=== PATIENT | female | born 1955 | race Caucasian/White ===

== ENCOUNTER → 2016-08-08 | Outpatient (REF) | payer OTHER ==
[~2016-08-08] MED LIST: /CARB4TA OR; /CARBXR20T OR; /ESOM40CA OR; /OMEP10CA OR; /QUET25TA OR; ACET500C PO; ACET65TA OR; BACL10TA2 OR; BISA10SU PO; BUSP7.5T3 PO; COLA100C2 OR; COMBIN INH; COPAXIN; COPAXIN SC; DOCU10ELUD PO; EFFE37.527 OR; FEVE325S RE; FLEEENE4 PR; FLON0.05; FLUTISP; HYDR25TA6 OR; LACT10SO8 PO; LASI20TA OR; LASIX PO; LYRI75CA PO; METAPOW PO; MOM30SS PO; MULTIVIT OR; NAPR375T OR; NAPR375T PO; OXYB5TAB5 OR; POLYBTL PO; PROZ20CA OR; PROZ20CA PO; RANI150C OR; SENN8.6T14 OR; SERO200T OR; TEGR200T PO; TIZA4TAB OR; VICO5TAB OR; ZEST20TA4 OR
[2016-08-08 10:08] LABS: BASO % 0.5 % (0.0-1.0); EOS # 0.3 K/mm3 (0.0-0.50); EOS % 4.8 % (0.0-3.0); LARGE UNSTAINED CELL # 0.1 K/mm3 (0.0-0.4); LYMPH # 1.4 K/mm3 (1.5-4.5); MEAN CORPUSCULAR HGB CONC 32.6 g/dl (32.0-36.5); MEAN CORPUSCULAR VOLUME 91.9 fl (80.0-96.0); MONO # 0.4 K/mm3 (0.0-0.8); NEUTROPHILS # 4.7 K/mm3 (1.8-7.7); NEUTROPHILS % 66.8 % (36.0-66.0); PLATELET COUNT, AUTOMATED 288 k/mm3 (150-450); RED CELL DISTRIBUTION WIDTH 13.4 % (11.5-14.5)
[2016-08-08 10:39] LABS: ALBUMIN 3.5 GM/DL (3.2-5.2); ALKALINE PHOSPHATASE 135 U/L (45-117); ALT/SGPT 18 U/L (12-78); ANION GAP 6 MEQ/L (8-16); AST/SGOT 14 U/L (15-37); BILIRUBIN,TOTAL 0.4 MG/DL (0.2-1.0); BLOOD UREA NITROGEN 10 MG/DL (7-18); CALCIUM LEVEL 8.4 MG/DL (8.8-10.2); CARBON DIOXIDE LEVEL 31 MEQ/L (21-32); CHLORIDE LEVEL 91 MEQ/L (98-107); CHOLESTEROL LEVEL 204 MG/DL (<200); CREATININE FOR GFR 0.56 MG/DL (0.55-1.02); GLOMERULAR FILTRATION RATE > 60.0 (>45); GLUCOSE, FASTING 83 MG/DL (80-110); POTASSIUM SERUM 4.8 MEQ/L (3.5-5.1); SODIUM LEVEL 128 MEQ/L (136-145); TOTAL PROTEIN 7.9 GM/DL (6.4-8.2); TRIGLYCERIDES LEVEL 142 MG/DL (<150)
== END ==
LOC: SKLABADC 08:49
PROVIDERS: ATTEND Family Medicine
DX: Z00.00 Encounter for general adult medical examination without abnormal findings (principal); E78.5 Hyperlipidemia, unspecified

== ENCOUNTER → 2016-12-17 | Outpatient (REF) | payer MEDICAID, OTHER ==
[2016-12-17 12:59] LABS: MEAN CORPUSCULAR HEMOGLOBIN 29.6 pg (27.0-33.0); MEAN CORPUSCULAR HGB CONC 32.9 g/dl (32.0-36.5); MEAN CORPUSCULAR VOLUME 90.1 fl (80.0-96.0); RED CELL DISTRIBUTION WIDTH 13.6 % (11.5-14.5); WHITE BLOOD COUNT 6.4 K/mm3 (4.0-10.0)
[2016-12-17 13:38] LABS: ALBUMIN 3.5 GM/DL (3.2-5.2); ALKALINE PHOSPHATASE 117 U/L (45-117); ALT/SGPT 22 U/L (12-78); ANION GAP 7 MEQ/L (8-16); AST/SGOT 16 U/L (15-37); BILIRUBIN,TOTAL 0.3 MG/DL (0.2-1.0); BLOOD UREA NITROGEN 13 MG/DL (7-18); CARBON DIOXIDE LEVEL 28 MEQ/L (21-32); CHLORIDE LEVEL 96 MEQ/L (98-107); CHOLESTEROL LEVEL 185 MG/DL (<200); CREATININE FOR GFR 0.63 MG/DL (0.55-1.02); GLOMERULAR FILTRATION RATE > 60.0 (>45); GLUCOSE, FASTING 130 MG/DL (80-110); POTASSIUM SERUM 4.4 MEQ/L (3.5-5.1); SODIUM LEVEL 131 MEQ/L (136-145); TOTAL PROTEIN 7.9 GM/DL (6.4-8.2); TRIGLYCERIDES LEVEL 271 MG/DL (<150)
== END ==
LOC: SKLABADC 11:43
PROVIDERS: ATTEND Nurse Practitioner Psychiatric/Mental Health
DX: Z79.899 Other long term (current) drug therapy (principal)

== ENCOUNTER → 2017-01-23 | Outpatient (CLI) | payer OTHER, MEDICAID ==
--- NOTE | 2017-01-24 02:14 | REP ---
Clinical: Left hip pain. Technique: Frontal view of the pelvis with neutral and frog lateral views of the right and left hip. Findings: Age-related osteopenia and moderate bilateral degenerative changes include joint space narrowing with subtle increase sclerosis and spurring along the acetabular roof. No acute fracture dislocation. No obvious periarticular calcifications. Surrounding soft tissues are unremarkable. Impression: Age-related osteopenia and mild/moderate bilateral degenerative changes. Signed by Nathan Montana MD 01/24/2017 02:05 A
== END ==
LOC: M RAD 09:53
PROVIDERS: ATTEND Family Medicine
DX: M25.552 Pain in left hip (principal)

== ENCOUNTER → 2017-03-24 | Outpatient (CLI) | payer MEDICAID ==
--- NOTE | 2017-03-24 12:05 | REPMRS ---
Patient History The patient states she has not had a clinical breast exam in over a year. Patient is postmenopausal. Family history of breast cancer in paternal grandmother. Digital Woman Screen Mammo: March 24, 2017 - Exam #: [id number] Bilateral CC and MLO view(s) were taken. Technologist: Mily Rivera, Technologist Prior study comparison: March 24, 2015, digital woman screen mammo performed at [facility]. June 21, 2013, bilateral digital mammo screening bilat, performed at [facility]. FINDINGS: There are scattered fibroglandular densities. There has been no change in the appearance of the mammogram from the prior studies. There is a mild amount of residual fibroglandular tissue which is fairly symmetric. There is no interval development of dominant mass, architectural distortion, or clustered microcalcification suggestive of malignancy. ASSESSMENT: BI-RADS/ACR category 1 mammogram. Negative. Recommendation Routine screening mammogram in 1 year (for women over age 40). This mammogram was interpreted with the aid of an FDA-approved computer-aided dectection system. Electronically Signed By: Diallo Paula MD 03/24/17 [id number]
--- NOTE | 2017-03-26 09:39 | DEXA ---
AP SPINE L1 - L4 1.151 -0.4 1.0 LT FEMUR TOTAL 0.716 -2.3 -1.3 RT FEMUR TOTAL 0.738 -2.1 -1.1 TOTAL BODY TOTAL OTHER COMMENTS: Normal bone densitometry of the spine. There is low bone density of the hips. The decreased density of the spine does not represent a significant change. The decreased density of the left hip does represent a significant change. The increased density of the right hip does represent a significant change. The density of the spine has increased 14.2% since the initial exam on 2009. The spine density has decreased 1.3% since the most recent exam on 03/24/2015. The density of the left hip has decreased 6.0% since the initial exam on 2009. The density of the left hip has decreased 6.3% since the most recent exam on . The density of the right hip has decreased 0.8% since the most recent exam on . The density of the right hip has increased 6.5% since the most recent exam on . FOLLOW-UP: Recommendation for the next bone density exam: 2 years. GERALD
== END ==
LOC: M WHC 10:39
PROVIDERS: ATTEND Family Medicine
DX: M85.80 Other specified disorders of bone density and structure, unspecified site (principal); Z13.820 Encounter for screening for osteoporosis; Z78.0 Asymptomatic menopausal state
CPT/HCPCS: 77080; G0202

== ENCOUNTER → 2017-04-10 | Outpatient (CLI) | payer MEDICAID | LOC: M RAD 12:10 | DX: J44.9 Chronic obstructive pulmonary disease, unspecified (principal) | CPT/HCPCS: 71046 ==

== ENCOUNTER → 2017-08-19 | Outpatient (CLI) | payer MEDICAID | LOC: M RAD 12:42 | DX: M47.9 Spondylosis, unspecified (principal); R09.89 Other specified symptoms and signs involving the circulatory and respiratory systems ==

== ENCOUNTER → 2017-08-19 | Outpatient (REF) | payer MEDICAID ==
[2017-08-19 14:13] LABS: ANION GAP 7 MEQ/L (8-16); BLOOD UREA NITROGEN 11 MG/DL (7-18); CALCIUM LEVEL 8.7 MG/DL (8.8-10.2); CARBON DIOXIDE LEVEL 29 MEQ/L (21-32); CHLORIDE LEVEL 96 MEQ/L (98-107); CREATININE FOR GFR 0.65 MG/DL (0.55-1.30); GLOMERULAR FILTRATION RATE > 60.0 (>45); GLUCOSE, FASTING 76 MG/DL (70-100); NT-PRO BNP 180 PG/ML (<125); POTASSIUM SERUM 4.7 MEQ/L (3.5-5.1); SODIUM LEVEL 132 MEQ/L (136-145)
== END ==
LOC: M SFHCPLAZ 11:02
DX: R60.0 Localized edema (principal)

== ENCOUNTER → 2018-03-26 | Outpatient (REF) | payer MEDICAID ==
[2018-03-27 12:00] LABS: AMORPHOUS SEDIMENT MODERATE (NEGATIVE); APPEARANCE, URINE TURBID (CLEAR); BACTERIA, URINE AUTO NEGATIVE (NEGATIVE); BILIRUBIN, URINE AUTO NEGATIVE (NEGATIVE); BLOOD, URINE BLOOD NEGATIVE (NEGATIVE); GLUCOSE, URINE (UA) AUTO NEGATIVE (NEGATIVE); KETONE, URINE AUTO TRACE mg/dL (NEGATIVE); LEUKOCYTE ESTERASE, URINE AUTO TRACE (NEGATIVE); NITRITE, URINE AUTO NEGATIVE (NEGATIVE); PROTEIN, URINE AUTO 2+ mg/dL (NEGATIVE); RBC, URINE AUTO 0 /HPF (0-3); SPECIFIC GRAVITY URINE AUTO 1.019 (1.002-1.035); SQUAMOUS EPITHELIAL CELL UR AU 0 /HPF (0-6); UROBILINOGEN, URINE AUTO 0.2 mg/dL (0.0-2.0); WBC, URINE AUTO 18 /HPF (0-3)
[2018-03-27 12:01] LABS: COLOR, URINE YELLOW (YELLOW)
== END ==
LOC: M SFHCPLAZ 11:36
PROVIDERS: ATTEND Family Medicine
DX: N39.0 Urinary tract infection, site not specified (principal)

== ENCOUNTER → 2018-03-26 | Outpatient (REF) | payer MEDICAID ==
[2018-03-26 17:24] LABS: BASO % 0.5 % (0.0-1.0); EOS # 0.4 10^3/uL (0.0-0.50); EOS % 5.2 % (0.0-3.0); HEMATOCRIT 36.2 % (36.0-47.0); HEMOGLOBIN 11.4 g/dl (12.0-15.5); LYMPH # 2.9 10^3/uL (1.5-4.5); LYMPH % 39.7 % (24.0-44.0); MEAN CORPUSCULAR HEMOGLOBIN 28.4 pg (27.0-33.0); MEAN CORPUSCULAR HGB CONC 31.5 g/dl (32.0-36.5); MEAN CORPUSCULAR VOLUME 90.3 fl (80.0-96.0); MONO # 0.6 10^3/uL (0.0-0.8); MONO % 8.2 % (0.0-5.0); NEUTROPHILS # 3.4 10^3/uL (1.8-7.7); NEUTROPHILS % 46.1 % (36.0-66.0); PLATELET COUNT, AUTOMATED 299 10^3/uL (150-450); RED BLOOD COUNT 4.01 10^6/uL (4.00-5.40); WHITE BLOOD COUNT 7.3 10^3/uL (4.0-10.0)
[2018-03-26 17:41] LABS: HEMOGLOBIN A1c 6.1 %
[2018-03-26 17:53] LABS: ALBUMIN 3.2 GM/DL (3.2-5.2); ALT/SGPT 19 U/L (12-78); BILIRUBIN,TOTAL 0.2 MG/DL (0.2-1.0); BLOOD UREA NITROGEN 12 MG/DL (7-18); CARBAMAZEPINE (TEGRETOL) LEVEL 16.3 UG/ML (4.0-10.0); CARBON DIOXIDE LEVEL 31 MEQ/L (21-32); CHLORIDE LEVEL 97 MEQ/L (98-107); CHOLESTEROL LEVEL 228 MG/DL (<200); CHOLESTEROL RISK RATIO 4.301 (<5); CREATININE FOR GFR 0.85 MG/DL (0.55-1.30); FREE T4 0.67 NG/DL (0.76-1.46); GLOMERULAR FILTRATION RATE > 60.0 (>45); GLUCOSE, FASTING 82 MG/DL (70-100); HDL CHOLESTEROL 53 MG/DL (>40); LDL CHOLESTEROL 142 MG/DL (<100); NON-HDL-C 175 MG/DL; POTASSIUM SERUM 4.4 MEQ/L (3.5-5.1); SODIUM LEVEL 134 MEQ/L (136-145); TOTAL PROTEIN 7.9 GM/DL (6.4-8.2); TRIGLYCERIDES LEVEL 166 MG/DL (<150)
== END ==
LOC: M SFHCPLAZ 16:00
PROVIDERS: ATTEND Family Medicine
DX: G40.909 Epilepsy, unspecified, not intractable, without status epilepticus (principal); E78.5 Hyperlipidemia, unspecified; S82.891D Other fracture of right lower leg, subsequent encounter for closed fracture with routine healing; W18.30XD Fall on same level, unspecified, subsequent encounter; Y92.009 Unspecified place in unspecified non-institutional (private) residence as the place of occurrence of the external cause

== ENCOUNTER 2018-04-29 11:04 | Inpatient (IN) | payer MEDICAID, OTHER ==
[~2018-04-29] VITALS: Ht 172.7 cm; Wt 84.6 kg
[2018-04-29] MEDS ORDERED: MODA100T13 PO (12:04)
[2018-04-29] MEDS ORDERED: FLUO20CA19 PO (12:04)
[2018-04-29] MEDS ORDERED: GABA-843 PO (12:04)
[2018-04-29] MEDS ORDERED: OXYB5TAB10 PO (12:04)
[2018-04-29] MEDS ORDERED: FURO20TA2 PO (12:04)
[2018-04-29] MEDS ORDERED: DIAZ5TAB PO (12:04)
[2018-04-29] MEDS ORDERED: TIZA4CAP PO (12:04)
[2018-04-29] MEDS ORDERED: CARB1TAB20 PO ×2 (12:04→16:07)
[2018-04-29] MEDS ORDERED: PANT40TA3 PO (12:04)
[2018-04-29] MEDS ORDERED: CARB10TACH PO (12:04)
[2018-04-29] MEDS ORDERED: POTA10808 PO (12:04)
[2018-04-29] MEDS ORDERED: QUET5TAB PO (12:04)
[2018-04-29] MEDS ORDERED: METH75TA PO (12:04)
[2018-04-29] MEDS ORDERED: NS 1,000 ML IV ONE (13:00)
[2018-04-29 13:08] LABS: BASO % 0.2 % (0.0-1.0); EOS % 0.3 % (0.0-3.0); HEMATOCRIT 41.9 % (36.0-47.0); HEMOGLOBIN 13.8 g/dl (12.0-15.5); LYMPH % 17.8 % (24.0-44.0); MEAN CORPUSCULAR HEMOGLOBIN 28.7 pg (27.0-33.0); MEAN CORPUSCULAR HGB CONC 32.9 g/dl (32.0-36.5); MEAN CORPUSCULAR VOLUME 87.1 fl (80.0-96.0); MONO % 9.4 % (0.0-5.0); NEUTROPHILS # 7.9 10^3/uL (1.8-7.7); PLATELET COUNT, AUTOMATED 326 10^3/uL (150-450); RED BLOOD COUNT 4.81 10^6/uL (4.00-5.40)
[2018-04-29 13:14] LABS: ALBUMIN 3.4 GM/DL (3.2-5.2); ALT/SGPT 50 U/L (12-78); BILIRUBIN,DIRECT 0.2 MG/DL (0.0-0.2); BILIRUBIN,TOTAL 0.6 MG/DL (0.2-1.0); BLOOD UREA NITROGEN 26 MG/DL (7-18); CALCIUM LEVEL 8.7 MG/DL (8.8-10.2); CARBON DIOXIDE LEVEL 28 MEQ/L (21-32); CHLORIDE LEVEL 96 MEQ/L (98-107); CPK CREATINE PHOSPHOKINASE 401 U/L (26-192); CREATININE FOR GFR 0.87 MG/DL (0.55-1.30); GLOMERULAR FILTRATION RATE > 60.0 (>45); GLUCOSE, FASTING 126 MG/DL (70-100); LIPASE 61 U/L (73-393); MB/CK RELATIVE INDEX 1.42 (< OR =4); POTASSIUM SERUM 3.8 MEQ/L (3.5-5.1); SODIUM LEVEL 133 MEQ/L (136-145); TOTAL PROTEIN 8.5 GM/DL (6.4-8.2); TROPONIN I < 0.02 NG/ML (< 0.10)
[2018-04-29] MEDS ORDERED: ISOVUE-370 76% 100ML VIAL (Q9967) As Ordered ONE (13:30)
--- NOTE | 2018-04-29 13:42 | REP ---
Chest one-view HISTORY: Hypoxia Comparison: 08/19/2017 There is poor inspiratory effort. A diffuse increase in interstitial markings is present in the lungs consistent with chronic interstitial fibrosis. The heart is normal in size. The pulmonary vasculature is normal in appearance. Impression: Chronic interstitial fibrosis. Electronically Signed by Bhanu Oliver MD 04/29/2018 01:33 P
--- NOTE | 2018-04-29 14:37 | REP ---
CT abdomen and pelvis with IV contrast: History: Distended abdomen. Comparison CT study January 27, 2012. CT contrast dose: 100 mL of intravenous Isovue 370. Findings: Preliminary digital door opener radiograph shows marked gaseous distension of the colon consistent with a left colonic obstruction. Colonic distension is on the order of 10 cm in transverse dimension. CT images demonstrate evidence of COPD in the lung bases with some honeycombing and fibrosis. There is an air-fluid level in the otherwise fluid-filled and dilated distal esophagus consistent with reflux. The stomach is not dilated. The liver and spleen are normal in size and homogeneous in texture. No abnormality noted in the gallbladder. Pancreas is unremarkable. No adrenal lesion is seen. There is some renal cortical parenchymal scarring in the upper pole on the left. No intrarenal mass is seen. No hydronephrosis is seen. There is evidence of left colonic obstruction. There is a mesenteric whirl sign in the right lower abdomen demonstrating a volvulus involving the sigmoid colon. Distal to the whirl sign the rectum and rectosigmoid are empty. Proximal to this the colon is markedly dilated. There is a beak like appearance at the level of the obstruction. No colonic mass lesion is seen. There is no evidence of free intraperitoneal air. There are three opacities adjacent to one another in the lumen of the cecum consistent with undigested tablets. There is mild ascitic fluid visible in the left pericolic gutter and in the subhepatic space and pericolic region on the right. No uterine or urinary bladder abnormality. Impression: Acute severe distal left colon obstruction in the form of sigmoid volvulus with marked dilation of the proximal large bowel. No free air. There is mild ascites visible in the left pericolic gutter and in the right flank and subhepatic space. Electronically Signed by Chava Estes MD 04/29/2018 05:17 P
[2018-04-29] MEDS ORDERED: LIQUID POLIBAR PLUS 105% w/v 1900ML BTL As Ordered ONE (15:05)
[2018-04-29] MEDS ORDERED: fentaNYL 100 MCG/2 ML INJECTION (J3010) As Ordered ONE ×2 (15:56→18:13)
[2018-04-29] MEDS ORDERED: dexameTHASONE 4 MG/ML 1ML VIAL (J1100) As Ordered ONE (15:56)
[2018-04-29] MEDS ORDERED: MIDAZOLAM INJ 2 MG/2 ML VIAL (J2250) As Ordered ONE (15:56)
[2018-04-29] MEDS ORDERED: LIDOCAINE 2% INJ 100 MG/5 ML SDV (FOR ANES.) As Ordered ONE (15:56)
[2018-04-29] MEDS ORDERED: ROCURONIUM BROMIDE 50 MG/5 ML VIAL As Ordered ONE ×2 (15:56→18:58)
[2018-04-29] MEDS ORDERED: PROPOFOL 200 MG/20 ML VIAL As Ordered ONE (15:56)
[2018-04-29] MEDS ORDERED: ACET1TAB55 PO (16:07)
[2018-04-29] MEDS ORDERED: DOCU100C16 PO (16:07)
[2018-04-29] MEDS ORDERED: FLUO20TA28 PO (16:07)
[2018-04-29] MEDS ORDERED: TIZA6CAP6 PO (16:09)
[2018-04-29] MEDS ORDERED: VITMTA PO (16:12)
[2018-04-29] MEDS ORDERED: cefoTEtan INJ 2GM VIAL (S0074 PER 500MG) As Ordered ONE ×2 (16:27→16:46)
--- NOTE | 2018-04-29 17:22 | REP ---
SINGLE CONTRAST BARIUM ENEMA The procedure was performed under the personal supervision of Dr. Estes. Liquid barium was instilled into the colon and retrograde flow. There is filling of the rectum to the level of the superior sacrum. There is a beaking sign with dilated bowel proximally which is consistent with a volvulus. Impression: There is filling of the rectum to the level of the superior sacrum. There is a beaking sign with dilated bowel proximally which is consistent with a volvulus. 0.4 minutes of fluoroscopy time was utilized for this procedure. Reviewed by ADONAY Dumont 04/29/2018 03:43 P Electronically Signed by Chava Estes MD 04/29/2018 05:13 P
--- NOTE | 2018-04-29 17:54 | ECGEPIP ---
Stationary ECG Study [facility] - ED Test Date: 2018-04-29 Pat Name: CHARITY ALLEN Department: Room: - Gender: F [employer]working [employer] [facility] 1955 Requested By: [place] Order Number: [id number] Reading MD: Elo [place] Measurements Intervals [place] Rate: 105 P: 28 AL: 168 QRS: 14 QRSD: 92 T: 22 QT: 333 QTc: 442 Interpretive Statements SINUS TACHYCARDIA PRWP MINIMAL ST DEPRESSION ABNORMAL RHYTHM ECG Electronically Signed On 04-29-2018 17:54:03 EST by Elo Park
[2018-04-29] MEDS ORDERED: SUCCINYLCHOLINE 100 MG/5 ML SYRINGE (J0330) As Ordered ONE (18:03)
[2018-04-29] MEDS ORDERED: HYDROmorphone HCL 2 MG/ML 1ML VIAL (J1170) As Ordered ONE (19:17)
[2018-04-29 20:50] VITALS: BP 176/83
[2018-04-29] MEDS ORDERED: LABETALOL HCL 100 MG/20 ML VIAL As Ordered ONE (20:53)
[2018-04-29] MEDS: LABETALOL HCL 100 MG/20 ML VIAL IV SCH ×4 (20:55→21:17)
[2018-04-29] MEDS: GABAPENTIN 300 MG CAP PO SCH (21:00)
[2018-04-29] MEDS ORDERED: carBAMazepine 200 MG TAB PO SCH (21:00)
[2018-04-29] MEDS ORDERED: PERCOCET 5MG/325MG TAB PO PRN (21:15)
[2018-04-29] MEDS ORDERED: HYDROMORPHONE HCL 0.5 MG/ 0.5 ML SYRINGE (J1170 PER 1) IV PRN (21:15)
[2018-04-29] MEDS ORDERED: fentaNYL 100 MCG/2 ML INJECTION (J3010) IV PRN (21:15)
[2018-04-29] MEDS ORDERED: METOPROLOL 5 MG/5 ML VIAL IV SCH (21:15)
[2018-04-29] MEDS ORDERED: ONDANSETRON 4MG/2ML VIAL (J2405) IV PRN (21:15)
[2018-04-29] MEDS ORDERED: LR 1,000 ML IV SCH (21:15)
[2018-04-29] MEDS ORDERED: hydrALAZINE INJ 20 MG/ML VIAL IV SCH (21:15)
[2018-04-29 21:17] VITALS: BP 164/79
[2018-04-29] MEDS: NS 1,000 ML IV SCH (21:42)
[2018-04-29 22:30] VITALS: BP 143/79
[2018-04-29] MEDS: metroNIDAZOLE 500 MG in APPROPRIATE DILUENT 1 EA IV SCH (22:54)
[2018-04-29 23:00] VITALS: BP 153/84
[2018-04-30] VITALS (8 sets, daily range): BP systolic 104–184; BP diastolic 46–93
[2018-04-30] MEDS: CIPROFLOXACIN 400 MG in APPROPRIATE DILUENT 1 EA IV SCH ×2 (00:41→12:20)
[2018-04-30] MEDS: KETOROLAC 30 MG/ML VIAL (J1885) IV PRN ×2 (02:13→10:18)
[2018-04-30] MEDS: MORPHINE 4 MG/ML 1ML VIAL/SYRINGE (J2270) IV PRN ×2 (03:54→06:34)
[2018-04-30] MEDS: metroNIDAZOLE 500 MG in APPROPRIATE DILUENT 1 EA IV SCH ×3 (06:34→22:24)
[2018-04-30 06:41] LABS: HEMATOCRIT 43.2 % (36.0-47.0); HEMOGLOBIN 13.8 g/dl (12.0-15.5); MEAN CORPUSCULAR HEMOGLOBIN 28.4 pg (27.0-33.0); MEAN CORPUSCULAR HGB CONC 31.9 g/dl (32.0-36.5); MEAN CORPUSCULAR VOLUME 88.9 fl (80.0-96.0); PLATELET COUNT, AUTOMATED 334 10^3/uL (150-450); RED BLOOD COUNT 4.86 10^6/uL (4.00-5.40)
[2018-04-30] MEDS: METHOCARBAMOL 750 MG TAB PO SCH ×4 (06:56→16:08)
[2018-04-30] MEDS: NS 1,000 ML IV SCH ×3 (06:57→20:27)
--- NOTE | 2018-04-30 07:03 | RO ---
DATE OF PROCEDURE: 04/29/2018 PREOPERATIVE DIAGNOSIS: Sigmoid volvulus. Is to remove this. POSTOPERATIVE DIAGNOSIS: Sigmoid volvulus. PROCEDURE: Colonoscopy followed by exploratory laparotomy with sigmoid resection and diverting ileostomy. SURGEON: Dr. Diallo Flores SQUEEGEE OPERATOR: Dr. Son, who assisted in mobilization of the colon, low anastomosis end-to-end, as well as, diverting ileostomy. ANESTHESIA: General. ESTIMATED BLOOD LOSS: 100 mL. COMPLICATIONS: None. INDICATION FOR PROCEDURE: The patient is a 62-year-old female with sigmoid volvulus. Recommendation is to proceed with a colonoscopy and possible exploratory laparotomy if that is unsuccessful. Risks and benefits of the procedure not limited to, but including bleeding, infection, hernia formation, damage to surrounding structures, need for further surgery were discussed in detail with the patient and informed consent was obtained and the procedure was planned. DESCRIPTION OF PROCEDURE: The patient was brought back to operating room six. After sufficient sedation she was placed in the frog-leg position. Colonoscope was passed through the rectum into the sigmoid volvulus where there was a large amount of thick stool identified. I attempted irrigation and removal of the stool for about 30 minutes and was unsuccessful. It could not get beyond this point up into the descending colon. Therefore, recommendation was to stop and proceed with exploratory laparotomy. The patient was then prepped. She had NG tube placed as well as a Masterson. She was placed in lithotomy position. The abdomen was sterilely prepped and draped. Once this was completed, a time out was done again to confirm proper patient and proper procedure. Following that, a midline incision was made. The abdomen was entered. Once upon entering the abdomen, loops of transverse colon was sitting right at the level of the umbilicus. It was about 10 cm in diameter. A small pursestring suture was placed with a #2-0 silk suture followed by a small colotomy to decompress the colon. Once the transverse colon was desufflated, a pursestring suture was tied followed by three interrupted Lembert stitches to close the incision. Once that was completed, the sigmoid was able to be reached. It was also extremely distended and too difficult to mobilize out the abdomen. The same process was done to decompress the sigmoid. Once this was completed, the sigmoid was able to be exteriorized out of the abdomen. There was a band of tissue going across the terminal ileum and across the mesentery causing the twist. This band of tissue was released. Next, at the rectosigmoid junction, I created a small opening in the mesentery. I then used a DANNIE 100 stapler with a blue load to staple across and transect it. The mesentery of the sigmoid colon was then transected proximally all way to level of the descending colon. The sigmoid was very edematous and swollen from being distended. The descending colon appeared to be nice and viable. Another DANNIE 100 stapler was used there to amputate that as well. Once that was completed, the anvil for an EEA 29 stapler was placed in the end of the descending colon and brought out through the staple line. A couple of pursestring sutures were placed around that as well to help hold that in place. Once this was completed, Dr. Son went below and dilated through the rectum once then brought in the end of the EEA stapler. We connected the anvil to the spike and created the anastomosis. We had two solid donuts that were completely intact. We placed a layer of Tisseel around the anastomosis exteriorly as well as a 19-Bengali Stanton drain was placed on top of it. The Stanton drain was brought out through a stab incision in the left lower abdomen and sutured in place with a silk suture. Once this was completed, the terminal ileum was identified and traced back about 20 cm and found a location in the right midabdomen and I created an incision, a circular incision in the skin through the subcutaneous fat and removed that. I created a vertical incision in the fascia through the muscle layers and inside the abdomen and brought out the loop of terminal ileum through the fascia and out to the skin. I held this in place with a Howells while we closed the fascia at the midline incision using a running looped PDS suture. Once that was completed, the skin incision was closed with maynor. The ostomy spike was then placed through the mesentery to hold that up in place and the diverting ostomy was matured using interrupted #3-0 Vicryl sutures. Once this was all completed, the abdomen was cleaned and dried. Ostomy appliance was applied. 4x4 dressings were placed. The patient was then awakened from anesthesia and sent to the postanesthesia care unit (PACU) in stable condition.
[2018-04-30 07:04] LABS: ALBUMIN 2.3 GM/DL (3.2-5.2); ALT/SGPT 29 U/L (12-78); BILIRUBIN,TOTAL 0.7 MG/DL (0.2-1.0); BLOOD UREA NITROGEN 23 MG/DL (7-18); CALCIUM LEVEL 7.7 MG/DL (8.8-10.2); CARBON DIOXIDE LEVEL 29 MEQ/L (21-32); CHLORIDE LEVEL 101 MEQ/L (98-107); CREATININE FOR GFR 0.86 MG/DL (0.55-1.30); GLOMERULAR FILTRATION RATE > 60.0 (>45); GLUCOSE, FASTING 130 MG/DL (70-100); POTASSIUM SERUM 5.1 MEQ/L (3.5-5.1); SODIUM LEVEL 136 MEQ/L (136-145); TOTAL PROTEIN 6.1 GM/DL (6.4-8.2)
--- NOTE | 2018-04-30 08:57 | REP ---
REPEAT DICTATION PORTABLE CHEST X-RAY: Single view. 04/29/2018, 10:44 p.m. HISTORY: NG tube placement. Preliminary report is provided at the time of exam by virtual radiology. COMPARISON STUDY: April 26, 2018 01:26 p.m.. FINDINGS: A nasogastric tube is seen terminating in the distal esophagus just above the gastroesophageal junction. There is air in the distal esophagus around the tube. Diffuse interstitial fibrosis pattern is seen in the lung napoles. Mildly prominent heart. Dilated bowel loops in the upper abdomen. IMPRESSION: NG tube in the distal esophagus just above the GE junction. Electronically Signed by Chava Estes MD 04/30/2018 11:25 A
[2018-04-30] MEDS ORDERED: QUEtiapine FUMARATE 50 MG TAB PO SCH (09:00)
[2018-04-30] MEDS ORDERED: DULE100A INH (09:19)
[2018-04-30] MEDS ORDERED: PROAAER10 INH (09:19)
[2018-04-30] MEDS ORDERED: QUET1TAB9 PO (09:19)
[2018-04-30] MEDS ORDERED: COPA1INJ SC (09:19)
[2018-04-30] MEDS ORDERED: SENN1TAB2 PO (09:19)
[2018-04-30] MEDS ORDERED: IPRAINH INH (09:19)
[2018-04-30] MEDS ORDERED: PILL CRUSHER/CUTTER 1 EACH XX PRN (09:45)
[2018-04-30] MEDS: FUROSEMIDE 20 MG TAB PO SCH (10:13)
[2018-04-30] MEDS: FLUoxetine 20 MG CAP PO SCH (10:13)
[2018-04-30] MEDS: HEPARIN SOD (PORCINE) 5000 UNITS/ML VIAL SC SCH ×2 (10:13→20:26)
[2018-04-30] MEDS: tiZANidine 4 MG TAB PO SCH ×3 (10:13→20:25)
[2018-04-30] MEDS: GABAPENTIN 300 MG CAP PO SCH ×3 (10:13→20:25)
[2018-04-30] MEDS: carBAMazepine 200 MG TAB PO SCH (10:14)
[2018-04-30] MEDS: PANTOPRAZOLE 40MG INJ (PROTONIX) (C9113) IV SCH (10:14)
[2018-04-30] MEDS: oxyBUTYnin 5 MG TAB PO SCH ×2 (10:14→20:26)
[2018-04-30] MEDS: diazePAM 5 MG TAB PO SCH (10:14)
[2018-04-30] MEDS: carBAMazepine 100 MG *1/2* TAB PO SCH ×3 (10:30→20:26)
[2018-04-30] MEDS ORDERED: NS 1,000 ML IV ONE (10:30)
--- NOTE | 2018-04-30 12:53 | IPNPDOC ---
Text Note Date of Service The patient was seen on 04/30/18. NOTE No current complaints. She still has some abdominal tenderness and nausea, but it is much improved from yesterday. She has not tried to get out of bed yet, and she is taking the water and ice without a problem. VSSAF NAD abd - soft, TTP diffuse, less distended, incisions c/d/i, ostomy is pink and patent, amaris drain with serosanguinous output. labs - below A) 62y/o female s/p sigmoidectomy with diverting ileostomy for sigmoid volvulus P) NGT to LIS heparin SQ sips and chips ambulate PT eval and treat NS bolus for low urine output will follow Juancho Flores DO VS,Елена, I+O VSЕлена I+O Laboratory Tests 04/30/18 06:06 Red Blood Count 4.86, Mean Corpuscular Volume 88.9, Mean Corpuscular Hemoglobin 28.4, Mean Corpuscular Hemoglobin Concent 31.9 L, Red Cell Distribution Width 16.2 H, Calcium Level 7.7 L, Aspartate Amino Transf (AST/SGOT) 44 H, Alanine Aminotransferase (ALT/SGPT) 29, Alkaline Phosphatase 79, Total Bilirubin 0.7, Total Protein 6.1 #L, Albumin 2.3 #L Vital Signs Date Time Temp Pulse Resp B/P (MAP) Pulse Ox O2 Delivery O2 Flow Rate FiO2 04/30/18 08:00 98.9 107 20 184/81 (115) 90 Nasal Cannula 4.0 I&O- Last 24 Hours up to 6 AM 04/30/18 06:00 Intake Total 4600 ml Output Total 765 ml Balance 3835 ml DONATO FLORES DO Apr 30, 2018 12:53
--- NOTE | 2018-04-30 13:02 | HPE ---
DATE OF ADMISSION: 04/29/2018 CHIEF COMPLAINT: Abdominal pain. HISTORY OF PRESENT ILLNESS: The patient is 62-year-old female who presents with a history of nausea, vomiting, abdominal pains that have been going on for about 6 days. She is not passing gas or had a bowel movement in 6 days. The pains have be getting progressively worse along with increasing distension of the abdomen. Because of this she came into the emergency room today. She did have a fever at home also. She is complaining of pain. Laboratories were slightly abnormal with a white count of 11, otherwise her chemistries and lactic acid were within normal range. CT of the abdomen and pelvis showed signs of a likely sigmoid volvulus and because of that I was called to evaluate. She denies any surgery to her colon in the past. She has had normal colonoscopy but it was at least 10 years ago. She does have chronic constipation because of her multiple sclerosis. She does take Colace for it regularly but still has difficulty with that. This in the first time she has had any type of obstructive symptoms. I asked radiology to attempt to fix this using a barium enema because of that recommendation was to proceed with an operation. PAST MEDICAL HISTORY: 1. Multiple sclerosis. 2. Hyperlipidemia. PAST SURGICAL HISTORY 1. Tubal ligation. 2. Knee surgery. ALLERGIES: None. HOME MEDICATIONS: Please see medication reconciliation. SOCIAL HISTORY: Denies drug, alcohol, tobacco abuse. FAMILY HISTORY: Family history is noncontributory. REVIEW OF SYSTEMS: Pertinent positives and negatives stated in the history of present illness. PHYSICAL EXAMINATION: Alert and oriented (A and O) x3. No acute stress. VITALS: Temperature 98.1, pulse 97, respirations 20, blood pressure 206/105, pulse oximetry 96% on 2 liters nasal cannula. HEENT: Pupils equally round react to light accommodation. HEART: S1, S2 regular rate and rhythm. LUNGS: Clear to auscultation bilaterally. ABDOMEN: Soft, extremely distended and tympanic. Diffuse tenderness throughout. EXTREMITIES: Bilateral lower extremity pitting edema. LABORATORY DATA: White count 11, hemoglobin 13.8, platelets 326, potassium 3.8 carbon dioxide 28, creatinine 0.87, lactic acid 1.2. IMAGING STUDIES: CT abdomen and pelvis shows acute severe distal left colon obstruction in the form of a sigmoid volvulus with marked dilation of the proximal large bowel. No free air. There is mild ascites visible in the left pericolic gutter and in the right flank and subhepatic place. ASSESSMENT/PLAN: The patient is a 62-year-old female with acute sigmoid volvulus. The recommendation is to proceed with attempted colonoscopic decompression and if that is unsuccessful, then an exploratory laparotomy. Postoperatively, we will keep her in the hospital for a few days, IV fluids, antibiotics. Once she is tolerating diet, she will be able to be discharged home successfully. GERALD
[2018-04-30] MEDS: MODAFINIL 100 MG TABLET PO SCH (16:08)
[2018-04-30] MEDS: QUEtiapine FUMARATE 100 MG TAB PO SCH (20:24)
[2018-04-30] MEDS: NORCO, ANEXSIA 5/325MG TABLET (HYDROcodone/ACETAMINOPHEN) PO PRN (20:26)
[2018-05-01] VITALS: BP 103/49
[2018-05-01] MEDS: CIPROFLOXACIN 400 MG in APPROPRIATE DILUENT 1 EA IV SCH ×2 (00:55→12:54)
[2018-05-01] MEDS: METHOCARBAMOL 750 MG TAB PO SCH ×4 (00:55→17:33)
[2018-05-01 06:00] VITALS: BP 144/68
[2018-05-01 06:12] LABS: HEMATOCRIT 31.4 % (36.0-47.0); MEAN CORPUSCULAR HEMOGLOBIN 28.3 pg (27.0-33.0); MEAN CORPUSCULAR HGB CONC 31.8 g/dl (32.0-36.5); RED BLOOD COUNT 3.53 10^6/uL (4.00-5.40); WHITE BLOOD COUNT 9.4 10^3/uL (4.0-10.0)
[2018-05-01 06:18] LABS: PLATELET COUNT, AUTOMATED 212 10^3/uL (150-450)
[2018-05-01 06:34] LABS: ALBUMIN 2.1 GM/DL (3.2-5.2); ALT/SGPT 20 U/L (12-78); BILIRUBIN,TOTAL 0.5 MG/DL (0.2-1.0); BLOOD UREA NITROGEN 24 MG/DL (7-18); CALCIUM LEVEL 7.6 MG/DL (8.8-10.2); CARBON DIOXIDE LEVEL 28 MEQ/L (21-32); CHLORIDE LEVEL 105 MEQ/L (98-107); CREATININE FOR GFR 0.73 MG/DL (0.55-1.30); GLOMERULAR FILTRATION RATE > 60.0 (>45); GLUCOSE, FASTING 88 MG/DL (70-100); POTASSIUM SERUM 5.3 MEQ/L (3.5-5.1); SODIUM LEVEL 137 MEQ/L (136-145); TOTAL PROTEIN 5.7 GM/DL (6.4-8.2)
[2018-05-01] MEDS: metroNIDAZOLE 500 MG in APPROPRIATE DILUENT 1 EA IV SCH ×3 (06:40→21:11)
[2018-05-01] MEDS: NS 1,000 ML IV SCH ×2 (06:40→12:58)
[2018-05-01] MEDS: KETOROLAC 30 MG/ML VIAL (J1885) IV PRN (06:41)
[2018-05-01 09:00] VITALS: BP 115/64
[2018-05-01] MEDS ORDERED: NS 1,000 ML IV ONE (09:45)
--- NOTE | 2018-05-01 10:06 | IPNPDOC ---
Text Note Date of Service The patient was seen on 05/01/18. NOTE No current complaints. She still has some abdominal tenderness and nausea. She was out of bed to a chair yesterday, but it took 3 people to get her back in bed. Ostomy is having good output, and her abdomen is less distended. VSSAF NAD abd - soft, TTP diffuse, less distended, incisions c/d/i, ostomy is pink and patent with stool in bag, amaris drain with serosanguinous output. labs - below A) 62y/o female s/p sigmoidectomy with diverting ileostomy for sigmoid volvulus hyperkalemia P) clamp NGT heparin SQ clq diet ambulate PT NS bolus for low urine output and hyperkalemia will follow Juancho Flores DO VS,Елена, I+O VSЕлена, I+O Laboratory Tests 05/01/18 05:54 Red Blood Count 3.53 L, Mean Corpuscular Volume 89.0, Mean Corpuscular Hemoglobin 28.3, Mean Corpuscular Hemoglobin Concent 31.8 L, Red Cell Distributi on Width 16.6 H 05/01/18 05:55 Calcium Level 7.6 L, Aspartate Amino Transf (AST/SGOT) 25, Alanine Aminotransferase (ALT/SGPT) 20, Alkaline Phosphatase 73, Total Bilirubin 0.5, T otal Protein 5.7 L, Albumin 2.1 L Vital Signs Date Time Temp Pulse Resp B/P (MAP) Pulse Ox O2 Delivery O2 Flow Rate FiO2 05/01/18 06:00 98.7 91 19 144/68 (93) 99 Nasal Cannula 2.0 I&O- Last 24 Hours up to 6 AM 05/01/18 05:59 Intake Total 3670 ml Output Total 620 ml Balance 3050 ml DONATO FLORES DO May 01, 2018 10:05
[2018-05-01] MEDS ORDERED: FUROSEMIDE 40 MG/4 ML VIAL (J1940) IV ONE (10:15)
[2018-05-01 10:34] VITALS: BP 149/72
[2018-05-01] MEDS: PANTOPRAZOLE 40MG INJ (PROTONIX) (C9113) IV SCH (10:38)
[2018-05-01] MEDS: HEPARIN SOD (PORCINE) 5000 UNITS/ML VIAL SC SCH ×2 (10:38→21:12)
[2018-05-01] MEDS: carBAMazepine 200 MG TAB PO SCH (10:39)
[2018-05-01] MEDS: GABAPENTIN 300 MG CAP PO SCH ×3 (10:39→21:13)
[2018-05-01] MEDS: FLUoxetine 20 MG CAP PO SCH (10:39)
[2018-05-01] MEDS: carBAMazepine 100 MG *1/2* TAB PO SCH ×3 (10:39→21:12)
[2018-05-01] MEDS: MODAFINIL 100 MG TABLET PO SCH (10:39)
[2018-05-01] MEDS: tiZANidine 4 MG TAB PO SCH ×3 (10:40→21:13)
[2018-05-01] MEDS: diazePAM 5 MG TAB PO SCH (10:40)
[2018-05-01] MEDS: oxyBUTYnin 5 MG TAB PO SCH ×2 (10:40→21:12)
[2018-05-01] MEDS: FUROSEMIDE 20 MG TAB PO SCH (10:48)
[2018-05-01] MEDS: NORCO, ANEXSIA 5/325MG TABLET (HYDROcodone/ACETAMINOPHEN) PO PRN ×2 (10:48→17:32)
[2018-05-01 14:00] VITALS: BP 114/60
[2018-05-01] MEDS: QUEtiapine FUMARATE 100 MG TAB PO SCH (21:12)
[2018-05-01 22:00] VITALS: BP 125/65
[2018-05-02] MEDS: METHOCARBAMOL 750 MG TAB PO SCH ×5 (00:07→23:35)
[2018-05-02] MEDS: NS 1,000 ML IV SCH ×3 (00:07→12:22)
[2018-05-02] MEDS: CIPROFLOXACIN 400 MG in APPROPRIATE DILUENT 1 EA IV SCH ×2 (00:08→12:21)
[2018-05-02 06:00] VITALS: BP 141/66
[2018-05-02] MEDS: metroNIDAZOLE 500 MG in APPROPRIATE DILUENT 1 EA IV SCH ×3 (06:28→23:28)
[2018-05-02 06:36] LABS: HEMATOCRIT 30.2 % (36.0-47.0); HEMOGLOBIN 9.5 g/dl (12.0-15.5); MEAN CORPUSCULAR HEMOGLOBIN 28.3 pg (27.0-33.0); MEAN CORPUSCULAR HGB CONC 31.5 g/dl (32.0-36.5); MEAN CORPUSCULAR VOLUME 89.9 fl (80.0-96.0); PLATELET COUNT, AUTOMATED 217 10^3/uL (150-450); RED BLOOD COUNT 3.36 10^6/uL (4.00-5.40); WHITE BLOOD COUNT 9.3 10^3/uL (4.0-10.0)
[2018-05-02 06:40] LABS: ALT/SGPT 16 U/L (12-78); BILIRUBIN,TOTAL 0.3 MG/DL (0.2-1.0); BLOOD UREA NITROGEN 13 MG/DL (7-18); CALCIUM LEVEL 7.5 MG/DL (8.8-10.2); CARBON DIOXIDE LEVEL 28 MEQ/L (21-32); CHLORIDE LEVEL 104 MEQ/L (98-107); CREATININE FOR GFR 0.62 MG/DL (0.55-1.30); GLOMERULAR FILTRATION RATE > 60.0 (>45); GLUCOSE, FASTING 93 MG/DL (70-100); POTASSIUM SERUM 3.9 MEQ/L (3.5-5.1); SODIUM LEVEL 138 MEQ/L (136-145); TOTAL PROTEIN 5.9 GM/DL (6.4-8.2)
[2018-05-02] MEDS: diazePAM 5 MG TAB PO SCH (09:30)
[2018-05-02] MEDS: GABAPENTIN 300 MG CAP PO SCH ×3 (09:31→23:33)
[2018-05-02] MEDS: FUROSEMIDE 20 MG TAB PO SCH (09:31)
[2018-05-02] MEDS: carBAMazepine 100 MG *1/2* TAB PO SCH ×2 (09:31→17:57)
[2018-05-02] MEDS: tiZANidine 4 MG TAB PO SCH ×2 (09:31→17:57)
[2018-05-02] MEDS: MODAFINIL 100 MG TABLET PO SCH (09:31)
[2018-05-02] MEDS: carBAMazepine 200 MG TAB PO SCH (09:31)
[2018-05-02] MEDS: oxyBUTYnin 5 MG TAB PO SCH ×2 (09:31→23:34)
[2018-05-02] MEDS: PANTOPRAZOLE 40MG INJ (PROTONIX) (C9113) IV SCH (09:32)
[2018-05-02] MEDS: FLUoxetine 20 MG CAP PO SCH (09:32)
[2018-05-02] MEDS: HEPARIN SOD (PORCINE) 5000 UNITS/ML VIAL SC SCH ×2 (09:32→23:33)
[2018-05-02] MEDS: NORCO, ANEXSIA 5/325MG TABLET (HYDROcodone/ACETAMINOPHEN) PO PRN ×2 (12:21→17:58)
[2018-05-02 14:00] VITALS: BP 147/77
[2018-05-02 20:45] VITALS: BP 182/98
[2018-05-02] MEDS: MORPHINE 4 MG/ML 1ML VIAL/SYRINGE (J2270) IV PRN (21:09)
[2018-05-02] MEDS: LR 1,000 ML IV SCH (23:28)
[2018-05-02] MEDS: QUEtiapine FUMARATE 100 MG TAB PO SCH (23:35)
[2018-05-03] MEDS: carBAMazepine 100 MG *1/2* TAB PO SCH ×4 (00:15→20:44)
[2018-05-03] MEDS: MORPHINE 4 MG/ML 1ML VIAL/SYRINGE (J2270) IV PRN ×4 (00:22→20:56)
[2018-05-03] MEDS: CIPROFLOXACIN 400 MG in APPROPRIATE DILUENT 1 EA IV SCH ×2 (00:42→13:00)
[2018-05-03] MEDS: ONDANSETRON 4MG/2ML VIAL (J2405) IV PRN ×2 (05:57→15:47)
[2018-05-03] MEDS: METHOCARBAMOL 750 MG TAB PO SCH ×3 (05:58→17:31)
[2018-05-03] MEDS: metroNIDAZOLE 500 MG in APPROPRIATE DILUENT 1 EA IV SCH ×3 (05:58→22:39)
[2018-05-03 06:00] VITALS: BP 178/80
[2018-05-03 06:51] LABS: ALBUMIN 2.2 GM/DL (3.2-5.2); ALT/SGPT 14 U/L (12-78); BILIRUBIN,TOTAL 0.4 MG/DL (0.2-1.0); BLOOD UREA NITROGEN 12 MG/DL (7-18); CARBON DIOXIDE LEVEL 27 MEQ/L (21-32); CHLORIDE LEVEL 105 MEQ/L (98-107); CREATININE FOR GFR 0.47 MG/DL (0.55-1.30); GLOMERULAR FILTRATION RATE > 60.0 (>45); GLUCOSE, FASTING 89 MG/DL (70-100); POTASSIUM SERUM 3.5 MEQ/L (3.5-5.1); SODIUM LEVEL 141 MEQ/L (136-145); TOTAL PROTEIN 6.3 GM/DL (6.4-8.2)
--- NOTE | 2018-05-03 06:53 | IPN ---
DATE OF SERVICE: 05/02/2018 HISTORY: The patient is now postop day #3 from a sigmoid resection and loop ileostomy for a sigmoid volvulus. She has an NG tube in place which has been clamped and she has been taking some clear liquids. This evening, she began having some nausea and vomited what the nurse described as about 500 mL of bilious fluid. The patient has some abdominal pain and reports that her ileostomy is putting out less than it had been. Vital signs: The patient has been afebrile over the past 24 hours. Her pulse is in the 70s to 90s. Blood pressure is good and her room air pulse oximetry is in the low 90s. PHYSICAL EXAMINATION: The patient is alert and seems oriented. She appears somewhat pale. Heart exam shows a regular rhythm. The lungs are clear to auscultation. The abdomen is distended. She has a dressing which is dry. There is a drain in the lower abdomen which is draining some primarily serous fluid and she has 280 mL recorded so far today. Her urine output recorded as 350 but she has multiple incontinent voids noted. She does have some watery, bilious stool in her ileostomy bag. Laboratory studies today showed normal electrolytes with BUN of 13, creatinine 0.6 and glucose of 93. Total protein is 5.9 with an albumin of 2.0. A CBC showed a white count of 9, hemoglobin of 10 and a hematocrit of 30 which is down 13 points from the 24th. Her platelet count is 217,000. IMPRESSION: The patient is showing signs of an ileus still with vomiting around her clamped NG tube. She is having some fluid from her ileostomy. PLAN: The patient's NG tube will be put to low intermittent suction. She will be made n.p.o. I will stop some of her oral medications that are less necessary for her ongoing care. We will check a KUB in the morning. GERALD
--- NOTE | 2018-05-03 08:23 | REP ---
Clinical: Ileus. Technique: Two supine views of the abdomen and pelvis. Findings: The patient is status post abdominal surgery with surgical maynor and drainage catheter identified. Ostomy overlies the right abdomen. Air-filled dilated loops of small bowel are noted in the left mid abdomen along with air-filled loops of small large bowel throughout the abdomen and pelvis consistent with a history of ileus although partial obstruction cannot be excluded. Skeletal structures demonstrate age-related degenerative changes. Impression: Postsurgical changes. Ileus. Cannot exclude a partial small bowel obstruction. Electronically Signed by Nathan Montana MD 05/03/2018 08:14 A
[2018-05-03] MEDS: FLUoxetine 20 MG CAP PO SCH (09:19)
[2018-05-03] MEDS: oxyBUTYnin 5 MG TAB PO SCH ×2 (09:19→20:44)
[2018-05-03] MEDS: carBAMazepine 200 MG TAB PO SCH (09:19)
[2018-05-03] MEDS: MODAFINIL 100 MG TABLET PO SCH (09:20)
[2018-05-03] MEDS: diazePAM 5 MG TAB PO SCH (09:20)
[2018-05-03] MEDS: HEPARIN SOD (PORCINE) 5000 UNITS/ML VIAL SC SCH ×2 (09:20→20:52)
[2018-05-03] MEDS: GABAPENTIN 300 MG CAP PO SCH ×3 (09:20→20:44)
[2018-05-03] MEDS: NORCO, ANEXSIA 5/325MG TABLET (HYDROcodone/ACETAMINOPHEN) PO PRN (09:21)
[2018-05-03] MEDS: QUEtiapine FUMARATE 100 MG TAB PO SCH (20:44)
[2018-05-03 22:00] VITALS: BP 160/80
[2018-05-04] MEDS: LR 1,000 ML IV SCH ×2 (00:15→15:00)
[2018-05-04] MEDS: METHOCARBAMOL 750 MG TAB PO SCH ×5 (00:15→23:01)
[2018-05-04] MEDS: CIPROFLOXACIN 400 MG in APPROPRIATE DILUENT 1 EA IV SCH ×2 (00:15→11:48)
[2018-05-04] MEDS: MORPHINE 4 MG/ML 1ML VIAL/SYRINGE (J2270) IV PRN ×5 (00:29→21:29)
[2018-05-04] MEDS: metroNIDAZOLE 500 MG in APPROPRIATE DILUENT 1 EA IV SCH ×3 (05:20→22:56)
[2018-05-04 06:00] VITALS: BP 168/86
[2018-05-04 06:13] LABS: HEMATOCRIT 36.2 % (36.0-47.0); HEMOGLOBIN 11.6 g/dl (12.0-15.5); MEAN CORPUSCULAR VOLUME 87.2 fl (80.0-96.0); PLATELET COUNT, AUTOMATED 350 10^3/uL (150-450); RED BLOOD COUNT 4.15 10^6/uL (4.00-5.40); WHITE BLOOD COUNT 9.8 10^3/uL (4.0-10.0)
[2018-05-04 06:37] LABS: ALBUMIN 2.2 GM/DL (3.2-5.2); ALT/SGPT 17 U/L (12-78); BILIRUBIN,TOTAL 0.3 MG/DL (0.2-1.0); BLOOD UREA NITROGEN 9 MG/DL (7-18); CALCIUM LEVEL 7.9 MG/DL (8.8-10.2); CARBON DIOXIDE LEVEL 28 MEQ/L (21-32); CHLORIDE LEVEL 102 MEQ/L (98-107); CREATININE FOR GFR 0.38 MG/DL (0.55-1.30); GLOMERULAR FILTRATION RATE > 60.0 (>45); GLUCOSE, FASTING 88 MG/DL (70-100); POTASSIUM SERUM 3.6 MEQ/L (3.5-5.1); SODIUM LEVEL 140 MEQ/L (136-145); TOTAL PROTEIN 6.2 GM/DL (6.4-8.2)
--- NOTE | 2018-05-04 08:36 | IPN ---
DATE: 05/03/2018 HISTORY: The patient is now postoperative day #4 from a laparotomy and sigmoid resection with a diverting loop ileostomy for sigmoid volvulus. Yesterday, the patient had some emesis and her clear liquids were stopped and she was placed back to suction to her nasogastric tube. She has had a fairly large amount out through the nasogastric tube. She does report that she has been having some small bowel movements and her ileostomy has been putting out some bilious liquid stool. Vital signs show that she has been afebrile over the past 24 hours. Her pulse is in the 80s and 90s generally. Blood pressure has been good and her oxygen saturations on a small amount of oxygen are normal. Intake and output shows that yesterday she had 1100 in with 1100 out. Today, she has been noted to have some significant output from her NG tube. Urine output is unmeasured as she has been incontinent. PHYSICAL EXAMINATION: Shows a pleasant woman lying quietly on the hospital bed. She is alert and oriented. The nasogastric tube is in place. Heart exam shows a regular rhythm. The lungs are clear. Abdomen is mildly obese. Her ileostomy shows some watery stool in the bag. Her midline incision is clean and dry. She does have some bowel sounds present. There is some expected abdominal tenderness on palpation. LABORATORY STUDIES: Include a complete profile that shows normal electrolytes with a BUN of 12, creatinine 0.5, a glucose of 89 and normal liver function tests. Total protein is 6.3 with an albumin of 2.2. An abdominal x-ray showed some mild to moderately dilated air-filled loops of small bowel in the left upper quadrant and left midabdomen. A drain was noted entering the abdomen on the left and extending over to the right side of the pelvis. IMPRESSION: The patient is behaving as if she has an ileus or perhaps a partial small-bowel obstruction. She has been having some crampy pains, particularly on the left and has some dilated air-filled small bowel loops in this area on her KUB. Her NG tube has a fairly large amount of fluid draining. She also seems to be having increased drainage from her abdominal drain. PLAN: For now, the patient's NG tube will be continued to low intermittent suction. Her drain will be continued and she will be kept nothing by mouth (n.p.o.). If her problems continue, it may be reasonable to consider starting total parenteral nutrition (TPN) for nutritional support. MTDD
--- NOTE | 2018-05-04 08:42 | IPNPDOC ---
Text Note Date of Service The patient was seen on 05/04/18. NOTE No current complaints. She still has some abdominal tenderness near the ostomy and some nausea. Over the weekend she developed a little ileus. She has only been out of bed one time. VSSAF NAD abd - soft, TTP right side only, less distended, incisions c/d/i, ostomy is pink and patent with stool in bag, amaris drain with serosanguinous output. labs - below A) 62y/o female s/p sigmoidectomy with diverting ileostomy for sigmoid volvulus post-op ileus as expected P) NGT to LIS ice and water heparin SQ OOB to chair TID PT will follow Juancho Flores DO VS,Елена, I+O VS, Елена I+O Laboratory Tests 05/04/18 05:44 Red Blood Count 4.15, Mean Corpuscular Volume 87.2, Mean Corpuscular Hemoglobin 28.0, Mean Corpuscular Hemoglobin Concent 32.0, Red Cell Distribution Width 16.1 H, Calcium Level 7.9 L, Aspartate Amino Transf (AST/SGOT) 24, Alanine Aminotransferase (ALT/SGPT) 17, Alkaline Phosphatase 90, Total Bilirubin 0.3, Total Protein 6.2 L, Albumin 2.2 L Vital Signs Date Time Temp Pulse Resp B/P (MAP) Pulse Ox O2 Delivery O2 Flow Rate FiO2 05/04/18 06:00 98.4 81 19 168/86 (113) 93 05/04/18 05:21 Nasal Cannula 1.0 I&O- Last 24 Hours up to 6 AM 05/04/18 06:00 Intake Total 610 ml Output Total 2115 ml Balance -1505 ml DONATO FLORES DO May 04, 2018 08:42
[2018-05-04] MEDS: NORCO, ANEXSIA 5/325MG TABLET (HYDROcodone/ACETAMINOPHEN) PO PRN ×2 (09:11→17:17)
[2018-05-04] MEDS: FLUoxetine 20 MG CAP PO SCH (09:45)
[2018-05-04] MEDS: HEPARIN SOD (PORCINE) 5000 UNITS/ML VIAL SC SCH ×2 (09:45→22:55)
[2018-05-04] MEDS: MODAFINIL 100 MG TABLET PO SCH (09:46)
[2018-05-04] MEDS: carBAMazepine 100 MG *1/2* TAB PO SCH ×3 (09:46→22:56)
[2018-05-04] MEDS: oxyBUTYnin 5 MG TAB PO SCH ×2 (09:46→22:58)
[2018-05-04] MEDS: carBAMazepine 200 MG TAB PO SCH (09:46)
[2018-05-04] MEDS: diazePAM 5 MG TAB PO SCH (09:46)
[2018-05-04] MEDS: GABAPENTIN 300 MG CAP PO SCH ×3 (09:46→22:56)
[2018-05-04] MEDS: ONDANSETRON 4MG/2ML VIAL (J2405) IV PRN ×2 (10:23→21:28)
[2018-05-04 14:00] VITALS: BP 164/88
[2018-05-04 22:00] VITALS: BP 162/84
[2018-05-04] MEDS: QUEtiapine FUMARATE 100 MG TAB PO SCH (22:55)
[2018-05-05] MEDS: CIPROFLOXACIN 400 MG in APPROPRIATE DILUENT 1 EA IV SCH ×2 (00:54→12:57)
[2018-05-05] MEDS: NORCO, ANEXSIA 5/325MG TABLET (HYDROcodone/ACETAMINOPHEN) PO PRN ×3 (00:54→16:15)
[2018-05-05] MEDS: MORPHINE 4 MG/ML 1ML VIAL/SYRINGE (J2270) IV PRN ×4 (03:28→22:44)
[2018-05-05 06:00] VITALS: BP 159/82
[2018-05-05] MEDS: METHOCARBAMOL 750 MG TAB PO SCH ×3 (06:00→17:58)
[2018-05-05] MEDS: metroNIDAZOLE 500 MG in APPROPRIATE DILUENT 1 EA IV SCH ×3 (06:00→21:18)
[2018-05-05 06:13] LABS: HEMATOCRIT 38.4 % (36.0-47.0); HEMOGLOBIN 12.2 g/dl (12.0-15.5); MEAN CORPUSCULAR HGB CONC 31.8 g/dl (32.0-36.5); MEAN CORPUSCULAR VOLUME 88.1 fl (80.0-96.0); PLATELET COUNT, AUTOMATED 379 10^3/uL (150-450); RED BLOOD COUNT 4.36 10^6/uL (4.00-5.40)
[2018-05-05] MEDS: ACETAMINOPHEN TAB 650MG DOSE (2X325MG) PO PRN (06:29)
[2018-05-05 06:40] LABS: ALBUMIN 2.3 GM/DL (3.2-5.2); ALT/SGPT 16 U/L (12-78); BILIRUBIN,TOTAL 0.6 MG/DL (0.2-1.0); BLOOD UREA NITROGEN 9 MG/DL (7-18); CALCIUM LEVEL 7.9 MG/DL (8.8-10.2); CARBON DIOXIDE LEVEL 29 MEQ/L (21-32); CHLORIDE LEVEL 100 MEQ/L (98-107); CREATININE FOR GFR 0.46 MG/DL (0.55-1.30); GLOMERULAR FILTRATION RATE > 60.0 (>45); GLUCOSE, FASTING 103 MG/DL (70-100); POTASSIUM SERUM 3.5 MEQ/L (3.5-5.1); SODIUM LEVEL 139 MEQ/L (136-145); TOTAL PROTEIN 6.5 GM/DL (6.4-8.2)
[2018-05-05] MEDS: HEPARIN SOD (PORCINE) 5000 UNITS/ML VIAL SC SCH ×2 (09:35→21:18)
[2018-05-05] MEDS: MODAFINIL 100 MG TABLET PO SCH (09:35)
[2018-05-05] MEDS: diazePAM 5 MG TAB PO SCH (09:35)
[2018-05-05] MEDS: oxyBUTYnin 5 MG TAB PO SCH ×2 (09:35→21:17)
[2018-05-05] MEDS: FLUoxetine 20 MG CAP PO SCH (09:35)
[2018-05-05] MEDS: carBAMazepine 100 MG *1/2* TAB PO SCH ×3 (09:35→21:00)
[2018-05-05] MEDS: carBAMazepine 200 MG TAB PO SCH (09:36)
[2018-05-05] MEDS: GABAPENTIN 300 MG CAP PO SCH ×3 (09:36→21:17)
[2018-05-05] MEDS: LR 1,000 ML IV SCH ×2 (09:36→21:19)
--- NOTE | 2018-05-05 13:28 | IPNPDOC ---
Text Note Date of Service The patient was seen on 05/05/18. NOTE No current complaints. She still has some abdominal tenderness near the ostomy. Nausea and emesis have improved since advancing the NGT some last evening. NGT has had high output, and the ostomy is still working. VSSAF NAD abd - soft, TTP right side only, less distended, incisions c/d/i, ostomy is pink and patent with stool in bag, amaris drain with serosanguinous output. labs - below A) 62y/o female s/p sigmoidectomy with diverting ileostomy for sigmoid volvulus post-op ileus as expected P) NGT to LIS ice and water heparin SQ OOB to chair TID PT will clamp NGT and start diet once NGT output decreases. If NGT output stays high, then I will consider some contrast study in the next 48 hours. will follow Juancho Flores DO VS,Елена, I+O VS, Елена, I+O Laboratory Tests 05/05/18 05:56 Red Blood Count 4.36, Mean Corpuscular Volume 88.1, Mean Corpuscular Hemoglobin 28.0, Mean Corpuscular Hemoglobin Concent 31.8 L, Red Cell Distribution Width 15.9 H, Calcium Level 7.9 L, Aspartate Amino Transf (AST/SGOT) 30, Alanine Aminotransferase (ALT/SGPT) 16, Alkaline Phosphatase 100, Total Bilirubin 0.6 #, Total Protein 6.5, Albumin 2.3 L Vital Signs Date Time Temp Pulse Resp B/P (MAP) Pulse Ox O2 Delivery O2 Flow Rate FiO2 05/05/18 10:18 18 05/05/18 08:00 1.0 05/05/18 07:00 98.3 05/05/18 06:40 Nasal Cannula 05/05/18 06:00 118 159/82 (107) 96 I&O- Last 24 Hours up to 6 AM 05/05/18 06:00 Intake Total 1490 ml Output Total 2835 ml Balance -1345 ml DONATO FLORES DO May 05, 2018 13:28
[2018-05-05 14:00] VITALS: BP 162/78
[2018-05-05] MEDS: ONDANSETRON 4MG/2ML VIAL (J2405) IV PRN ×2 (14:48→21:20)
[2018-05-05] MEDS: QUEtiapine FUMARATE 100 MG TAB PO SCH (21:17)
[2018-05-05 22:00] VITALS: BP 143/74
[2018-05-06] MEDS: CIPROFLOXACIN 400 MG in APPROPRIATE DILUENT 1 EA IV SCH ×2 (00:18→14:01)
[2018-05-06] MEDS: METHOCARBAMOL 750 MG TAB PO SCH ×4 (00:18→17:33)
[2018-05-06] MEDS: NORCO, ANEXSIA 5/325MG TABLET (HYDROcodone/ACETAMINOPHEN) PO PRN ×2 (05:28→14:00)
[2018-05-06] MEDS: metroNIDAZOLE 500 MG in APPROPRIATE DILUENT 1 EA IV SCH ×3 (05:28→21:04)
[2018-05-06 06:00] VITALS: BP 142/68
[2018-05-06 06:19] LABS: HEMATOCRIT 34.1 % (36.0-47.0); HEMOGLOBIN 10.9 g/dl (12.0-15.5); MEAN CORPUSCULAR HEMOGLOBIN 27.7 pg (27.0-33.0); MEAN CORPUSCULAR VOLUME 86.8 fl (80.0-96.0); PLATELET COUNT, AUTOMATED 396 10^3/uL (150-450); RED BLOOD COUNT 3.93 10^6/uL (4.00-5.40); WHITE BLOOD COUNT 12.3 10^3/uL (4.0-10.0)
[2018-05-06 06:39] LABS: ALBUMIN 2.3 GM/DL (3.2-5.2); ALT/SGPT 17 U/L (12-78); BILIRUBIN,TOTAL 0.5 MG/DL (0.2-1.0); BLOOD UREA NITROGEN 11 MG/DL (7-18); CARBON DIOXIDE LEVEL 32 MEQ/L (21-32); CHLORIDE LEVEL 97 MEQ/L (98-107); CREATININE FOR GFR 0.52 MG/DL (0.55-1.30); GLOMERULAR FILTRATION RATE > 60.0 (>45); GLUCOSE, FASTING 114 MG/DL (70-100); POTASSIUM SERUM 3.4 MEQ/L (3.5-5.1); SODIUM LEVEL 139 MEQ/L (136-145); TOTAL PROTEIN 6.4 GM/DL (6.4-8.2)
[2018-05-06] MEDS: FLUoxetine 20 MG CAP PO SCH (08:26)
[2018-05-06] MEDS: diazePAM 5 MG TAB PO SCH (08:26)
[2018-05-06] MEDS: oxyBUTYnin 5 MG TAB PO SCH ×2 (08:26→21:04)
[2018-05-06] MEDS: carBAMazepine 200 MG TAB PO SCH (08:26)
[2018-05-06] MEDS: MODAFINIL 100 MG TABLET PO SCH (08:26)
[2018-05-06] MEDS: GABAPENTIN 300 MG CAP PO SCH ×3 (08:26→21:04)
[2018-05-06] MEDS: HEPARIN SOD (PORCINE) 5000 UNITS/ML VIAL SC SCH ×2 (08:27→21:03)
[2018-05-06 09:00] VITALS: BP 152/91
[2018-05-06] MEDS: carBAMazepine 100 MG *1/2* TAB PO SCH ×3 (10:17→21:05)
--- NOTE | 2018-05-06 13:31 | IPNPDOC ---
Text Note Date of Service The patient was seen on 05/06/18. NOTE No current complaints. She feels much better today. There is some new tenderness around her midline incision, but no other problems. NGT has had high output, and the ostomy is still working. VSSAF NAD abd - soft, TTP right side only, less distended, incisions c/d/i, but there is now some swelling and bruising around the lower half of the incision. ostomy is pink and patent with stool in bag, amaris drain with serosanguinous output. labs - below A) 62y/o female s/p sigmoidectomy with diverting ileostomy for sigmoid volvulus post-op ileus as expected P) NGT to LIS ice and water heparin SQ OOB to chair TID PT will clamp NGT and start diet once NGT output decreases. If NGT output stays high, then I will consider some contrast study in the next 48 hours. I opened a couple maynor in the lower half of the incison and packed it with some iodoform packing. Juancho Flores DO VS,Елена, I+O VS, Елена, I+O Laboratory Tests 05/06/18 05:54 Red Blood Count 3.93 L, Mean Corpuscular Volume 86.8, Mean Corpuscular Hemoglob in 27.7, Mean Corpuscular Hemoglobin Concent 32.0, Red Cell Distribution Width 16.0 H, Calcium Level 8.0 L, Aspartate Amino Transf (AST/SGOT) 33, Alanine Aminotransferase (ALT/SGPT) 17, Alkaline Phosphatase 112, Total Bilirubin 0.5, Total Protein 6.4, Albumin 2.3 L Vital Signs Date Time Temp Pulse Resp B/P (MAP) Pulse Ox O2 Delivery O2 Flow Rate FiO2 05/06/18 09:00 1.0 05/06/18 09:00 98.2 105 16 152/91 (111) 96 05/06/18 06:00 Nasal Cannula I&O- Last 24 Hours up to 6 AM 05/06/18 06:00 Intake Total 2505 ml Output Total 4335 ml Balance -1830 ml DONATO FLORES DO May 06, 2018 13:31
[2018-05-06 14:00] VITALS: BP 139/88
[2018-05-06 20:00] VITALS: BP 136/70
[2018-05-06] MEDS: QUEtiapine FUMARATE 100 MG TAB PO SCH (21:04)
[2018-05-06 22:00] VITALS: BP 138/74
[2018-05-07] MEDS: METHOCARBAMOL 750 MG TAB PO SCH ×4 (00:15→18:31)
[2018-05-07] MEDS: CIPROFLOXACIN 400 MG in APPROPRIATE DILUENT 1 EA IV SCH ×2 (00:16→13:42)
[2018-05-07] MEDS: LR 1,000 ML IV SCH ×2 (03:34→21:25)
[2018-05-07] MEDS: metroNIDAZOLE 500 MG in APPROPRIATE DILUENT 1 EA IV SCH ×3 (05:12→21:25)
--- NOTE | 2018-05-07 08:41 | IPNPDOC ---
Text Note Date of Service The patient was seen on 05/07/18. NOTE No current complaints. She is still having very high output from both her NGT, and her ostomy. No problems with nausea or emesis, and she is too weak to get out of bed still. NGT - 2500ml brown Ostomy - 4000ml bilious and thin VSSAF NAD abd - soft, TTP right side only, less distended, incisions c/d/i, but there is now some swelling and bruising around the lower half of the incision. ostomy is pink and patent with stool in bag, amaris drain with serosanguinous output. labs - below A) 62y/o female s/p sigmoidectomy with diverting ileostomy for sigmoid volvulus post-op ileus as expected P) NGT to LIS ice and water heparin SQ OOB to chair TID PT will send for SBFT today to evaluate for ileus vs. mechanical obstruction. If cleared, then I will start on a diet. If not, then I will start TPN. Juancho Flores DO VS,Елена, I+O VS, Елена, I+O Vital Signs Date Time Temp Pulse Resp B/P (MAP) Pulse Ox O2 Delivery O2 Flow Rate FiO2 05/07/18 06:00 97.1 05/06/18 22:00 96 20 138/74 (95) 99 05/06/18 21:00 1.0 05/06/18 06:00 Nasal Cannula I&O- Last 24 Hours up to 6 AM 05/07/18 06:00 Intake Total 2450 ml Output Total 6440 ml Balance -3990 ml DONATO FLORES DO May 07, 2018 08:41
[2018-05-07 09:07] LABS: HEMATOCRIT 33.2 % (36.0-47.0); HEMOGLOBIN 10.8 g/dl (12.0-15.5); MEAN CORPUSCULAR HEMOGLOBIN 28.6 pg (27.0-33.0); MEAN CORPUSCULAR HGB CONC 32.5 g/dl (32.0-36.5); MEAN CORPUSCULAR VOLUME 88.1 fl (80.0-96.0); PLATELET COUNT, AUTOMATED 438 10^3/uL (150-450); RED BLOOD COUNT 3.77 10^6/uL (4.00-5.40); WHITE BLOOD COUNT 15.4 10^3/uL (4.0-10.0)
[2018-05-07] MEDS ORDERED: PROHANCE 279.3MG/ML 5ML VIAL (A9576) As Ordered ONE (09:14)
[2018-05-07] MEDS ORDERED: GASTROGRAFIN SOLUTION 30ML (Q9963) As Ordered ONE (09:15)
[2018-05-07] MEDS: diazePAM 5 MG TAB PO SCH (09:33)
[2018-05-07] MEDS: carBAMazepine 100 MG *1/2* TAB PO SCH ×3 (09:33→20:15)
[2018-05-07] MEDS: oxyBUTYnin 5 MG TAB PO SCH ×2 (09:33→20:15)
[2018-05-07] MEDS: MODAFINIL 100 MG TABLET PO SCH (09:33)
[2018-05-07] MEDS: carBAMazepine 200 MG TAB PO SCH (09:33)
[2018-05-07] MEDS: GABAPENTIN 300 MG CAP PO SCH ×3 (09:33→20:15)
[2018-05-07] MEDS: HEPARIN SOD (PORCINE) 5000 UNITS/ML VIAL SC SCH ×2 (09:34→20:15)
[2018-05-07] MEDS: FLUoxetine 20 MG CAP PO SCH (09:34)
[2018-05-07 09:38] LABS: ALBUMIN 2.4 GM/DL (3.2-5.2); ALT/SGPT 13 U/L (12-78); BILIRUBIN,TOTAL 0.4 MG/DL (0.2-1.0); BLOOD UREA NITROGEN 13 MG/DL (7-18); CALCIUM LEVEL 7.9 MG/DL (8.8-10.2); CARBON DIOXIDE LEVEL 35 MEQ/L (21-32); CHLORIDE LEVEL 92 MEQ/L (98-107); CREATININE FOR GFR 0.43 MG/DL (0.55-1.30); GLOMERULAR FILTRATION RATE > 60.0 (>45); GLUCOSE, FASTING 90 MG/DL (70-100); POTASSIUM SERUM 3.1 MEQ/L (3.5-5.1); SODIUM LEVEL 136 MEQ/L (136-145); TOTAL PROTEIN 6.5 GM/DL (6.4-8.2)
[2018-05-07 14:00] VITALS: BP 139/84
[2018-05-07] MEDS: METOCLOPRAMIDE 5 MG TAB PO SCH ×2 (15:30→20:15)
--- NOTE | 2018-05-07 16:01 | REP ---
SMALL BOWEL FOLLOW-THROUGH The procedure was performed under the direct supervision of Dr. Estes. The images were reviewed with Dr. Estes. The 50 50 solution of Gastrografin and water was instilled into the NG tube. Small bowel transit time is approximately 1 hour. There are mildly thickened and dilated proximal bowel loops. There is no evidence of obstruction or stricture. Impression: There are mildly thickened and dilated proximal bowel loops. There is no evidence of obstruction or stricture. Reviewed by ADONAY Dumont 05/07/2018 01:33 P Electronically Signed by Chava Estes MD 05/07/2018 03:53 P
[2018-05-07] MEDS: NORCO, ANEXSIA 5/325MG TABLET (HYDROcodone/ACETAMINOPHEN) PO PRN (19:29)
[2018-05-07] MEDS: QUEtiapine FUMARATE 100 MG TAB PO SCH (20:15)
[2018-05-07 22:00] VITALS: BP 129/67
[2018-05-08] MEDS: METHOCARBAMOL 750 MG TAB PO SCH ×4 (00:05→16:57)
[2018-05-08] MEDS: CIPROFLOXACIN 400 MG in APPROPRIATE DILUENT 1 EA IV SCH ×2 (00:05→12:08)
[2018-05-08] MEDS: metroNIDAZOLE 500 MG in APPROPRIATE DILUENT 1 EA IV SCH ×3 (05:06→22:54)
[2018-05-08 06:00] VITALS: BP 136/78
[2018-05-08 06:10] LABS: HEMOGLOBIN 10.3 g/dl (12.0-15.5); MEAN CORPUSCULAR HEMOGLOBIN 28.2 pg (27.0-33.0); MEAN CORPUSCULAR HGB CONC 32.2 g/dl (32.0-36.5); MEAN CORPUSCULAR VOLUME 87.7 fl (80.0-96.0); PLATELET COUNT, AUTOMATED 444 10^3/uL (150-450); RED BLOOD COUNT 3.65 10^6/uL (4.00-5.40); WHITE BLOOD COUNT 14.6 10^3/uL (4.0-10.0)
[2018-05-08 06:33] LABS: BLOOD UREA NITROGEN 13 MG/DL (7-18); CALCIUM LEVEL 7.7 MG/DL (8.8-10.2); CARBON DIOXIDE LEVEL 35 MEQ/L (21-32); CHLORIDE LEVEL 88 MEQ/L (98-107); CREATININE FOR GFR 0.53 MG/DL (0.55-1.30); GLOMERULAR FILTRATION RATE > 60.0 (>45); GLUCOSE, FASTING 96 MG/DL (70-100); SODIUM LEVEL 132 MEQ/L (136-145)
[2018-05-08] MEDS: carBAMazepine 200 MG TAB PO SCH (08:11)
[2018-05-08] MEDS: MODAFINIL 100 MG TABLET PO SCH (08:12)
[2018-05-08] MEDS: FLUoxetine 20 MG CAP PO SCH (08:12)
[2018-05-08] MEDS: GABAPENTIN 300 MG CAP PO SCH ×3 (08:12→20:49)
[2018-05-08] MEDS: oxyBUTYnin 5 MG TAB PO SCH ×2 (08:12→20:53)
[2018-05-08] MEDS: diazePAM 5 MG TAB PO SCH (08:13)
[2018-05-08] MEDS: HEPARIN SOD (PORCINE) 5000 UNITS/ML VIAL SC SCH ×2 (08:13→20:48)
[2018-05-08] MEDS: carBAMazepine 100 MG *1/2* TAB PO SCH ×3 (08:13→20:57)
[2018-05-08] MEDS: METOCLOPRAMIDE 5 MG TAB PO SCH ×3 (08:13→20:57)
[2018-05-08] MEDS: POTASSIUM CHLORIDE 10 MEQ SR TABLET PO SCH ×2 (08:13→20:52)
--- NOTE | 2018-05-08 10:24 | IPNPDOC ---
Text Note Date of Service The patient was seen on 05/08/18. NOTE No current complaints. She feels much better today. SBFT showed some proximal small bowel dilation, but no obstruction. NG output has decreased, and ostomy output has picked up. VSSAF NAD abd - soft, TTP right side only, less distended, incisions c/d/i, but there is now some swelling and bruising around the lower half of the incision. ostomy is pink and patent with stool in bag, amaris drain with serosanguinous output. labs - below A) 62y/o female s/p sigmoidectomy with diverting ileostomy for sigmoid volvulus post-op ileus as expected P) clamp NGT abx clq diet heparin SQ OOB to chair TID PT plan on d/c friday if tolerating diet this . Juancho Flores DO VS,Fishrobsone, I+O VS, Fishchani, I+O Laboratory Tests 05/08/18 05:56 Red Blood Count 3.65 L, Mean Corpuscular Volume 87.7, Mean Corpuscular Hemoglobin 28.2, Mean Corpuscular Hemoglobin Concent 32.2, Red Cell Distribution Width 15.8 H, Calcium Level 7.7 L Vital Signs Date Time Temp Pulse Resp B/P (MAP) Pulse Ox O2 Delivery O2 Flow Rate FiO2 05/08/18 06:00 98.9 98 16 136/78 (97) 97 05/07/18 22:00 1.0 05/06/18 06:00 Nasal Cannula I&O- Last 24 Hours up to 6 AM 05/08/18 06:00 Intake Total 1020 ml Output Total 3160 ml Balance -2140 ml DONATO FLORES DO May 08, 2018 10:24
[2018-05-08 14:00] VITALS: BP 132/74
[2018-05-08] MEDS: LR 1,000 ML IV SCH (19:00)
[2018-05-08] MEDS: QUEtiapine FUMARATE 100 MG TAB PO SCH (20:50)
[2018-05-08 22:00] VITALS: BP 131/66
[2018-05-09] MEDS: METHOCARBAMOL 750 MG TAB PO SCH ×4 (00:22→17:59)
[2018-05-09 06:00] VITALS: BP 141/66
[2018-05-09] MEDS: metroNIDAZOLE 500 MG in APPROPRIATE DILUENT 1 EA IV SCH ×3 (06:00→22:00)
[2018-05-09 06:30] LABS: HEMATOCRIT 29.5 % (36.0-47.0); HEMOGLOBIN 9.7 g/dl (12.0-15.5); MEAN CORPUSCULAR HEMOGLOBIN 28.2 pg (27.0-33.0); MEAN CORPUSCULAR HGB CONC 32.9 g/dl (32.0-36.5); MEAN CORPUSCULAR VOLUME 85.8 fl (80.0-96.0); PLATELET COUNT, AUTOMATED 522 10^3/uL (150-450); RED BLOOD COUNT 3.44 10^6/uL (4.00-5.40); WHITE BLOOD COUNT 13.7 10^3/uL (4.0-10.0)
[2018-05-09 06:56] LABS: BLOOD UREA NITROGEN 14 MG/DL (7-18); CALCIUM LEVEL 8.1 MG/DL (8.8-10.2); CARBON DIOXIDE LEVEL 37 MEQ/L (21-32); CHLORIDE LEVEL 89 MEQ/L (98-107); CREATININE FOR GFR 0.77 MG/DL (0.55-1.30); GLOMERULAR FILTRATION RATE > 60.0 (>45); GLUCOSE, FASTING 122 MG/DL (70-100); POTASSIUM SERUM 3.4 MEQ/L (3.5-5.1); SODIUM LEVEL 131 MEQ/L (136-145)
[2018-05-09] MEDS: HEPARIN SOD (PORCINE) 5000 UNITS/ML VIAL SC SCH ×2 (10:09→20:23)
[2018-05-09] MEDS: diazePAM 5 MG TAB PO SCH (10:09)
[2018-05-09] MEDS: POTASSIUM CHLORIDE 10 MEQ SR TABLET PO SCH ×2 (10:09→20:20)
[2018-05-09] MEDS: METOCLOPRAMIDE 5 MG TAB PO SCH ×3 (10:09→20:20)
[2018-05-09] MEDS: FLUoxetine 20 MG CAP PO SCH (10:09)
[2018-05-09] MEDS: carBAMazepine 200 MG TAB PO SCH (10:11)
[2018-05-09] MEDS: oxyBUTYnin 5 MG TAB PO SCH ×2 (10:11→20:20)
[2018-05-09] MEDS: carBAMazepine 100 MG *1/2* TAB PO SCH ×3 (10:11→20:22)
[2018-05-09] MEDS: MODAFINIL 100 MG TABLET PO SCH (10:11)
[2018-05-09] MEDS: GABAPENTIN 300 MG CAP PO SCH ×3 (10:11→20:23)
--- NOTE | 2018-05-09 10:49 | IPNPDOC ---
Text Note Date of Service The patient was seen on 05/09/18. NOTE No current complaints. She feels much better today. She is tolerating the diet with the NGT removed. Denies nausea, emesis, fevers, or pains. VSSAF NAD abd - soft, TTP right side only, less distended, incisions c/d/i, bruising around the lower half of the incision. ostomy is pink and patent with stool in bag, amaris drain with serosanguinous output. labs - below A) 62y/o female s/p sigmoidectomy with diverting ileostomy for sigmoid volvulus post-op ileus resolved P) abx reg diet heparin SQ OOB to chair TID PT plan on d/c friday or friday once intermediate is set up Juancho Flores DO VS,Елена, I+O VS, Елена, I+O Laboratory Tests 05/09/18 06:02 Red Blood Count 3.44 L, Mean Corpuscular Volume 85.8, Mean Corpuscular Hemoglobin 28.2, Mean Corpuscular Hemoglobin Concent 32.9, Red Cell Distribution Width 15.7 H, Calcium Level 8.1 L Vital Signs Date Time Temp Pulse Resp B/P (MAP) Pulse Ox O2 Delivery O2 Flow Rate FiO2 05/09/18 06:00 96.9 114 19 141/66 (91) 95 1.0 05/06/18 06:00 Nasal Cannula I&O- Last 24 Hours up to 6 AM 05/09/18 06:00 Intake Total 1720 ml Output Total 1675 ml Balance 45 ml DONATO FLORES DO May 09, 2018 10:49
[2018-05-09] MEDS: CIPROFLOXACIN 400 MG in APPROPRIATE DILUENT 1 EA IV SCH ×3 (12:43)
[2018-05-09 14:00] VITALS: BP 125/67
[2018-05-09] MEDS: NORCO, ANEXSIA 5/325MG TABLET (HYDROcodone/ACETAMINOPHEN) PO PRN (15:12)
[2018-05-09] MEDS: ACETAMINOPHEN TAB 650MG DOSE (2X325MG) PO PRN (19:26)
[2018-05-09] MEDS: QUEtiapine FUMARATE 100 MG TAB PO SCH (20:20)
[2018-05-09 22:00] VITALS: BP 119/70
[2018-05-10 06:00] VITALS: BP 137/63
[2018-05-10] MEDS: METHOCARBAMOL 750 MG TAB PO SCH ×4 (06:00→17:22)
[2018-05-10] MEDS: metroNIDAZOLE 500 MG in APPROPRIATE DILUENT 1 EA IV SCH ×3 (06:00→21:23)
[2018-05-10 06:12] LABS: HEMATOCRIT 28.5 % (36.0-47.0); HEMOGLOBIN 9.2 g/dl (12.0-15.5); MEAN CORPUSCULAR HGB CONC 32.3 g/dl (32.0-36.5); MEAN CORPUSCULAR VOLUME 86.9 fl (80.0-96.0); PLATELET COUNT, AUTOMATED 570 10^3/uL (150-450); RED BLOOD COUNT 3.28 10^6/uL (4.00-5.40); WHITE BLOOD COUNT 10.7 10^3/uL (4.0-10.0)
[2018-05-10 06:29] LABS: BLOOD UREA NITROGEN 17 MG/DL (7-18); CARBON DIOXIDE LEVEL 37 MEQ/L (21-32); CHLORIDE LEVEL 91 MEQ/L (98-107); CREATININE FOR GFR 0.79 MG/DL (0.55-1.30); GLOMERULAR FILTRATION RATE > 60.0 (>45); GLUCOSE, FASTING 120 MG/DL (70-100); POTASSIUM SERUM 3.6 MEQ/L (3.5-5.1); SODIUM LEVEL 132 MEQ/L (136-145)
--- NOTE | 2018-05-10 09:08 | IPNPDOC ---
Text Note Date of Service The patient was seen on 05/10/18. NOTE No current complaints. She feels much better today. She is tolerating the regu lar diet. Denies nausea, emesis, fevers, or pains. VSSAF NAD abd - soft, TTP right side only, less distended, incisions c/d/i, bruising around the lower half of the incision. ostomy is pink and patent with stool in bag, amaris drain with serosanguinous output. labs - below A) 62y/o female s/p sigmoidectomy with diverting ileostomy for sigmoid volvulus post-op ileus resolved P) abx reg diet heparin SQ OOB to chair TID PT plan on d/c friday or friday once halfway is set up Juancho Flores DO VS,Елена, I+O VS, Елена, I+O Laboratory Tests 05/10/18 05:50 Red Blood Count 3.28 L, Mean Corpuscular Volume 86.9, Mean Corpuscular Hemoglobin 28.0, Mean Corpuscular Hemoglobin Concent 32.3, Red Cell Distribution Width 16.1 H, Calcium Level 8.0 L Vital Signs Date Time Temp Pulse Resp B/P (MAP) Pulse Ox O2 Delivery O2 Flow Rate FiO2 05/10/18 06:00 97.0 104 16 137/63 (87) 98 1.0 05/06/18 06:00 Nasal Cannula I&O- Last 24 Hours up to 6 AM 05/10/18 06:00 Intake Total 830 ml Output Total 1395 ml Balance -565 ml DONATO FLORES DO May 10, 2018 09:08
[2018-05-10] MEDS: diazePAM 5 MG TAB PO SCH (10:24)
[2018-05-10] MEDS: MODAFINIL 100 MG TABLET PO SCH (10:24)
[2018-05-10] MEDS: oxyBUTYnin 5 MG TAB PO SCH ×2 (10:25→21:25)
[2018-05-10] MEDS: carBAMazepine 200 MG TAB PO SCH (10:25)
[2018-05-10] MEDS: FLUoxetine 20 MG CAP PO SCH (10:25)
[2018-05-10] MEDS: carBAMazepine 100 MG *1/2* TAB PO SCH ×3 (10:25→21:24)
[2018-05-10] MEDS: METOCLOPRAMIDE 5 MG TAB PO SCH ×3 (10:26→21:25)
[2018-05-10] MEDS: GABAPENTIN 300 MG CAP PO SCH ×3 (10:26→21:25)
[2018-05-10] MEDS: POTASSIUM CHLORIDE 10 MEQ SR TABLET PO SCH ×2 (10:26→21:25)
[2018-05-10] MEDS: HEPARIN SOD (PORCINE) 5000 UNITS/ML VIAL SC SCH ×2 (10:27→21:24)
[2018-05-10] MEDS: CIPROFLOXACIN 400 MG in APPROPRIATE DILUENT 1 EA IV SCH ×3 (13:07)
[2018-05-10 14:00] VITALS: BP 111/58
[2018-05-10] MEDS: QUEtiapine FUMARATE 100 MG TAB PO SCH (21:25)
[2018-05-10] MEDS: NORCO, ANEXSIA 5/325MG TABLET (HYDROcodone/ACETAMINOPHEN) PO PRN (21:26)
[2018-05-10 22:00] VITALS: BP 131/66
[2018-05-11] MEDS: METHOCARBAMOL 750 MG TAB PO SCH ×5 (00:07→23:06)
[2018-05-11] MEDS: CIPROFLOXACIN 400 MG in APPROPRIATE DILUENT 1 EA IV SCH ×3 (00:07→23:06)
[2018-05-11] MEDS: NORCO, ANEXSIA 5/325MG TABLET (HYDROcodone/ACETAMINOPHEN) PO PRN ×2 (04:18→22:13)
[2018-05-11] MEDS: metroNIDAZOLE 500 MG in APPROPRIATE DILUENT 1 EA IV SCH ×3 (05:25→21:38)
[2018-05-11 06:00] VITALS: BP 108/64
[2018-05-11 06:47] LABS: HEMATOCRIT 26.1 % (36.0-47.0); HEMOGLOBIN 8.4 g/dl (12.0-15.5); MEAN CORPUSCULAR HEMOGLOBIN 28.4 pg (27.0-33.0); MEAN CORPUSCULAR HGB CONC 32.2 g/dl (32.0-36.5); MEAN CORPUSCULAR VOLUME 88.2 fl (80.0-96.0); PLATELET COUNT, AUTOMATED 601 10^3/uL (150-450); RED BLOOD COUNT 2.96 10^6/uL (4.00-5.40)
[2018-05-11 07:43] LABS: BLOOD UREA NITROGEN 16 MG/DL (7-18); CALCIUM LEVEL 7.9 MG/DL (8.8-10.2); CARBON DIOXIDE LEVEL 34 MEQ/L (21-32); CHLORIDE LEVEL 96 MEQ/L (98-107); CREATININE FOR GFR 0.72 MG/DL (0.55-1.30); GLOMERULAR FILTRATION RATE > 60.0 (>45); GLUCOSE, FASTING 111 MG/DL (70-100); POTASSIUM SERUM 4.8 MEQ/L (3.5-5.1); SODIUM LEVEL 131 MEQ/L (136-145)
--- NOTE | 2018-05-11 08:50 | IPNPDOC ---
Text Note Date of Service The patient was seen on 05/11/18. NOTE No current complaints. She is tolerating the regular diet. Denies nausea, emes is, fevers, or pains. VSSAF NAD abd - soft, incisions c/d/i, bruising around the lower half of the incision. ostomy is pink and patent with stool in bag, amaris drain with serosanguinous output. labs - below wbc - 10.7>12 A) 62y/o female s/p sigmoidectomy with diverting ileostomy for sigmoid volvulus post-op ileus resolved P) abx reg diet heparin SQ OOB to chair TID PT d/c drain today if wbc increases again tomorrow, then I will debride the hematoma in her abd wall prior to dc Juancho Flores DO VS,Елена, I+O VS, Елена, I+O Laboratory Tests 05/11/18 06:11 Red Blood Count 2.96 L, Mean Corpuscular Volume 88.2, Mean Corpuscular Hemoglobin 28.4, Mean Corpuscular Hemoglobin Concent 32.2, Red Cell Distribution Width 16.7 H, Calcium Level 7.9 L Vital Signs Date Time Temp Pulse Resp B/P (MAP) Pulse Ox O2 Delivery O2 Flow Rate FiO2 05/11/18 06:00 97.1 107 16 108/64 (79) 98 1.0 05/06/18 06:00 Nasal Cannula I&O- Last 24 Hours up to 6 AM 05/11/18 06:00 Intake Total 1370 ml Output Total 528 ml Balance 842 ml DONATO FLORES DO May 11, 2018 08:50
[2018-05-11] MEDS: METOCLOPRAMIDE 5 MG TAB PO SCH ×3 (09:06→21:40)
[2018-05-11] MEDS: HEPARIN SOD (PORCINE) 5000 UNITS/ML VIAL SC SCH ×2 (09:06→21:39)
[2018-05-11] MEDS: oxyBUTYnin 5 MG TAB PO SCH ×2 (09:08→21:40)
[2018-05-11] MEDS: FLUoxetine 20 MG CAP PO SCH (09:08)
[2018-05-11] MEDS: carBAMazepine 200 MG TAB PO SCH (09:08)
[2018-05-11] MEDS: GABAPENTIN 300 MG CAP PO SCH ×3 (09:08→21:40)
[2018-05-11] MEDS: diazePAM 5 MG TAB PO SCH (09:09)
[2018-05-11] MEDS: MODAFINIL 100 MG TABLET PO SCH (09:09)
[2018-05-11] MEDS: POTASSIUM CHLORIDE 10 MEQ SR TABLET PO SCH ×2 (09:09→21:39)
[2018-05-11] MEDS: carBAMazepine 100 MG *1/2* TAB PO SCH ×3 (09:09→22:11)
[2018-05-11 14:00] VITALS: BP 123/66
[2018-05-11] MEDS: QUEtiapine FUMARATE 100 MG TAB PO SCH (21:39)
[2018-05-11 22:00] VITALS: BP 128/61
[2018-05-12] MEDS: metroNIDAZOLE 500 MG in APPROPRIATE DILUENT 1 EA IV SCH (05:07)
[2018-05-12] MEDS: METHOCARBAMOL 750 MG TAB PO SCH ×4 (05:07→23:15)
[2018-05-12 06:00] VITALS: BP 129/66
[2018-05-12 06:31] LABS: HEMATOCRIT 26.7 % (36.0-47.0); HEMOGLOBIN 8.4 g/dl (12.0-15.5); MEAN CORPUSCULAR HEMOGLOBIN 28.1 pg (27.0-33.0); MEAN CORPUSCULAR HGB CONC 31.5 g/dl (32.0-36.5); MEAN CORPUSCULAR VOLUME 89.3 fl (80.0-96.0); PLATELET COUNT, AUTOMATED 627 10^3/uL (150-450); RED BLOOD COUNT 2.99 10^6/uL (4.00-5.40); WHITE BLOOD COUNT 10.4 10^3/uL (4.0-10.0)
[2018-05-12 06:49] LABS: BLOOD UREA NITROGEN 12 MG/DL (7-18); CALCIUM LEVEL 8.1 MG/DL (8.8-10.2); CARBON DIOXIDE LEVEL 30 MEQ/L (21-32); CHLORIDE LEVEL 101 MEQ/L (98-107); CREATININE FOR GFR 0.62 MG/DL (0.55-1.30); GLOMERULAR FILTRATION RATE > 60.0 (>45); GLUCOSE, FASTING 105 MG/DL (70-100); POTASSIUM SERUM 5.3 MEQ/L (3.5-5.1); SODIUM LEVEL 134 MEQ/L (136-145)
[2018-05-12] MEDS ORDERED: NS 1,000 ML IV ONE (08:00)
[2018-05-12] MEDS: HEPARIN SOD (PORCINE) 5000 UNITS/ML VIAL SC SCH ×2 (09:10→20:33)
[2018-05-12] MEDS: MODAFINIL 100 MG TABLET PO SCH (09:10)
[2018-05-12] MEDS: POTASSIUM CHLORIDE 10 MEQ SR TABLET PO SCH ×2 (09:10→20:34)
[2018-05-12] MEDS: FLUoxetine 20 MG CAP PO SCH (09:11)
[2018-05-12] MEDS: carBAMazepine 200 MG TAB PO SCH (09:11)
[2018-05-12] MEDS: METOCLOPRAMIDE 5 MG TAB PO SCH ×3 (09:11→20:34)
[2018-05-12] MEDS: oxyBUTYnin 5 MG TAB PO SCH ×2 (09:11→20:34)
[2018-05-12] MEDS: GABAPENTIN 300 MG CAP PO SCH ×3 (09:11→20:34)
[2018-05-12] MEDS: diazePAM 5 MG TAB PO SCH (09:11)
[2018-05-12] MEDS: carBAMazepine 100 MG *1/2* TAB PO SCH ×3 (09:11→20:34)
[2018-05-12 10:00] VITALS: BP 123/61
--- NOTE | 2018-05-12 10:22 | IPNPDOC ---
Text Note Date of Service The patient was seen on 05/12/18. NOTE No current complaints. She is tolerating the regular diet. Denies nausea, emes is, fevers, or pains. VSSAF NAD abd - soft, incisions c/d/i, bruising around the lower half of the incision. ostomy is pink and patent with stool in bag labs - below A) 62y/o female s/p sigmoidectomy with diverting ileostomy for sigmoid volvulus post-op ileus resolved P) PO abx reg diet heparin SQ OOB to chair TID PT stable for d/c once bed available. Juancho Flores DO VS,Fishbone, I+O VS, Fishbone, I+O Laboratory Tests 05/12/18 05:55 Red Blood Count 2.99 L, Mean Corpuscular Volume 89.3, Mean Corpuscular Hemoglobin 28.1, Mean Corpuscular Hemoglobin Concent 31.5 L, Red Cell Distribution Width 17.2 H, Calcium Level 8.1 L Vital Signs Date Time Temp Pulse Resp B/P (MAP) Pulse Ox O2 Delivery O2 Flow Rate FiO2 05/12/18 06:00 97.7 93 16 129/66 (87) 97 1.0 05/06/18 06:00 Nasal Cannula I&O- Last 24 Hours up to 6 AM 05/12/18 06:00 Intake Total 2140 ml Output Total 1160 ml Balance 980 ml DONATO FLORES DO May 12, 2018 10:22
[2018-05-12 10:37] VITALS: BP 123/61
[2018-05-12] MEDS: CIPROFLOXACIN 500 MG TAB PO SCH ×2 (10:46→17:17)
[2018-05-12] MEDS: AUGMENTIN 875 MG TAB PO SCH ×2 (10:46→20:34)
[2018-05-12 14:00] VITALS: BP 145/63
[2018-05-12] MEDS: metroNIDAZOLE (FLAGYL) 500 MG TAB PO SCH ×2 (15:13→20:34)
[2018-05-12] MEDS: QUEtiapine FUMARATE 100 MG TAB PO SCH (20:35)
[2018-05-12 22:00] VITALS: BP 127/67
[2018-05-13] MEDS: METHOCARBAMOL 750 MG TAB PO SCH ×4 (05:10→23:25)
[2018-05-13] MEDS: metroNIDAZOLE (FLAGYL) 500 MG TAB PO SCH ×3 (05:10→20:58)
[2018-05-13] MEDS: CIPROFLOXACIN 500 MG TAB PO SCH ×2 (05:11→17:34)
[2018-05-13 06:00] VITALS: BP 108/73
[2018-05-13 06:21] LABS: HEMATOCRIT 27.8 % (36.0-47.0); HEMOGLOBIN 8.5 g/dl (12.0-15.5); MEAN CORPUSCULAR HEMOGLOBIN 28.2 pg (27.0-33.0); MEAN CORPUSCULAR HGB CONC 30.6 g/dl (32.0-36.5); MEAN CORPUSCULAR VOLUME 92.4 fl (80.0-96.0); PLATELET COUNT, AUTOMATED 612 10^3/uL (150-450); RED BLOOD COUNT 3.01 10^6/uL (4.00-5.40)
[2018-05-13 06:41] LABS: BLOOD UREA NITROGEN 8 MG/DL (7-18); CALCIUM LEVEL 8.2 MG/DL (8.8-10.2); CARBON DIOXIDE LEVEL 27 MEQ/L (21-32); CHLORIDE LEVEL 103 MEQ/L (98-107); CREATININE FOR GFR 0.58 MG/DL (0.55-1.30); GLOMERULAR FILTRATION RATE > 60.0 (>45); GLUCOSE, FASTING 105 MG/DL (70-100); POTASSIUM SERUM 5.1 MEQ/L (3.5-5.1); SODIUM LEVEL 135 MEQ/L (136-145)
--- NOTE | 2018-05-13 09:13 | IPNPDOC ---
Text Note Date of Service The patient was seen on 05/13/18. NOTE No current complaints. She is tolerating the regular diet. Denies nausea, emes is, fevers, or pains. VSSAF NAD abd - soft, incisions c/d/i, bruising around the lower half of the incision. ostomy is pink and patent with stool in bag labs - below A) 62y/o female s/p sigmoidectomy with diverting ileostomy for sigmoid volvulus post-op ileus resolved P) PO abx reg diet heparin SQ OOB to chair TID PT stable for d/c once bed available. will work with charge nurse on dc Juancho Flores DO VS,Fishbone, I+O VS, Jacquelinee, I+O Laboratory Tests 05/13/18 05:50 Red Blood Count 3.01 L, Mean Corpuscular Volume 92.4, Mean Corpuscular Hemo globin 28.2, Mean Corpuscular Hemoglobin Concent 30.6 L, Red Cell Distribution Width 18.0 H, Calcium Level 8.2 L Vital Signs Date Time Temp Pulse Resp B/P (MAP) Pulse Ox O2 Delivery O2 Flow Rate FiO2 05/13/18 06:00 97.0 98 16 108/73 (85) 100 1.0 I&O- Last 24 Hours up to 6 AM 05/13/18 06:00 Intake Total 3730 ml Output Total 2150 ml Balance 1580 ml DONATO FLORES DO May 13, 2018 09:13
[2018-05-13] MEDS: HEPARIN SOD (PORCINE) 5000 UNITS/ML VIAL SC SCH ×2 (09:44→20:59)
[2018-05-13] MEDS: AUGMENTIN 875 MG TAB PO SCH ×2 (09:46→20:57)
[2018-05-13] MEDS: POTASSIUM CHLORIDE 10 MEQ SR TABLET PO SCH ×2 (09:46→20:57)
[2018-05-13] MEDS: carBAMazepine 200 MG TAB PO SCH (09:46)
[2018-05-13] MEDS: carBAMazepine 100 MG *1/2* TAB PO SCH ×3 (09:46→20:58)
[2018-05-13] MEDS: METOCLOPRAMIDE 5 MG TAB PO SCH ×3 (09:47→20:58)
[2018-05-13] MEDS: oxyBUTYnin 5 MG TAB PO SCH ×2 (09:47→20:57)
[2018-05-13] MEDS: FLUoxetine 20 MG CAP PO SCH (09:47)
[2018-05-13] MEDS: MODAFINIL 100 MG TABLET PO SCH (09:47)
[2018-05-13] MEDS: GABAPENTIN 300 MG CAP PO SCH ×3 (09:47→20:58)
[2018-05-13] MEDS: diazePAM 5 MG TAB PO SCH (09:47)
[2018-05-13 14:00] VITALS: BP 135/68
[2018-05-13] MEDS: ACETAMINOPHEN TAB 650MG DOSE (2X325MG) PO PRN (16:06)
[2018-05-13] MEDS: QUEtiapine FUMARATE 100 MG TAB PO SCH (20:58)
[2018-05-13 22:00] VITALS: BP 108/64
[2018-05-14] MEDS: metroNIDAZOLE (FLAGYL) 500 MG TAB PO SCH ×3 (05:07→21:37)
[2018-05-14] MEDS: METHOCARBAMOL 750 MG TAB PO SCH ×4 (05:08→23:31)
[2018-05-14] MEDS: CIPROFLOXACIN 500 MG TAB PO SCH ×2 (05:08→18:21)
[2018-05-14 06:00] VITALS: BP 117/64
[2018-05-14 06:35] LABS: HEMATOCRIT 27.8 % (36.0-47.0); HEMOGLOBIN 8.8 g/dl (12.0-15.5); MEAN CORPUSCULAR HEMOGLOBIN 28.9 pg (27.0-33.0); MEAN CORPUSCULAR HGB CONC 31.7 g/dl (32.0-36.5); MEAN CORPUSCULAR VOLUME 91.4 fl (80.0-96.0); PLATELET COUNT, AUTOMATED 601 10^3/uL (150-450); RED BLOOD COUNT 3.04 10^6/uL (4.00-5.40)
[2018-05-14 06:57] LABS: BLOOD UREA NITROGEN 10 MG/DL (7-18); CALCIUM LEVEL 8.4 MG/DL (8.8-10.2); CARBON DIOXIDE LEVEL 27 MEQ/L (21-32); CHLORIDE LEVEL 103 MEQ/L (98-107); GLOMERULAR FILTRATION RATE > 60.0 (>45); GLUCOSE, FASTING 107 MG/DL (70-100); POTASSIUM SERUM 4.9 MEQ/L (3.5-5.1); SODIUM LEVEL 135 MEQ/L (136-145)
[2018-05-14] MEDS: HEPARIN SOD (PORCINE) 5000 UNITS/ML VIAL SC SCH ×2 (09:37→21:35)
[2018-05-14] MEDS: FLUoxetine 20 MG CAP PO SCH (09:38)
[2018-05-14] MEDS: GABAPENTIN 300 MG CAP PO SCH ×3 (09:38→21:37)
[2018-05-14] MEDS: oxyBUTYnin 5 MG TAB PO SCH ×2 (09:38→21:37)
[2018-05-14] MEDS: carBAMazepine 100 MG *1/2* TAB PO SCH ×3 (09:38→21:36)
[2018-05-14] MEDS: diazePAM 5 MG TAB PO SCH (09:38)
[2018-05-14] MEDS: AUGMENTIN 875 MG TAB PO SCH ×2 (09:38→21:37)
[2018-05-14] MEDS: POTASSIUM CHLORIDE 10 MEQ SR TABLET PO SCH ×2 (09:39→21:36)
[2018-05-14] MEDS: MODAFINIL 100 MG TABLET PO SCH (09:39)
[2018-05-14] MEDS: METOCLOPRAMIDE 5 MG TAB PO SCH ×3 (09:39→21:37)
[2018-05-14] MEDS: carBAMazepine 200 MG TAB PO SCH (09:39)
--- NOTE | 2018-05-14 10:43 | IPNPDOC ---
Text Note Date of Service The patient was seen on 05/14/18. NOTE No current complaints. She is tolerating the regular diet. Denies nausea, emes is, fevers, or pains. VSSAF NAD abd - soft, incisions c/d/i, bruising around the lower half of the incision. ostomy is pink and patent with stool in bag labs - below A) 62y/o female s/p sigmoidectomy with diverting ileostomy for sigmoid volvulus post-op ileus resolved P) PO abx reg diet heparin SQ OOB to chair TID PT stable for d/c once bed available. She has a bed available for her in [place], and the plan is to get her there tomorrow. Juancho Flores DO VS,Елена, I+O VS, Елена, I+O Laboratory Tests 05/14/18 06:20 Red Blood Count 3.04 L, Mean Corpuscular Volume 91.4, Mean Corpuscular Hemoglobin 28.9, Mean Corpuscular Hemoglobin Concent 31.7 L, Red Cell Distribution Width 17.8 H, Calcium Level 8.4 L Vital Signs Date Time Temp Pulse Resp B/P (MAP) Pulse Ox O2 Delivery O2 Flow Rate FiO2 05/14/18 06:00 97.6 97 15 117/64 (81) 96 05/13/18 14:00 1.0 I&O- Last 24 Hours up to 6 AM0 05/14/18 06:00 Intake Total 930 ml Output Total 2215 ml Balance -1285 ml DONATO FLORES DO May 14, 2018 10:42
[2018-05-14] MEDS ORDERED: AMOX875T2 PO (10:46)
[2018-05-14] MEDS: NORCO, ANEXSIA 5/325MG TABLET (HYDROcodone/ACETAMINOPHEN) PO PRN ×2 (11:50→21:36)
[2018-05-14 14:00] VITALS: BP 121/74
[2018-05-14] MEDS: QUEtiapine FUMARATE 100 MG TAB PO SCH (21:38)
[2018-05-14 22:00] VITALS: BP 125/76
[2018-05-15] MEDS: CIPROFLOXACIN 500 MG TAB PO SCH (05:36)
[2018-05-15] MEDS: metroNIDAZOLE (FLAGYL) 500 MG TAB PO SCH (05:36)
[2018-05-15] MEDS: METHOCARBAMOL 750 MG TAB PO SCH (05:36)
[2018-05-15 06:00] VITALS: BP 136/78
[2018-05-15] MEDS: METOCLOPRAMIDE 5 MG TAB PO SCH (08:02)
[2018-05-15] MEDS: POTASSIUM CHLORIDE 10 MEQ SR TABLET PO SCH (08:02)
[2018-05-15] MEDS: oxyBUTYnin 5 MG TAB PO SCH (08:02)
[2018-05-15] MEDS: carBAMazepine 200 MG TAB PO SCH (08:02)
[2018-05-15] MEDS: GABAPENTIN 300 MG CAP PO SCH (08:03)
[2018-05-15] MEDS: MODAFINIL 100 MG TABLET PO SCH (08:03)
[2018-05-15] MEDS: carBAMazepine 100 MG *1/2* TAB PO SCH (08:03)
[2018-05-15] MEDS: AUGMENTIN 875 MG TAB PO SCH (08:03)
[2018-05-15] MEDS: FLUoxetine 20 MG CAP PO SCH (08:03)
[2018-05-15] MEDS: diazePAM 5 MG TAB PO SCH (08:03)
[2018-05-15] MEDS: HEPARIN SOD (PORCINE) 5000 UNITS/ML VIAL SC SCH (08:04)
--- NOTE | 2018-05-15 18:28 | DSES ---
DATE OF ADMISSION: 04/29/2018 DATE OF DISCHARGE: 05/15/2018 ADMISSION DIAGNOSIS: Obstructing sigmoid volvulus. DISCHARGE DIAGNOSIS: Obstructing sigmoid volvulus. HOSPITAL COURSE: Patient is a 62-year-old female who presented on the with signs of the bowel obstruction and sigmoid volvulus. She was brought to the operating room for sigmoid section. She underwent a laparoscopic, converted to open, sigmoid resection with a diverting loop ileostomy. Postoperatively, she did well over the next couple of days. No fevers or chills. She had a nasogastric tube in place for a prolonged period of time due to long ileus. She was producing stool from her ostomy pretty quickly but she was still having high NG output that was bilious. This lasted a few days longer than expected. By postop day #4, she also started to have some bruising in her lower midline abdominal wall incision. I took out a couple of maynor, which revealed a small hematoma there, unknown source, most likely occurred when she is moving in and out of bed at some point. However, it controlled itself and we have been just doing dressing changes since that day with iodoform packing and an absorbent gauze dressing. Her ostomy has been working appropriately. She has been tolerating diet. No fevers or chills. White count has been normal. She has been on antibiotics prophylactically because of this abdominal hematoma and I wanted to make sure that it did not become a large abscess. She had been tolerating diet. She has been slowly increasing her physical activity to the point where she can get into a chair with assistance; however, she is nowhere near back to her baseline at this point. For the past week, she has been stable for discharge, just been waiting to find a proper location for her. She finally has a place in [place] and the plan is to send her there today. She can remove her maynor 1 week from today. The abdominal wall wound will continue to be packed at least once a day. She can followup with me once she leaves the alf to schedule an elective reversal of her ileostomy. She does not need to come back to see me to get her maynor out, anyone at her facility can do that in another week.
== END 2018-05-15 09:05 | DRG 221 ==
LOC: EDBD 11:04 → M ED 11:04 → M SDC 15:50 → M ED INP 20:40 → M MSPAV 21:33
PROVIDERS: ADMIT Surgery; ATTEND Surgery
PROC: 0DTN0ZZ Resection of Sigmoid Colon, Open Approach (ICD-10-PCS; principal; 2018-04-29 15:52)
PROC: 0D1B0Z4 Bypass Ileum to Cutaneous, Open Approach (ICD-10-PCS; 2018-04-29 15:52)
DX: K56.2 Volvulus (principal); E87.5 Hyperkalemia; G35 Multiple sclerosis; E78.5 Hyperlipidemia, unspecified; K59.09 Other constipation; K56.7 Ileus, unspecified; L76.32 Postprocedural hematoma of skin and subcutaneous tissue following other procedure; K91.89 Other postprocedural complications and disorders of digestive system; Z79.899 Other long term (current) drug therapy

== ENCOUNTER 2018-08-05 12:30 | Day surgery (SDC) | payer MEDICAID ==
[~2018-08-05] VITALS: Ht 172.7 cm; Wt 81.6 kg
[~2018-08-05 12:30] MED LIST changes: -/CARB4TA OR; -/CARBXR20T OR; -/ESOM40CA OR; -/QUET25TA OR; +ACET1TAB55 PO; +AMOX875T2 PO; +BIOF4GEL2 TOP; +CARB10TACH PO; +CARB1TAB20 PO; +COPA1INJ SC; +DIAZ5TAB PO; +DOCU100C16 PO; -DOCU10ELUD PO; +DOCU5LIQ PO; +DULE100A INH; +FLUO20CA19 PO; +FLUO20TA28 PO; +FLUT1SPR2; -FLUTISP; +FURO20TA2 PO; +GABA-843 PO; +IPRAINH INH; +METH75TA PO; +MODA100T13 PO; +NEXI1CAP3 OR; +NS 1,000 ML IV ONE; +OMEP40CA2 PO; +OXYB5TAB10 PO; +PANT40TA3 PO; +POTA10808 PO; +PROAAER10 INH; +QUET1TAB9 PO; +QUET5TAB PO; +SENN1TAB40 PO; +SERO1TAB3 OR; +SODI1TAB12 PO; +TEGR1TAB OR; +TEGR1TAB2 OR; +TIZA4CAP PO; +TIZA4TAB4 PO; +TIZA6CAP6 PO; +VITMTA PO
[2018-08-05] MEDS ORDERED: PROPOFOL 200 MG/20 ML VIAL As Ordered ONE ×2 (12:34→14:46)
[2018-08-05] MEDS ORDERED: LIDOCAINE 2% INJ 100 MG/5 ML SDV (FOR ANES.) As Ordered ONE (12:34)
--- NOTE | 2018-08-05 15:01 | ROOR ---
Patient Name: Kg Monzon Procedure Date: 08/05/2018 2:02 PM Date of : 1955 Age: 62 Room: [facility] Gender: Female Note Status: Finalized Procedure: Colonoscopy Indications: Preoperative assessment Providers: DO Judy Whitten MD: BRYON SIMMONS LVN Requesting Provider: Medicines: Propofol per Anesthesia Complications: No immediate complications. Procedure: Pre-Anesthesia Assessment: - Prior to the procedure, a History and Physical was performed, and patient medications and allergies were reviewed. The patient is competent. The risks and benefits of the procedure and the sedation options and risks were discussed with the patient. All questions were answered and informed consent was obtained. Patient identification and proposed procedure were verified by the physician, the nurse, the anesthesiologist and the aviation electrical technician in the endoscopy suite. Mental Status Examination: alert and oriented. Airway Examination: normal oropharyngeal airway and neck mobility. Respiratory Examination: clear to auscultation. CV Examination: normal. Prophylactic Antibiotics: The patient does not require prophylactic antibiotics. Prior Anticoagulants: The patient has taken no previous anticoagulant or antiplatelet agents. ASA Grade Assessment: III - A patient with severe systemic disease. After reviewing the risks and benefits, the patient was deemed in satisfactory condition to undergo the procedure. The anesthesia plan was to use monitored anesthesia care (MAC). Immediately prior to administration of medications, the patient was re-assessed for adequacy to receive sedatives. The heart rate, respiratory rate, oxygen saturations, blood pressure, adequacy of pulmonary ventilation, and response to care were monitored throughout the procedure. The physical status of the patient was re-assessed after the procedure. The Colonoscope was introduced through the anus with the intention of advancing to the cecum. The scope was advanced to the descending colon before the procedure was aborted. Medications were not given. The Endoscope was introduced through the and advanced to. The colonoscopy was performed without difficulty. The patient tolerated the procedure well. The colonoscopy was technically difficult and complex. Findings: A benign-appearing, intrinsic moderate stenosis measuring less than one cm (in length) was found in the rectum and was traversed. To prevent bleeding post-intervention, two hemostatic clips were successfully placed. There was no bleeding at the end of the procedure. Estimated blood loss was minimal. 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 Clips were placed. - No specimens collected. Recommendation: - Patient has a contact number available for emergencies. The signs and symptoms of potential delayed complications were discussed with the patient. Return to normal activities tomorrow. Written discharge instructions were provided to the patient. - Return to my office as previously scheduled. Diallo Flores DO 08/05/2018 3:01:27 PM Electronically signed by Diallo Flores DO Number of Addenda: 0 Note Initiated On: 08/05/2018 2:02 PM Estimated Blood Loss: Estimated blood loss was minimal.
[2018-08-05 16:00] VITALS: BP 179/92
== END 2018-08-05 16:10 | disposition home or self-care (01) ==
LOC: M OPP 12:30
PROVIDERS: ATTEND Surgery
DX: Z01.818 Encounter for other preprocedural examination (principal); K62.4 Stenosis of anus and rectum

== ENCOUNTER → 2018-09-08 | Outpatient (CLI) | payer MEDICAID ==
[~2018-09-08] MED LIST changes: +LIQUID POLIBAR PLUS 105% w/v 1900ML BTL As Ordered ONE; -NS 1,000 ML IV ONE
--- NOTE | 2018-09-08 18:20 | REP ---
BARIUM ENEMA SINGLE CONTRAST The procedure was performed under the direct supervision of Dr. Paula. The images were reviewed with Dr. Paula. The baked goods stock clerk film shows no organomegaly or pathological masses. The test gas pattern is nonspecific. There is an ileostomy on the right. There are surgical clips noted within the pelvis. The patient is status post rectal colic anastomosis. Liquid barium was instilled into the colon and retrograde flow. There is free flow of contrast to the splenic flexure. There is narrowing at the recto-colic anastomosis. This measures 9 mm. There is residual adherent stool which limits mucosal evaluation. There is no dilation proximal to the anastomosis. Impression: There is narrowing at the recto-colic anastomosis which measures nine mm. There is no evidence of dilation proximal to the anastomosis. There is residual adherent stool which limits mucosal evaluation. 1.1 minutes of fluoroscopy time was utilized for this procedure. Reviewed by ADONAY Dumont 09/08/2018 04:21 P Electronically Signed by Diallo Paula MD 09/08/2018 06:12 P
== END ==
LOC: M RAD 10:00
PROVIDERS: ATTEND Surgery
DX: K56.2 Volvulus (principal)

== ENCOUNTER 2018-09-14 06:26 | Inpatient (IN) | payer MEDICAID ==
--- NOTE | 2018-09-10 13:56 | HPE ---
DATE OF ADMISSION: 09/14/2018 CHIEF COMPLAINT: Ileostomy. 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 I brought her back for a colonoscopy prior to reversing her ileostomy to make sure that her anastomosis was patent. The anastomosis was intact, but it was strictured. I dilated it at the time. Then I saw her back in the office to discuss possible repeat colonoscopy to make sure that the anastomosis was okay versus proceeding with her surgery. She is very adamant that she wants the done so that was scheduled and I plan to do a barium enema as well prior to surgery just to make sure that everything was open. She just underwent the barium enema on 09/08/2018 and it showed that there was still a stricture down to about 9 mm at the anastomosis site. I called her. She is down in [place] in [facility]. I called her and spoke to her there. I explained to her that she still has a stricture and that I would recommend we hold off on surgery a couple weeks and plan to do a resection of her previous anastomosis with a new colorectal anastomosis as well as remove her ileostomy all at the same time. I do not have enough time for her already planned into the schedule for Friday to be able to do it then. She understands, but she still wants to proceed with the original surgery that was already planned for Friday. I did explain to her that we will do a dilation of her anastomotic stricture on Friday as well, but then she still will run the risk of it continuing to stricture down a few weeks after surgery and she may require multiple dilations over the next few months and possibly even still require a second surgery for resection of that anastomosis in the future if the dilations are unsuccessful. She understands completely. She verbalized understanding numerous times and is planning to still proceed with the surgery on Friday. PAST MEDICAL HISTORY: Multiple sclerosis, hyperlipidemia, tobacco abuse, bronchitis, obesity, urinary incontinence. PAST SURGICAL HISTORY: Tubal ligation, knee surgery, colonoscopies, sigmoid resection in April of this year. ALLERGIES: None. HOME MEDICATIONS: Please see med record. FAMILY HISTORY: Noncontributory. REVIEW OF SYSTEMS: Pertinent positives and negative as stated in the history of present illness (HPI). PHYSICAL EXAMINATION: General: Alert and oriented times three, in no acute stress. Vitals: Blood pressure 125/79, pulse 73, respirations 18. HEENT: Pupils equal, round and react to light and accommodation. Heart: S1 and S2, regular rate and rhythm. Lungs: Clear to auscultation bilaterally. Abdomen: Soft, nontender, nondistended. Her incisions are clean, dry and intact. Her ostomy in the right upper quadrant is pink and patent. Extremities: No clubbing, cyanosis or edema. LABORATORY DATA: None were obtained. ASSESSMENT/PLAN: Patient who is a 62-year-old female who is status post sigmoid resection and diverting ileostomy for sigmoid volvulus. She currently still has the ileostomy in place as well as an anastomotic stricture from her initial surgery. The plan is to take her to the operating room (OR) Friday morning for laparoscopic ileostomy reversal as well as dilation of her colorectal anastomosis. Risks and benefits of the procedure not limited to, but including bleeding, infection, hernia formation, damage to surrounding structures, need for further surgery were discussed in detail with the patient. Informed consent was obtained and the procedure is planned for Friday.
[~2018-09-14] VITALS: Ht 170.2 cm; Wt 87.5 kg
[2018-09-14] VITALS (7 sets, daily range): BP systolic 136–165; BP diastolic 68–89
[~2018-09-14 06:26] MED LIST changes: +LIDOCAINE 1% MDV 20ML VIAL SQ PRN; -LIQUID POLIBAR PLUS 105% w/v 1900ML BTL As Ordered ONE; +LR 1,000 ML IV ONE
[2018-09-14] MEDS ORDERED: PROPOFOL 200 MG/20 ML VIAL As Ordered ONE (07:04)
[2018-09-14] MEDS ORDERED: ONDANSETRON 4MG/2ML VIAL (J2405) As Ordered ONE (07:04)
[2018-09-14] MEDS ORDERED: ROCURONIUM BROMIDE 50 MG/5 ML VIAL As Ordered ONE (07:04)
[2018-09-14] MEDS ORDERED: LIDOCAINE 2% INJ 100 MG/5 ML SDV (FOR ANES.) As Ordered ONE (07:04)
[2018-09-14] MEDS ORDERED: dexameTHASONE 4 MG/ML 1ML VIAL (J1100) As Ordered ONE (07:04)
[2018-09-14] MEDS ORDERED: MIDAZOLAM INJ 2 MG/2 ML VIAL (J2250) As Ordered ONE (07:09)
[2018-09-14] MEDS ORDERED: fentaNYL 100 MCG/2 ML INJECTION (J3010) As Ordered ONE ×3 (07:09→11:29)
[2018-09-14] MEDS ORDERED: carBAMazepine 100 MG *1/2* TAB PO SCH ×2 (09:00→12:33)
[2018-09-14] MEDS ORDERED: cefoTEtan DISODIUM 2 GM in D5W MINI-BAG PLUS 50 ML IV ONE (09:00)
[2018-09-14] MEDS: carBAMazepine 100 MG *1/2* TAB PO SCH ×3 (09:00→21:02)
[2018-09-14] MEDS ORDERED: SUGAMMADEX SODIUM 500 MG/5 ML VIAL (BRIDION) As Ordered ONE (09:59)
[2018-09-14] MEDS ORDERED: BUPIVACAINE/EPIN 0.25% 30 ML VIAL As Ordered ONE (10:39)
[2018-09-14] MEDS ORDERED: KETOROLAC 60 MG/2 ML VIAL (J1885) As Ordered ONE (11:05)
[2018-09-14] MEDS: fentaNYL 100 MCG/2 ML INJECTION (J3010) IV PRN ×4 (11:30→12:12)
[2018-09-14] MEDS: HYDROMORPHONE HCL 0.5 MG/ 0.5 ML SYRINGE (J1170 PER 1) IV PRN ×5 (11:40→12:00)
[2018-09-14] MEDS ORDERED: LR 1,000 ML IV SCH (11:45)
[2018-09-14] MEDS ORDERED: ONDANSETRON 4MG/2ML VIAL (J2405) IV PRN ×2 (11:45→12:00)
[2018-09-14] MEDS ORDERED: MORPHINE 4 MG/ML 1ML VIAL/SYRINGE (J2270) IV PRN (12:00)
[2018-09-14] MEDS ORDERED: ACETAMINOPHEN TAB 650MG DOSE (2X325MG) PO PRN (12:00)
[2018-09-14] MEDS: IPRATROPIUM 0.02% SOLN 0.5MG/2.5 ML NEB INH SCH ×3 (12:00→20:00)
[2018-09-14] MEDS: PERCOCET 5MG/325MG TAB PO PRN ×2 (12:15→12:51)
[2018-09-14] MEDS ORDERED: HYDROMORPHONE HCL 0.5 MG/ 0.5 ML SYRINGE (J1170 PER 1) As Ordered ONE ×2 (12:32→12:45)
[2018-09-14] MEDS: HYDROmorphone HCL 2 MG/ML 1ML VIAL (J1170) IV PRN ×2 (12:34→12:44)
[2018-09-14] MEDS ORDERED: PERCOCET 5MG/325MG TAB As Ordered ONE (12:49)
--- NOTE | 2018-09-14 14:48 | RO ---
DATE OF PROCEDURE: 09/14/2018 PREOPERATIVE DIAGNOSES: Recent diverting ileostomy and sigmoid volvulus. POSTOPERATIVE DIAGNOSES: Recent diverting ileostomy and sigmoid volvulus with a stricture at the colorectal anastomosis. PROCEDURE: Sigmoidoscopy with balloon dilation of a colorectal stricture and diverting ileostomy reversal. SURGEON: Dr. Diallo Flores ASSIST: Dr. Denys Murphy, who assisted with balloon dilatation as well as take down reanastomosis of the ileostomy. ANESTHESIA: General. ESTIMATED BLOOD LOSS (EBL): 10 mL. COMPLICATIONS: None. INDICATION FOR PROCEDURE: Patient, 62-year-old female who had a sigmoid volvulus and underwent a primary resection and anastomosis with diverting ileostomy a few months ago. Since that time, she had a followup colonoscopy that showed a stricture at the anastomosis site that was ballooned open. Barium enema last week again showed this area was strictured. I gave her the option of doing repeat dilation prior to surgery versus planning a one-step surgery where we go in and resect the previous anastomosis and reverse her all at the same time. She elected to avoid all that. She just wants her ileostomy reversed and attempt dilation of her stricture again. Risks and benefits of procedure, not limited to but including, bleeding, infection, anastomotic leak, bowel obstruction from her previous anastomosis, hernia formation, damage to surrounding structures, need for further surgeries, all discussed in detail with the patient and her . Consent was obtained, and procedure was planned. DESCRIPTION OF PROCEDURE: Patient was brought back to operating room 3 after sufficient sedation. She was is placed in left lateral decubitus position. Time-out was done to confirm proper patient, proper procedure. Following that, the scope was passed through the rectum until the anastomosis was reached. It was strictured down, had a very narrow length stricture, yet, I was able to pass the upper endoscope through it. After doing so, I pulled back, placed in an 18-mm balloon and was able to dilate all the way up to 18 mm without any complications. Once that was completed, we laid her on her back, prepped the abdomen with Betadine, and continued on with the rest of procedure. Starting with an elliptical incision around the ileostomy site using cautery, I was able to dissect through the skin and subcutaneous tissue all the way to the level of fascia, used cautery to then take down adhesions circumferentially around the small bowel going through the fascia inside the abdomen until everything was completely freed up. After doing so, we pulled out a few inches of proximal and distal small intestine, created a [id number] anastomosis using a DANNIE-75 stapler with a blue load. Once that was done, the mesentery was amputated using Jaja's and 0 Vicryl ties. Once the mesentery was a reapproximated, the hole in the mesentery using a #0 Vicryl suture, the anastomosis was then covered with some Tisseel, placed back inside of the abdomen. The fascia was reapproximated with interrupted #0 PDS sutures. Subcutaneous tissues were reapproximated with #3-0 Vicryl sutures. Skin was brought back together with maynor, thus ending procedure. Patient tolerated the procedure well and was sent to post anesthesia care unit (PACU) in stable condition.
[2018-09-14] MEDS: KCL 20MEQ IN D5/0.45NS 1000ML 1,000 ML IV SCH ×2 (14:56→23:00)
[2018-09-14] MEDS: AMPICILLIN SOD/SULBACTAM SOD 3 GM in D5W MINI-BAG PLUS 100 ML IV SCH ×2 (14:56→21:02)
[2018-09-14] MEDS: ENOXAPARIN 40 MG/0.4 ML SYRINGE (J1650) SC SCH (15:00)
[2018-09-14] MEDS: FLUoxetine 20 MG CAP PO SCH (15:01)
[2018-09-14] MEDS: carBAMazepine 200 MG TAB PO SCH (15:01)
[2018-09-14] MEDS: OMEPRAZOLE 20 MG CAP PO SCH (15:01)
[2018-09-14] MEDS: oxyBUTYnin 5 MG TAB PO SCH ×2 (15:02→21:02)
[2018-09-14] MEDS: FUROSEMIDE 20 MG TAB PO SCH (15:03)
[2018-09-14] MEDS: MODAFINIL 100 MG TABLET PO SCH (15:03)
[2018-09-14] MEDS: SENOKOT S TAB PO SCH ×2 (15:03→21:02)
[2018-09-14] MEDS: METHOCARBAMOL 750 MG TAB PO SCH ×2 (15:03→16:29)
[2018-09-14] MEDS: diazePAM 5 MG TAB PO SCH (15:03)
[2018-09-14] MEDS: MULTIVITAMINS/MINERALS THERAP 1 TAB PO SCH (15:03)
[2018-09-14] MEDS: GABAPENTIN 300 MG CAP PO SCH ×2 (15:04→21:02)
[2018-09-14] MEDS: NORCO, ANEXSIA 5/325MG TABLET (HYDROcodone/ACETAMINOPHEN) PO PRN (16:29)
[2018-09-14] MEDS: QUEtiapine FUMARATE 50 MG TAB PO SCH (21:02)
[2018-09-14] MEDS: QUEtiapine FUMARATE 200 MG TAB PO SCH (21:02)
[2018-09-14] MEDS: KETOROLAC 30 MG/ML VIAL (J1885) IV PRN (21:13)
[2018-09-15] MEDS: METHOCARBAMOL 750 MG TAB PO SCH ×4 (00:11→17:01)
[2018-09-15 01:45] VITALS: BP 113/61
[2018-09-15] MEDS: AMPICILLIN SOD/SULBACTAM SOD 3 GM in D5W MINI-BAG PLUS 100 ML IV SCH (03:15)
[2018-09-15 05:45] VITALS: BP 142/74
[2018-09-15 07:04] LABS: HEMATOCRIT 32.4 % (36.0-47.0); HEMOGLOBIN 10.2 g/dl (12.0-15.5); MEAN CORPUSCULAR HEMOGLOBIN 25.8 pg (27.0-33.0); MEAN CORPUSCULAR HGB CONC 31.5 g/dl (32.0-36.5); PLATELET COUNT, AUTOMATED 233 10^3/uL (150-450); RED BLOOD COUNT 3.95 10^6/uL (4.00-5.40)
[2018-09-15 07:22] LABS: BLOOD UREA NITROGEN 4 MG/DL (7-18); CARBON DIOXIDE LEVEL 29 MEQ/L (21-32); CHLORIDE LEVEL 99 MEQ/L (98-107); CREATININE FOR GFR 0.85 MG/DL (0.55-1.30); GLOMERULAR FILTRATION RATE > 60.0 (>45); GLUCOSE, FASTING 117 MG/DL (70-100); POTASSIUM SERUM 3.7 MEQ/L (3.5-5.1); SODIUM LEVEL 134 MEQ/L (136-145)
[2018-09-15] MEDS: IPRATROPIUM 0.02% SOLN 0.5MG/2.5 ML NEB INH SCH ×4 (07:24→19:08)
--- NOTE | 2018-09-15 08:09 | IPNPDOC ---
Text Note Date of Service The patient was seen on 09/15/18. NOTE No acute events overnight. Pain is minimal and controlled. She is getting out of bed to the commode to urinate. No problems with nausea, emesis, or fevers. She is very hungry, and is tolerating clq diet. She claims to have had some small flatus, but no BM yet. VSSAF NAD abd - soft, nd, TTP appropriate, incisions c/d/i labs - below A) 62y/o female s/p colonic dilation, and ileostomy reversal P) reg diet ambulate d/c abx await return of bowel function plan on d/c home after a BM. Juancho Flores DO VS,Fishbone, I+O VS, Fishbone, I+O Laboratory Tests 09/15/18 06:36 Red Blood Count 3.95 L, Mean Corpuscular Volume 82.0, Mean Corpuscular Hemoglobin 25.8 L, Mean Corpuscular Hemoglobin Concent 31.5 L, Red Cell Distribution Width 15.9 H, Calcium Level 8.0 L Vital Signs Date Time Temp Pulse Resp B/P (MAP) Pulse Ox O2 Delivery O2 Flow Rate FiO2 09/15/18 05:45 98.9 87 16 142/74 (96) 100 2.0 l I&O- Last 24 Hours up to 6 AM 09/15/18 05:59 Intake Total 2280 ml Output Total 905 ml Balance 1375 ml DONATO FLORES DO Sep 15, 2018 08:09
[2018-09-15] MEDS: carBAMazepine 100 MG *1/2* TAB PO SCH ×3 (09:07→20:59)
[2018-09-15] MEDS: SENOKOT S TAB PO SCH ×2 (09:07→21:00)
[2018-09-15] MEDS: KETOROLAC 30 MG/ML VIAL (J1885) IV PRN ×2 (09:07→21:11)
[2018-09-15] MEDS: FUROSEMIDE 20 MG TAB PO SCH (09:07)
[2018-09-15] MEDS: OMEPRAZOLE 20 MG CAP PO SCH (09:07)
[2018-09-15] MEDS: MULTIVITAMINS/MINERALS THERAP 1 TAB PO SCH (09:08)
[2018-09-15] MEDS: oxyBUTYnin 5 MG TAB PO SCH ×2 (09:08→20:59)
[2018-09-15] MEDS: MODAFINIL 100 MG TABLET PO SCH (09:08)
[2018-09-15] MEDS: FLUoxetine 20 MG CAP PO SCH (09:08)
[2018-09-15] MEDS: diazePAM 5 MG TAB PO SCH (09:08)
[2018-09-15] MEDS: carBAMazepine 200 MG TAB PO SCH (09:08)
[2018-09-15] MEDS: GABAPENTIN 300 MG CAP PO SCH ×3 (09:08→21:00)
[2018-09-15] MEDS: ENOXAPARIN 40 MG/0.4 ML SYRINGE (J1650) SC SCH (09:09)
[2018-09-15 10:00] VITALS: BP 138/77
[2018-09-15 14:00] VITALS: BP 137/77
[2018-09-15] MEDS: QUEtiapine FUMARATE 200 MG TAB PO SCH (20:59)
[2018-09-15] MEDS: QUEtiapine FUMARATE 50 MG TAB PO SCH (21:00)
[2018-09-15 22:00] VITALS: BP 135/78
[2018-09-16] MEDS: METHOCARBAMOL 750 MG TAB PO SCH ×5 (00:13→23:39)
[2018-09-16 06:00] VITALS: BP 142/87
[2018-09-16 06:00] LABS: HEMATOCRIT 28.4 % (36.0-47.0); HEMOGLOBIN 9.1 g/dl (12.0-15.5); MEAN CORPUSCULAR HEMOGLOBIN 25.6 pg (27.0-33.0); PLATELET COUNT, AUTOMATED 183 10^3/uL (150-450); RED BLOOD COUNT 3.55 10^6/uL (4.00-5.40); WHITE BLOOD COUNT 8.4 10^3/uL (4.0-10.0)
[2018-09-16 06:29] LABS: BLOOD UREA NITROGEN 7 MG/DL (7-18); CALCIUM LEVEL 7.9 MG/DL (8.8-10.2); CARBON DIOXIDE LEVEL 28 MEQ/L (21-32); CHLORIDE LEVEL 100 MEQ/L (98-107); CREATININE FOR GFR 0.65 MG/DL (0.55-1.30); GLOMERULAR FILTRATION RATE > 60.0 (>45); GLUCOSE, FASTING 111 MG/DL (70-100); POTASSIUM SERUM 3.6 MEQ/L (3.5-5.1); SODIUM LEVEL 134 MEQ/L (136-145)
[2018-09-16] MEDS: IPRATROPIUM 0.02% SOLN 0.5MG/2.5 ML NEB INH SCH (07:36)
[2018-09-16] MEDS: carBAMazepine 100 MG *1/2* TAB PO SCH ×3 (09:34→21:10)
[2018-09-16] MEDS: SENOKOT S TAB PO SCH ×2 (09:35→21:10)
[2018-09-16] MEDS: OMEPRAZOLE 20 MG CAP PO SCH (09:35)
[2018-09-16] MEDS: FLUoxetine 20 MG CAP PO SCH (09:35)
[2018-09-16] MEDS: oxyBUTYnin 5 MG TAB PO SCH ×2 (09:35→21:10)
[2018-09-16] MEDS: FUROSEMIDE 20 MG TAB PO SCH (09:35)
[2018-09-16] MEDS: MODAFINIL 100 MG TABLET PO SCH (09:35)
[2018-09-16] MEDS: carBAMazepine 200 MG TAB PO SCH (09:35)
[2018-09-16] MEDS: GABAPENTIN 300 MG CAP PO SCH ×3 (09:35→21:10)
[2018-09-16] MEDS: MULTIVITAMINS/MINERALS THERAP 1 TAB PO SCH (09:36)
[2018-09-16] MEDS: ENOXAPARIN 40 MG/0.4 ML SYRINGE (J1650) SC SCH (09:36)
[2018-09-16] MEDS: diazePAM 5 MG TAB PO SCH (09:36)
--- NOTE | 2018-09-16 11:02 | IPNPDOC ---
Text Note Date of Service The patient was seen on 09/16/18. NOTE No acute events overnight. Pain is minimal and controlled. She is getting out of bed to the commode to urinate. No problems with nausea, emesis, or fevers. She is very hungry, and is tolerating reg diet. She claims to have had some small flatus, but no BM yet. She is working with PT and thinks that she will be cleared to go home after 3 more visits. VSSAF NAD abd - soft, nd, TTP appropriate, incisions c/d/i labs - below A) 62y/o female s/p colonic dilation, and ileostomy reversal P) reg diet ambulate await return of bowel function plan on d/c home after a BM, and once cleared by PT Juancho Flores DO VSЕлена, I+O VS, Елена, I+O Laboratory Tests 09/16/18 05:40 Red Blood Count 3.55 L, Mean Corpuscular Volume 80.0, Mean Corpuscular Hemoglobin 25.6 L, Mean Corpuscular Hemoglobin Concent 32.0, Red Cell Distribution Width 16.1 H, Calcium Level 7.9 L Vital Signs Date Time Temp Pulse Resp B/P (MAP) Pulse Ox O2 Delivery O2 Flow Rate FiO2 09/16/18 06:00 99.4 108 16 142/87 (105) 97 2.0 I&O- Last 24 Hours up to 6 AM 09/16/18 06:00 Intake Total 2150 ml Output Total 1450 ml Balance 700 ml DONATO FLORES DO Sep 16, 2018 11:02
[2018-09-16] MEDS: NORCO, ANEXSIA 5/325MG TABLET (HYDROcodone/ACETAMINOPHEN) PO PRN ×3 (12:21→21:11)
[2018-09-16 14:00] VITALS: BP 143/86
[2018-09-16] MEDS: IPRATROPIUM HFA INHALER 12.9 GRAMS (ATROVENT HFA) INH SCH (19:35)
[2018-09-16] MEDS: QUEtiapine FUMARATE 200 MG TAB PO SCH (21:10)
[2018-09-16] MEDS: QUEtiapine FUMARATE 50 MG TAB PO SCH (21:10)
[2018-09-16 21:45] VITALS: BP 137/89
[2018-09-17] MEDS: METHOCARBAMOL 750 MG TAB PO SCH ×3 (05:36→17:33)
[2018-09-17] MEDS: NORCO, ANEXSIA 5/325MG TABLET (HYDROcodone/ACETAMINOPHEN) PO PRN ×4 (05:37→22:26)
[2018-09-17 05:58] VITALS: BP 138/89
[2018-09-17 06:08] LABS: HEMATOCRIT 31.1 % (36.0-47.0); HEMOGLOBIN 10.1 g/dl (12.0-15.5); MEAN CORPUSCULAR HEMOGLOBIN 26.4 pg (27.0-33.0); MEAN CORPUSCULAR HGB CONC 32.5 g/dl (32.0-36.5); MEAN CORPUSCULAR VOLUME 81.2 fl (80.0-96.0); PLATELET COUNT, AUTOMATED 215 10^3/uL (150-450); RED BLOOD COUNT 3.83 10^6/uL (4.00-5.40); WHITE BLOOD COUNT 7.8 10^3/uL (4.0-10.0)
[2018-09-17 06:37] LABS: BLOOD UREA NITROGEN 6 MG/DL (7-18); CALCIUM LEVEL 8.2 MG/DL (8.8-10.2); CARBON DIOXIDE LEVEL 27 MEQ/L (21-32); CHLORIDE LEVEL 98 MEQ/L (98-107); CREATININE FOR GFR 0.64 MG/DL (0.55-1.30); GLOMERULAR FILTRATION RATE > 60.0 (>45); GLUCOSE, FASTING 107 MG/DL (70-100); POTASSIUM SERUM 3.7 MEQ/L (3.5-5.1); SODIUM LEVEL 132 MEQ/L (136-145)
[2018-09-17] MEDS: IPRATROPIUM HFA INHALER 12.9 GRAMS (ATROVENT HFA) INH SCH ×4 (08:01→19:23)
--- NOTE | 2018-09-17 08:20 | IPNPDOC ---
Text Note Date of Service The patient was seen on 09/17/18. NOTE No acute events overnight. Pain is minimal and controlled. She is getting out of bed to the commode to urinate. No problems with nausea, emesis, or fevers. She is tolerating reg diet. She claims to have had lots of flatus, but no BM yet. She is working with PT and walking the halls. She is cleared to go to rehab once she has a bowel movement. VSSAF NAD abd - soft, nd, TTP appropriate, incisions c/d/i labs - below A) 62y/o female s/p colonic dilation, and ileostomy reversal P) reg diet ambulate await return of bowel function plan on d/c to rehab after a BM Juancho Flores DO VS,Елена, I+O VSЕлена, I+O Laboratory Tests 09/17/18 05:43 Red Blood Count 3.83 L, Mean Corpuscular Volume 81.2, Mean Corpuscular Hemoglobi n 26.4 L, Mean Corpuscular Hemoglobin Concent 32.5, Red Cell Distribution Width 16.5 H, Calcium Level 8.2 L Vital Signs Date Time Temp Pulse Resp B/P (MAP) Pulse Ox O2 Delivery O2 Flow Rate FiO2 09/17/18 06:10 14 09/17/18 05:58 99.8 107 138/89 (105) 88 09/16/18 14:00 2.0 I&O- Last 24 Hours up to 6 AM 09/17/18 06:00 Intake Total 450 ml Output Total 1000 ml Balance -550 ml DONATO FLORES DO Sep 17, 2018 08:20
[2018-09-17] MEDS: diazePAM 5 MG TAB PO SCH (08:42)
[2018-09-17] MEDS: MOM 30ML SUSPENSION UDC PO SCH ×2 (08:42→19:53)
[2018-09-17] MEDS: FUROSEMIDE 20 MG TAB PO SCH (08:42)
[2018-09-17] MEDS: carBAMazepine 100 MG *1/2* TAB PO SCH ×3 (08:42→19:52)
[2018-09-17] MEDS: OMEPRAZOLE 20 MG CAP PO SCH (08:43)
[2018-09-17] MEDS: MULTIVITAMINS/MINERALS THERAP 1 TAB PO SCH (08:43)
[2018-09-17] MEDS: carBAMazepine 200 MG TAB PO SCH (08:43)
[2018-09-17] MEDS: SENOKOT S TAB PO SCH ×2 (08:43→19:52)
[2018-09-17] MEDS: FLUoxetine 20 MG CAP PO SCH (08:43)
[2018-09-17] MEDS: MODAFINIL 100 MG TABLET PO SCH (08:43)
[2018-09-17] MEDS: GABAPENTIN 300 MG CAP PO SCH ×3 (08:43→19:52)
[2018-09-17] MEDS: oxyBUTYnin 5 MG TAB PO SCH ×2 (08:43→19:53)
[2018-09-17] MEDS: ENOXAPARIN 40 MG/0.4 ML SYRINGE (J1650) SC SCH (08:44)
[2018-09-17 16:00] VITALS: BP 114/81
--- NOTE | 2018-09-17 18:33 | REP ---
KUB: HISTORY: Abdominal distention with decreased bowel sounds. COMPARISON: 05/03/2018 There is radiographic contrast material in the rectosigmoid region. There is colonic gaseous distention. There is no free air. IMPRESSION: Residual contrast in the rectosigmoid region. Patient had a barium enema on 09/08/2018. There is mild to moderate gaseous distention of the colon. There is no free air. Electronically Signed by Zhang Puri DO 09/17/2018 07:07 P
[2018-09-17] MEDS: QUEtiapine FUMARATE 200 MG TAB PO SCH (19:52)
[2018-09-17] MEDS: QUEtiapine FUMARATE 50 MG TAB PO SCH (19:53)
[2018-09-17 22:14] VITALS: BP 123/85
[2018-09-18] MEDS: METHOCARBAMOL 750 MG TAB PO SCH ×4 (00:03→17:12)
[2018-09-18] MEDS: NORCO, ANEXSIA 5/325MG TABLET (HYDROcodone/ACETAMINOPHEN) PO PRN ×2 (05:23→19:53)
[2018-09-18 05:50] LABS: HEMATOCRIT 35.9 % (36.0-47.0); HEMOGLOBIN 11.7 g/dl (12.0-15.5); MEAN CORPUSCULAR HEMOGLOBIN 25.5 pg (27.0-33.0); MEAN CORPUSCULAR HGB CONC 32.6 g/dl (32.0-36.5); MEAN CORPUSCULAR VOLUME 78.4 fl (80.0-96.0); PLATELET COUNT, AUTOMATED 334 10^3/uL (150-450); RED BLOOD COUNT 4.58 10^6/uL (4.00-5.40); WHITE BLOOD COUNT 8.9 10^3/uL (4.0-10.0)
[2018-09-18 06:07] VITALS: BP 125/86
[2018-09-18 06:16] LABS: BLOOD UREA NITROGEN 10 MG/DL (7-18); CARBON DIOXIDE LEVEL 31 MEQ/L (21-32); CHLORIDE LEVEL 94 MEQ/L (98-107); CREATININE FOR GFR 0.84 MG/DL (0.55-1.30); GLOMERULAR FILTRATION RATE > 60.0 (>45); GLUCOSE, FASTING 134 MG/DL (70-100); POTASSIUM SERUM 3.8 MEQ/L (3.5-5.1); SODIUM LEVEL 133 MEQ/L (136-145)
[2018-09-18] MEDS: IPRATROPIUM HFA INHALER 12.9 GRAMS (ATROVENT HFA) INH SCH ×4 (07:32→20:54)
[2018-09-18] MEDS ORDERED: SIMETHICONE 80 MG CHEW TAB PO PRN (08:00)
--- NOTE | 2018-09-18 08:54 | IPNPDOC ---
Text Note Date of Service The patient was seen on 09/18/18. NOTE No acute events overnight. Pain is minimal and controlled. She is getting out of bed to the commode to urinate. She had some distention of her abdomen overnight, and she had a little emesis this am. Denies nausea today, and no pain. Still having flatus, but no BM. VSSAF NAD abd - soft, distended, TTP appropriate, incisions c/d/i labs - below A) 62y/o female s/p colonic dilation, and ileostomy reversal P) clq diet ambulate suppositories laxatives await return of bowel function plan on d/c to rehab after a BM Juancho Flores DO VS,Елена, I+O VSЕлена, I+O Laboratory Tests 09/18/18 05:29 Red Blood Count 4.58, Mean Corpuscular Volume 78.4 L, Mean Corpuscular Hemoglobin 25.5 L, Mean Corpuscular Hemoglobin Concent 32.6, Red Cell Distribution Width 16.5 H, Calcium Level 9.0 Vital Signs Date Time Temp Pulse Resp B/P (MAP) Pulse Ox O2 Delivery O2 Flow Rate FiO2 09/18/18 06:07 97.9 109 18 125/86 (99) 91 09/16/18 14:00 2.0 I&O- Last 24 Hours up to 6 AM 09/18/18 06:00 Intake Total 1580 ml Output Total 0 ml Balance 1580 ml DONATO FLORES DO Sep 18, 2018 08:54
[2018-09-18] MEDS: MOM 30ML SUSPENSION UDC PO SCH ×2 (09:05→21:04)
[2018-09-18] MEDS: ENOXAPARIN 40 MG/0.4 ML SYRINGE (J1650) SC SCH (09:06)
[2018-09-18] MEDS: BISACODYL 10 MG SUPP PR SCH (09:07)
[2018-09-18] MEDS: carBAMazepine 100 MG *1/2* TAB PO SCH ×3 (09:08→21:04)
[2018-09-18] MEDS: carBAMazepine 200 MG TAB PO SCH (09:08)
[2018-09-18] MEDS: SENOKOT S TAB PO SCH ×2 (09:09→21:05)
[2018-09-18] MEDS: OMEPRAZOLE 20 MG CAP PO SCH (09:09)
[2018-09-18] MEDS: FLUoxetine 20 MG CAP PO SCH (09:10)
[2018-09-18] MEDS: diazePAM 5 MG TAB PO SCH (09:10)
[2018-09-18] MEDS: GABAPENTIN 300 MG CAP PO SCH ×3 (09:11→21:04)
[2018-09-18] MEDS: MODAFINIL 100 MG TABLET PO SCH (09:11)
[2018-09-18] MEDS: MULTIVITAMINS/MINERALS THERAP 1 TAB PO SCH (09:11)
[2018-09-18] MEDS: oxyBUTYnin 5 MG TAB PO SCH ×2 (09:12→21:04)
[2018-09-18] MEDS: FUROSEMIDE 20 MG TAB PO SCH (09:12)
[2018-09-18 14:07] VITALS: BP 133/89
[2018-09-18] MEDS: QUEtiapine FUMARATE 50 MG TAB PO SCH (21:04)
[2018-09-18] MEDS: QUEtiapine FUMARATE 200 MG TAB PO SCH (21:05)
[2018-09-18 22:00] VITALS: BP 138/91
[2018-09-18] MEDS: ONDANSETRON 4 MG ORAL DISINTEGRATING TAB (Q0162 PER 1MG) SL PRN (22:34)
[2018-09-19] MEDS: METHOCARBAMOL 750 MG TAB PO SCH ×4 (00:06→20:24)
[2018-09-19 06:00] VITALS: BP 154/82
[2018-09-19] MEDS: ONDANSETRON 4 MG ORAL DISINTEGRATING TAB (Q0162 PER 1MG) SL PRN ×2 (06:07→20:21)
[2018-09-19 06:36] LABS: BASO % 0.3 % (0.0-1.0); EOS # 0.1 10^3/uL (0.0-0.50); EOS % 0.8 % (0.0-3.0); HEMATOCRIT 32.2 % (36.0-47.0); HEMOGLOBIN 10.5 g/dl (12.0-15.5); LYMPH # 1.9 10^3/uL (1.5-4.5); LYMPH % 24.6 % (24.0-44.0); MEAN CORPUSCULAR HEMOGLOBIN 26.1 pg (27.0-33.0); MEAN CORPUSCULAR HGB CONC 32.6 g/dl (32.0-36.5); MEAN CORPUSCULAR VOLUME 79.9 fl (80.0-96.0); MONO # 1.1 10^3/uL (0.0-0.8); MONO % 13.8 % (0.0-5.0); NEUTROPHILS # 4.7 10^3/uL (1.8-7.7); NEUTROPHILS % 60.2 % (36.0-66.0); PLATELET COUNT, AUTOMATED 332 10^3/uL (150-450); RED BLOOD COUNT 4.03 10^6/uL (4.00-5.40); WHITE BLOOD COUNT 7.8 10^3/uL (4.0-10.0)
[2018-09-19 06:53] LABS: BLOOD UREA NITROGEN 19 MG/DL (7-18); CALCIUM LEVEL 8.2 MG/DL (8.8-10.2); CARBON DIOXIDE LEVEL 36 MEQ/L (21-32); CHLORIDE LEVEL 92 MEQ/L (98-107); CREATININE FOR GFR 0.68 MG/DL (0.55-1.30); GLOMERULAR FILTRATION RATE > 60.0 (>45); GLUCOSE, FASTING 121 MG/DL (70-100); POTASSIUM SERUM 3.2 MEQ/L (3.5-5.1); SODIUM LEVEL 132 MEQ/L (136-145)
[2018-09-19] MEDS: IPRATROPIUM HFA INHALER 12.9 GRAMS (ATROVENT HFA) INH SCH ×4 (07:24→20:35)
[2018-09-19] MEDS: ENOXAPARIN 40 MG/0.4 ML SYRINGE (J1650) SC SCH (10:28)
[2018-09-19] MEDS: MOM 30ML SUSPENSION UDC PO SCH ×2 (10:29→20:21)
[2018-09-19] MEDS: OMEPRAZOLE 20 MG CAP PO SCH (10:30)
[2018-09-19] MEDS: BISACODYL 10 MG SUPP PR SCH (10:30)
[2018-09-19] MEDS: GABAPENTIN 300 MG CAP PO SCH ×3 (10:31→20:21)
[2018-09-19] MEDS: carBAMazepine 100 MG *1/2* TAB PO SCH ×3 (10:31→20:21)
[2018-09-19] MEDS: FLUoxetine 20 MG CAP PO SCH (10:32)
[2018-09-19] MEDS: carBAMazepine 200 MG TAB PO SCH (10:32)
[2018-09-19] MEDS: SENOKOT S TAB PO SCH ×2 (10:32→20:21)
[2018-09-19] MEDS: diazePAM 5 MG TAB PO SCH (10:33)
[2018-09-19] MEDS: MODAFINIL 100 MG TABLET PO SCH (10:33)
[2018-09-19] MEDS: oxyBUTYnin 5 MG TAB PO SCH ×2 (10:34→20:21)
--- NOTE | 2018-09-19 11:42 | REP ---
KUB ABDOMEN AND PELVIS: Three KUB films of abdomen and pelvis performed and compared to prior study of 09/17/2018. Once again there is a small amount of contrast in the rectum. Diffuse moderate colonic distension with air has not significantly changed. Metallic maynor overlie the right lower quadrant. There are degenerative changes of the spine. IMPRESSION: Stable colonic distension. Electronically Signed by Diallo Paula MD 09/19/2018 07:28 P
[2018-09-19] MEDS: NORCO, ANEXSIA 5/325MG TABLET (HYDROcodone/ACETAMINOPHEN) PO PRN (12:50)
[2018-09-19 14:00] VITALS: BP 153/94
--- NOTE | 2018-09-19 16:53 | IPN ---
DATE: 09/19/2018 TIME: The patient was seen at approximately 1400 hours HISTORY: The patient is now postop day number 5 from closure of her ileostomy and dilation of her colorectal stricture to 18 mm. She has been on clear liquids. She has become quite distended over the last several days but reports that she is still passing some flatus. She has at times felt nauseous. She had several small episodes of emesis reported yesterday. Vital signs show that she has been afebrile over the past 24 hours. Her pulse most recently was 97 but has been running in the low 106. Her blood pressure is good and her room air oxygen saturation is in the low 90s. Intake and output show that yesterday she has recorded 695 mL of oral intake with 350 mL of emesis and several incontinent voids and emesis that were not measured. Today so far she has 930 mL of oral intake reported. PHYSICAL EXAMINATION: The patient is alert and appears oriented. She reports feeling tired more than anything but denies significant pain. Heart exam shows a regular rate and rhythm of about 90-100. The lungs are clear. The abdomen is quite distended and moderately firm. She does have some bowel sounds that are somewhat tinkley in nature. She does have tympany to percussion across the upper abdomen. Abdomen is not tender except in the area of her ileostomy closure. Laboratory studies today show white count of 8, hemoglobin of 10, hematocrit of 32 and platelet count of 332,000. Differential count shows 60% neutrophils, 25% lymphocytes and 14% monocytes. Chemistry profile shows a sodium of 132, potassium 3.2, chloride 92, CO2 of 36, BUN of 19, creatinine of 0.7 and a glucose of 121. KUB from this morning was interpreted as showing diffuse moderate colonic distension. Some contrast was still noted in the rectal stump. The patient still shows evidence of a fairly high-grade partial obstruction in the colon, most likely this lies at the colorectal stricture that had been noted at her previous anastomosis. PLAN: The patient will be allowed to take her clear liquids. We will monitor her bowel function. If she develops more abdominal discomfort or has more persistent vomiting, then I believe a nasogastric tube and decompression would be appropriate. I think it may well be that she will require revision of her anastomosis at some point here but it may be that over the next day or two she will develop more active bowel function and passed a lot of material. We will just have to wait and see.
[2018-09-19] MEDS: QUEtiapine FUMARATE 200 MG TAB PO SCH (20:20)
[2018-09-19] MEDS: QUEtiapine FUMARATE 50 MG TAB PO SCH (20:21)
[2018-09-19 22:00] VITALS: BP 162/88
[2018-09-20] MEDS: METHOCARBAMOL 750 MG TAB PO SCH ×4 (00:31→16:36)
[2018-09-20] MEDS: NORCO, ANEXSIA 5/325MG TABLET (HYDROcodone/ACETAMINOPHEN) PO PRN ×3 (00:54→14:33)
[2018-09-20 06:00] VITALS: BP 140/80
[2018-09-20] MEDS: IPRATROPIUM HFA INHALER 12.9 GRAMS (ATROVENT HFA) INH SCH ×4 (07:42→19:35)
[2018-09-20] MEDS: MOM 30ML SUSPENSION UDC PO SCH ×2 (08:06→21:57)
[2018-09-20] MEDS: carBAMazepine 100 MG *1/2* TAB PO SCH ×3 (08:06→21:58)
[2018-09-20] MEDS: ENOXAPARIN 40 MG/0.4 ML SYRINGE (J1650) SC SCH (08:06)
[2018-09-20] MEDS: FLUoxetine 20 MG CAP PO SCH (08:06)
[2018-09-20] MEDS: OMEPRAZOLE 20 MG CAP PO SCH (08:06)
[2018-09-20] MEDS: BISACODYL 10 MG SUPP PR SCH (08:08)
[2018-09-20] MEDS: GABAPENTIN 300 MG CAP PO SCH ×3 (08:08→21:58)
[2018-09-20] MEDS: carBAMazepine 200 MG TAB PO SCH (08:08)
[2018-09-20] MEDS: ONDANSETRON 4 MG ORAL DISINTEGRATING TAB (Q0162 PER 1MG) SL PRN ×2 (08:08→14:32)
[2018-09-20] MEDS: oxyBUTYnin 5 MG TAB PO SCH ×2 (08:09→21:58)
[2018-09-20] MEDS: SENOKOT S TAB PO SCH (08:09)
[2018-09-20] MEDS: diazePAM 5 MG TAB PO SCH (08:09)
[2018-09-20] MEDS: MODAFINIL 100 MG TABLET PO SCH (08:09)
[2018-09-20 08:11] LABS: BASO % 0.2 % (0.0-1.0); EOS # 0.1 10^3/uL (0.0-0.50); EOS % 0.8 % (0.0-3.0); HEMATOCRIT 33.8 % (36.0-47.0); HEMOGLOBIN 10.8 g/dl (12.0-15.5); LYMPH # 1.5 10^3/uL (1.5-4.5); LYMPH % 16.4 % (24.0-44.0); MEAN CORPUSCULAR HEMOGLOBIN 25.2 pg (27.0-33.0); MONO # 1.3 10^3/uL (0.0-0.8); MONO % 14.3 % (0.0-5.0); NEUTROPHILS # 6.2 10^3/uL (1.8-7.7); NEUTROPHILS % 68.1 % (36.0-66.0); PLATELET COUNT, AUTOMATED 390 10^3/uL (150-450); RED BLOOD COUNT 4.28 10^6/uL (4.00-5.40); WHITE BLOOD COUNT 9.1 10^3/uL (4.0-10.0)
[2018-09-20 08:32] LABS: ALBUMIN 3.4 GM/DL (3.2-5.2); ALT/SGPT 23 U/L (12-78); BILIRUBIN,TOTAL 0.4 MG/DL (0.2-1.0); BLOOD UREA NITROGEN 24 MG/DL (7-18); CALCIUM LEVEL 8.2 MG/DL (8.8-10.2); CARBON DIOXIDE LEVEL 42 MEQ/L (21-32); CHLORIDE LEVEL 83 MEQ/L (98-107); CREATININE FOR GFR 0.76 MG/DL (0.55-1.30); GLOMERULAR FILTRATION RATE > 60.0 (>45); GLUCOSE, FASTING 111 MG/DL (70-100); POTASSIUM SERUM 3.3 MEQ/L (3.5-5.1); SODIUM LEVEL 130 MEQ/L (136-145); TOTAL PROTEIN 7.7 GM/DL (6.4-8.2)
[2018-09-20] MEDS: KCL 40MEQ in NS 1000ML 1,000 ML IV SCH ×3 (12:53→21:58)
[2018-09-20 14:00] VITALS: BP 150/93
[2018-09-20 21:50] LABS: BLOOD UREA NITROGEN 23 MG/DL (7-18); CALCIUM LEVEL 7.8 MG/DL (8.8-10.2); CARBON DIOXIDE LEVEL 38 MEQ/L (21-32); CHLORIDE LEVEL 92 MEQ/L (98-107); CREATININE FOR GFR 0.58 MG/DL (0.55-1.30); GLOMERULAR FILTRATION RATE > 60.0 (>45); GLUCOSE, FASTING 93 MG/DL (70-100); POTASSIUM SERUM 3.5 MEQ/L (3.5-5.1); SODIUM LEVEL 132 MEQ/L (136-145)
[2018-09-20] MEDS: QUEtiapine FUMARATE 50 MG TAB PO SCH (21:58)
[2018-09-20] MEDS: QUEtiapine FUMARATE 200 MG TAB PO SCH (21:58)
[2018-09-20 22:00] VITALS: BP 149/93
[2018-09-21] MEDS: METHOCARBAMOL 750 MG TAB PO SCH ×4 (00:54→18:36)
[2018-09-21] MEDS: KCL 40MEQ in NS 1000ML 1,000 ML IV SCH (05:22)
[2018-09-21 05:23] VITALS: BP 152/96
[2018-09-21 06:00] VITALS: BP 152/96
[2018-09-21 06:00] LABS: HEMATOCRIT 31.1 % (36.0-47.0); HEMOGLOBIN 9.9 g/dl (12.0-15.5); MEAN CORPUSCULAR HEMOGLOBIN 26.1 pg (27.0-33.0); MEAN CORPUSCULAR HGB CONC 31.8 g/dl (32.0-36.5); MEAN CORPUSCULAR VOLUME 81.8 fl (80.0-96.0); PLATELET COUNT, AUTOMATED 294 10^3/uL (150-450); WHITE BLOOD COUNT 6.9 10^3/uL (4.0-10.0)
[2018-09-21 06:29] LABS: BLOOD UREA NITROGEN 21 MG/DL (7-18); CALCIUM LEVEL 7.6 MG/DL (8.8-10.2); CARBON DIOXIDE LEVEL 34 MEQ/L (21-32); CHLORIDE LEVEL 97 MEQ/L (98-107); CREATININE FOR GFR 0.59 MG/DL (0.55-1.30); GLOMERULAR FILTRATION RATE > 60.0 (>45); GLUCOSE, FASTING 84 MG/DL (70-100); POTASSIUM SERUM 3.8 MEQ/L (3.5-5.1); SODIUM LEVEL 134 MEQ/L (136-145)
[2018-09-21] MEDS: IPRATROPIUM HFA INHALER 12.9 GRAMS (ATROVENT HFA) INH SCH ×4 (08:52→19:28)
--- NOTE | 2018-09-21 09:13 | IPNPDOC ---
Text Note Date of Service The patient was seen on 09/21/18. NOTE No acute events over the weekend. Pain is minimal and controlled. Denies nausea today, and no pain. Still having flatus, and lots of BMs VSSAF NAD abd - soft, distended, TTP appropriate, incisions c/d/i labs - below A) 62y/o female s/p colonic dilation, and ileostomy reversal P) reg diet ambulate suppositories laxatives plan on d/c to rehab after abdomen softens Juancho Flores DO VS,Fishbone, I+O VS, Fishbone, I+O Laboratory Tests 09/20/18 21:14 Calcium Level 7.8 L 09/21/18 05:32 Calcium Level 7.6 L, Red Blood Count 3.80 L, Mean Corpuscular Volume 81.8, Mean Corpuscular Hemoglobin 26.1 L, Mean Corpuscular Hemoglobin Concent 31.8 L, Red Cell Distribution Width 16.5 H Vital Signs Date Time Temp Pulse Resp B/P (MAP) Pulse Ox O2 Delivery O2 Flow Rate FiO2 09/21/18 06:00 98.7 102 20 152/96 (114) 92 1.5 I&O- Last 24 Hours up to 6 AM 09/21/18 06:00 Intake Total 2300 ml Balance 2300 ml DONATO FLORES DO Sep 21, 2018 09:13
[2018-09-21] MEDS: OMEPRAZOLE 20 MG CAP PO SCH (09:17)
[2018-09-21] MEDS: MOM 30ML SUSPENSION UDC PO SCH ×2 (09:17→21:06)
[2018-09-21] MEDS: ENOXAPARIN 40 MG/0.4 ML SYRINGE (J1650) SC SCH (09:17)
[2018-09-21] MEDS: FLUoxetine 20 MG CAP PO SCH (09:18)
[2018-09-21] MEDS: GABAPENTIN 300 MG CAP PO SCH ×3 (09:18→21:06)
[2018-09-21] MEDS: carBAMazepine 100 MG *1/2* TAB PO SCH ×3 (09:18→21:06)
[2018-09-21] MEDS: diazePAM 5 MG TAB PO SCH (09:18)
[2018-09-21] MEDS: MODAFINIL 100 MG TABLET PO SCH (09:18)
[2018-09-21] MEDS: FUROSEMIDE 20 MG TAB PO SCH (09:18)
[2018-09-21] MEDS: carBAMazepine 200 MG TAB PO SCH (09:18)
[2018-09-21] MEDS: oxyBUTYnin 5 MG TAB PO SCH ×2 (09:18→21:07)
[2018-09-21] MEDS: BISACODYL 10 MG SUPP PR SCH (09:22)
[2018-09-21] MEDS: SENOKOT S TAB PO SCH ×2 (09:22→21:07)
[2018-09-21] MEDS: MAGNESIUM CITRATE 300 ML BTL PO SCH (09:22)
--- NOTE | 2018-09-21 10:07 | IPN ---
DATE: 09/20/2018 HISTORY: The patient is now postop day #6 from takedown of her ileostomy. This had been created after she underwent resection of a sigmoid volvulus with a colorectal anastomosis. She has a known stricture at the colorectal anastomosis. The patient has been taking clear liquids, but has had some intermittent emesis and has had very little rectal output. Yesterday, she was having some flatus. She did have one loose bowel movement earlier this morning. She continues to have some fullness and discomfort in her abdomen. Vital signs show that she has been afebrile. Her pulse has generally been running in the 100-110 range. Her blood pressure is acceptable. Intake and output shows that yesterday she had 1290 mL in orally with 400 mL of emesis, one void recorded and two small loose stools recorded. PHYSICAL EXAMINATION: Shows that she is sitting up in a chair at the bedside with some clear liquids in front of her. She appears mildly uncomfortable. Heart exam shows a regular tachycardia. The lungs are clear. The abdomen is firmly distended. She has a few tinkly bowel sounds. There is some tenderness on palpation over the ileostomy closure site and she has some mild tenderness on palpation across the upper abdomen fairly diffusely. LABORATORY STUDIES: Today show a white count of 9000 with a hemoglobin of 11 and hematocrit of 34%. Her platelet count is 390,000. Her differential count shows 68% neutrophils, 16% lymphocytes and 14% monocytes. Chemistry profile shows sodium of 130, potassium 3.3, chloride 83, CO2 of 42, BUN of 24, creatinine 0.8, and a glucose of 111. Her sodium and chloride have both fallen slightly from yesterday and her CO2 is up and her potassium remains slightly low at 3.3. Her BUN and creatinine are both slightly higher today. IMPRESSION: The patient clearly has not resolved her intestinal obstruction. I suspect that she has a significant enough stricture at the colorectal anastomosis that this is the cause of her problems as the x-rays have shown distention of the colon all the way down into the pelvis. PLAN: I have recommended that we make her nothing by mouth (n.p.o.) and start her on some IV fluids. I will order her some normal saline with some additional potassium added. Her electrolyte abnormalities have worsened slightly over the last 2 days as she has taken primarily water-based beverages and not been able to take any food. The patient is not happy with the idea of taking away her fluids for now, but I advised her that I think we are only going to delay the inevitable significantly if we continue to let her drink and maintain the marked distention of her GI tract.
[2018-09-21 14:00] VITALS: BP 152/97
[2018-09-21 20:45] VITALS: BP 153/94
[2018-09-21] MEDS: QUEtiapine FUMARATE 200 MG TAB PO SCH (21:07)
[2018-09-21] MEDS: QUEtiapine FUMARATE 50 MG TAB PO SCH (21:07)
[2018-09-22] MEDS: METHOCARBAMOL 750 MG TAB PO SCH ×5 (01:33→22:34)
[2018-09-22 06:22] VITALS: BP 144/82
[2018-09-22] MEDS: IPRATROPIUM HFA INHALER 12.9 GRAMS (ATROVENT HFA) INH SCH ×4 (07:37→23:02)
[2018-09-22] MEDS: SENOKOT S TAB PO SCH ×2 (09:30→22:34)
[2018-09-22] MEDS: diazePAM 5 MG TAB PO SCH (09:30)
[2018-09-22] MEDS: BISACODYL 10 MG SUPP PR SCH (09:30)
[2018-09-22] MEDS: MOM 30ML SUSPENSION UDC PO SCH ×2 (09:30→22:34)
[2018-09-22] MEDS: carBAMazepine 200 MG TAB PO SCH (09:30)
[2018-09-22] MEDS: carBAMazepine 100 MG *1/2* TAB PO SCH ×3 (09:30→22:34)
[2018-09-22] MEDS: MAGNESIUM CITRATE 300 ML BTL PO SCH (09:30)
[2018-09-22] MEDS: ENOXAPARIN 40 MG/0.4 ML SYRINGE (J1650) SC SCH (09:30)
[2018-09-22] MEDS: FLUoxetine 20 MG CAP PO SCH (09:30)
[2018-09-22] MEDS: OMEPRAZOLE 20 MG CAP PO SCH (09:31)
[2018-09-22] MEDS: FUROSEMIDE 20 MG TAB PO SCH (09:31)
[2018-09-22] MEDS: oxyBUTYnin 5 MG TAB PO SCH ×2 (09:31→22:34)
[2018-09-22] MEDS: MODAFINIL 100 MG TABLET PO SCH (09:31)
[2018-09-22] MEDS: GABAPENTIN 300 MG CAP PO SCH ×3 (09:31→22:34)
--- NOTE | 2018-09-22 09:43 | IPNPDOC ---
Text Note Date of Service The patient was seen on 09/22/18. NOTE No acute events overnight. Pain is minimal and controlled. Denies nausea today, and no pain. Still having flatus, and lots of BMs. Her abdomen is still distended, but she is tolerating regular diet and feels good. VSSAF NAD abd - soft, distended, TTP appropriate, incisions c/d/i A) 62y/o female s/p colonic dilation, and ileostomy reversal P) reg diet ambulate suppositories laxatives plan on d/c to rehab tomorrow if her abdomen is less distended Juancho Flores DO VS,Jacquelinee, I+O VS, Fishbone, I+O Vital Signs Date Time Temp Pulse Resp B/P (MAP) Pulse Ox O2 Delivery O2 Flow Rate FiO2 09/22/18 06:22 99.0 95 18 144/82 (102) 96 2.0 I&O- Last 24 Hours up to 6 AM 09/22/18 06:00 Intake Total 1160 ml Output Total 0 ml Balance 1160 ml DONATO FLORES DO Sep 22, 2018 09:43
[2018-09-22 14:00] VITALS: BP 144/83
[2018-09-22 22:00] VITALS: BP 142/83
[2018-09-22] MEDS: QUEtiapine FUMARATE 200 MG TAB PO SCH (22:34)
[2018-09-22] MEDS: QUEtiapine FUMARATE 50 MG TAB PO SCH (22:34)
[2018-09-23 06:00] VITALS: BP 140/83
[2018-09-23] MEDS: METHOCARBAMOL 750 MG TAB PO SCH (06:28)
[2018-09-23] MEDS: IPRATROPIUM HFA INHALER 12.9 GRAMS (ATROVENT HFA) INH SCH ×2 (07:32→11:03)
[2018-09-23] MEDS ORDERED: MOM30SS2 PO (08:51)
[2018-09-23] MEDS ORDERED: BISA10SU2 PR (08:51)
[2018-09-23] MEDS ORDERED: SENN-52 PO (08:51)
[2018-09-23] MEDS ORDERED: HYDR-4571 PO (08:51)
[2018-09-23] MEDS ORDERED: RA M1.74 PO (08:51)
[2018-09-23] MEDS ORDERED: tiZANidine 4 MG TAB PO SCH (09:00)
[2018-09-23] MEDS ORDERED: METHOCARBAMOL 750 MG TAB PO PRN (09:00)
[2018-09-23] MEDS: MOM 30ML SUSPENSION UDC PO SCH (09:15)
[2018-09-23] MEDS: FLUoxetine 20 MG CAP PO SCH (09:16)
[2018-09-23] MEDS: diazePAM 5 MG TAB PO SCH (09:16)
[2018-09-23] MEDS: carBAMazepine 200 MG TAB PO SCH (09:16)
[2018-09-23] MEDS: GABAPENTIN 300 MG CAP PO SCH (09:16)
[2018-09-23] MEDS: MODAFINIL 100 MG TABLET PO SCH (09:16)
[2018-09-23] MEDS: oxyBUTYnin 5 MG TAB PO SCH (09:16)
[2018-09-23] MEDS: FUROSEMIDE 20 MG TAB PO SCH (09:16)
[2018-09-23] MEDS: SENOKOT S TAB PO SCH (09:16)
[2018-09-23] MEDS: carBAMazepine 100 MG *1/2* TAB PO SCH (09:16)
[2018-09-23] MEDS: OMEPRAZOLE 20 MG CAP PO SCH (09:17)
[2018-09-23] MEDS: BISACODYL 10 MG SUPP PR SCH (09:17)
[2018-09-23] MEDS: ENOXAPARIN 40 MG/0.4 ML SYRINGE (J1650) SC SCH (09:17)
[2018-09-23] MEDS: MAGNESIUM CITRATE 300 ML BTL PO SCH (09:18)
--- NOTE | 2018-09-24 23:08 | DSES ---
DATE OF ADMISSION: 09/14/2018 DATE OF DISCHARGE: 09/23/2018 ADMISSION DIAGNOSIS: History of sigmoid volvulus with diverting ileostomy. POSTOPERATIVE DIAGNOSIS: History of sigmoid volvulus with diverting ileostomy, as well as colorectal stricture. HOSPITAL COURSE: The patient is a 62-year-old female who came in on 09/14/2018 for an elective diverting ileostomy reversal after having sigmoid volvulus resected earlier this year. She also had complications with a stricture at her previous anastomosis site, that was ballooned open during her surgery on 09/14/2018. It may have been secondary to stricture versus ileus, but it took her awhile to start passing any stool. She has been passing flatus since postop day #1. No problems with nausea, vomiting. She has been tolerating her postoperative course well, tolerating diet, pain has been well controlled. Her abdomen was slightly distended for awhile. Even when she started passing multiple bowel movements, she was still very distended. Once I got her on a bowel regimen with some magnesium citrate, Filippo of Magnesia, and Senna daily, she now is passing stools on a regular basis and the abdomen is much softer. She is stable enough now to be discharged to acute rehabilitation unit (ARU) and the plan is to send her over there today. All of her questions are answered. Will continue her medications when she goes over there, and I will continue to follow her as needed with a plan to remove the maynor in a week.
== END 2018-09-23 11:55 | DRG 221 ==
LOC: M OR 06:26 → M MS5PR 13:15
PROVIDERS: ADMIT Surgery; ATTEND Surgery
PROC: 0D7K8ZZ Dilation of Ascending Colon, Via Natural or Artificial Opening Endoscopic (ICD-10-PCS; 2018-09-14)
PROC: 0DB80ZZ Excision of Small Intestine, Open Approach (ICD-10-PCS; principal; 2018-09-14 07:30)
DX: Z43.2 Encounter for attention to ileostomy (principal); G35 Multiple sclerosis; E66.9 Obesity, unspecified; K91.30 Postprocedural intestinal obstruction, unspecified as to partial versus complete; E78.5 Hyperlipidemia, unspecified; R32 Unspecified urinary incontinence; Z68.27 Body mass index [BMI] 27.0-27.9, adult; Z79.899 Other long term (current) drug therapy

== ENCOUNTER 2018-09-23 10:12 | Inpatient (IN) | payer MEDICAID ==
[~2018-09-23] VITALS: Ht 170.2 cm; Wt 77.5 kg
[~2018-09-23 10:12] MED LIST changes: +BISA10SU2 PR; +HYDR-4571 PO; -LIDOCAINE 1% MDV 20ML VIAL SQ PRN; -LR 1,000 ML IV ONE; +MOM30SS2 PO; +RA M1.74 PO; +SENN-52 PO
[2018-09-23 12:00] VITALS: BP 113/60
[2018-09-23 14:00] VITALS: BP 120/62
[2018-09-23] MEDS ORDERED: METHOCARBAMOL 750 MG TAB PO PRN (14:15)
[2018-09-23] MEDS ORDERED: MOM 30ML SUSPENSION UDC PO PRN (14:15)
[2018-09-23] MEDS ORDERED: ONDANSETRON 4 MG TAB (S0181) PO PRN (14:15)
[2018-09-23] MEDS ORDERED: PILL CUTTER 1 EACH XX PRN (15:00)
[2018-09-23] MEDS ORDERED: carBAMazepine 200 MG TAB PO SCH (16:00)
--- NOTE | 2018-09-23 16:31 | CR ---
DATE OF CONSULTATION: 09/23/2018 PRIMARY CARE PROVIDER: Dr. Narendra Holden CONSULTATION FOR: Dr. Robbins This is a 62-year-old who underwent an ileostomy reversal after having a sigmoid volvulus with stricture and colorectal anastomosis. He was seen for preoperative clearance by Dr. Narendra Holden on 07/07/2018. She notes that she has a history of multiple sclerosis and is followed by neurologist at [facility], history of seizure disorder, depression, hypertension, chronic obstructive pulmonary disease (COPD) with asthmatic component, spirometry in April 2017 showed an FEV1 of 1.89, trigeminal neuralgia treated with gamma knife radiation in the past, history of smoking. SURGICAL HISTORY: Esophagogastroduodenoscopy (EGD) with colonoscopy in February 2018, left ankle surgery in 2018. Abdominal surgery as noted above. FAMILY HISTORY: Father at age 84 of a stroke. Mother is alive with end stage renal disease and on dialysis. She has one brother with attention deficit hyperactivity disorder (ADHD), sister with fibromyalgia, son with ADHD. SOCIAL HISTORY: . Quit smoking in 2018. No alcohol use. 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 Now goes to adult daycare. She is in a motorized wheelchair and wheeled rolling walker at home. She has to go up three steps to get into her trailer. HOME MEDICATIONS: - Copaxone 40 mg Friday, Friday and Friday - carbamazepine 200 mg three times a day - Seroquel 250 mg at bedtime - Prozac 60 mg daily - Tegretol 200 mg daily - albuterol inhaler - Dulera 100/5 two puffs twice a day - modafinil 100 mg daily - bowel care with Senna - potassium citrate ER 10 mEq twice a day - furosemide 20 mg daily - diazepam 5 mg daily as needed for muscle spasticity - methocarbamol 750 mg every 6 hours - Protonix 40 mg daily - tizanidine 6 mg three times a day - oxybutynin 5 mg twice a day - gabapentin 300 mg three times a day REVIEW OF SYSTEMS: Her lower extremities have been edematous. No shortness of breath. No epistaxis, rectal bleeding, hematuria, fever or chills. No significant abdominal pain. PHYSICAL EXAMINATION: VITAL SIGNS: Per flow sheet. She is alert, conversant and in no distress. She has a dysarthric voice. HEENT: Unremarkable. LUNGS: Clear. HEART: Regular. No murmur. ABDOMEN: Soft, nontender. Distended. Bowel sounds are present. EXTREMITIES: No peripheral edema. Spastic extremities with areflexia. LABORATORIES: Most recent laboratories are from 2 days ago. IMPRESSION: 1. Recent abdominal surgery for volvulus with stricture, postoperative course is stable. 2. Lower extremity edema, probably from the IV fluids that she was receiving. She does not look to have any signs of congestive heart failure (CHF) on examination. She will slowly diurese this extra fluid. 3. Multiple sclerosis. Continue current regimen. She might need to receive her Copaxone while in Acute Rehabilitation Unit. 4. Seizure disorder. Continue anticonvulsants. 5. History of depression. Continue antidepressant medication. 6. Chronic obstructive pulmonary disease (COPD). Continue her inhalers. The hospitalist service will follow her medically
[2018-09-23] MEDS: GABAPENTIN 300 MG CAP PO SCH ×2 (16:52→20:38)
[2018-09-23] MEDS: SIMETHICONE 80 MG CHEW TAB PO SCH ×2 (16:53→20:39)
[2018-09-23] MEDS: carBAMazepine 100 MG *1/2* TAB PO SCH ×2 (16:53→20:38)
[2018-09-23 20:00] VITALS: BP 138/66
[2018-09-23] MEDS: SENOKOT S TAB PO SCH (20:38)
[2018-09-23] MEDS: oxyBUTYnin 5 MG TAB PO SCH (20:38)
[2018-09-23] MEDS: SENNA 8.6 MG TAB (SENOKOT) PO SCH (20:38)
[2018-09-23] MEDS: QUEtiapine FUMARATE 200 MG TAB PO SCH (20:38)
[2018-09-23] MEDS: ACETAMINOPHEN TAB 650MG DOSE (2X325MG) PO PRN (20:40)
[2018-09-23] MEDS: IPRATROPIUM HFA INHALER 12.9 GRAMS (ATROVENT HFA) INH SCH (20:43)
[2018-09-23] MEDS: tiZANidine 4 MG TAB PO PRN (20:46)
[2018-09-24 05:34] VITALS: BP 140/70
[2018-09-24] MEDS: IPRATROPIUM HFA INHALER 12.9 GRAMS (ATROVENT HFA) INH SCH ×2 (07:30→20:09)
[2018-09-24 07:45] LABS: BASO % 0.6 % (0.0-1.0); EOS # 0.2 10^3/uL (0.0-0.50); EOS % 4.2 % (0.0-3.0); HEMATOCRIT 28.7 % (36.0-47.0); LYMPH # 1.9 10^3/uL (1.5-4.5); LYMPH % 36.5 % (24.0-44.0); MEAN CORPUSCULAR HEMOGLOBIN 25.1 pg (27.0-33.0); MEAN CORPUSCULAR HGB CONC 31.4 g/dl (32.0-36.5); MEAN CORPUSCULAR VOLUME 79.9 fl (80.0-96.0); MONO # 0.6 10^3/uL (0.0-0.8); MONO % 10.6 % (0.0-5.0); NEUTROPHILS # 2.5 10^3/uL (1.8-7.7); NEUTROPHILS % 47.7 % (36.0-66.0); PLATELET COUNT, AUTOMATED 380 10^3/uL (150-450); RED BLOOD COUNT 3.59 10^6/uL (4.00-5.40); WHITE BLOOD COUNT 5.2 10^3/uL (4.0-10.0)
[2018-09-24] MEDS: ENOXAPARIN 40 MG/0.4 ML SYRINGE (J1650) SC SCH (08:15)
[2018-09-24] MEDS: SENOKOT S TAB PO SCH ×2 (08:15→20:15)
[2018-09-24] MEDS: GABAPENTIN 300 MG CAP PO SCH ×3 (08:16→20:15)
[2018-09-24] MEDS: oxyBUTYnin 5 MG TAB PO SCH ×2 (08:16→20:13)
[2018-09-24] MEDS: SIMETHICONE 80 MG CHEW TAB PO SCH ×3 (08:16→20:15)
[2018-09-24] MEDS: MODAFINIL 100 MG TABLET PO SCH (08:16)
[2018-09-24] MEDS: FUROSEMIDE 20 MG TAB PO SCH (08:16)
[2018-09-24] MEDS: carBAMazepine 100 MG *1/2* TAB PO SCH ×3 (08:16→20:15)
[2018-09-24] MEDS: OMEPRAZOLE 20 MG CAP PO SCH (08:16)
[2018-09-24] MEDS: carBAMazepine 200 MG TAB PO SCH (08:16)
[2018-09-24] MEDS: FLUoxetine 20 MG CAP PO SCH (08:16)
[2018-09-24 08:34] LABS: ALBUMIN 2.7 GM/DL (3.2-5.2); ALT/SGPT 14 U/L (12-78); BILIRUBIN,TOTAL 0.2 MG/DL (0.2-1.0); BLOOD UREA NITROGEN 6 MG/DL (7-18); CALCIUM LEVEL 7.9 MG/DL (8.8-10.2); CARBON DIOXIDE LEVEL 29 MEQ/L (21-32); CHLORIDE LEVEL 103 MEQ/L (98-107); CREATININE FOR GFR 0.52 MG/DL (0.55-1.30); GLOMERULAR FILTRATION RATE > 60.0 (>45); GLUCOSE, FASTING 99 MG/DL (70-100); POTASSIUM SERUM 2.9 MEQ/L (3.5-5.1); SODIUM LEVEL 138 MEQ/L (136-145); TOTAL PROTEIN 6.9 GM/DL (6.4-8.2)
[2018-09-24] MEDS ORDERED: MAGNESIUM CITRATE 300 ML BTL PO SCH (09:00)
[2018-09-24] MEDS: KCL 10MEQ/100ML SWI (KRUN) 10 MEQ in APPROPRIATE DILUENT 1 EA IV SCH ×4 (10:10→14:09)
--- NOTE | 2018-09-24 11:22 | NUR ---
Pt w/ mild short term memory deficits which have persisted for the past year related to her dx of Multiple Sclerosis. Pt would benefit from cognitive tx for compensatory strategy training and over-teaching of new strategies learned in PT/OT to maximize gains made in these therapies. Addendum: 09/24/18 at 1123 by LICO MCKNIGHT [facility] Amended: Links added.
[2018-09-24] MEDS: POTASSIUM CHLORIDE 10 MEQ SR TABLET PO SCH (12:20)
--- NOTE | 2018-09-24 12:29 | HPEPDOC ---
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 She had barium enema on 09/08/18 showing persistent stricture at the anastomosis site. She was re-evaluated by Dr. Flores and underwent a laparoscopic ileostomy reversal with dilation of her colorectal anastomosis on 09/14/18. Patient initially had difficulty having bowel movements with episodes of emesis and eventually was able to pass flatus and have bowel movements. She continued to have abdominal distension with repeat abdominal X-rays showing colonic distention without free air. She was evaluated by therapy and found to have deficits in her ADLs and ambulation. She was deemed medically appropriate for discharge to ARU on 09/23/18. Upon arrival patient reports fatigue and chronic urinary incontinence. REVIEW OF SYSTEMS: The following is a completed review of systems and has been reviewed. Review of systems otherwise unremarkable. PAIN: Patient self reports mild abdominal pain EYES: Negative for recent vision loss EARS, NOSE, & THROAT: denies dysphagia, hearing loss CARDIOVASCULAR: denies chest pain or palpitations PULMONARY: Negative. Denies shortness of breath GASTROINTESTINAL: +diarrhea GENITOURINARY: +incontinence, +dysuria MUSCULOSKELETAL: bilat LE weakness NEUROLOGICAL: +MS SKIN: abdominal incision PSYCHIATRIC:Unremarkable All other review of systems found to be negative. PAST MEDICAL HISTORY: as per HPI PAST SURGICAL HISTORY: Tubal ligation, knee surgery, colonoscopies, sigmoid resection 04/2018 ALLERGIES: Please see below. MEDICATIONS: Please see below. 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 GENERAL: Pleasant and cooperative. No acute distress. HEENT: PERRL. Extraocular movements intact. Clear conjunctiva CARDIOVASCULAR: Regular rate and rhythm. No murmurs, rubs, or gallops LUNGS: Clear to auscultation bilaterally. No wheezes. No rhonchi ABDOMEN: Soft, nontender, mildly-distended. Positive bowel sounds. no rebound tenderness/guarding NEUROLOGICAL: Alert and oriented times three. Cranial nerves II through XII grossly intact. Sensation grossly intact +dysmetria on the left EXTREMITIES: 5-\5 strength bilateral upper extremities. 5-\5 strength right lower extremity. 5-/5 strength in left lower extremity. bilat edema LE SKIN: abdominal incision c/d/i IMAGING: Imaging documentation personally reviewed by record. FUNCTIONAL STATUS: Premorbid: Independent with all activities of daily life as well as mobility with a RW On Admission: Contac guard-min assist for functional transfers, min assist for toileting and ambulation GOALS: Mod-I with RW community distances, stairs, bathing, dressing, toileting, balance training, assess for DMEs, medical optimization. ASSESSMENT:62-year-old F with past medical history of MS who presents status post ileostomy reversal with new gait and ADL impairments. PLAN: 1. Rehab: PT, TO, assess for DMEs -strenghten and stretch all limbs, improve core strength, build up tolerance for ambulation and improve dynamic balance 2. Neuro: pmh MS- c/u home meds and monitor for any relapsing symptoms post- operatively, thus far stable 3. Cardio: pmh HLD, not on a statin will consider starting, medicine consulted -will start lasix for edema 4. Resp: c/u breathing treatments 5. : neurogenic bladder in setting of MS, timed voids, c/u oxybutynin- will order UA for dysuria 6. DVT ppx: lovenox and teds 7. GI: s/p ileostomy reversal with colonic dilation on 09/14/18- c/u bowel meds, will consult surgery to advise on tapering -ppx: omeprazole 8. Psych: c/u Seroquel, Prozac, and modafinil 9. Dispo: TBD POST ADMISSION PHYSICIAN EVALUATION: Medical and functional status: Description of medical status, medical assessment: As above. Rehabilitation diagnosis and current and prior cold morbid medical conditions as above. Risk of complications and plans to mitigate them as above. Description of functional status current status is as above. Prior status as above. Status compared to preadmission: There are no clinically significant differences between the patient's current status and the information described on the preadmission screening document. Treatment plan anticipated: Treatment plan is as described above. Required disciplines including physical therapy, occupational therapy, others as noted above Intensity of services: 3 hours a day, 6 days a week. Special considerations: There are no specific special or safety considerations that would likely preclude immediate implementation of an intensive rehabilitation program or subsequently influence the plan of care ATTESTATION: Considering all the information above, it is my best judgment that this patient requires intensive rehabilitation therapy as described above and an inpatient hospital environment due to the complexity of nursing, medical, and rehabilitation needs required by the patient. Furthermore, this patient can reasonably be expected to participate in an benefit from an inpatient rehabilitation stay with an interdisciplinary team approach to the delivery of rehabilitation care under the direction and supervision of rehabilitation physician PROGNOSIS: Excellent ESTIMATED LENGTH OF STAY:14-18 days. PROJECTED DISCHARGE DESTINATION: Home with family support and any durable medical equipment required to increase functional safety and mobility. TIME SPENT COUNSELING AND COORDINATING INITIAL CARE: Greater than 70 minutes. Vital Signs Vital Sign - Last 24 Hours 09/23/18 09/23/18 09/24/18 14:00 20:00 05:34 Temp 97.9 98.2 98.3 Pulse 80 91 95 Resp 18 16 18 B/P (MAP) 120/62 (81) 138/66 (90) 140/70 (93) Pulse Ox 96 96 95 Laboratory Data CBC/BMP Laboratory Tests 09/24/18 06:59 Red Blood Count 3.59 L, Mean Corpuscular Volume 79.9 L, Mean Corpuscular Hemoglobin 25.1 L, Mean Corpuscular Hemoglobin Concent 31.4 L, Red Cell Distribution Width 16.9 H, Neutrophils (%) (Auto) 47.7, Lymphocytes (%) (Auto) 36.5, Monocytes (%) (Auto) 10.6 H, Eosinophils (%) (Auto) 4.2 H, Basophils (%) (Auto) 0.6, Neutrophils # (Auto) 2.5, Lymphocytes # (Auto) 1.9, Monocytes # (Auto) 0.6, Eosinophils # (Auto) 0.2, Basophils # (Auto) 0.0, Calcium Level 7.9 L, Aspartate Amino Transf (AST/SGOT) 16, Alanine Aminotransferase (ALT/SGPT) 14, Alkaline Phosphatase 98, Total Bilirubin 0.2, Total Protein 6.9, Albumin 2.7 L Labs 24H Laboratory Tests 2 09/24/18 06:59: Immature Granulocyte % (Auto) 0.4, White Blood Count 5.2, Red Blood Count 3.59L, Hemoglobin 9.0L, Hematocrit 28.7L, Mean Corpuscular Volume 79.9L, Mean Corpuscular Hemoglobin 25.1L, Mean Corpuscular Hemoglobin Concent 31.4L, Red Cell Distribution Width 16.9H, Platelet Count 380, Neutrophils (%) (Auto) 47.7, Lymphocytes (%) (Auto) 36.5, Monocytes (%) (Auto) 10.6H, Eosinophils (%) (Auto) 4.2H, Basophils (%) (Auto) 0.6, Neutrophils # (Auto) 2.5, Lymphocytes # (Auto) 1.9, Monocytes # (Auto) 0.6, Eosinophils # (Auto) 0.2, Basophils # (Auto) 0.0, Nucleated Red Blood Cells % (auto) 0.0, Anion Gap 6L, Glomerular Filtration Rate > 60.0, Blood Urea Nitrogen 6L, Creatinine 0.52L, Sodium Level 138, Potassium Level 2.9*L, Chloride Level 103, Carbon Dioxide Level 29, Calcium Level 7.9L, Aspartate Amino Transf (AST/SGOT) 16, Alanine Aminotransferase (ALT/SGPT) 14, Alkaline Phosphatase 98, Total Bilirubin 0.2, Total Protein 6.9, Albumin 2.7L, Albumin/Globulin Ratio 0.64L Home Medications Scheduled Bisacodyl (Bisacodyl) 10 Mg Supp.rect, 10 MG AR DAILY Carbamazepine (Carbamazepine) 200 Mg Tab, 200 MG PO QAM, (Reported) TAKES WITH 100MG MORNING DOSE FOR TOTAL 300MG QAM Carbamazepine (Carbamazepine) 100 Mg Chew, 100 MG PO TID, (Reported) Diazepam (Diazepam) 5 Mg Tab, 5 MG PO DAILY, (Reported) TAKES AT NOON Fluoxetine Hcl (Fluoxetine HCl) 20 Mg Cap, 60 MG PO DAILY, (Reported) Furosemide (Furosemide) 20 Mg Tab, 20 MG PO DAILY, (Reported) Gabapentin (Gabapentin) 300 Mg Cap, 300 MG PO TID, (Reported) Glatiramer Acetate (Copaxone) 40 Mg/Ml Inj, 40 MG SC 3XW, (Reported) MON/WED/FRI Ipratropium [place] (Atrovent Hfa) 200 Puff/12.9 Gm Aers, 2 PUFF INH QID, (Reported) Magnesium Citrate (Citrate of Magnesia) 296 Ml Solution, 150 ML PO DAILY Magnesium Hydroxide (Milk of Magnesia) 400 Mg/5 Ml Oral.susp, 30 ML PO BID Menthol (Biofreeze) 118 Ml Gel..ml., 4 % TOP BID, (Reported) Modafinil (Modafinil) 100 Mg Tab, 100 MG PO DAILY, (Reported) Multivitamins (Thera M Plus Tablet) 1 Tab Tab, 1 TAB PO DAILY, (Reported) Omeprazole (Omeprazole) 40 Mg Capsule.dr, 40 MG PO DAILY, (Reported) Oxybutynin Chloride (Oxybutynin Chloride) 5 Mg Tab, 5 MG PO BID, (Reported) Potassium Citrate (Potassium Citrate 10MEQ (Urocit-K)) 1,080 Mg Tab, 1,080 MG PO BID, (Reported) Quetiapine Fumarate (Quetiapine Fumarate) 50 Mg Tab, 50 MG PO QHS, (Reported) TAKES WITH 200MG FOR 250MG TOTAL DOSE Quetiapine Fumarate (Quetiapine Fumarate) 200 Mg Tab, 200 MG PO QHS, (Reported) TAKES WITH 50MG FOR 250MG TOTAL DOSE Sennosides/Docusate Sodium (Senna Plus Tablet) 1 Tab Tab, 1 TAB PO DAILY, (Reported) Sennosides/Docusate Sodium (Senna Plus Tablet) 1 Each Tablet, 1 TAB PO BID Sodium Chloride (Sodium Chloride) 1 Gm Tablet, 1 GM PO BID, (Reported) Tizanidine HCl (Tizanidine HCl) 4 Mg Tablet, 8 MG PO TID, (Reported) Scheduled PRN Acetaminophen (Acetaminophen) 325 Mg Tab, 650 MG PO Q4H PRN for PAIN, (Reported) Hydrocodone/Acetaminophen (Hydrocodone-Acetamin 5-325 mg) 1 Each Tablet, 1 TAB PO Q6HP PRN for MODERATE PAIN (PS 5-7) Methocarbamol (Methocarbamol) 750 Mg Tab, 750 MG PO Q6H PRN for SPASMS, (Reported) Allergies Coded Allergies: No Known Allergies (Verified , 09/02/18) A-FIB/CHADSVASC A-FIB History Current/History of A-Fib/PAF?: No SHAYLA COWAN MD Sep 24, 2018 12:29
--- NOTE | 2018-09-24 12:32 | IPNPDOC ---
PM&R Progress Note DATE OF SERVICE: Sep 24, 2018 Limb Driver Progress Note Subjective: Patient seen in gym on [employer] reporting she feels well today. REVIEW OF SYSTEMS: The following is a completed review of systems and has been reviewed. Review of systems otherwise unremarkable. PAIN: Patient self reports mild abdominal pain EYES: Negative for recent vision loss EARS, NOSE, & THROAT: denies dysphagia, hearing loss CARDIOVASCULAR: denies chest pain or palpitations PULMONARY: Negative. Denies shortness of breath GASTROINTESTINAL: +diarrhea GENITOURINARY: +incontinence, +dysuria MUSCULOSKELETAL: bilat LE weakness NEUROLOGICAL: +MS SKIN: abdominal incision PSYCHIATRIC:Unremarkable All other review of systems found to be negative. PHYSICAL EXAMINATION: VITAL SIGNS: Please see below. GENERAL: Pleasant and cooperative. No acute distress. HEENT: PERRL. Extraocular movements intact. Clear conjunctiva CARDIOVASCULAR: Regular rate and rhythm. No murmurs, rubs, or gallops LUNGS: Clear to auscultation bilaterally. No wheezes. No rhonchi ABDOMEN: Soft, nontender, mildly-distended. Positive bowel sounds. no rebound tenderness/guarding NEUROLOGICAL: Alert and oriented times three. Cranial nerves II through XII grossly intact. Sensation grossly intact +dysmetria on the left EXTREMITIES: 5-\5 strength bilateral upper extremities. 5-\5 strength right lower extremity. 5-/5 strength in left lower extremity. bilat edema LE SKIN: abdominal incision c/d/i ASSESSMENT:62-year-old F with past medical history of MS who presents status po st ileostomy reversal with new gait and ADL impairments. PLAN: 1. Rehab: PT, TO, assess for DMEs -strenghten and stretch all limbs, improve core strength, build up tolerance for ambulation and improve dynamic balance 2. Neuro: pmh MS- c/u home meds and monitor for any relapsing symptoms post-operatively, thus far stable 3. Cardio: pmh HLD, not on a statin will consider starting, medicine consulted -c/u lasix for edema, acewrap and elevate when out of therapy 4. Resp: c/u breathing treatments 5. : neurogenic bladder in setting of MS, timed voids, c/u oxybutynin- will order UA for dysuria 6. DVT ppx: lovenox and teds 7. GI: s/p ileostomy reversal with colonic dilation on 09/14/18- c/u bowel meds, will consult surgery to advise on tapering -ppx: omeprazole 8. Psych: c/u Seroquel, Prozac, and modafinil 9. Hypokalemia- 2.9 today (asymptomatic), will give 4 runs of 10meq IV, and start po 20meq tomorrow- Mg level ordered for tomorrow 9. Dispo: TBD Allergies Coded Allergies: No Known Allergies (Verified , 09/02/18) Vital Signs Vital Signs Date Time Temp Pulse Resp B/P (MAP) Pulse Ox O2 Delivery O2 Flow Rate FiO2 09/24/18 05:34 98.3 95 18 140/70 (93) 95 Laboratory Data CBC/BMP Laboratory Tests 09/24/18 06:59 Red Blood Count 3.59 L, Mean Corpuscular Volume 79.9 L, Mean Corpuscular Hemoglobin 25.1 L, Mean Corpuscular Hemoglobin Concent 31.4 L, Red Cell Distr ibution Width 16.9 H, Neutrophils (%) (Auto) 47.7, Lymphocytes (%) (Auto) 36.5, Monocytes (%) (Auto) 10.6 H, Eosinophils (%) (Auto) 4.2 H, Basophils (%) (Auto) 0.6, Neutrophils # (Auto) 2.5, Lymphocytes # (Auto) 1.9, Monocytes # (Auto) 0.6, Eosinophils # (Auto) 0.2, Basophils # (Auto) 0.0, Calcium Level 7.9 L, Aspartate Amino Transf (AST/SGOT) 16, Alanine Aminotransferase (ALT/SGPT) 14, Alkaline P hosphatase 98, Total Bilirubin 0.2, Total Protein 6.9, Albumin 2.7 L Labs 24H Laboratory Tests 2 09/24/18 06:59: Immature Granulocyte % (Auto) 0.4, White Blood Count 5.2, Red Blood Count 3.59L, Hemoglobin 9.0L, Hematocrit 28.7L, Mean Corpuscular Volume 79.9L, Mean Corpuscular Hemoglobin 25.1L, Mean Corpuscular Hemoglobin Concent 31.4L, Red Cell Distribution Width 16.9H, Platelet Count 380, Neutrophils (%) (Auto) 47.7, Lymphocytes (%) (Auto) 36.5, Monocytes (%) (Auto) 10.6H, Eosinophils (%) (Auto) 4.2H, Basophils (%) (Auto) 0.6, Neutrophils # (Auto) 2.5, Lymphocytes # (Auto) 1.9, Monocytes # (Auto) 0.6, Eosinophils # (Auto) 0.2, Basophils # (Auto) 0.0, Nucleated Red Blood Cells % (auto) 0.0, Anion Gap 6L, Glomerular Filtration Rate > 60.0, Blood Urea Nitrogen 6L, Creatinine 0.52L, Sodium Level 138, Potassium Level 2.9*L, Chloride Level 103, Carbon Dioxide Level 29, Calcium Level 7.9L, Aspartate Amino Transf (AST/SGOT) 16, Alanine Aminotransferase (ALT/SGPT) 14, Alkaline Phosphatase 98, Total Bilirubin 0.2, Total Protein 6.9, Albumin 2.7L, Albumin/Globulin Ratio 0.64L Current Medications Current Medications Current Medications Acetaminophen (Tylenol Tab) 650 mg Q4HP PRN PO MILD PAIN (PS 1-4) Last administered on 09/23/18at 20:40; Start 09/23/18 at 14:15 Carbamazepine (TEGretol) 100 mg TID PO ; Start 09/23/18 at 16:00; Stop 09/23/18 at 16:00; Status DC Carbamazepine (TEGretol) 100 mg TID PO Last administered on 09/24/18 08:16; Start 09/23/18 at 16:00 Carbamazepine (TEGretol) 200 mg QAM PO Last administered on 09/24/18 08:16; Start 09/24/18 at 09:00 Enoxaparin Sodium (Lovenox) 40 mg DAILY SC Last administered on 09/24/18 08:15; Start 09/24/18 at 09:00 Fluoxetine HCl (PROzac) 60 mg DAILY PO Last administered on 09/24/18 08:16; Start 09/24/18 at 09:00 Furosemide (Lasix) 20 mg DAILY PO Last administered on 09/24/18 08:16; Start 09/24/18 at 09:00 Gabapentin (Neurontin) 300 mg TID PO Last administered on 09/24/18 08:16; Start 09/23/18 at 16:00 Ipratropium [place] (Atrovent Hfa) 2 puff RBID INH Last administered on 09/24/18 07:30; Start 09/23/18 at 20:00 Magnesium Hydroxide (Milk Of Magnesia) 30 ml DAILYPRN PRN PO CONSTIPATION; Start 09/23/18 at 14:15 Magnesium Citrate (Citrate Of Magnesia) 150 ml DAILY PO Last administered on 09/24/18 08:15; Start 09/24/18 at 09:00 Methocarbamol (Robaxin) 750 mg Q6HP PRN PO MUSCLE SPASMS; Start 09/23/18 at 14:15 Modafinil (Provigil) 100 mg QAM PO Last administered on 09/24/18 08:16; Start 09/24/18 at 09:00 Omeprazole (PriLOSEC) 40 mg DAILY PO Last administered on 09/24/18 08:16; Start 09/24/18 at 09:00 Ondansetron HCl (Zofran) 4 mg Q6HP PRN PO NAUSEA OR VOMITING; Start 09/23/18 at 14:15 Oxybutynin Chloride (Ditropan) 5 mg BID PO Last administered on 09/24/18 08:16; Start 09/23/18 at 21:00 Potassium Chloride 10 meq/ IV Miscellaneous Supplies 100 ml @ 100 mls/hr Q1H IV Last administered on 09/24/18 11:32; Start 09/24/18 at 09:00; Stop 09/24/18 at 12:59 Potassium Chloride (Micro-K Extencaps) 20 meq DAILY PO ; Start 09/24/18 at 09:00 Quetiapine Fumarate (SEROquel) 200 mg QHS PO Last administered on 09/23/18 20:38; Start 09/23/18 at 21:00 Senna (Senokot) 1 tab QHS PO Last administered on 09/23/18 20:38; Start 09/23/18 at 21:00 Senna/Docusate Sodium (Senokot S) 1 tab BID PO Last administered on 09/24/18 08:15; Start 09/23/18 at 21:00 Simethicone (Mylicon) 80 mg TID PO Last administered on 09/24/18 08:16; Start 09/23/18 at 16:00 Tizanidine HCl (Zanaflex) 2 mg Q6HP PRN PO SPASMS Last administered on 09/23/18at 20:46; Start 09/23/18 at 14:15 SHAYLA COWAN MD Sep 24, 2018 12:32
[2018-09-24 14:00] VITALS: BP 161/78
--- NOTE | 2018-09-24 17:39 | IPN ---
DATE: 09/24/2018 Kg is seen in acute rehabilitation unit (ARU). She is feeling well. She is not short of breath. Lower extremity edema has improved. She is pleased with her progress in therapy. PHYSICAL EXAMINATION: Afebrile. Vital signs stable. Blood pressure 140/70. General Appearance: Resting comfortably, in no distress. Lungs: Clear. Heart: Regular rhythm. Abdomen: Soft, nontender. Trace to 1+ peripheral edema. LABORATORY: Potassium is 2.9. Hemoglobin is down to 9.0. Tegretol level is 16.3. 1. She already received some K-runs intravenously today and oral potassium. Followup potassium, magnesium level pending for tomorrow. 2. Lower extremity edema. This has resolved with some diuresis and some mobilization of the IV fluids received during her last admission. 3. Seizure disorder. Her Tegretol level is elevated. Will adjust the dose and repeat this in 5-7 days.
--- NOTE | 2018-09-24 19:07 | CR ---
DATE OF CONSULTATION: 09/24/2018 REASON FOR CONSULTATION: Postoperative management. HISTORY OF PRESENT ILLNESS: Patient is a 62-year-old female patient, well known to me. She was recently in the hospital, [facility] for a [facility]ting ileostomy reversal. She underwent that surgery on September 14. Postoperatively, she had a prolonged ileus. Took awhile to start having any bowel movements. Did not have any problems with nausea, vomiting. Did not require any nasogastric (NG) tube placement during that time. It just took awhile to get her bowel regimen under control and get her to start passing stools again. Other than that, she has been working with physical therapy throughout her stay. She was recommended to be a good candidate for the acute rehabilitation unit (ARU) and currently is transferred down there for further care. I have been asked to follow with her while she is here in case she needs any postoperative management. This morning, she has no complaints. She is up in a chair already, finished breakfast, getting ready to start her therapy. Bowel movements are still working okay. Abdomen is soft. Incision is dry. No complaints at this time. PAST MEDICAL HISTORY: 1. Multiple sclerosis. 2. Hyperlipidemia. 3. Tobacco abuse. 4. Bronchitis. 5. Obesity. 6. Urinary incontinence. PAST SURGICAL HISTORY: 1. Tubal ligation. 2. Knee surgery. 3. Colonoscopies. 4. Sigmoid resection in April of this year due to sigmoid volvulus. 5. Most recently an ileostomy reversal. ALLERGIES: None. HOME MEDICATIONS: Please see medication reconciliation. FAMILY HISTORY: Noncontributory. REVIEW OF SYSTEMS: Pertinent positive and negative as stated the history of present illness (HPI). PHYSICAL EXAMINATION: GENERAL: Alert and oriented times three. VITAL SIGNS: Stable. HEENT: Pupils equal, round, react to light and accommodation. HEART: S1, S2, regular rate and rhythm. LUNGS: Clear to auscultation bilaterally. ABDOMEN: Soft, nontender, nondistended. Incisions are clean, dry, and intact. [place] are in place. ASSESSMENT AND PLAN: Again, the patient is a 62-year-old female status post diverting ileostomy reversal and balloon dilation of a colorectal stricture. She is currently having normal bowel movements, tolerating diet, and has no problems with pain. She will continue her stay at the ARU as long as recommended. I will followup with her again on Friday and remove her maynor. Other than that, I will be available as needed.
[2018-09-24 20:00] VITALS: BP 147/71
[2018-09-24] MEDS: tiZANidine 4 MG TAB PO PRN (20:13)
[2018-09-24] MEDS: QUEtiapine FUMARATE 200 MG TAB PO SCH (20:13)
[2018-09-24] MEDS: SENNA 8.6 MG TAB (SENOKOT) PO SCH (20:15)
[2018-09-24] MEDS: ACETAMINOPHEN TAB 650MG DOSE (2X325MG) PO PRN (20:16)
[2018-09-24] MEDS ORDERED: MAGNESIUM CITRATE 300 ML BTL PO PRN (22:45)
[2018-09-25 06:00] VITALS: BP 140/70
[2018-09-25] MEDS: IPRATROPIUM HFA INHALER 12.9 GRAMS (ATROVENT HFA) INH SCH ×2 (07:14→18:13)
[2018-09-25 07:51] LABS: BLOOD UREA NITROGEN 7 MG/DL (7-18); CALCIUM LEVEL 8.4 MG/DL (8.8-10.2); CARBON DIOXIDE LEVEL 28 MEQ/L (21-32); CHLORIDE LEVEL 103 MEQ/L (98-107); CREATININE FOR GFR 0.53 MG/DL (0.55-1.30); GLOMERULAR FILTRATION RATE > 60.0 (>45); GLUCOSE, FASTING 96 MG/DL (70-100); POTASSIUM SERUM 3.2 MEQ/L (3.5-5.1); SODIUM LEVEL 138 MEQ/L (136-145)
[2018-09-25] MEDS: carBAMazepine 200 MG TAB PO SCH (08:47)
[2018-09-25] MEDS: OMEPRAZOLE 20 MG CAP PO SCH (08:47)
[2018-09-25] MEDS: carBAMazepine 100 MG *1/2* TAB PO SCH ×2 (08:47→22:06)
[2018-09-25] MEDS: SENOKOT S TAB PO SCH ×2 (08:47→20:55)
[2018-09-25] MEDS: ENOXAPARIN 40 MG/0.4 ML SYRINGE (J1650) SC SCH (08:48)
[2018-09-25] MEDS: POTASSIUM CHLORIDE 10 MEQ SR TABLET PO SCH (08:48)
[2018-09-25] MEDS: FLUoxetine 20 MG CAP PO SCH (08:49)
[2018-09-25] MEDS: GABAPENTIN 300 MG CAP PO SCH ×3 (08:49→20:54)
[2018-09-25] MEDS: oxyBUTYnin 5 MG TAB PO SCH ×2 (08:49→20:54)
[2018-09-25] MEDS: SIMETHICONE 80 MG CHEW TAB PO SCH ×3 (08:49→22:06)
[2018-09-25] MEDS: MODAFINIL 100 MG TABLET PO SCH (08:49)
[2018-09-25] MEDS: FUROSEMIDE 20 MG TAB PO SCH (08:50)
[2018-09-25] MEDS: tiZANidine 4 MG TAB PO PRN (08:53)
[2018-09-25] MEDS ORDERED: POTASSIUM CHLORIDE 10 MEQ SR TABLET PO ONE (11:00)
--- NOTE | 2018-09-25 12:29 | IPNPDOC ---
PM&R Progress Note DATE OF SERVICE: Sep 25, 2018 Instrumentation Chemist Progress Note Subjective: Patient reporting increased urinary urgency since starting Lasix. She also reports taking higher dose of tizanidine at home. REVIEW OF SYSTEMS: The following is a completed review of systems and has been reviewed. Review of systems otherwise unremarkable. PAIN: Patient self reports mild abdominal pain EYES: Negative for recent vision loss EARS, NOSE, & THROAT: denies dysphagia, hearing loss CARDIOVASCULAR: denies chest pain or palpitations PULMONARY: Negative. Denies shortness of breath GASTROINTESTINAL: +diarrhea GENITOURINARY: +incontinence, +dysuria MUSCULOSKELETAL: bilat LE weakness NEUROLOGICAL: +MS SKIN: abdominal incision PSYCHIATRIC:Unremarkable All other review of systems found to be negative. PHYSICAL EXAMINATION: VITAL SIGNS: Please see below. GENERAL: Pleasant and cooperative. No acute distress. HEENT: PERRL. Extraocular movements intact. Clear conjunctiva CARDIOVASCULAR: Regular rate and rhythm. No murmurs, rubs, or gallops LUNGS: Clear to auscultation bilaterally. No wheezes. No rhonchi ABDOMEN: Soft, nontender, mildly-distended. Positive bowel sounds. no rebound tenderness/guarding NEUROLOGICAL: Alert and oriented times three. Cranial nerves II through XII grossly intact. Sensation grossly intact +dysmetria on the left EXTREMITIES: 5-\5 strength bilateral upper extremities. 5-\5 strength right lower extremity. 5-/5 strength in left lower extremity. bilat edema LE SKIN: abdominal incision c/d/i ASSESSMENT:62-year-old F with past medical history of MS who presents status post ileostomy reversal with new gait and ADL impairments. PLAN: 1. Rehab: PT, TO, assess for DMEs, able to ambulate stand-by assist with RW -strenghten and stretch all limbs, improve core strength, build up tolerance for ambulation and improve dynamic balance 2. Neuro: pmh MS- c/u home meds and monitor for any relapsing symptoms post- operatively, thus far stable 3. Cardio: pmh HLD, not on a statin will consider starting, medicine consulted -will d/c lasix for edema given increased urge incontinence, a/u acewrap and elevate when out of therapy 4. Resp: c/u breathing treatments 5. : neurogenic bladder in setting of MS, timed voids, c/u oxybutynin- UA negative, PT to provide pelvic floor strengthening exercises 6. DVT ppx: lovenox and teds 7. GI: s/p ileostomy reversal with colonic dilation on 09/14/18- c/u bowel meds, will consult surgery to advise on tapering - maynor to come out Friday -ppx: omeprazole 8. Psych: c/u Seroquel, Prozac, and modafinil 9. Hypokalemia- improving, today 3.2 will give one time extra dose 40mg and c/u 20mg daily 10. Pain/tone: tizanidine 8mg, c/u gabapentin 9. Dispo: TBD Allergies Coded Allergies: No Known Allergies (Verified , 09/02/18) Vital Signs Vital Signs Date Time Temp Pulse Resp B/P (MAP) Pulse Ox O2 Delivery O2 Flow Rate FiO2 09/25/18 06:00 98.6 88 16 140/70 (93) 98 Laboratory Data CBC/BMP Laboratory Tests 09/25/18 07:07 Calcium Level 8.4 L Labs 24H Laboratory Tests 2 09/24/18 16:30: Urine Color STRAW, Urine Appearance CLEAR, Urine pH 7.0, Urine Specific [place] 1.004, Urine Protein NEGATIVE, Urine Glucose (UA) NEGATIVE, Urine Ketones NEGATIVE, Urine Blood NEGATIVE, Urine Nitrite NEGATIVE, Urine Bilirubin NEGATIVE, Urine Urobilinogen 0.2, Urine Leukocyte Esterase NEGATIVE, Urine WBC (Auto) 0, Urine RBC (Auto) 1, Urine Hyaline Casts (Auto) 0, Urine Bacteria (Auto) NEGATIVE, Urine Squamous Epithelial Cells 0, Urine Mucus (Auto) SMALL, Urine Sperm (Auto) 09/25/18 07:07: Anion Gap 7L, Glomerular Filtration Rate > 60.0, Blood Urea Nitrogen 7, Creatinine 0.53L, Sodium Level 138, Potassium Level 3.2L, Chloride Level 103, Carbon Dioxide Level 28, Calcium Level 8.4L, Magnesium Level 2.0 Current Medications Current Medications Current Medications Acetaminophen (Tylenol Tab) 650 mg Q4HP PRN PO MILD PAIN (PS 1-4) Last admin istered on 09/24/18at 20:16; Start 09/23/18 at 14:15 Carbamazepine (TEGretol) 100 mg BID PO Last administered on 09/25/18at 08:47; Start 09/24/18 at 21:00 Carbamazepine (TEGretol) 100 mg TID PO ; Start 09/23/18 at 16:00; Stop 09/23/18 at 16:00; Status DC Carbamazepine (TEGretol) 100 mg TID PO Last administered on 09/24/18 16:06; Start 09/23/18 at 16:00; Stop 09/24/18 at 17:10; Status DC Carbamazepine (TEGretol) 200 mg QAM PO Last administered on 09/25/18 08:47; Start 09/24/18 at 09:00 Enoxaparin Sodium (Lovenox) 40 mg DAILY SC Last administered on 09/25/18 08:48; Start 09/24/18 at 09:00 Fluoxetine HCl (PROzac) 60 mg DAILY PO Last administered on 09/25/18 08:49; Start 09/24/18 at 09:00 Furosemide (Lasix) 20 mg DAILY PO Last administered on 09/25/18 08:50; Start 09/24/18 at 09:00 Gabapentin (Neurontin) 300 mg TID PO Last administered on 09/25/18 08:49; Start 09/23/18 at 16:00 Ipratropium [place] (Atrovent Hfa) 2 puff RBID INH Last administered on 09/25/18 07:14; Start 09/23/18 at 20:00 Magnesium Hydroxide (Milk Of Magnesia) 30 ml DAILYPRN PRN PO CONSTIPATION; Start 09/23/18 at 14:15 Magnesium Citrate (Citrate Of Magnesia) 150 ml 3XWP PRN PO constipation; Start 09/24/18 at 22:45 Magnesium Citrate (Citrate Of Magnesia) 150 ml DAILY PO Last administered on 09/24/18 08:15; Start 09/24/18 at 09:00; Stop 09/24/18 at 22:34; Status DC Methocarbamol (Robaxin) 750 mg Q6HP PRN PO MUSCLE SPASMS; Start 09/23/18 at 14:15; Stop 09/25/18 at 10:57; Status DC Modafinil (Provigil) 100 mg QAM PO Last administered on 09/25/18 08:49; Start 09/24/18 at 09:00 Omeprazole (PriLOSEC) 40 mg DAILY PO Last administered on 09/25/18 08:47; Start 09/24/18 at 09:00 Ondansetron HCl (Zofran) 4 mg Q6HP PRN PO NAUSEA OR VOMITING; Start 09/23/18 at 14:15 Oxybutynin Chloride (Ditropan) 5 mg BID PO Last administered on 09/25/18 08:49; Start 09/23/18 at 21:00 Potassium Chloride 10 meq/ IV Miscellaneous Supplies 100 ml @ 100 mls/hr Q1H IV Last administered on 09/24/18 14:09; Start 09/24/18 at 09:00; Stop 09/24/18 at 12:59; Status DC Potassium Chloride (Micro-K Extencaps) 20 meq DAILY PO Last administered on 09/25/18 08:48; Start 09/24/18 at 09:00 Quetiapine Fumarate (SEROquel) 200 mg QHS PO Last administered on 09/24/18 20:13; Start 09/23/18 at 21:00 Senna (Senokot) 1 tab QHS PO Last administered on 09/24/18 20:15; Start 09/23/18 at 21:00 Senna/Docusate Sodium (Senokot S) 1 tab BID PO Last administered on 09/25/18 08:47; Start 09/23/18 at 21:00 Simethicone (Mylicon) 80 mg TID PO Last administered on 09/25/18 08:49; Start 09/23/18 at 16:00 Tizanidine HCl (Zanaflex) 2 mg Q6HP PRN PO SPASMS Last administered on 09/25/18 08:53; Start 09/23/18 at 14:15; Stop 09/25/18 at 10:57; Status DC Tizanidine HCl (Zanaflex) 8 mg TID PO ; Start 09/25/18 at 16:00 HSAYLA COWAN MD Sep 25, 2018 12:29
[2018-09-25 14:00] VITALS: BP 159/75
[2018-09-25] MEDS: tiZANidine 4 MG TAB PO SCH ×2 (16:38→22:06)
[2018-09-25 20:30] VITALS: BP 162/72
[2018-09-25] MEDS: SENNA 8.6 MG TAB (SENOKOT) PO SCH (20:55)
[2018-09-25] MEDS: ACETAMINOPHEN TAB 650MG DOSE (2X325MG) PO PRN (20:55)
[2018-09-25] MEDS: QUEtiapine FUMARATE 200 MG TAB PO SCH (20:55)
[2018-09-26 06:11] VITALS: BP 143/67
[2018-09-26] MEDS: IPRATROPIUM HFA INHALER 12.9 GRAMS (ATROVENT HFA) INH SCH ×2 (07:32→20:10)
[2018-09-26 07:42] LABS: HEMATOCRIT 30.9 % (36.0-47.0); HEMOGLOBIN 9.9 g/dl (12.0-15.5); MEAN CORPUSCULAR HEMOGLOBIN 26.3 pg (27.0-33.0); PLATELET COUNT, AUTOMATED 400 10^3/uL (150-450); RED BLOOD COUNT 3.77 10^6/uL (4.00-5.40); WHITE BLOOD COUNT 5.7 10^3/uL (4.0-10.0)
[2018-09-26 07:59] LABS: BLOOD UREA NITROGEN 9 MG/DL (7-18); CALCIUM LEVEL 8.4 MG/DL (8.8-10.2); CARBON DIOXIDE LEVEL 28 MEQ/L (21-32); CHLORIDE LEVEL 104 MEQ/L (98-107); CREATININE FOR GFR 0.58 MG/DL (0.55-1.30); GLOMERULAR FILTRATION RATE > 60.0 (>45); GLUCOSE, FASTING 97 MG/DL (70-100); POTASSIUM SERUM 3.5 MEQ/L (3.5-5.1); SODIUM LEVEL 138 MEQ/L (136-145)
[2018-09-26] MEDS: OMEPRAZOLE 20 MG CAP PO SCH (09:34)
[2018-09-26] MEDS: carBAMazepine 200 MG TAB PO SCH (09:34)
[2018-09-26] MEDS: FLUoxetine 20 MG CAP PO SCH (09:34)
[2018-09-26] MEDS: carBAMazepine 100 MG *1/2* TAB PO SCH ×2 (09:34→20:50)
[2018-09-26] MEDS: GABAPENTIN 300 MG CAP PO SCH ×3 (09:34→20:50)
[2018-09-26] MEDS: ENOXAPARIN 40 MG/0.4 ML SYRINGE (J1650) SC SCH (09:34)
[2018-09-26] MEDS: tiZANidine 4 MG TAB PO SCH ×3 (09:35→20:51)
[2018-09-26] MEDS: SIMETHICONE 80 MG CHEW TAB PO SCH ×3 (09:35→20:51)
[2018-09-26] MEDS: POTASSIUM CHLORIDE 10 MEQ SR TABLET PO SCH (09:35)
[2018-09-26] MEDS: oxyBUTYnin 5 MG TAB PO SCH ×2 (09:35→20:50)
[2018-09-26] MEDS: SENOKOT S TAB PO SCH ×2 (09:35→20:50)
[2018-09-26] MEDS: MODAFINIL 100 MG TABLET PO SCH (09:35)
[2018-09-26] MEDS: ACETAMINOPHEN TAB 650MG DOSE (2X325MG) PO PRN ×2 (13:46→21:00)
[2018-09-26] MEDS: LISINOPRIL 5 MG TAB PO SCH (13:46)
[2018-09-26 14:00] VITALS: BP 150/74
--- NOTE | 2018-09-26 15:42 | IPNPDOC ---
Subjective Date Seen The patient was seen on 09/26/18. Subjective Chief Complaint/HPI The patient was seen in her room. She does not have any complaints, feeling well except for mild discomfort at the osteomy site on the abdomen. She denies a fever, chills, nausea, vomiting, or diarrhea. General: Denies: ROS Unobtainable, Chills, Night Sweats, Fatigue, Malaise, Normal Appetite, Other Symptoms Constitutional: Denies: Chills, Fever, Malaise, Night Sweats, Weakness, Fatigue, Weight Loss, Lethargy, Other Eyes: Denies: Pain, Vision change, Conjunctivae inflammation, Eyelid inflammation, Redness, Other ENT: Denies: Head Aches, Ear Pain, Dysphagia, Sinus Congestion, Post Nasal Drip, Sore Throat, Epistaxis, Other Symptoms Skin: Denies: Rash, Lesions, Jaundice, Bruising, Itching, Dry, Breakdown, Nail Changes, Other Pulmonary: Denies: Dyspnea, Cough, Pleuritic Chest Pain, Other Symptoms Cardiovascular: Denies: Chest Pain, Palpitations, Orthopnea, Paroxysmal Noc. Dyspnea, Edema, Lt Headedness, Other Symptoms Gastrointestinal: Reports: Abdominal Pain Genitourinary: Denies: Dysuria, Frequency, Incontinence, Hematuria, Retention, Other Symptoms Hematologic: Denies: Bruising, Bleeding Excessively, Petecchia, Purpura, Enlarged Lymph Nodes, Other Hematologic Endocrine: Denies: Polydipsia, Polyphagia, Polyuria, Heat Intolerance, Cold Intolerance, Other Endocrine Sx Musculoskeletal: Denies: Neck Pain, Back Pain, Shoulder Pain, Arm Pain, Hand Pain, Leg Pain, Foot Pain, Joint Pain, Muscle Pain, Spasms, Other Symptoms Neurological: Denies: Weakness, Numbness, Incoordination, Change in speech, Confusion, Seizures, Other Symptoms Psych: Denies: Mood Normal, Anxiety, Depression, Memory Issues, Thoughts of Self Harm, Anger, Thoughts of Harming Other, Other Psych Objective Physical Examination General Exam: Positive: Alert, Cooperative, No Acute Distress Eye Exam: Positive: PERRLA ENT Exam: Positive: Mucous membr. moist/pink Neck Exam: Positive: Supple Chest Exam: Positive: Clear to auscultation, Normal air movement Heart Exam: Positive: Rate Normal Abdomen Exam: Positive: Normal bowel sounds Extremity Exam: Positive: Edema (trace edema) Skin Exam: Positive: Nl turgor and temperature Neuro Exam: Positive: Normal Speech Psych Exam: Positive: Mood NL Assessment /Plan Problems (1) Multiple sclerosis Problem Text: # Seizure disorder - Continue the current dose of medication. # HLD, HTN, pre-DM, obesity - Her BP has been 150-160 in multiple BP check. I started lisinopril 5 mg daily. - Her recent cholesterol was >220. I started atorvastatin 10 mg qhs. - Hb A1C was 6.1, and she officially has pre-DM. - She has HTN, HLD, pre-DM, and obesity. These are all strong risk factors for cardiovascular diseases including heart disease and stroke. I had a long conversation with the patient and recommended risk management. # Ostomy reversal and physical therapy - Surgery and ARU Plan/VTE VTE Prophylaxis Ordered?: Yes VS, I&O, 24H, Fishbone Vital Signs/I&O Vital Signs Date Time Temp Pulse Resp B/P (MAP) Pulse Ox O2 Delivery O2 Flow Rate FiO2 09/26/18 14:00 98.2 85 19 150/74 (99) 98 I&O- Last 24 Hours up to 6 AM 09/26/18 06:00 Intake Total 2220 ml Balance 2220 ml Laboratory Data 24H LABS Laboratory Tests 2 09/26/18 07:17: Nucleated Red Blood Cells % (auto) 0.0, Anion Gap 6L, Glomerular Filtration Rate > 60.0, Blood Urea Nitrogen 9, Creatinine 0.58, Sodium Level 138, Potassium Level 3.5, Chloride Level 104, Carbon Dioxide Level 28, Calcium Level 8.4L CBC/BMP Laboratory Tests 09/26/18 07:17 Red Blood Count 3.77 L, Mean Corpuscular Volume 82.0, Mean Corpuscular Hemoglobin 26.3 L, Mean Corpuscular Hemoglobin Concent 32.0, Red Cell Distrib ution Width 17.2 H, Calcium Level 8.4 L ENRIQUE QUINONES MD Sep 26, 2018 15:42
[2018-09-26 20:00] VITALS: BP 151/86
[2018-09-26] MEDS: SENNA 8.6 MG TAB (SENOKOT) PO SCH (20:50)
[2018-09-26] MEDS: QUEtiapine FUMARATE 200 MG TAB PO SCH (20:50)
[2018-09-26] MEDS: ATORVASTATIN 10 MG TAB PO SCH (20:51)
[2018-09-27 06:00] VITALS: BP 167/79
[2018-09-27] MEDS: IPRATROPIUM HFA INHALER 12.9 GRAMS (ATROVENT HFA) INH SCH ×2 (07:18→20:10)
[2018-09-27] MEDS: tiZANidine 4 MG TAB PO SCH ×3 (09:31→21:03)
[2018-09-27] MEDS: OMEPRAZOLE 20 MG CAP PO SCH (09:32)
[2018-09-27] MEDS: oxyBUTYnin 5 MG TAB PO SCH ×2 (09:32→20:28)
[2018-09-27] MEDS: SIMETHICONE 80 MG CHEW TAB PO SCH ×3 (09:32→20:28)
[2018-09-27] MEDS: SENOKOT S TAB PO SCH ×2 (09:32→20:28)
[2018-09-27] MEDS: MODAFINIL 100 MG TABLET PO SCH (09:32)
[2018-09-27] MEDS: POTASSIUM CHLORIDE 10 MEQ SR TABLET PO SCH (09:32)
[2018-09-27] MEDS: GABAPENTIN 300 MG CAP PO SCH ×3 (09:32→20:28)
[2018-09-27] MEDS: carBAMazepine 100 MG *1/2* TAB PO SCH ×2 (09:32→20:28)
[2018-09-27] MEDS: carBAMazepine 200 MG TAB PO SCH (09:33)
[2018-09-27] MEDS: FLUoxetine 20 MG CAP PO SCH (09:33)
[2018-09-27] MEDS: ENOXAPARIN 40 MG/0.4 ML SYRINGE (J1650) SC SCH (09:33)
[2018-09-27] MEDS: LISINOPRIL 5 MG TAB PO SCH (09:33)
--- NOTE | 2018-09-27 10:03 | IPNPDOC ---
Subjective Date Seen The patient was seen on 09/27/18. Subjective Chief Complaint/HPI Patient is comfortable in no apparent distress. Physical therapy in progress General: Denies: ROS Unobtainable, Chills, Night Sweats, Fatigue, Malaise, Normal Appetite, Other Symptoms Constitutional: Denies: Chills, Fever, Malaise, Night Sweats, Weakness, Fatigue, Weight Loss, Lethargy, Other Eyes: Denies: Pain, Vision change, Conjunctivae inflammation, Eyelid inflammation, Redness, Other ENT: Denies: Head Aches, Ear Pain, Dysphagia, Sinus Congestion, Post Nasal Drip, Sore Throat, Epistaxis, Other Symptoms Skin: Denies: Rash, Lesions, Jaundice, Bruising, Itching, Dry, Breakdown, Nail Changes, Other Pulmonary: Denies: Dyspnea, Cough, Pleuritic Chest Pain, Other Symptoms Cardiovascular: Denies: Chest Pain, Palpitations, Orthopnea, Paroxysmal Noc. Dyspnea, Edema, Lt Headedness, Other Symptoms Musculoskeletal: Denies: Neck Pain, Back Pain, Shoulder Pain, Arm Pain, Hand Pain, Leg Pain, Foot Pain, Joint Pain, Muscle Pain, Spasms, Other Symptoms Neurological: Denies: Weakness, Numbness, Incoordination, Change in speech, Confusion, Seizures, Other Symptoms Objective Physical Examination General Exam: Positive: Alert, Cooperative, No Acute Distress Eye Exam: Positive: PERRLA ENT Exam: Positive: Mucous membr. moist/pink Neck Exam: Positive: Supple Chest Exam: Positive: Clear to auscultation, Normal air movement Heart Exam: Positive: Rate Normal Abdomen Exam: Positive: Normal bowel sounds Extremity Exam: Positive: Edema (trace edema) Skin Exam: Positive: Nl turgor and temperature Neuro Exam: Positive: Normal Speech Psych Exam: Positive: Mood NL Assessment /Plan Problems (1) Multiple sclerosis Status: Chronic Problem Text: Physical therapy in progress (2) HTN (hypertension) Status: Chronic Problem Text: Under control Continue Current medications Patient is medically stable. Please call back if help is needed Plan/VTE VTE Prophylaxis Ordered?: Yes VS, I&O, 24H, Fishbone Vital Signs/I&O Vital Signs Date Time Temp Pulse Resp B/P (MAP) Pulse Ox O2 Delivery O2 Flow Rate FiO2 09/27/18 09:33 167/79 09/27/18 06:00 98.1 74 18 92 I&O- Last 24 Hours up to 6 AM 09/27/18 06:00 Intake Total 2755 ml Balance 2755 ml MORENA ABDALLA MD Sep 27, 2018 10:03
[2018-09-27] MEDS: ACETAMINOPHEN TAB 650MG DOSE (2X325MG) PO PRN (13:26)
[2018-09-27 14:00] VITALS: BP 163/77
[2018-09-27] MEDS: QUEtiapine FUMARATE 200 MG TAB PO SCH (20:28)
[2018-09-27] MEDS: ATORVASTATIN 10 MG TAB PO SCH (20:28)
[2018-09-27] MEDS: SENNA 8.6 MG TAB (SENOKOT) PO SCH (20:28)
[2018-09-27 20:30] VITALS: BP 146/80
[2018-09-28 05:41] VITALS: BP 146/75
[2018-09-28] MEDS: IPRATROPIUM HFA INHALER 12.9 GRAMS (ATROVENT HFA) INH SCH ×2 (07:25→19:41)
[2018-09-28] MEDS: SENOKOT S TAB PO SCH ×2 (08:29→20:29)
[2018-09-28] MEDS: OMEPRAZOLE 20 MG CAP PO SCH (08:29)
[2018-09-28] MEDS: POTASSIUM CHLORIDE 10 MEQ SR TABLET PO SCH (08:29)
[2018-09-28] MEDS: carBAMazepine 100 MG *1/2* TAB PO SCH ×2 (08:29→20:30)
[2018-09-28] MEDS: tiZANidine 4 MG TAB PO SCH ×3 (08:29→20:30)
[2018-09-28] MEDS: FLUoxetine 20 MG CAP PO SCH (08:29)
[2018-09-28] MEDS: ENOXAPARIN 40 MG/0.4 ML SYRINGE (J1650) SC SCH (08:30)
[2018-09-28] MEDS: GABAPENTIN 300 MG CAP PO SCH ×3 (08:30→20:30)
[2018-09-28] MEDS: oxyBUTYnin 5 MG TAB PO SCH ×2 (08:30→20:29)
[2018-09-28] MEDS: LISINOPRIL 5 MG TAB PO SCH (08:30)
[2018-09-28] MEDS: SIMETHICONE 80 MG CHEW TAB PO SCH ×3 (08:30→20:29)
[2018-09-28] MEDS: MODAFINIL 100 MG TABLET PO SCH (08:30)
--- NOTE | 2018-09-28 10:18 | IPNPDOC ---
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 REVIEW OF SYSTEMS: The following is a completed review of systems and has been reviewed. Review of systems otherwise unremarkable. PAIN: Patient self reports mild abdominal pain EYES: Negative for recent vision loss EARS, NOSE, & THROAT: denies dysphagia, hearing loss CARDIOVASCULAR: denies chest pain or palpitations PULMONARY: Negative. Denies shortness of breath GASTROINTESTINAL: +diarrhea GENITOURINARY: +incontinence MUSCULOSKELETAL: bilat LE weakness NEUROLOGICAL: +MS SKIN: abdominal incision PSYCHIATRIC:Unremarkable All other review of systems found to be negative. PHYSICAL EXAMINATION: VITAL SIGNS: Please see below. GENERAL: Pleasant and cooperative. No acute distress. HEENT: PERRL. Extraocular movements intact. Clear conjunctiva CARDIOVASCULAR: Regular rate and rhythm. No murmurs, rubs, or gallops LUNGS: Clear to auscultation bilaterally. No wheezes. No rhonchi ABDOMEN: Soft, nontender, mildly-distended. Positive bowel sounds. no rebound tenderness/guarding NEUROLOGICAL: Alert and oriented times three. Cranial nerves II through XII nay sly intact. Sensation grossly intact +dysmetria on the left EXTREMITIES: 5-\5 strength bilateral upper extremities. 5-\5 strength right lower extremity. 5-/5 strength in left lower extremity. bilat edema LE (improving) SKIN: abdominal incision c/d/i ASSESSMENT:62-year-old F with past medical history of MS who presents status post ileostomy reversal with new gait and ADL impairments. PLAN: 1. Rehab: PT, TO, assess for DMEs, able to ambulate stand-by assist with RW, ambulating further -strenghten and stretch all limbs, improve core strength, build up tolerance for ambulation and improve dynamic balance 2. Neuro: pmh MS- c/u home meds and monitor for any relapsing symptoms post- operatively, thus far stable 3. Cardio: pmh HLD, not on a statin will start a statin while here- medicine consulted -d/c'd lasix for edema given increased urge incontinence, a/u acewrap and elevate when out of therapy-swelling improving 4. Resp: c/u breathing treatments 5. : neurogenic bladder in setting of MS, timed voids, c/u oxybutynin- UA negative, PT provided pelvic floor strengthening exercises over the weekend and patient reports she is practicing these 6. DVT ppx: lovenox and teds 7. GI: s/p ileostomy reversal with colonic dilation on 09/14/18- c/u bowel meds, will consult surgery to advise on tapering - maynor removed today -ppx: omeprazole 8. Psych: c/u Seroquel, Prozac, and modafinil 9. Hypokalemia- resolved, will c/u to monitor 10. Pain/tone: tizanidine 8mg, c/u gabapentin 9. Dispo: TBD Allergies Coded Allergies: No Known Allergies (Verified , 09/02/18) Vital Signs Vital Signs Date Time Temp Pulse Resp B/P (MAP) Pulse Ox O2 Delivery O2 Flow Rate FiO2 09/28/18 08:30 146/75 09/28/18 05:41 97.1 87 18 95 Current Medications Current Medications Current Medications Acetaminophen (Tylenol Tab) 650 mg Q4HP PRN PO MILD PAIN (PS 1-4) Last administered on 09/27/18 13:26; Start 09/23/18 at 14:15 Atorvastatin Calcium (Lipitor) 10 mg QHS PO Last administered on 09/27/18 20:28; Start 09/26/18 at 21:00 Carbamazepine (TEGretol) 100 mg BID PO Last administered on 09/28/18 08:29; Start 09/24/18 at 21:00 Carbamazepine (TEGretol) 100 mg TID PO ; Start 09/23/18 at 16:00; Stop 09/23/18 at 16:00; Status DC Carbamazepine (TEGretol) 100 mg TID PO Last administered on 09/24/18at 16:06; Start 09/23/18 at 16:00; Stop 09/24/18 at 17:10; Status DC Carbamazepine (TEGretol) 200 mg QAM PO Last administered on 09/27/18 09:33; Start 09/24/18 at 09:00 Enoxaparin Sodium (Lovenox) 40 mg DAILY SC Last administered on 09/28/18 08:30; Start 09/24/18 at 09:00 Fluoxetine HCl (PROzac) 60 mg DAILY PO Last administered on 09/28/18 08:29; Start 09/24/18 at 09:00 Furosemide (Lasix) 20 mg DAILY PO Last administered on 09/25/18 08:50; Start 09/24/18 at 09:00; Stop 09/25/18 at 14:07; Status DC Gabapentin (Neurontin) 300 mg TID PO Last administered on 09/28/18 08:30; Start 09/23/18 at 16:00 Ipratropium [place] (Atrovent Hfa) 2 puff RBID INH Last administered on 09/28/18 07:25; Start 09/23/18 at 20:00 Lisinopril (Prinivil) 5 mg DAILY PO Last administered on 09/28/18 08:30; Start 09/26/18 at 09:00 Magnesium Hydroxide (Milk Of Magnesia) 30 ml DAILYPRN PRN PO CONSTIPATION; Start 09/23/18 at 14:15 Magnesium Citrate (Citrate Of Magnesia) 150 ml 3XWP PRN PO constipation; Start 09/24/18 at 22:45 Magnesium Citrate (Citrate Of Magnesia) 150 ml DAILY PO Last administered on 09/24/18 08:15; Start 09/24/18 at 09:00; Stop 09/24/18 at 22:34; Status DC Methocarbamol (Robaxin) 750 mg Q6HP PRN PO MUSCLE SPASMS; Start 09/23/18 at 14:15; Stop 09/25/18 at 10:57; Status DC Modafinil (Provigil) 100 mg QAM PO Last administered on 09/28/18 08:30; Start 09/24/18 at 09:00 Omeprazole (PriLOSEC) 40 mg DAILY PO Last administered on 09/28/18 08:29; Start 09/24/18 at 09:00 Ondansetron HCl (Zofran) 4 mg Q6HP PRN PO NAUSEA OR VOMITING; Start 09/23/18 at 14:15 Oxybutynin Chloride (Ditropan) 5 mg BID PO Last administered on 09/28/18 08:30; Start 09/23/18 at 21:00 Potassium Chloride 10 meq/ IV Miscellaneous Supplies 100 ml @ 100 mls/hr Q1H IV Last administered on 09/24/18 14:09; Start 09/24/18 at 09:00; Stop 09/24/18 at 12:59; Status DC Potassium Chloride (Micro-K Extencaps) 20 meq DAILY PO Last administered on 09/28/18 08:29; Start 09/24/18 at 09:00 Quetiapine Fumarate (SEROquel) 200 mg QHS PO Last administered on 09/27/18 20:28; Start 09/23/18 at 21:00 Senna (Senokot) 1 tab QHS PO Last administered on 09/27/18 20:28; Start 09/23/18 at 21:00 Senna/Docusate Sodium (Senokot S) 1 tab BID PO Last administered on 09/28/18 08:29; Start 09/23/18 at 21:00 Simethicone (Mylicon) 80 mg TID PO Last administered on 09/28/18 08:30; Start 09/23/18 at 16:00 Tizanidine HCl (Zanaflex) 2 mg Q6HP PRN PO SPASMS Last administered on 09/25/18 08:53; Start 09/23/18 at 14:15; Stop 09/25/18 at 10:57; Status DC Tizanidine HCl (Zanaflex) 8 mg TID PO Last administered on 09/28/18 08:29; Start 09/25/18 at 16:00 SHAYLA COWAN MD Sep 28, 2018 10:18
[2018-09-28] MEDS: carBAMazepine 200 MG TAB PO SCH (10:35)
--- NOTE | 2018-09-28 11:57 | IPNPDOC ---
Text Note Date of Service The patient was seen on 09/28/18. NOTE SUBJECTIVE; Has no complaints at this time. Up to chair at bedside with therapist. Denies chest pain, shortness of breath. OBJECTIVE GENERAL: NAD SKIN : Warm, dry intact HEENT: Atraumatic, normocephalic, PERRL, moist mucous membrane CV: Regular rate and rhythm, S1S2, no JVD, trace edema to BLE, distal pulses not palpable RESP: CTAB, no accessory muscle use noted ABDOMEN: BS+, non distended, non tender. Surgical sutures to RLQ dry and intact MS: no joint deformities NEURO: Alert and oriented x 3, CN2-12 grossly intact PSYCH: no anxiety or agitation, appropriate mood and affect. Assessment and plan Sigmoid volvulus -Status post ileostomy reversal -Currently undergoing rehabilitation by primary team Seizure disorder -No seizure activity reported in the past 24 hours -Continue Tegretol -Monitoring of her fluid level and electrolytes Hypertension -Continue lisinopril -Blood pressure monitoring per unit protocol Hyperglycemia -Hemoglobin A1c 6.1 -Caloric controlled diet DVT prophylaxis -Lovenox 40 mg daily VS,Fishbone, I+O VS, Fishbone, I+O Vital Signs Date Time Temp Pulse Resp B/P (MAP) Pulse Ox O2 Delivery O2 Flow Rate FiO2 09/28/18 08:30 146/75 09/28/18 05:41 97.1 87 18 95 I&O- Last 24 Hours up to 6 AM 09/28/18 05:59 Intake Total 1560 ml Balance 1560 ml RICKI JONES [facility] Sep 28, 2018 11:57
[2018-09-28 14:00] VITALS: BP 152/80
[2018-09-28 20:00] VITALS: BP 160/78
[2018-09-28] MEDS: QUEtiapine FUMARATE 200 MG TAB PO SCH (20:29)
[2018-09-28] MEDS: ATORVASTATIN 10 MG TAB PO SCH (20:30)
[2018-09-28] MEDS: SENNA 8.6 MG TAB (SENOKOT) PO SCH (20:31)
[2018-09-29 05:42] VITALS: BP 145/82
[2018-09-29 06:43] LABS: HEMOGLOBIN 10.4 g/dl (12.0-15.5); MEAN CORPUSCULAR HEMOGLOBIN 25.5 pg (27.0-33.0); MEAN CORPUSCULAR HGB CONC 31.5 g/dl (32.0-36.5); MEAN CORPUSCULAR VOLUME 80.9 fl (80.0-96.0); PLATELET COUNT, AUTOMATED 458 10^3/uL (150-450); RED BLOOD COUNT 4.08 10^6/uL (4.00-5.40); WHITE BLOOD COUNT 6.1 10^3/uL (4.0-10.0)
[2018-09-29 07:10] LABS: BLOOD UREA NITROGEN 7 MG/DL (7-18); CALCIUM LEVEL 9.3 MG/DL (8.8-10.2); CARBON DIOXIDE LEVEL 27 MEQ/L (21-32); CHLORIDE LEVEL 105 MEQ/L (98-107); CREATININE FOR GFR 0.71 MG/DL (0.55-1.30); GLOMERULAR FILTRATION RATE > 60.0 (>45); GLUCOSE, FASTING 90 MG/DL (70-100); POTASSIUM SERUM 3.6 MEQ/L (3.5-5.1); SODIUM LEVEL 137 MEQ/L (136-145)
[2018-09-29] MEDS: IPRATROPIUM HFA INHALER 12.9 GRAMS (ATROVENT HFA) INH SCH ×2 (07:20→19:11)
[2018-09-29] MEDS: QUEtiapine FUMARATE 200 MG TAB PO SCH ×2 (07:47→21:18)
[2018-09-29] MEDS: carBAMazepine 100 MG *1/2* TAB PO SCH ×2 (07:47→21:18)
[2018-09-29] MEDS: SIMETHICONE 80 MG CHEW TAB PO SCH ×3 (07:47→21:18)
[2018-09-29] MEDS: POTASSIUM CHLORIDE 10 MEQ SR TABLET PO SCH (07:47)
[2018-09-29] MEDS: SENOKOT S TAB PO SCH ×2 (07:47→21:18)
[2018-09-29] MEDS: GABAPENTIN 300 MG CAP PO SCH ×3 (07:47→21:18)
[2018-09-29] MEDS: MODAFINIL 100 MG TABLET PO SCH (07:48)
[2018-09-29] MEDS: tiZANidine 4 MG TAB PO SCH ×3 (07:48→22:03)
[2018-09-29] MEDS: OMEPRAZOLE 20 MG CAP PO SCH (07:48)
[2018-09-29] MEDS: LISINOPRIL 5 MG TAB PO SCH (07:48)
[2018-09-29] MEDS: FLUoxetine 20 MG CAP PO SCH (07:48)
[2018-09-29] MEDS: oxyBUTYnin 5 MG TAB PO SCH ×2 (07:48→21:18)
[2018-09-29] MEDS: ENOXAPARIN 40 MG/0.4 ML SYRINGE (J1650) SC SCH (07:49)
[2018-09-29] MEDS: ACETAMINOPHEN TAB 650MG DOSE (2X325MG) PO PRN ×2 (07:52→22:08)
[2018-09-29] MEDS: carBAMazepine 200 MG TAB PO SCH (09:12)
[2018-09-29 09:15] VITALS: BP 128/66
--- NOTE | 2018-09-29 09:41 | IPNPDOC ---
PM&R Progress Note DATE OF SERVICE: Sep 29, 2018 Press Operator Progress Note Subjective: Patient reports she is feeling well, but that she still has urinary urgency. She is eager to go home. REVIEW OF SYSTEMS: The following is a completed review of systems and has been reviewed. Review of systems otherwise unremarkable. PAIN: Patient self reports mild abdominal pain EYES: Negative for recent vision loss EARS, NOSE, & THROAT: denies dysphagia, hearing loss CARDIOVASCULAR: denies chest pain or palpitations PULMONARY: Negative. Denies shortness of breath GASTROINTESTINAL: +diarrhea GENITOURINARY: +incontinence MUSCULOSKELETAL: bilat LE weakness NEUROLOGICAL: +MS SKIN: abdominal incision PSYCHIATRIC:Unremarkable All other review of systems found to be negative. PHYSICAL EXAMINATION: VITAL SIGNS: Please see below. GENERAL: Pleasant and cooperative. No acute distress. HEENT: PERRL. Extraocular movements intact. Clear conjunctiva CARDIOVASCULAR: Regular rate and rhythm. No murmurs, rubs, or gallops LUNGS: Clear to auscultation bilaterally. + scattered wheezes. No rhonchi ABDOMEN: Soft, nontender, mildly-distended. Positive bowel sounds. no rebound tenderness/guarding NEUROLOGICAL: Alert and oriented times three. Cranial nerves II through XII grossly intact. Sensation grossly intact +dysmetria on the left EXTREMITIES: 5-\5 strength bilateral upper extremities. 5-\5 strength right lower extremity. 5-/5 strength in left lower extremity. bilat edema LE (improving) SKIN: abdominal incision c/d/i ASSESSMENT:62-year-old F with past medical history of MS who presents status post ileostomy reversal with new gait and ADL impairments. PLAN: 1. Rehab: PT, TO, assess for DMEs, able to ambulate stand-by assist with RW, ambulating further requiring contact guard assist -strengthen and stretch all limbs, improve core strength, build up tolerance for ambulation and improve dynamic balance 2. Neuro: [facility] MS- c/u home meds and monitor for any relapsing symptoms post- operatively, thus far stable -patient was getting Copaxone [id number] at home, she reports she has not received this medication for close to a year, will ask for it be brought in from home to restart while in house 3. Cardio: h HLD, not on a statin will start a statin while here- medicine consulted -d/c'd lasix for edema given increased urge incontinence, a/u acewrap and elevate when out of therapy-swelling improving 4. Resp: c/u breathing treatments, will add Duonebs for wheeze on exam today 5. : neurogenic bladder in setting of MS, timed voids, c/u oxybutynin- UA negative, PT provided pelvic floor strengthening exercises over the weekend and patient reports she is practicing these -patient still reporting urgency 6. DVT ppx: lovenox and teds 7. GI: s/p ileostomy reversal with colonic dilation on 09/14/18- c/u bowel meds, will consult surgery to advise on tapering - maynor removed today -ppx: omeprazole 8. Psych: c/u Seroquel, Prozac, and modafinil 9. Hypokalemia- resolved, will c/u to monitor 10. Pain/tone: tizanidine 8mg, c/u gabapentin 9. Dispo: 10/06/18 to home, family will need to be trained Allergies Coded Allergies: No Known Allergies (Verified , 09/02/18) Vital Signs Vital Signs Date Time Temp Pulse Resp B/P (MAP) Pulse Ox O2 Delivery O2 Flow Rate FiO2 09/29/18 09:15 97.5 87 18 128/66 (86) 100 Laboratory Data CBC/BMP Laboratory Tests 09/29/18 06:24 Red Blood Count 4.08, Mean Corpuscular Volume 80.9, Mean Corpuscular Hemoglobin 25.5 L, Mean Corpuscular Hemoglobin Concent 31.5 L, Red Cell Distribution Width 17.1 H, Calcium Level 9.3 Labs 24H Laboratory Tests 2 09/29/18 06:24: Nucleated Red Blood Cells % (auto) 0.0, Anion Gap 5L, Glomerular Filtration Rate > 60.0, Blood Urea Nitrogen 7, Creatinine 0.71, Sodium Level 137, Potassium Level 3.6, Chloride Level 105, Carbon Dioxide Level 27, Calcium Level 9.3 Current Medications Current Medications Current Medications Acetaminophen (Tylenol Tab) 650 mg Q4HP PRN PO MILD PAIN (PS 1-4) Last administered on 09/29/18at 07:52; Start 09/23/18 at 14:15 Atorvastatin Calcium (Lipitor) 10 mg QHS PO Last administered on 09/28/18at 20:30; Start 09/26/18 at 21:00 Carbamazepine (TEGretol) 100 mg BID PO Last administered on 09/29/18 07:47; Start 09/24/18 at 21:00 Carbamazepine (TEGretol) 100 mg TID PO ; Start 09/23/18 at 16:00; Stop 09/23/18 at 16:00; Status DC Carbamazepine (TEGretol) 100 mg TID PO Last administered on 09/24/18 16:06; Start 09/23/18 at 16:00; Stop 09/24/18 at 17:10; Status DC Carbamazepine (TEGretol) 200 mg QAM PO Last administered on 09/29/18 09:12; Start 09/24/18 at 09:00 Enoxaparin Sodium (Lovenox) 40 mg DAILY SC Last administered on 09/29/18 07:49; Start 09/24/18 at 09:00 Fluoxetine HCl (PROzac) 60 mg DAILY PO Last administered on 09/29/18 07:48; Start 09/24/18 at 09:00 Furosemide (Lasix) 20 mg DAILY PO Last administered on 09/25/18 08:50; Start 09/24/18 at 09:00; Stop 09/25/18 at 14:07; Status DC Gabapentin (Neurontin) 300 mg TID PO Last administered on 09/29/18 07:47; Start 09/23/18 at 16:00 Ipratropium [place] (Atrovent Hfa) 2 puff RBID INH Last administered on 09/29/18 07:20; Start 09/23/18 at 20:00 Lisinopril (Prinivil) 5 mg DAILY PO Last administered on 09/29/18 07:48; Start 09/26/18 at 09:00 Magnesium Hydroxide (Milk Of Magnesia) 30 ml DAILYPRN PRN PO CONSTIPATION; Start 09/23/18 at 14:15 Magnesium Citrate (Citrate Of Magnesia) 150 ml 3XWP PRN PO constipation; Start 09/24/18 at 22:45 Magnesium Citrate (Citrate Of Magnesia) 150 ml DAILY PO Last administered on 09/24/18at 08:15; Start 09/24/18 at 09:00; Stop 09/24/18 at 22:34; Status DC Methocarbamol (Robaxin) 750 mg Q6HP PRN PO MUSCLE SPASMS; Start 09/23/18 at 14:15; Stop 09/25/18 at 10:57; Status DC Modafinil (Provigil) 100 mg QAM PO Last administered on 09/29/18 07:48; Start 09/24/18 at 09:00 Omeprazole (PriLOSEC) 40 mg DAILY PO Last administered on 09/29/18 07:48; Start 09/24/18 at 09:00 Ondansetron HCl (Zofran) 4 mg Q6HP PRN PO NAUSEA OR VOMITING; Start 09/23/18 at 14:15 Oxybutynin Chloride (Ditropan) 5 mg BID PO Last administered on 09/29/18 07:48; Start 09/23/18 at 21:00 Potassium Chloride 10 meq/ IV Miscellaneous Supplies 100 ml @ 100 mls/hr Q1H IV Last administered on 09/24/18 14:09; Start 09/24/18 at 09:00; Stop 09/24/18 at 12:59; Status DC Potassium Chloride (Micro-K Extencaps) 20 meq DAILY PO Last administered on 09/29/18 07:47; Start 09/24/18 at 09:00 Quetiapine Fumarate (SEROquel) 200 mg QHS PO Last administered on 09/28/18 20:29; Start 09/23/18 at 21:00 Senna (Senokot) 1 tab QHS PO Last administered on 09/28/18 20:31; Start 09/23/18 at 21:00 Senna/Docusate Sodium (Senokot S) 1 tab BID PO Last administered on 09/29/18 07:47; Start 09/23/18 at 21:00 Simethicone (Mylicon) 80 mg TID PO Last administered on 09/29/18 07:47; Start 09/23/18 at 16:00 Tizanidine HCl (Zanaflex) 2 mg Q6HP PRN PO SPASMS Last administered on 09/25/18 08:53; Start 09/23/18 at 14:15; Stop 09/25/18 at 10:57; Status DC Tizanidine HCl (Zanaflex) 8 mg TID PO Last administered on 6/25/19at 07:48; Start 09/25/18 at 16:00 SHAYLA COWAN MD Sep 29, 2018 09:41
[2018-09-29 14:00] VITALS: BP 133/89
[2018-09-29] MEDS: IPRATROPIUM 0.5MG/ALBUTEROL 2.5MG INH SOL UD 3ML (DUONEB)(J7620) NEB SCH (19:11)
[2018-09-29 20:00] VITALS: BP 141/75
[2018-09-29] MEDS: ATORVASTATIN 20 MG TAB PO SCH (21:18)
[2018-09-29] MEDS: SENNA 8.6 MG TAB (SENOKOT) PO SCH (21:18)
[2018-09-30 05:54] VITALS: BP 144/71
[2018-09-30] MEDS: OMEPRAZOLE 20 MG CAP PO SCH (07:41)
[2018-09-30] MEDS: ENOXAPARIN 40 MG/0.4 ML SYRINGE (J1650) SC SCH (07:41)
[2018-09-30] MEDS: POTASSIUM CHLORIDE 10 MEQ SR TABLET PO SCH (07:42)
[2018-09-30] MEDS: carBAMazepine 100 MG *1/2* TAB PO SCH ×2 (07:42→22:47)
[2018-09-30] MEDS: oxyBUTYnin 5 MG TAB PO SCH ×2 (07:42→22:47)
[2018-09-30] MEDS: ACETAMINOPHEN TAB 650MG DOSE (2X325MG) PO PRN ×2 (07:42→22:47)
[2018-09-30] MEDS: tiZANidine 4 MG TAB PO SCH ×3 (07:43→22:48)
[2018-09-30] MEDS: MODAFINIL 100 MG TABLET PO SCH (07:43)
[2018-09-30] MEDS: LISINOPRIL 5 MG TAB PO SCH (07:43)
[2018-09-30] MEDS: SENOKOT S TAB PO SCH ×2 (07:43→22:48)
[2018-09-30] MEDS: carBAMazepine 200 MG TAB PO SCH (07:43)
[2018-09-30] MEDS: FLUoxetine 20 MG CAP PO SCH (07:43)
[2018-09-30] MEDS: GABAPENTIN 300 MG CAP PO SCH ×3 (07:43→22:48)
[2018-09-30] MEDS: SIMETHICONE 80 MG CHEW TAB PO SCH ×3 (07:44→22:47)
[2018-09-30] MEDS: IPRATROPIUM HFA INHALER 12.9 GRAMS (ATROVENT HFA) INH SCH ×2 (08:00→20:00)
[2018-09-30] MEDS: IPRATROPIUM 0.5MG/ALBUTEROL 2.5MG INH SOL UD 3ML (DUONEB)(J7620) NEB SCH ×3 (08:06→20:00)
--- NOTE | 2018-09-30 10:35 | IPNPDOC ---
Text Note Date of Service The patient was seen on 09/30/18. NOTE Ariana is a 62-year-old female, past medical history significant for multiple sclerosis with prior episode of sigmoid volvulus requiring diverting ileostomy. She was recently admitted for reversal of ileostomy. Post discharge she was admitted to ARU for further evaluation, mobilization and strengthening. SUBJECTIVE: Today, patient is unable to tell where she is feels she is at home. She is, however able to state the year and who she is. She complains of weakness, denies chills, denies chest pain, denies shortness of breath. OBJECTIVE GENERAL: NAD SKIN : Warm, dry intact HEENT: Atraumatic, normocephalic, PERRL, moist mucous membrane CV: Regular rate and rhythm, S1S2, no JVD, trace edema to BLE, distal pulses not palpable RESP: CTAB, no accessory muscle use noted ABDOMEN: BS+, non distended, non tender. Surgical sutures to RLQ dry and intact MS: no joint deformities NEURO: Alert and oriented x 2, CN2-12 grossly intact PSYCH: no anxiety or agitation, appropriate mood and affect. ASSESSMENT AND PLAN Sigmoid volvulus -Status post ileostomy placement with recent reversal -Currently undergoing rehabilitation by primary team Seizure disorder -Continue Tegretol -Monitoring of her fluid level and electrolytes Hypertension -elevated -increase dose lisinopril to 10mg daily -Blood pressure monitoring per unit protocol Hyperglycemia -Hemoglobin A1c 6.1 -Caloric controlled diet DVT prophylaxis -Lovenox 40 mg daily VS,Fishbone, I+O VS, Fishbone, I+O Vital Signs Date Time Temp Pulse Resp B/P (MAP) Pulse Ox O2 Delivery O2 Flow Rate FiO2 09/30/18 07:43 144/71 09/30/18 05:54 97.1 93 18 97 I&O- Last 24 Hours up to 6 AM 09/30/18 06:00 Intake Total 1560 ml Balance 1560 ml [facility] Sep 30, 2018 10:35
[2018-09-30 14:00] VITALS: BP 167/78
--- NOTE | 2018-09-30 16:46 | IPNPDOC ---
PM&R Progress Note DATE OF SERVICE: Sep 30, 2018 Marketing Operations Associate Progress Note Subjective: Patient seen walking in the gym with her partner, stating she feels well. She acknowledges she has been feeling gradually more confused. REVIEW OF SYSTEMS: The following is a completed review of systems and has been reviewed. Review of systems otherwise unremarkable. PAIN: Patient self reports mild abdominal pain EYES: Negative for recent vision loss EARS, NOSE, & THROAT: denies dysphagia, hearing loss CARDIOVASCULAR: denies chest pain or palpitations PULMONARY: Negative. Denies shortness of breath GASTROINTESTINAL: +diarrhea (resolved) GENITOURINARY: +incontinence MUSCULOSKELETAL: bilat LE weakness NEUROLOGICAL: +MS SKIN: abdominal incision PSYCHIATRIC:Unremarkable All other review of systems found to be negative. PHYSICAL EXAMINATION: VITAL SIGNS: Please see below. GENERAL: Pleasant and cooperative. No acute distress. HEENT: PERRL. Extraocular movements intact. Clear conjunctiva CARDIOVASCULAR: Regular rate and rhythm. No murmurs, rubs, or gallops LUNGS: Clear to auscultation bilaterally. + scattered wheezes. No rhonchi ABDOMEN: Soft, nontender, mildly-distended. Positive bowel sounds. no rebound tenderness/guarding NEUROLOGICAL: Alert and oriented times three. Cranial nerves II through XII grossly intact. Sensation grossly intact +dysmetria on the left, mild word finding difficulty EXTREMITIES: 5-\5 strength bilateral upper extremities. 5-\5 strength right low er extremity. 5-/5 strength in left lower extremity. bilat edema LE (improving) SKIN: abdominal incision c/d/i ASSESSMENT:62-year-old F with past medical history of MS who presents status post ileostomy reversal with new gait and ADL impairments. PLAN: 1. Rehab: PT, TO, assess for DMEs, able to ambulate stand-by assist with RW, ambulating further requiring contact guard assist -strengthen and stretch all limbs, improve core strength, build up tolerance for ambulation and improve dynamic balance 2. Neuro: [facility] MS- c/u home meds and monitor for any relapsing symptoms post- operatively, thus far stable -patient was getting Copaxone [id number] at home, she reports she has not received this medication for close to a year, will ask for it be brought in from home to restart while in house -MRI ordered to check for progression of MS ins etting of gradually decline in mental status, patient still however able to fully participate in therapy and making gains 3. Cardio: pmh HLD, not on a statin will start a statin while here- medicine consulted -d/c'd lasix for edema given increased urge incontinence, a/u acewrap and elevate when out of therapy-swelling improving 4. Resp: c/u breathing treatments, will add Duonebs for wheeze on exam 5. : neurogenic bladder in setting of MS, timed voids, c/u oxybutynin- UA negative, PT provided pelvic floor strengthening exercises over the weekend and patient reports she is practicing these -patient still reporting urgency, will repeat UA 6. DVT ppx: lovenox and teds 7. GI: s/p ileostomy reversal with colonic dilation on 09/14/18- c/u bowel meds, will consult surgery to advise on tapering - maynor removed -ppx: omeprazole 8. Psych: c/u Seroquel, Prozac, and modafinil 9. Hypokalemia- resolved, will c/u to monitor 10. Pain/tone: tizanidine 8mg, c/u gabapentin 9. Dispo: 10/06/18 to home, family will need to be trained Allergies Coded Allergies: No Known Allergies (Verified , 09/02/18) Vital Signs Vital Signs Date Time Temp Pulse Resp B/P (MAP) Pulse Ox O2 Delivery O2 Flow Rate FiO2 09/30/18 14:00 97.6 76 18 167/78 (107) 99 Laboratory Data Labs 24H Laboratory Tests 2 09/29/18 17:18: Bedside Glucose (Misc Panel) 105 09/30/18 13:19: Urine Color YELLOW, Urine Appearance CLEAR, Urine pH 5.0, Urine Specific [place] 1.011, Urine Protein NEGATIVE, Urine Glucose (UA) NEGATIVE, Urine Ketones NEGATIVE, Urine Blood NEGATIVE, Urine Nitrite NEGATIVE, Urine Bilirubin NEGATIVE, Urine Urobilinogen 0.2, Urine Leukocyte Esterase NEGATIVE, Urine WBC (Auto) 2, Urine RBC (Auto) 2, Urine Hyaline Casts (Auto) 0, Urine Bacteria (Auto) NEGATIVE, Urine Squamous Epithelial Cells 0, Urine Mucus (Auto) SMALL, Urine Sperm (Auto) Current Medications Current Medications Current Medications Acetaminophen (Tylenol Tab) 650 mg Q4HP PRN PO MILD PAIN (PS 1-4) Last administered on 09/30/18 07:42; Start 09/23/18 at 14:15 Albuterol/ Ipratropium (Duoneb (Ipr 0.5mg/Alb 2.5mg)) 3 ml RTID NEB Last administered on 09/30/18 14:07; Start 09/29/18 at 20:00 Atorvastatin Calcium (Lipitor) 10 mg QHS PO Last administered on 09/28/18 20:30; Start 09/26/18 at 21:00; Stop 09/29/18 at 10:05; Status DC Atorvastatin Calcium (Lipitor) 20 mg QHS PO Last administered on 09/29/18 21:18; Start 09/29/18 at 21:00 Carbamazepine (TEGretol) 100 mg BID PO Last administered on 09/30/18 07:42; Start 09/24/18 at 21:00 Carbamazepine (TEGretol) 100 mg TID PO ; Start 09/23/18 at 16:00; Stop 09/23/18 at 16:00; Status DC Carbamazepine (TEGretol) 100 mg TID PO Last administered on 09/24/18 16:06; Start 09/23/18 at 16:00; Stop 09/24/18 at 17:10; Status DC Carbamazepine (TEGretol) 200 mg QAM PO Last administered on 09/30/18 07:43; Start 09/24/18 at 09:00 Enoxaparin Sodium (Lovenox) 40 mg DAILY SC Last administered on 09/30/18 07:41; Start 09/24/18 at 09:00 Fluoxetine HCl (PROzac) 60 mg DAILY PO Last administered on 09/30/18 07:43; Start 09/24/18 at 09:00 Furosemide (Lasix) 20 mg DAILY PO Last administered on 09/25/18 08:50; Start 09/24/18 at 09:00; Stop 09/25/18 at 14:07; Status DC Gabapentin (Neurontin) 300 mg TID PO Last administered on 09/30/18 15:50; Start 09/23/18 at 16:00 Ipratropium [place] (Atrovent Hfa) 2 puff RBID INH Last administered on 09/29/18 07:20; Start 09/23/18 at 20:00 Lisinopril (Prinivil) 5 mg DAILY PO Last administered on 09/30/18 07:43; Start 09/26/18 at 09:00 Magnesium Hydroxide (Milk Of Magnesia) 30 ml DAILYPRN PRN PO CONSTIPATION; Start 09/23/18 at 14:15 Magnesium Citrate (Citrate Of Magnesia) 150 ml 3XWP PRN PO constipation; Start 09/24/18 at 22:45 Magnesium Citrate (Citrate Of Magnesia) 150 ml DAILY PO Last administered on 09/24/18 08:15; Start 09/24/18 at 09:00; Stop 09/24/18 at 22:34; Status DC Methocarbamol (Robaxin) 750 mg Q6HP PRN PO MUSCLE SPASMS; Start 09/23/18 at 14:15; Stop 09/25/18 at 10:57; Status DC Modafinil (Provigil) 100 mg QAM PO Last administered on 09/30/18 07:43; Start 09/24/18 at 09:00 Omeprazole (PriLOSEC) 40 mg DAILY PO Last administered on 09/30/18 07:41; Start 09/24/18 at 09:00 Ondansetron HCl (Zofran) 4 mg Q6HP PRN PO NAUSEA OR VOMITING; Start 09/23/18 at 14:15 Oxybutynin Chloride (Ditropan) 5 mg BID PO Last administered on 09/30/18 07:42; Start 09/23/18 at 21:00 Potassium Chloride 10 meq/ IV Miscellaneous Supplies 100 ml @ 100 mls/hr Q1H IV Last administered on 09/24/18at 14:09; Start 09/24/18 at 09:00; Stop 09/24/18 at 12:59; Status DC Potassium Chloride (Micro-K Extencaps) 20 meq DAILY PO Last administered on 09/30/18 07:42; Start 09/24/18 at 09:00 Quetiapine Fumarate (SEROquel) 200 mg QHS PO Last administered on 09/29/18 21:18; Start 09/23/18 at 21:00 Senna (Senokot) 1 tab QHS PO Last administered on 09/29/18 21:18; Start 09/23/18 at 21:00 Senna/Docusate Sodium (Senokot S) 1 tab BID PO Last administered on 09/30/18 07:43; Start 09/23/18 at 21:00 Simethicone (Mylicon) 80 mg TID PO Last administered on 09/30/18 15:50; Start 09/23/18 at 16:00 Tizanidine HCl (Zanaflex) 2 mg Q6HP PRN PO SPASMS Last administered on 09/25/18 08:53; Start 09/23/18 at 14:15; Stop 09/25/18 at 10:57; Status DC Tizanidine HCl (Zanaflex) 8 mg TID PO Last administered on 09/30/18at 15:50; Start 09/25/18 at 16:00 SHAYLA COWAN MD Sep 30, 2018 16:46
[2018-09-30] MEDS: ATORVASTATIN 20 MG TAB PO SCH (22:47)
[2018-09-30] MEDS: SENNA 8.6 MG TAB (SENOKOT) PO SCH (22:48)
[2018-09-30] MEDS: QUEtiapine FUMARATE 200 MG TAB PO SCH (22:48)
[2018-09-30 22:51] VITALS: BP 140/90
[2018-10-01 06:24] VITALS: BP 132/75
[2018-10-01 07:00] LABS: BASO % 0.6 % (0.0-1.0); EOS # 0.2 10^3/uL (0.0-0.50); EOS % 3.9 % (0.0-3.0); HEMATOCRIT 30.5 % (36.0-47.0); HEMOGLOBIN 9.5 g/dl (12.0-15.5); LYMPH # 1.8 10^3/uL (1.5-4.5); LYMPH % 37.3 % (24.0-44.0); MEAN CORPUSCULAR HEMOGLOBIN 25.7 pg (27.0-33.0); MEAN CORPUSCULAR HGB CONC 31.1 g/dl (32.0-36.5); MEAN CORPUSCULAR VOLUME 82.4 fl (80.0-96.0); MONO # 0.5 10^3/uL (0.0-0.8); MONO % 11.1 % (0.0-5.0); NEUTROPHILS # 2.3 10^3/uL (1.8-7.7); NEUTROPHILS % 46.9 % (36.0-66.0); PLATELET COUNT, AUTOMATED 316 10^3/uL (150-450); WHITE BLOOD COUNT 4.9 10^3/uL (4.0-10.0)
[2018-10-01] MEDS: IPRATROPIUM 0.5MG/ALBUTEROL 2.5MG INH SOL UD 3ML (DUONEB)(J7620) NEB SCH ×3 (07:13→20:34)
[2018-10-01] MEDS: IPRATROPIUM HFA INHALER 12.9 GRAMS (ATROVENT HFA) INH SCH ×2 (07:14→20:00)
[2018-10-01 07:22] LABS: BLOOD UREA NITROGEN 7 MG/DL (7-18); CARBON DIOXIDE LEVEL 29 MEQ/L (21-32); CHLORIDE LEVEL 106 MEQ/L (98-107); GLOMERULAR FILTRATION RATE > 60.0 (>45); GLUCOSE, FASTING 93 MG/DL (70-100); POTASSIUM SERUM 4.1 MEQ/L (3.5-5.1); SODIUM LEVEL 140 MEQ/L (136-145)
--- NOTE | 2018-10-01 09:59 | IPNPDOC ---
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 REVIEW OF SYSTEMS: The following is a completed review of systems and has been reviewed. Review of systems otherwise unremarkable. PAIN: Patient self reports mild abdominal pain EYES: Negative for recent vision loss EARS, NOSE, & THROAT: denies dysphagia, hearing loss CARDIOVASCULAR: denies chest pain or palpitations PULMONARY: Negative. Denies shortness of breath GASTROINTESTINAL: +diarrhea (resolved) GENITOURINARY: +incontinence MUSCULOSKELETAL: bilat LE weakness NEUROLOGICAL: +MS SKIN: abdominal incision PSYCHIATRIC:Unremarkable All other review of systems found to be negative. PHYSICAL EXAMINATION: VITAL SIGNS: Please see below. GENERAL: Pleasant and cooperative. No acute distress. HEENT: PERRL. Extraocular movements intact. Clear conjunctiva CARDIOVASCULAR: Regular rate and rhythm. No murmurs, rubs, or gallops LUNGS: Clear to auscultation bilaterally. + scattered wheezes. No rhonchi ABDOMEN: Soft, nontender, mildly-distended. Positive bowel sounds. no rebound tenderness/guarding NEUROLOGICAL: Alert and oriented times three. Cranial nerves II through XII ty ssly intact. Sensation grossly intact +dysmetria on the left, mild word finding difficulty EXTREMITIES: 5-\5 strength bilateral upper extremities. 5-\5 strength right lower extremity. 5-/5 strength in left lower extremity. bilat edema LE (improving) SKIN: abdominal incision c/d/i ASSESSMENT:62-year-old F with past medical history of MS who presents status post ileostomy reversal with new gait and ADL impairments. PLAN: 1. Rehab: PT, TO, assess for DMEs, able to ambulate stand-by assist with RW, ambulating further requiring contact guard assist -strengthen and stretch all limbs, improve core strength, build up tolerance for ambulation and improve dynamic balance 2. Neuro: pmh MS with seizure disorder- c/u home meds and monitor for any relapsing symptoms post-operatively, [patient gradually declining in cognition -patient was getting Copaxone [id number] at home, she reports she has not received this medication for close to a year, will ask for it be brought in from home to restart while in house -MRI 09/30/18 shows no stroke, and no progression of MS- patient still able to fully participate in therapy and making functional gains, but declining cognitively -Tegretol level 4.4 -will c/u to taper Seroquel 3. Cardio: pmh HLD, not on a statin will start a statin while here- medicine consulted -d/c'd lasix for edema given increased urge incontinence, a/u acewrap and elevate when out of therapy-swelling improving 4. Resp: c/u breathing treatments, will add Duonebs for wheeze on exam 5. : neurogenic bladder in setting of MS, timed voids, c/u oxybutynin- UA negative, PT provided pelvic floor strengthening exercises over the weekend and patient reports she is practicing these -patient still reporting urgency, will repeat UA 6. DVT ppx: lovenox and teds 7. GI: s/p ileostomy reversal with colonic dilation on 09/14/18- c/u bowel meds, will consult surgery to advise on tapering - maynor removed -ppx: omeprazole 8. Psych: c/u Seroquel, Prozac, and modafinil 9. Hypokalemia- resolved, will c/u to monitor 10. Pain/tone: tizanidine, c/u gabapentin 9. Dispo: 10/06/18 to home, family will need to be trained Allergies Coded Allergies: No Known Allergies (Verified , 09/02/18) Vital Signs Vital Signs Date Time Temp Pulse Resp B/P (MAP) Pulse Ox O2 Delivery O2 Flow Rate FiO2 10/01/18 06:24 98.4 84 16 132/75 (94) 97 Laboratory Data CBC/BMP Laboratory Tests 10/01/18 06:36 Red Blood Count 3.70 L, Mean Corpuscular Volume 82.4, Mean Corpuscular Hemoglobi n 25.7 L, Mean Corpuscular Hemoglobin Concent 31.1 L, Red Cell Distribution Width 17.2 H, Neutrophils (%) (Auto) 46.9, Lymphocytes (%) (Auto) 37.3, Monocytes (%) (Auto) 11.1 H, Eosinophils (%) (Auto) 3.9 H, Basophils (%) (Auto) 0.6, Neutrophils # (Auto) 2.3, Lymphocytes # (Auto) 1.8, Monocytes # (Auto) 0.5, Eosinophils # (Auto) 0.2, Basophils # (Auto) 0.0, Calcium Level 9.0 Labs 24H Laboratory Tests 2 09/30/18 13:19: Urine Color YELLOW, Urine Appearance CLEAR, Urine pH 5.0, Urine Specific [place] 1.011, Urine Protein NEGATIVE, Urine Glucose (UA) NEGATIVE, Urine Ketones NEGATIVE, Urine Blood NEGATIVE, Urine Nitrite NEGATIVE, Urine Bilirubin NEGATIVE, Urine Urobilinogen 0.2, Urine Leukocyte Esterase NEGATIVE, Urine WBC (Auto) 2, Urine RBC (Auto) 2, Urine Hyaline Casts (Auto) 0, Urine Bacteria (Auto) NEGATIVE, Urine Squamous Epithelial Cells 0, Urine Mucus (Auto) SMALL, Urine Sperm (Auto) 10/01/18 06:36: Immature Granulocyte % (Auto) 0.2, White Blood Count 4.9, Red Blood Count 3.70L, Hemoglobin 9.5L, Hematocrit 30.5L, Mean Corpuscular Volume 82.4, Mean Corpuscular Hemoglobin 25.7L, Mean Corpuscular Hemoglobin Concent 31.1L, Red Cell Distribution Width 17.2H, Platelet Count 316, Neutrophils (%) (Auto) 46.9, Lymphocytes (%) (Auto) 37.3, Monocytes (%) (Auto) 11.1H, Eosinophils (%) (Auto) 3.9H, Basophils (%) (Auto) 0.6, Neutrophils # (Auto) 2.3, Lymphocytes # (Auto) 1.8, Monocytes # (Auto) 0.5, Eosinophils # (Auto) 0.2, Basophils # (Auto) 0.0, Nucleated Red Blood Cells % (auto) 0.0, Anion Gap 5L, Glomerular Filtration Rate > 60.0, Blood Urea Nitrogen 7, Creatinine 0.60, Sodium Level 140, Potassium Level 4.1, Chloride Level 106, Carbon Dioxide Level 29, Calcium Level 9.0, Magnesium Level 2.0 Current Medications Current Medications Current Medications Acetaminophen (Tylenol Tab) 650 mg Q4HP PRN PO MILD PAIN (PS 1-4) Last administered on 09/30/18at 22:47; Start 09/23/18 at 14:15 Albuterol/ Ipratropium (Duoneb (Ipr 0.5mg/Alb 2.5mg)) 3 ml RTID NEB Last admin istered on 10/01/18at 07:13; Start 09/29/18 at 20:00 Atorvastatin Calcium (Lipitor) 10 mg QHS PO Last administered on 09/28/18 20:30; Start 09/26/18 at 21:00; Stop 09/29/18 at 10:05; Status DC Atorvastatin Calcium (Lipitor) 20 mg QHS PO Last administered on 09/30/18 22:47; Start 09/29/18 at 21:00 Carbamazepine (TEGretol) 100 mg BID PO Last administered on 09/30/18 22:47; Start 09/24/18 at 21:00 Carbamazepine (TEGretol) 100 mg TID PO ; Start 09/23/18 at 16:00; Stop 09/23/18 at 16:00; Status DC Carbamazepine (TEGretol) 100 mg TID PO Last administered on 09/24/18 16:06; Start 09/23/18 at 16:00; Stop 09/24/18 at 17:10; Status DC Carbamazepine (TEGretol) 200 mg QAM PO Last administered on 09/30/18 07:43; Start 09/24/18 at 09:00 Enoxaparin Sodium (Lovenox) 40 mg DAILY SC Last administered on 09/30/18 07:41; Start 09/24/18 at 09:00 Fluoxetine HCl (PROzac) 60 mg DAILY PO Last administered on 09/30/18 07:43; Start 09/24/18 at 09:00 Furosemide (Lasix) 20 mg DAILY PO Last administered on 09/25/18at 08:50; Start 09/24/18 at 09:00; Stop 09/25/18 at 14:07; Status DC Gabapentin (Neurontin) 300 mg TID PO Last administered on 09/30/18 22:48; Start 09/23/18 at 16:00 Ipratropium [place] (Atrovent Hfa) 2 puff RBID INH Last administered on 09/29/18 07:20; Start 09/23/18 at 20:00 Lisinopril (Prinivil) 5 mg DAILY PO Last administered on 09/30/18 07:43; Start 09/26/18 at 09:00; Stop 09/30/18 at 19:02; Status DC Lisinopril (Prinivil) 10 mg DAILY PO ; Start 10/01/18 at 09:00 Magnesium Hydroxide (Milk Of Magnesia) 30 ml DAILYPRN PRN PO CONSTIPATION; Start 09/23/18 at 14:15 Magnesium Citrate (Citrate Of Magnesia) 150 ml 3XWP PRN PO constipation; Start 09/24/18 at 22:45 Magnesium Citrate (Citrate Of Magnesia) 150 ml DAILY PO Last administered on 09/24/18 08:15; Start 09/24/18 at 09:00; Stop 09/24/18 at 22:34; Status DC Methocarbamol (Robaxin) 750 mg Q6HP PRN PO MUSCLE SPASMS; Start 09/23/18 at 14:15; Stop 09/25/18 at 10:57; Status DC Modafinil (Provigil) 100 mg QAM PO Last administered on 09/30/18 07:43; Start 09/24/18 at 09:00 Omeprazole (PriLOSEC) 40 mg DAILY PO Last administered on 09/30/18 07:41; Start 09/24/18 at 09:00 Ondansetron HCl (Zofran) 4 mg Q6HP PRN PO NAUSEA OR VOMITING; Start 09/23/18 at 14:15 Oxybutynin Chloride (Ditropan) 5 mg BID PO Last administered on 09/30/18 22:47; Start 09/23/18 at 21:00 Potassium Chloride 10 meq/ IV Miscellaneous Supplies 100 ml @ 100 mls/hr Q1H IV Last administered on 09/24/18 14:09; Start 09/24/18 at 09:00; Stop 09/24/18 at 12:59; Status DC Potassium Chloride (Micro-K Extencaps) 20 meq DAILY PO Last administered on 09/30/18 07:42; Start 09/24/18 at 09:00 Quetiapine Fumarate (SEROquel) 200 mg QHS PO Last administered on 09/30/18 22:48; Start 09/23/18 at 21:00 Senna (Senokot) 1 tab QHS PO Last administered on 09/30/18 22:48; Start 09/23/18 at 21:00 Senna/Docusate Sodium (Senokot S) 1 tab BID PO Last administered on 09/30/18 22:48; Start 09/23/18 at 21:00 Simethicone (Mylicon) 80 mg TID PO Last administered on 09/30/18 22:47; Start 09/23/18 at 16:00 Tizanidine HCl (Zanaflex) 2 mg Q6HP PRN PO SPASMS Last administered on 09/25/18at 08:53; Start 09/23/18 at 14:15; Stop 09/25/18 at 10:57; Status DC Tizanidine HCl (Zanaflex) 8 mg TID PO Last administered on 09/30/18at 22:48; Start 09/25/18 at 16:00 SHAYLA COWAN MD Oct 01, 2018 09:59
[2018-10-01 10:21] LABS: CARBAMAZEPINE (TEGRETOL) LEVEL 4.4 UG/ML (4.0-10.0)
[2018-10-01] MEDS: carBAMazepine 100 MG *1/2* TAB PO SCH ×2 (11:13→21:07)
[2018-10-01] MEDS: FLUoxetine 20 MG CAP PO SCH (11:13)
[2018-10-01] MEDS: OMEPRAZOLE 20 MG CAP PO SCH (11:13)
[2018-10-01] MEDS: ENOXAPARIN 40 MG/0.4 ML SYRINGE (J1650) SC SCH (11:13)
[2018-10-01] MEDS: tiZANidine 4 MG TAB PO SCH ×3 (11:14→21:07)
[2018-10-01] MEDS: carBAMazepine 200 MG TAB PO SCH (11:14)
[2018-10-01] MEDS: oxyBUTYnin 5 MG TAB PO SCH ×2 (11:14→21:06)
[2018-10-01] MEDS: SENOKOT S TAB PO SCH ×2 (11:14→21:00)
[2018-10-01] MEDS: MODAFINIL 100 MG TABLET PO SCH (11:14)
[2018-10-01] MEDS: GABAPENTIN 300 MG CAP PO SCH ×3 (11:14→21:06)
[2018-10-01] MEDS: SIMETHICONE 80 MG CHEW TAB PO SCH ×3 (11:14→21:06)
[2018-10-01] MEDS: POTASSIUM CHLORIDE 10 MEQ SR TABLET PO SCH (11:15)
[2018-10-01] MEDS: LISINOPRIL 10 MG TAB PO SCH (11:20)
--- NOTE | 2018-10-01 12:35 | IPNPDOC ---
Text Note Date of Service The patient was seen on 10/01/18. NOTE Ariana is a 62-year-old female, past medical history significant for multiple sclerosis with prior episode of sigmoid volvulus requiring diverting ileostomy. She was recently admitted for reversal of ileostomy. Post discharge she was admitted to ARU for further evaluation, mobilization and strengthening. SUBJECTIVE: Mental status is improved today, patient is able to state who she is, where she is. Staff report poor appetite. They also report worsening neur ologic status. MRI brain completed, results are still pending. OBJECTIVE GENERAL: NAD SKIN : Warm, dry intact HEENT: Atraumatic, normocephalic, PERRL, moist mucous membrane CV: Regular rate and rhythm, S1S2, no JVD, trace edema to BLE, distal pulses not palpable RESP: CTAB, no accessory muscle use noted ABDOMEN: BS+, non distended, non tender. Surgical sutures to RLQ dry and intact MS: no joint deformities NEURO: Alert and oriented x 2, CN2-12 grossly intact PSYCH: no anxiety or agitation, appropriate mood and affect. ASSESSMENT AND PLAN Sigmoid volvulus -S/P ileostomy placement with recent reversal this hospitalization -Currently undergoing rehabilitation by primary team Multiple sclerosis -Patient reportedly has not been adherent with her medication prior to admission -Worsening neurologic symptoms with confusion requiring frequent prompting -Follow MRI findings -Consider consult with neurology for evaluation and input -Rehabilitation by primary team Seizure disorder -Continue Tegretol -Monitoring of her fluid level and electrolytes Hypertension -continue lisinopril 10mg daily -Blood pressure monitoring per unit protocol Hyperglycemia -Hemoglobin A1c 6.1 -continue caloric controlled diet DVT prophylaxis -Lovenox 40 mg daily VS,Fishbone, I+O VS, Fishbone, I+O Laboratory Tests 10/01/18 06:36 Red Blood Count 3.70 L, Mean Corpuscular Volume 82.4, Mean Corpuscular Hemoglobin 25.7 L, Mean Corpuscular Hemoglobin Concent 31.1 L, Red Cell Distribution Width 17.2 H, Neutrophils (%) (Auto) 46.9, Lymphocytes (%) (Auto) 37.3, Monocytes (%) (Auto) 11.1 H, Eosinophils (%) (Auto) 3.9 H, Basophils (%) (Auto) 0.6, Neutrophils # (Auto) 2.3, Lymphocytes # (Auto) 1.8, Monocytes # (Auto) 0.5, Eosinophils # (Auto) 0.2, Basophils # (Auto) 0.0, Calcium Level 9.0 Vital Signs Date Time Temp Pulse Resp B/P (MAP) Pulse Ox O2 Delivery O2 Flow Rate FiO2 10/01/18 11:20 132/75 10/01/18 06:24 98.4 84 16 97 I&O- Last 24 Hours up to 6 AM 10/01/18 06:00 Intake Total 360 ml Output Total 200 ml Balance 160 ml RICKI JONES [facility] Oct 01, 2018 12:35
--- NOTE | 2018-10-01 13:42 | REP ---
MRI brain without contrast: History: Question progression of MS. Comparison head CT study April 07, 2013. Comparison brain MRI study February 23, 2013. Technique: Axial and sagittal imaging planes are utilized for T1 and T2-weighted scans. Sequences include spin-echo, fast spin echo, FLAIR, and diffusion weighted sequences. There is considerable motion artifact on several of the sequences. The patient apparently had difficulty remaining motionless. MRI findings: No bony calvarial lesion is seen. No intraorbital or paranasal sinus lesion is appreciated. There is generalized atrophy. Diffusion weighted scans show no evidence to suggest acute ischemia. There is motion artifact affecting the FLAIR images. There is periventricular and subcortical white matter T2 hyperintensity foci again noted similar to the prior study. One periventricular white matter lesion seen previously in the right frontal lobe is less apparent today. No new lesion is appreciated. No evidence of intracranial mass or hemorrhage. No midline shift is seen. Impression: Fairly extensive periventricular and subcortical white matter T2 hyperintense foci essentially unchanged from the prior study. One of the right frontal lobe foci is less apparent. No new lesion. Electronically Signed by Chava Estes MD 10/01/2018 02:26 P
[2018-10-01 14:00] VITALS: BP 143/69
[2018-10-01] MEDS ORDERED: QUEtiapine FUMARATE 50 MG TAB PO SCH (21:00)
[2018-10-01] MEDS: SENNA 8.6 MG TAB (SENOKOT) PO SCH (21:00)
[2018-10-01 21:05] VITALS: BP 154/58
[2018-10-01] MEDS: ATORVASTATIN 20 MG TAB PO SCH (21:06)
[2018-10-02 06:40] VITALS: BP 152/68
[2018-10-02 07:03] LABS: HEMATOCRIT 29.4 % (36.0-47.0); HEMOGLOBIN 9.2 g/dl (12.0-15.5); MEAN CORPUSCULAR HEMOGLOBIN 25.6 pg (27.0-33.0); MEAN CORPUSCULAR HGB CONC 31.3 g/dl (32.0-36.5); MEAN CORPUSCULAR VOLUME 81.7 fl (80.0-96.0); PLATELET COUNT, AUTOMATED 297 10^3/uL (150-450); WHITE BLOOD COUNT 4.7 10^3/uL (4.0-10.0)
[2018-10-02] MEDS: IPRATROPIUM 0.5MG/ALBUTEROL 2.5MG INH SOL UD 3ML (DUONEB)(J7620) NEB SCH (07:24)
[2018-10-02 07:25] LABS: BLOOD UREA NITROGEN 9 MG/DL (7-18); CALCIUM LEVEL 8.7 MG/DL (8.8-10.2); CARBON DIOXIDE LEVEL 29 MEQ/L (21-32); CHLORIDE LEVEL 106 MEQ/L (98-107); CREATININE FOR GFR 0.59 MG/DL (0.55-1.30); GLOMERULAR FILTRATION RATE > 60.0 (>45); GLUCOSE, FASTING 90 MG/DL (70-100); POTASSIUM SERUM 3.7 MEQ/L (3.5-5.1); SODIUM LEVEL 139 MEQ/L (136-145)
[2018-10-02] MEDS: IPRATROPIUM HFA INHALER 12.9 GRAMS (ATROVENT HFA) INH SCH ×2 (07:25→21:13)
[2018-10-02] MEDS: POTASSIUM CHLORIDE 10 MEQ SR TABLET PO SCH (08:22)
[2018-10-02] MEDS: carBAMazepine 100 MG *1/2* TAB PO SCH (08:22)
[2018-10-02] MEDS: LISINOPRIL 10 MG TAB PO SCH (08:22)
[2018-10-02] MEDS: SENOKOT S TAB PO SCH ×2 (08:22→20:37)
[2018-10-02] MEDS: FLUoxetine 20 MG CAP PO SCH (08:23)
[2018-10-02] MEDS: carBAMazepine 200 MG TAB PO SCH ×2 (08:23→20:39)
[2018-10-02] MEDS: MODAFINIL 100 MG TABLET PO SCH (08:23)
[2018-10-02] MEDS: SIMETHICONE 80 MG CHEW TAB PO SCH ×3 (08:23→20:40)
[2018-10-02] MEDS: oxyBUTYnin 5 MG TAB PO SCH ×2 (08:23→20:37)
[2018-10-02] MEDS: OMEPRAZOLE 20 MG CAP PO SCH (08:23)
[2018-10-02] MEDS: ENOXAPARIN 40 MG/0.4 ML SYRINGE (J1650) SC SCH (08:24)
[2018-10-02] MEDS: tiZANidine 4 MG TAB PO SCH ×3 (08:24→20:39)
[2018-10-02] MEDS: GABAPENTIN 300 MG CAP PO SCH ×3 (08:24→20:37)
--- NOTE | 2018-10-02 11:03 | IPNPDOC ---
Text Note Date of Service The patient was seen on 10/02/18. NOTE Ariana is a 62-year-old female, past medical history significant for multiple sclerosis with prior episode of sigmoid volvulus requiring diverting ileostomy. She was recently admitted for reversal of ileostomy. Post discharge she was admitted to ARU for further evaluation, mobilization and strengthening. SUBJECTIVE: Patient is seen during rehabilitation today. Therapist reports patient has had significant decline from time of admission. There is worsening w eakness, there is no chest pain, dyspnea, shortness of breath. OBJECTIVE GENERAL: NAD SKIN : Warm, dry intact HEENT: Atraumatic, normocephalic, PERRL, moist mucous membrane CV: Regular rate and rhythm, S1S2, no JVD, trace edema to BLE, distal pulses not palpable RESP: CTAB, no accessory muscle use noted ABDOMEN: BS+, non distended, non tender. Surgical sutures to RLQ dry and intact MS: no joint deformities NEURO: Alert and oriented x 2, CN2-12 grossly intact PSYCH: no anxiety or agitation, appropriate mood and affect. ASSESSMENT AND PLAN Sigmoid volvulus -S/P ileostomy placement with recent reversal this hospitalization -Currently undergoing rehabilitation by primary team Multiple sclerosis -MRI brain negative for new plaque formation -Seroquel dose gradually being decreased -Continued on Tegretol Seizure disorder -Primary team has consulted neurologist for evaluation and EEG has been recommended -Follow findings Hypertension -Blood pressure still uncontrolled -Start long-acting nitrate -Blood pressure monitoring per unit protocol Hyperglycemia -Hemoglobin A1c 6.1 -continue caloric controlled diet DVT prophylaxis -Lovenox 40 mg daily VS,Fishbone, I+O VS, Fishbone, I+O Laboratory Tests 10/02/18 06:27 Red Blood Count 3.60 L, Mean Corpuscular Volume 81.7, Mean Corpuscular Hemoglobin 25.6 L, Mean Corpuscular Hemoglobin Concent 31.3 L, Red Cell Distribution Width 17.2 H, Calcium Level 8.7 L Vital Signs Date Time Temp Pulse Resp B/P (MAP) Pulse Ox O2 Delivery O2 Flow Rate FiO2 10/02/18 08:22 152/68 10/02/18 06:40 98.3 74 18 96 I&O- Last 24 Hours up to 6 AM 10/02/18 06:00 Intake Total 1200 ml Balance 1200 ml RICKI JONES [employer] Oct 02, 2018 11:03
--- NOTE | 2018-10-02 12:23 | NUR ---
Pt w/ recent cognitive decline per PT/OT and family and based on repeat evaluation, presents w/ severe cognitive impairment, increased confusion, not oriented to time, poor sequencing, poor visual organization, poor judgement/reasoning. Recommend cognitive tx for external aids, compensatory strategies, and functional cognitive exercises. Addendum: 10/02/18 at 1225 by LICO MCKNIGHT [facility] Amended: Links added.
[2018-10-02 14:00] VITALS: BP 152/66
[2018-10-02] MEDS: CARVedilol 3.125 MG TAB PO SCH ×2 (18:32→20:38)
[2018-10-02 20:00] VITALS: BP 157/74
[2018-10-02] MEDS: SENNA 8.6 MG TAB (SENOKOT) PO SCH (20:37)
[2018-10-02] MEDS: ATORVASTATIN 20 MG TAB PO SCH (20:37)
[2018-10-02] MEDS: QUEtiapine FUMARATE 100 MG TAB PO SCH (20:39)
[2018-10-03 06:00] VITALS: BP 147/71
[2018-10-03] MEDS: IPRATROPIUM HFA INHALER 12.9 GRAMS (ATROVENT HFA) INH SCH ×2 (07:17→20:04)
[2018-10-03] MEDS: ENOXAPARIN 40 MG/0.4 ML SYRINGE (J1650) SC SCH (07:54)
[2018-10-03] MEDS: OMEPRAZOLE 20 MG CAP PO SCH (07:54)
[2018-10-03] MEDS: tiZANidine 4 MG TAB PO SCH ×3 (07:55→20:43)
[2018-10-03] MEDS: GABAPENTIN 300 MG CAP PO SCH ×3 (07:55→20:43)
[2018-10-03] MEDS: SENOKOT S TAB PO SCH ×2 (07:56→20:43)
[2018-10-03] MEDS: MODAFINIL 100 MG TABLET PO SCH (07:56)
[2018-10-03] MEDS: oxyBUTYnin 5 MG TAB PO SCH ×2 (07:56→20:43)
[2018-10-03] MEDS: CARVedilol 3.125 MG TAB PO SCH ×2 (07:56→20:44)
[2018-10-03] MEDS: SIMETHICONE 80 MG CHEW TAB PO SCH ×3 (07:56→20:47)
[2018-10-03] MEDS: POTASSIUM CHLORIDE 10 MEQ SR TABLET PO SCH (07:57)
[2018-10-03] MEDS: FLUoxetine 20 MG CAP PO SCH (07:57)
[2018-10-03] MEDS: LISINOPRIL 10 MG TAB PO SCH (07:57)
[2018-10-03] MEDS: carBAMazepine 200 MG TAB PO SCH ×2 (07:58→20:44)
[2018-10-03 14:00] VITALS: BP 143/65
--- NOTE | 2018-10-03 16:49 | IPNPDOC ---
Subjective Date Seen The patient was seen on 10/03/18. Subjective Chief Complaint/HPI Patient seen and examined at the bedside. No acute overnight events noted. Patient does not offer any acute complaints at this time. Objective Physical Examination General Exam: Positive: Alert, Cooperative, No Acute Distress ENT Exam: Positive: Mucous membr. moist/pink Chest Exam: Positive: Clear to auscultation, Normal air movement Heart Exam: Positive: Rate Normal, Normal S1, Normal S2 Extremity Exam: Negative: Tenderness Neuro Exam: Positive: Normal Speech Psych Exam: Positive: Oriented x 3 Assessment /Plan Plan/VTE VTE Prophylaxis Ordered?: Yes Plan Sigmoid volvulus s/p diverting ileostomy and subsequent reversal on 09/14/18 Functional optimization as per PT/OT/PM&R Multiple sclerosis MRI brain negative for new plaque formation on 10/01/18 Continue Meds as ordered F/U with Neuro as outpatient Seizure disorder Cont Meds as ordered Hypertension Cont Lisinopril, Coreg Pre-Diabetes/Hyperglycemia Hemoglobin A1c 6.1 from 03/2018 Continue caloric controlled diet Dyslipidemia Cont Statin DVT prophylaxis Lovenox 40 mg daily VS, I&O, 24H, Fishbone Vital Signs/I&O Vital Signs Date Time Temp Pulse Resp B/P (MAP) Pulse Ox O2 Delivery O2 Flow Rate FiO2 10/03/18 14:00 99.0 84 18 143/65 (91) 96 I&O- Last 24 Hours up to 6 AM 10/03/18 06:00 Intake Total 1020 ml Balance 1020 ml MAL VARELA MD Oct 03, 2018 16:49
[2018-10-03 20:30] VITALS: BP 140/67
[2018-10-03] MEDS: ATORVASTATIN 20 MG TAB PO SCH (20:43)
[2018-10-03] MEDS: SENNA 8.6 MG TAB (SENOKOT) PO SCH (20:43)
[2018-10-03] MEDS: QUEtiapine FUMARATE 100 MG TAB PO SCH (20:47)
[2018-10-04 04:50] VITALS: BP 142/65
[2018-10-04] MEDS: IPRATROPIUM HFA INHALER 12.9 GRAMS (ATROVENT HFA) INH SCH ×2 (07:22→20:27)
[2018-10-04] MEDS: ENOXAPARIN 40 MG/0.4 ML SYRINGE (J1650) SC SCH (07:59)
[2018-10-04] MEDS: LISINOPRIL 10 MG TAB PO SCH (08:00)
[2018-10-04] MEDS: CARVedilol 3.125 MG TAB PO SCH ×2 (08:00→20:34)
[2018-10-04] MEDS: tiZANidine 4 MG TAB PO SCH ×3 (08:00→20:34)
[2018-10-04] MEDS: GABAPENTIN 300 MG CAP PO SCH ×3 (08:00→20:34)
[2018-10-04] MEDS: POTASSIUM CHLORIDE 10 MEQ SR TABLET PO SCH (08:00)
[2018-10-04] MEDS: oxyBUTYnin 5 MG TAB PO SCH ×2 (08:00→20:34)
[2018-10-04] MEDS: SIMETHICONE 80 MG CHEW TAB PO SCH ×3 (08:01→20:34)
[2018-10-04] MEDS: MODAFINIL 100 MG TABLET PO SCH (08:01)
[2018-10-04] MEDS: FLUoxetine 20 MG CAP PO SCH (08:01)
[2018-10-04] MEDS: OMEPRAZOLE 20 MG CAP PO SCH (08:01)
[2018-10-04] MEDS: SENOKOT S TAB PO SCH ×2 (08:01→20:35)
[2018-10-04] MEDS: carBAMazepine 200 MG TAB PO SCH ×2 (08:01→20:34)
--- NOTE | 2018-10-04 10:34 | IPNPDOC ---
Subjective Date Seen The patient was seen on 10/04/18. Subjective Chief Complaint/HPI Patient seen and examined at the bedside. No acute overnight events noted. Objective Physical Examination General Exam: Positive: Alert, Cooperative, No Acute Distress ENT Exam: Positive: Atraumatic, Mucous membr. moist/pink Chest Exam: Positive: Clear to auscultation, Normal air movement Heart Exam: Positive: Rate Normal, Normal S1, Normal S2 Extremity Exam: Negative: Tenderness Neuro Exam: Positive: Normal Speech Psych Exam: Positive: Oriented x 3 Assessment /Plan Plan/VTE VTE Prophylaxis Ordered?: Yes Plan Sigmoid volvulus s/p diverting ileostomy and subsequent reversal on 09/14/18 Functional optimization as per PT/OT/PM&R Multiple sclerosis MRI brain negative for new plaque formation on 10/01/18 Continue Meds as ordered F/U with Neuro as outpatient Seizure disorder Cont Meds as ordered Hypertension Cont Lisinopril, Coreg Pre-Diabetes/Hyperglycemia Hemoglobin A1c 6.1 from 03/2018 Continue caloric controlled diet Dyslipidemia Cont Statin DVT prophylaxis Lovenox 40 mg daily VS, I&O, 24H, Fishbone Vital Signs/I&O Vital Signs Date Time Temp Pulse Resp B/P (MAP) Pulse Ox O2 Delivery O2 Flow Rate FiO2 10/04/18 08:00 88 142/65 10/04/18 04:50 99.6 16 92 I&O- Last 24 Hours up to 6 AM 10/04/18 06:00 Intake Total 720 ml Balance 720 ml MAL VARELA MD Oct 04, 2018 10:34
[2018-10-04 14:00] VITALS: BP 144/74
--- NOTE | 2018-10-04 14:19 | EEG ---
DATE OF EE10/02/2018 REFERRING PHYSICIAN: Dr. Dede Robbins DIAGNOSIS: Patient with history of multiple sclerosis, seizures, and cognitive decline. HISTORY: Patient is a 62-year-old woman with history of multiple sclerosis, cognitive decline, seizures, and urinary incontinence. This EEG was done to rule out epileptic potential. She is currently on Tegretol, Seroquel, Copaxone, Lipitor, lisinopril, etc. TECHNICAL DESCRIPTION: This digital EEG was recorded by 21 scalp, ear, and two EKG electrodes and was reviewed in bipolar and referential montages following reformatting 10-20 international electrode placement system. INTERPRETATION: Patient was noted to be in mostly awake state during this EEG. Resting awake background rhythm consisted of 8.5 Hz alpha activity measuring 15-40 microvolts in amplitude, which was symmetric and reactive to eye opening. No sleep was achieved. Hyperventilation could not be performed. Photic stimulation remained unremarkable. EKG revealed normal sinus rhythm. No focal, lateralizing, or epileptiform abnormalities were seen. No relevant clinical activity was noted. CONCLUSION: This EEG in awake state is within normal limits.
[2018-10-04 20:00] VITALS: BP 148/80
[2018-10-04] MEDS: QUEtiapine FUMARATE 100 MG TAB PO SCH (20:34)
[2018-10-04] MEDS: ATORVASTATIN 20 MG TAB PO SCH (20:34)
[2018-10-04] MEDS: SENNA 8.6 MG TAB (SENOKOT) PO SCH (20:35)
[2018-10-05 05:27] VITALS: BP 143/68
[2018-10-05 06:29] LABS: HEMATOCRIT 30.2 % (36.0-47.0); HEMOGLOBIN 9.5 g/dl (12.0-15.5); MEAN CORPUSCULAR HGB CONC 31.5 g/dl (32.0-36.5); MEAN CORPUSCULAR VOLUME 82.7 fl (80.0-96.0); PLATELET COUNT, AUTOMATED 291 10^3/uL (150-450); RED BLOOD COUNT 3.65 10^6/uL (4.00-5.40); WHITE BLOOD COUNT 5.4 10^3/uL (4.0-10.0)
[2018-10-05] MEDS: IPRATROPIUM HFA INHALER 12.9 GRAMS (ATROVENT HFA) INH SCH ×2 (07:17→20:25)
[2018-10-05] MEDS: oxyBUTYnin 5 MG TAB PO SCH ×2 (09:03→20:46)
[2018-10-05] MEDS: SENOKOT S TAB PO SCH ×2 (09:04→20:47)
[2018-10-05] MEDS: MODAFINIL 100 MG TABLET PO SCH (09:04)
[2018-10-05] MEDS: OMEPRAZOLE 20 MG CAP PO SCH (09:04)
[2018-10-05] MEDS: carBAMazepine 200 MG TAB PO SCH ×2 (09:04→20:48)
[2018-10-05] MEDS: SIMETHICONE 80 MG CHEW TAB PO SCH ×3 (09:04→20:48)
[2018-10-05] MEDS: tiZANidine 4 MG TAB PO SCH (09:04)
[2018-10-05] MEDS: GABAPENTIN 300 MG CAP PO SCH (09:04)
[2018-10-05] MEDS: LISINOPRIL 10 MG TAB PO SCH (09:05)
[2018-10-05] MEDS: POTASSIUM CHLORIDE 10 MEQ SR TABLET PO SCH (09:05)
[2018-10-05] MEDS: CARVedilol 3.125 MG TAB PO SCH ×2 (09:05→20:47)
[2018-10-05] MEDS: FLUoxetine 20 MG CAP PO SCH (09:05)
[2018-10-05] MEDS: ENOXAPARIN 40 MG/0.4 ML SYRINGE (J1650) SC SCH (09:06)
--- NOTE | 2018-10-05 10:09 | IPNPDOC ---
PM&R Progress Note DATE OF SERVICE: Oct 02, 2018 Plate And Frame Filter Operator Progress Note Subjective: Patient seen in room stating she feels very tired and that she felt this way 5 year ago before her last seizure. REVIEW OF SYSTEMS: The following is a completed review of systems and has been reviewed. Review of systems otherwise unremarkable. PAIN: Patient self reports mild abdominal pain EYES: Negative for recent vision loss EARS, NOSE, & THROAT: denies dysphagia, hearing loss CARDIOVASCULAR: denies chest pain or palpitations PULMONARY: Negative. Denies shortness of breath GASTROINTESTINAL: +diarrhea (resolved) GENITOURINARY: +incontinence MUSCULOSKELETAL: bilat LE weakness NEUROLOGICAL: +MS SKIN: abdominal incision PSYCHIATRIC:Unremarkable All other review of systems found to be negative. PHYSICAL EXAMINATION: VITAL SIGNS: Please see below. GENERAL: Pleasant and cooperative. No acute distress. HEENT: PERRL. Extraocular movements intact. Clear conjunctiva CARDIOVASCULAR: Regular rate and rhythm. No murmurs, rubs, or gallops LUNGS: Clear to auscultation bilaterally. + scattered wheezes. No rhonchi ABDOMEN: Soft, nontender, mildly-distended. Positive bowel sounds. no rebound tenderness/guarding NEUROLOGICAL: Alert and oriented times three. Cranial nerves II through XII grossly intact. Sensation grossly intact +dysmetria on the left, mild word finding difficulty, confused EXTREMITIES: 5-\5 strength bilateral upper extremities. 5-\5 strength right lower extremity. 5-/5 strength in left lower extremity. bilat edema LE (improving) SKIN: abdominal incision c/d/i ASSESSMENT:62-year-old F with past medical history of MS who presents status post ileostomy reversal with new gait and ADL impairments. PLAN: 1. Rehab: PT, TO, assess for DMEs, able to ambulate stand-by assist with RW, ambulating further requiring contact guard assist -strengthen and stretch all limbs, improve core strength, build up tolerance for ambulation and improve dynamic balance 2. Neuro: h MS with seizure disorder with cognitive decline while on ARU -patient was getting Copaxone [id number] at home, she reports she has not received this medication for close to a year, will ask for it be brought in from home to restart while in house -MRI 09/30/18 shows no stroke, and no progression of MS- patient still able to fully participate in therapy and making functional gains, but declining cognitively -Tegretol level 4.4 -will c/u to taper Seroquel -discussed case with Dr. 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 Cardio: pmh HLD, not on a statin will start a statin while here- medicine consulted -d/c'd lasix for edema given increased urge incontinence, a/u acewrap and elevate when out of therapy-swelling improving 4. Resp: c/u breathing treatments, will add Duonebs for wheeze on exam 5. : neurogenic bladder in setting of MS, timed voids, c/u oxybutynin- UA negative, PT provided pelvic floor strengthening exercises over the weekend and patient reports she is practicing these -patient still reporting urgency, repeat UA negative 6. DVT ppx: lovenox and teds 7. GI: s/p ileostomy reversal with colonic dilation on 09/14/18- c/u bowel meds, surgery recs appreciated - maynor removed -ppx: omeprazole 8. Psych: c/u Seroquel (tapering), Prozac, and modafinil 9. Hypokalemia- resolved, will c/u to monitor 10. Pain/tone: decrease tizanidine, c/u gabapentin 9. Dispo: 10/06/18 to home, family trained Allergies Coded Allergies: No Known Allergies (Verified , 09/02/18) Vital Signs Vital Signs Date Time Temp Pulse Resp B/P (MAP) Pulse Ox O2 Delivery O2 Flow Rate FiO2 10/05/18 09:05 79 143/68 10/05/18 05:27 97.9 18 95 Laboratory Data CBC/BMP Laboratory Tests 10/05/18 06:03 Red Blood Count 3.65 L, Mean Corpuscular Volume 82.7, Mean Corpuscular Hemoglobin 26.0 L, Mean Corpuscular Hemoglobin Concent 31.5 L, Red Cell Distribution Width 17.2 H Labs 24H Laboratory Tests 2 10/05/18 06:03: Nucleated Red Blood Cells % (auto) 0.0 Current Medications Current Medications Current Medications Acetaminophen (Tylenol Tab) 650 mg Q4HP PRN PO MILD PAIN (PS 1-4) Last administered on 09/30/18 22:47; Start 09/23/18 at 14:15 Albuterol/ Ipratropium (Duoneb (Ipr 0.5mg/Alb 2.5mg)) 3 ml RTID NEB Last administered on 10/02/18 07:24; Start 09/29/18 at 20:00; Stop 10/02/18 at 07:54; Status DC Atorvastatin Calcium (Lipitor) 10 mg QHS PO Last administered on 09/28/18 20:30; Start 09/26/18 at 21:00; Stop 09/29/18 at 10:05; Status DC Atorvastatin Calcium (Lipitor) 20 mg QHS PO Last administered on 10/04/18 20:34; Start 09/29/18 at 21:00 Carbamazepine (TEGretol) 100 mg BID PO Last administered on 10/02/18 08:22; Start 09/24/18 at 21:00; Stop 10/02/18 at 11:24; Status DC Carbamazepine (TEGretol) 100 mg TID PO ; Start 09/23/18 at 16:00; Stop 09/23/18 at 16:00; Status DC Carbamazepine (TEGretol) 100 mg TID PO Last administered on 09/24/18 16:06; Start 09/23/18 at 16:00; Stop 09/24/18 at 17:10; Status DC Carbamazepine (TEGretol) 200 mg QAM PO Last administered on 10/02/18 08:23; Start 09/24/18 at 09:00; Stop 10/02/18 at 11:24; Status DC Carbamazepine (TEGretol) 300 mg BID PO Last administered on 10/05/18 09:04; Start 10/02/18 at 21:00 Carvedilol (COReg) 3.125 mg BID PO Last administered on 10/05/18 09:05; Start 10/02/18 at 09:00 Enoxaparin Sodium (Lovenox) 40 mg DAILY SC Last administered on 10/05/18 09:06; Start 09/24/18 at 09:00 Fluoxetine HCl (PROzac) 60 mg DAILY PO Last administered on 10/05/18 09:05; Start 09/24/18 at 09:00 Furosemide (Lasix) 20 mg DAILY PO Last administered on 09/25/18at 08:50; Start 09/24/18 at 09:00; Stop 09/25/18 at 14:07; Status DC Gabapentin (Neurontin) 300 mg TID PO Last administered on 10/05/18 09:04; Start 09/23/18 at 16:00 Ipratropium [place] (Atrovent Hfa) 2 puff RBID INH Last administered on 10/05/18 07:17; Start 09/23/18 at 20:00 Lisinopril (Prinivil) 5 mg DAILY PO Last administered on 09/30/18at 07:43; Start 09/26/18 at 09:00; Stop 09/30/18 at 19:02; Status DC Lisinopril (Prinivil) 10 mg DAILY PO Last administered on 10/05/18 09:05; Start 10/01/18 at 09:00 Magnesium Hydroxide (Milk Of Magnesia) 30 ml DAILYPRN PRN PO CONSTIPATION; Start 09/23/18 at 14:15 Magnesium Citrate (Citrate Of Magnesia) 150 ml 3XWP PRN PO constipation; Start 09/24/18 at 22:45 Magnesium Citrate (Citrate Of Magnesia) 150 ml DAILY PO Last administered on 09/24/18at 08:15; Start 09/24/18 at 09:00; Stop 09/24/18 at 22:34; Status DC Methocarbamol (Robaxin) 750 mg Q6HP PRN PO MUSCLE SPASMS; Start 09/23/18 at 14:15; Stop 09/25/18 at 10:57; Status DC Modafinil (Provigil) 100 mg QAM PO Last administered on 10/05/18 09:04; Start 09/24/18 at 09:00 Omeprazole (PriLOSEC) 40 mg DAILY PO Last administered on 10/05/18 09:04; Start 09/24/18 at 09:00 Ondansetron HCl (Zofran) 4 mg Q6HP PRN PO NAUSEA OR VOMITING; Start 09/23/18 at 14:15 Oxybutynin Chloride (Ditropan) 5 mg BID PO Last administered on 10/05/18 09:03; Start 09/23/18 at 21:00 Potassium Chloride 10 meq/ IV Miscellaneous Supplies 100 ml @ 100 mls/hr Q1H IV Last administered on 09/24/18 14:09; Start 09/24/18 at 09:00; Stop 09/24/18 at 12:59; Status DC Potassium Chloride (Micro-K Extencaps) 20 meq DAILY PO Last administered on 10/05/18 09:05; Start 09/24/18 at 09:00 Quetiapine Fumarate (SEROquel) 100 mg QHS PO Last administered on 10/04/18 20:34; Start 10/02/18 at 21:00 Quetiapine Fumarate (SEROquel) 150 mg QHS PO Last administered on 10/01/18 21:07; Start 10/01/18 at 21:00; Stop 10/02/18 at 11:26; Status DC Quetiapine Fumarate (SEROquel) 200 mg QHS PO Last administered on 09/30/18 22: 48; Start 09/23/18 at 21:00; Stop 10/01/18 at 09:58; Status DC Senna (Senokot) 1 tab QHS PO Last administered on 10/03/18 20:43; Start 09/23/18 at 21:00 Senna/Docusate Sodium (Senokot S) 1 tab BID PO Last administered on 10/05/18 09:04; Start 09/23/18 at 21:00 Simethicone (Mylicon) 80 mg TID PO Last administered on 10/05/18 09:04; Start 09/23/18 at 16:00 Tizanidine HCl (Zanaflex) 2 mg Q6HP PRN PO SPASMS Last administered on 09/25/18 08:53; Start 09/23/18 at 14:15; Stop 09/25/18 at 10:57; Status DC Tizanidine HCl (Zanaflex) 4 mg TID PO Last administered on 10/05/18 09:04; Start 10/03/18 at 16:00 Tizanidine HCl (Zanaflex) 8 mg TID PO Last administered on 6/29/19at 07:55; Start 09/25/18 at 16:00; Stop 10/03/18 at 15:45; Status DC SHAYLA COWAN MD Oct 05, 2018 10:09
--- NOTE | 2018-10-05 10:10 | IPNPDOC ---
PM&R Progress Note DATE OF SERVICE: Oct 05, 2018 Senior Accounting Clerk Progress Note Subjective: Patient reports she feels less groggy today and less confused, however noted to have difficulty ordering food over the phone in therapy. REVIEW OF SYSTEMS: The following is a completed review of systems and has been reviewed. Review of systems otherwise unremarkable. PAIN: Patient self reports mild abdominal pain EYES: Negative for recent vision loss EARS, NOSE, & THROAT: denies dysphagia, hearing loss CARDIOVASCULAR: denies chest pain or palpitations PULMONARY: Negative. Denies shortness of breath GASTROINTESTINAL: +diarrhea (resolved) GENITOURINARY: +incontinence MUSCULOSKELETAL: bilat LE weakness NEUROLOGICAL: +MS SKIN: abdominal incision PSYCHIATRIC:+confused All other review of systems found to be negative. PHYSICAL EXAMINATION: VITAL SIGNS: Please see below. GENERAL: Pleasant and cooperative. No acute distress. HEENT: PERRL. Extraocular movements intact. Clear conjunctiva CARDIOVASCULAR: Regular rate and rhythm. No murmurs, rubs, or gallops LUNGS: Clear to auscultation bilaterally. + scattered wheezes. No rhonchi ABDOMEN: Soft, nontender, mildly-distended. Positive bowel sounds. no rebound tenderness/guarding NEUROLOGICAL: Alert and oriented times three. Cranial nerves II through XII grossly intact. Sensation grossly intact +dysmetria on the left, mild word finding difficulty, confused EXTREMITIES: 5-\5 strength bilateral upper extremities. 5-\5 strength right lower extremity. 5-/5 strength in left lower extremity. bilat edema LE (improving) SKIN: abdominal incision c/d/i ASSESSMENT:62-year-old F with past medical history of MS who presents status post ileostomy reversal with new gait and ADL impairments. PLAN: 1. Rehab: PT, TO, assess for DMEs, able to ambulate stand-by assist with RW, ambulating further requiring contact guard assist -strengthen and stretch all limbs, improve core strength, build up tolerance for ambulation and improve dynamic balance 2. Neuro: pmh MS with seizure disorder with cognitive decline while on ARU -patient was getting Copaxone [id number] at home, she reports she has not received this medication for close to a year, will ask for it be brought in from home to restart while in house, however per her [facility] neurologist this was not prescribed in over a year -MRI 09/30/18 shows no stroke, and no progression of MS- patient still able to fully participate in therapy and making functional gains, but declining cognitively -Tegretol level 4.4 -will c/u to taper Seroquel -discussed case with Dr. 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 Cardio: pmh HLD, not on a statin will start a statin while here- medicine consulted -d/c'd lasix for edema given increased urge incontinence, a/u acewrap and elevate when out of therapy-swelling improving 4. Resp: c/u breathing treatments, will add Duonebs for wheeze on exam 5. : neurogenic bladder in setting of MS, timed voids, c/u oxybutynin- UA negative, PT provided pelvic floor strengthening exercises over the weekend and patient reports she is practicing these -patient still reporting urgency, repeat UA negative 6. DVT ppx: lovenox and teds 7. GI: s/p ileostomy reversal with colonic dilation on 09/14/18- c/u bowel meds, surgery recs appreciated - maynor removed -ppx: omeprazole 8. Psych: c/u Seroquel (tapering), Prozac, and modafinil 9. Hypokalemia- resolved, will c/u to monitor 10. Pain/tone: d/c tizanidine, c/u gabapentin 9. Dispo: 10/06/18 to home, family trained Allergies Coded Allergies: No Known Allergies (Verified , 09/02/18) Vital Signs Vital Signs Date Time Temp Pulse Resp B/P (MAP) Pulse Ox O2 Delivery O2 Flow Rate FiO2 10/05/18 09:05 79 143/68 10/05/18 05:27 97.9 18 95 Laboratory Data CBC/BMP Laboratory Tests 10/05/18 06:03 Red Blood Count 3.65 L, Mean Corpuscular Volume 82.7, Mean Corpuscular Hem oglobin 26.0 L, Mean Corpuscular Hemoglobin Concent 31.5 L, Red Cell Distribution Width 17.2 H Labs 24H Laboratory Tests 2 10/05/18 06:03: Nucleated Red Blood Cells % (auto) 0.0 Current Medications Current Medications Current Medications Acetaminophen (Tylenol Tab) 650 mg Q4HP PRN PO MILD PAIN (PS 1-4) Last administered on 09/30/18at 22:47; Start 09/23/18 at 14:15 Albuterol/ Ipratropium (Duoneb (Ipr 0.5mg/Alb 2.5mg)) 3 ml RTID NEB Last administered on 10/02/18 07:24; Start 09/29/18 at 20:00; Stop 10/02/18 at 07:54; Status DC Atorvastatin Calcium (Lipitor) 10 mg QHS PO Last administered on 09/28/18 20:30; Start 09/26/18 at 21:00; Stop 09/29/18 at 10:05; Status DC Atorvastatin Calcium (Lipitor) 20 mg QHS PO Last administered on 10/04/18at 20:34; Start 09/29/18 at 21:00 Carbamazepine (TEGretol) 100 mg BID PO Last administered on 10/02/18 08:22; Start 09/24/18 at 21:00; Stop 10/02/18 at 11:24; Status DC Carbamazepine (TEGretol) 100 mg TID PO ; Start 09/23/18 at 16:00; Stop 09/23/18 at 16:00; Status DC Carbamazepine (TEGretol) 100 mg TID PO Last administered on 09/24/18at 16:06; Start 09/23/18 at 16:00; Stop 09/24/18 at 17:10; Status DC Carbamazepine (TEGretol) 200 mg QAM PO Last administered on 10/02/18 08:23; Start 09/24/18 at 09:00; Stop 10/02/18 at 11:24; Status DC Carbamazepine (TEGretol) 300 mg BID PO Last administered on 10/05/18 09:04; Start 10/02/18 at 21:00 Carvedilol (COReg) 3.125 mg BID PO Last administered on 10/05/18 09:05; Start 10/02/18 at 09:00 Enoxaparin Sodium (Lovenox) 40 mg DAILY SC Last administered on 10/05/18 09:06; Start 09/24/18 at 09:00 Fluoxetine HCl (PROzac) 60 mg DAILY PO Last administered on 10/05/18 09:05; Start 09/24/18 at 09:00 Furosemide (Lasix) 20 mg DAILY PO Last administered on 09/25/18 08:50; Start 09/24/18 at 09:00; Stop 09/25/18 at 14:07; Status DC Gabapentin (Neurontin) 300 mg TID PO Last administered on 10/05/18 09:04; Start 09/23/18 at 16:00 Ipratropium [place] (Atrovent Hfa) 2 puff RBID INH Last administered on 10/05/18 07:17; Start 09/23/18 at 20:00 Lisinopril (Prinivil) 5 mg DAILY PO Last administered on 09/30/18at 07:43; Start 09/26/18 at 09:00; Stop 09/30/18 at 19:02; Status DC Lisinopril (Prinivil) 10 mg DAILY PO Last administered on 10/05/18 09:05; Start 10/01/18 at 09:00 Magnesium Hydroxide (Milk Of Magnesia) 30 ml DAILYPRN PRN PO CONSTIPATION; Start 09/23/18 at 14:15 Magnesium Citrate (Citrate Of Magnesia) 150 ml 3XWP PRN PO constipation; Start 09/24/18 at 22:45 Magnesium Citrate (Citrate Of Magnesia) 150 ml DAILY PO Last administered on 09/24/18at 08:15; Start 09/24/18 at 09:00; Stop 09/24/18 at 22:34; Status DC Methocarbamol (Robaxin) 750 mg Q6HP PRN PO MUSCLE SPASMS; Start 09/23/18 at 14:15; Stop 09/25/18 at 10:57; Status DC Modafinil (Provigil) 100 mg QAM PO Last administered on 10/05/18 09:04; Start 09/24/18 at 09:00 Omeprazole (PriLOSEC) 40 mg DAILY PO Last administered on 10/05/18 09:04; Start 09/24/18 at 09:00 Ondansetron HCl (Zofran) 4 mg Q6HP PRN PO NAUSEA OR VOMITING; Start 09/23/18 at 14:15 Oxybutynin Chloride (Ditropan) 5 mg BID PO Last administered on 10/05/18 09:03; Start 09/23/18 at 21:00 Potassium Chloride 10 meq/ IV Miscellaneous Supplies 100 ml @ 100 mls/hr Q1H IV Last administered on 09/24/18 14:09; Start 09/24/18 at 09:00; Stop 09/24/18 at 12:59; Status DC Potassium Chloride (Micro-K Extencaps) 20 meq DAILY PO Last administered on 10/05/18 09:05; Start 09/24/18 at 09:00 Quetiapine Fumarate (SEROquel) 100 mg QHS PO Last administered on 10/04/18 20:34; Start 10/02/18 at 21:00 Quetiapine Fumarate (SEROquel) 150 mg QHS PO Last administered on 10/01/18 21:07; Start 10/01/18 at 21:00; Stop 10/02/18 at 11:26; Status DC Quetiapine Fumarate (SEROquel) 200 mg QHS PO Last administered on 09/30/18 22:48; Start 09/23/18 at 21:00; Stop 10/01/18 at 09:58; Status DC Senna (Senokot) 1 tab QHS PO Last administered on 10/03/18 20:43; Start 09/23/18 at 21:00 Senna/Docusate Sodium (Senokot S) 1 tab BID PO Last administered on 10/05/18 09:04; Start 09/23/18 at 21:00 Simethicone (Mylicon) 80 mg TID PO Last administered on 10/05/18 09:04; Start 09/23/18 at 16:00 Tizanidine HCl (Zanaflex) 2 mg Q6HP PRN PO SPASMS Last administered on 09/25/18 08:53; Start 09/23/18 at 14:15; Stop 09/25/18 at 10:57; Status DC Tizanidine HCl (Zanaflex) 4 mg TID PO Last administered on 7/1/19at 09:04; Start 10/03/18 at 16:00 Tizanidine HCl (Zanaflex) 8 mg TID PO Last administered on 10/03/18at 07:55; Start 09/25/18 at 16:00; Stop 10/03/18 at 15:45; Status DC SHAYLA COWAN MD Oct 05, 2018 10:10
[2018-10-05 14:00] VITALS: BP 135/67
[2018-10-05] MEDS: GABAPENTIN 100 MG CAP PO SCH ×2 (17:03→20:47)
[2018-10-05 20:00] VITALS: BP 146/67
[2018-10-05] MEDS: ACETAMINOPHEN TAB 650MG DOSE (2X325MG) PO PRN (20:47)
[2018-10-05] MEDS: QUEtiapine FUMARATE 100 MG TAB PO SCH (20:47)
[2018-10-05] MEDS: ATORVASTATIN 20 MG TAB PO SCH (20:47)
[2018-10-05] MEDS: SENNA 8.6 MG TAB (SENOKOT) PO SCH (20:47)
[2018-10-06 06:00] VITALS: BP 132/88
[2018-10-06] MEDS: IPRATROPIUM HFA INHALER 12.9 GRAMS (ATROVENT HFA) INH SCH ×2 (07:19→20:54)
[2018-10-06] MEDS: POTASSIUM CHLORIDE 10 MEQ SR TABLET PO SCH (09:59)
[2018-10-06] MEDS: SENOKOT S TAB PO SCH ×2 (09:59→20:23)
[2018-10-06] MEDS: ENOXAPARIN 40 MG/0.4 ML SYRINGE (J1650) SC SCH (09:59)
[2018-10-06] MEDS: OMEPRAZOLE 20 MG CAP PO SCH (09:59)
[2018-10-06] MEDS: MODAFINIL 100 MG TABLET PO SCH (09:59)
[2018-10-06] MEDS: SIMETHICONE 80 MG CHEW TAB PO SCH ×3 (09:59→20:22)
[2018-10-06] MEDS: LISINOPRIL 10 MG TAB PO SCH (10:00)
[2018-10-06] MEDS: carBAMazepine 200 MG TAB PO SCH ×2 (10:00→20:21)
[2018-10-06] MEDS: FLUoxetine 20 MG CAP PO SCH (10:01)
[2018-10-06] MEDS: oxyBUTYnin 5 MG TAB PO SCH ×2 (10:01→20:22)
[2018-10-06] MEDS: GABAPENTIN 100 MG CAP PO SCH ×3 (10:01→20:21)
[2018-10-06] MEDS: CARVedilol 3.125 MG TAB PO SCH ×2 (10:01→20:22)
[2018-10-06 10:10] VITALS: BP 145/84
[2018-10-06] MEDS ORDERED: QUEtiapine FUMARATE 50 MG TAB PO STA (10:20)
[2018-10-06] MEDS ORDERED: LORazepam 0.5 MG TAB PO PRN (10:30)
--- NOTE | 2018-10-06 10:44 | IPNPDOC ---
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 Bilateral hand mitts were placed as she was erratic, scratching her face, and sexually inappropriate. She was seen this morning found to be red in the face with tardive dyskinesia, and hyperkinetic movements. She is able to answer questions and follow commands, denying chest pain, headache, or difficulty breathing. Her reports she had an episode like this several years ago when her Seroquel dosing was changed. She was given Seroquel and Ativan with resolution of her symptoms in addition to IVF. Later in the afternoon patient continued to be lucid and calm. REVIEW OF SYSTEMS: The following is a completed review of systems and has been reviewed. Review of systems otherwise unremarkable. PAIN: Patient self reports mild abdominal pain EYES: Negative for recent vision loss EARS, NOSE, & THROAT: denies dysphagia, hearing loss CARDIOVASCULAR: denies chest pain or palpitations PULMONARY: Negative. Denies shortness of breath GASTROINTESTINAL: +diarrhea (resolved) GENITOURINARY: +incontinence MUSCULOSKELETAL: bilat LE weakness NEUROLOGICAL: +MS SKIN: abdominal incision PSYCHIATRIC:+confused All other review of systems found to be negative. PHYSICAL EXAMINATION: VITAL SIGNS: Please see below. GENERAL: Pleasant and cooperative. No acute distress. HEENT: PERRL. Extraocular movements intact. Clear conjunctiva CARDIOVASCULAR: Regular rate and rhythm. No murmurs, rubs, or gallops LUNGS: Clear to auscultation bilaterally. + scattered wheezes. No rhonchi ABDOMEN: Soft, nontender, mildly-distended. Positive bowel sounds. no rebound tenderness/guarding NEUROLOGICAL: Alert and oriented times three. Cranial nerves II through XII grossly intact. Sensation grossly intact +dysmetria on the left, mild word finding difficulty, confused EXTREMITIES: 5-\5 strength bilateral upper extremities. 5-\5 strength right lower extremity. 5-/5 strength in left lower extremity. bilat edema LE (improving) SKIN: abdominal incision c/d/i ASSESSMENT:62-year-old F with past medical history of MS who presents status post ileostomy reversal with new gait and ADL impairments. PLAN: 1. Rehab: PT, TO, assess for DMEs, able to ambulate stand-by assist with RW, ambulating further requiring contact guard assist -strengthen and stretch all limbs, improve core strength, build up tolerance for ambulation and improve dynamic balance 2. Neuro: h MS with seizure disorder with cognitive decline while on ARU -patient was getting Copaxone [id number] at home, she reports she has not received this medication for close to a year, will ask for it be brought in from home to restart while in house, however per her [facility] neurologist this was not prescribed in over a year -MRI 09/30/18 shows no stroke, and no progression of MS- patient still able to fully participate in therapy and making functional gains, but declining cognitively -discussed case with Dr. Solorio on 10/02/18 who recommends increasing Tegretol dosing and to obtain an EEG to rule out complex-partial seizures- -Tegretol level 4.4, up to 5.7 on higher dose of Tegretol -EEG negative for seizure activity -tapering tizanidine with slight improvements in cognition - 10/05/18 patient had agitation with psychotic features after getting lower dose of Seroquel and on higher dose of tegretol- consulted neurology- recs appreciated- differential dx Seroquel withdrawal vs anticholinergic toxicity vs dementia with delirium- patient improved with extra dose of Seroquel -c/u Seroquel 150mg qHS and Tegretol lower back to 300mg and 100mg per neurology recs (appreciated) -UA negative x2 -given she has not seen her [facility] neurologist in over a year and after d iscussing with their nursing staff that the resident she worked with has graduated, will refer to [facility] neurology group for closer management 3. Cardio: pmh HLD, not on a statin will start a statin while here- medicine consulted -d/c'd lasix for edema given increased urge incontinence, a/u acewrap and elevate when out of therapy-swelling improving 4. Resp: c/u breathing treatments, will add Duonebs for wheeze on exam 5. : neurogenic bladder in setting of MS, timed voids, c/u oxybutynin- UA negative, PT provided pelvic floor strengthening exercises over the weekend and patient reports she is practicing these -patient still reporting urgency, repeat UA negative 6. DVT ppx: lovenox and teds 7. GI: s/p ileostomy reversal with colonic dilation on 09/14/18- c/u bowel meds, surgery recs appreciated - maynor removed -ppx: omeprazole 8. Psych: c/u Seroquel (tapering), Prozac, and modafinil 9. Hypokalemia- resolved, will c/u to monitor 10. Pain/tone: d/c tizanidine, c/u gabapentin 9. Dispo: 10/13/18 with family Allergies Coded Allergies: No Known Allergies (Verified , 09/02/18) Vital Signs Vital Signs Date Time Temp Pulse Resp B/P (MAP) Pulse Ox O2 Delivery O2 Flow Rate FiO2 10/06/18 06:00 99.8 100 20 132/88 (103) 92 Current Medications Current Medications Current Medications Acetaminophen (Tylenol Tab) 650 mg Q4HP PRN PO MILD PAIN (PS 1-4) Last administered on 10/05/18 20:47; Start 09/23/18 at 14:15 Albuterol/ Ipratropium (Duoneb (Ipr 0.5mg/Alb 2.5mg)) 3 ml RTID NEB Last administered on 10/02/18 07:24; Start 09/29/18 at 20:00; Stop 10/02/18 at 07:54; Status DC Atorvastatin Calcium (Lipitor) 10 mg QHS PO Last administered on 09/28/18at 20:30; Start 09/26/18 at 21:00; Stop 09/29/18 at 10:05; Status DC Atorvastatin Calcium (Lipitor) 20 mg QHS PO Last administered on 10/05/18at 20:47; Start 09/29/18 at 21:00 Carbamazepine (TEGretol) 100 mg BID PO Last administered on 10/02/18at 08:22; Start 09/24/18 at 21:00; Stop 10/02/18 at 11:24; Status DC Carbamazepine (TEGretol) 100 mg TID PO ; Start 09/23/18 at 16:00; Stop 09/23/18 at 16:00; Status DC Carbamazepine (TEGretol) 100 mg TID PO Last administered on 09/24/18at 16:06; Start 09/23/18 at 16:00; Stop 09/24/18 at 17:10; Status DC Carbamazepine (TEGretol) 200 mg QAM PO Last administered on 10/02/18 08:23; Start 09/24/18 at 09:00; Stop 10/02/18 at 11:24; Status DC Carbamazepine (TEGretol) 300 mg BID PO Last administered on 10/05/18 20:48; Start 10/02/18 at 21:00 Carvedilol (COReg) 3.125 mg BID PO Last administered on 10/05/18 20:47; Start 10/02/18 at 09:00 Enoxaparin Sodium (Lovenox) 40 mg DAILY SC Last administered on 10/05/18 09:06; Start 09/24/18 at 09:00 Fluoxetine HCl (PROzac) 60 mg DAILY PO Last administered on 10/05/18 09:05; Start 09/24/18 at 09:00 Furosemide (Lasix) 20 mg DAILY PO Last administered on 09/25/18 08:50; Start 09/24/18 at 09:00; Stop 09/25/18 at 14:07; Status DC Gabapentin (Neurontin) 200 mg TID PO Last administered on 10/05/18 20:47; Start 10/05/18 at 16:00 Gabapentin (Neurontin) 300 mg TID PO Last administered on 10/05/18 09:04; Start 09/23/18 at 16:00; Stop 10/05/18 at 12:51; Status DC Ipratropium [place] (Atrovent Hfa) 2 puff RBID INH Last administered on 10/06/18 07:19; Start 09/23/18 at 20:00 Lisinopril (Prinivil) 5 mg DAILY PO Last administered on 09/30/18 07:43; Star t 09/26/18 at 09:00; Stop 09/30/18 at 19:02; Status DC Lisinopril (Prinivil) 10 mg DAILY PO Last administered on 10/05/18 09:05; Start 10/01/18 at 09:00 Magnesium Hydroxide (Milk Of Magnesia) 30 ml DAILYPRN PRN PO CONSTIPATION; Start 09/23/18 at 14:15 Magnesium Citrate (Citrate Of Magnesia) 150 ml 3XWP PRN PO constipation; Start 09/24/18 at 22:45 Magnesium Citrate (Citrate Of Magnesia) 150 ml DAILY PO Last administered on 09/24/18 08:15; Start 09/24/18 at 09:00; Stop 09/24/18 at 22:34; Status DC Methocarbamol (Robaxin) 750 mg Q6HP PRN PO MUSCLE SPASMS; Start 09/23/18 at 14:15; Stop 09/25/18 at 10:57; Status DC Modafinil (Provigil) 100 mg QAM PO Last administered on 10/05/18 09:04; Start 09/24/18 at 09:00 Omeprazole (PriLOSEC) 40 mg DAILY PO Last administered on 10/05/18 09:04; Start 09/24/18 at 09:00 Ondansetron HCl (Zofran) 4 mg Q6HP PRN PO NAUSEA OR VOMITING; Start 09/23/18 at 14:15 Oxybutynin Chloride (Ditropan) 5 mg BID PO Last administered on 10/05/18 20:46; Start 09/23/18 at 21:00 Potassium Chloride 10 meq/ IV Miscellaneous Supplies 100 ml @ 100 mls/hr Q1H IV Last administered on 09/24/18 14:09; Start 09/24/18 at 09:00; Stop 09/24/18 at 12:59; Status DC Potassium Chloride (Micro-K Extencaps) 20 meq DAILY PO Last administered on 10/05/18 09:05; Start 09/24/18 at 09:00 Quetiapine Fumarate (SEROquel) 100 mg QHS PO Last administered on 10/05/18 20:47; Start 10/02/18 at 21:00 Quetiapine Fumarate (SEROquel) 150 mg QHS PO Last administered on 10/01/18at 21:07; Start 10/01/18 at 21:00; Stop 10/02/18 at 11:26; Status DC Quetiapine Fumarate (SEROquel) 200 mg QHS PO Last administered on 09/30/18 22:48; Start 09/23/18 at 21:00; Stop 10/01/18 at 09:58; Status DC Senna (Senokot) 1 tab QHS PO Last administered on 10/05/18 20:47; Start 09/23/18 at 21:00 Senna/Docusate Sodium (Senokot S) 1 tab BID PO Last administered on 10/05/18at 20:47; Start 09/23/18 at 21:00 Simethicone (Mylicon) 80 mg TID PO Last administered on 10/05/18at 20:48; Start 09/23/18 at 16:00 Tizanidine HCl (Zanaflex) 2 mg Q6HP PRN PO SPASMS Last administered on 09/25/18 08:53; Start 09/23/18 at 14:15; Stop 09/25/18 at 10:57; Status DC Tizanidine HCl (Zanaflex) 4 mg TID PO Last administered on 10/05/18at 09:04; Start 10/03/18 at 16:00; Stop 10/05/18 at 10:11; Status DC Tizanidine HCl (Zanaflex) 8 mg TID PO Last administered on 10/03/18at 07:55; Start 09/25/18 at 16:00; Stop 10/03/18 at 15:45; Status DC SHAYLA COWAN MD Oct 06, 2018 10:44
[2018-10-06] MEDS ORDERED: NS 1,000 ML IV ONE (10:45)
[2018-10-06 11:01] LABS: BASO # 0.1 10^3/uL (0.0-0.2); BASO % 0.8 % (0.0-1.0); EOS # 0.1 10^3/uL (0.0-0.50); EOS % 1.5 % (0.0-3.0); HEMATOCRIT 31.5 % (36.0-47.0); LYMPH # 2.2 10^3/uL (1.5-4.5); LYMPH % 34.4 % (24.0-44.0); MEAN CORPUSCULAR HEMOGLOBIN 25.4 pg (27.0-33.0); MEAN CORPUSCULAR HGB CONC 31.7 g/dl (32.0-36.5); MEAN CORPUSCULAR VOLUME 79.9 fl (80.0-96.0); MONO # 0.6 10^3/uL (0.0-0.8); MONO % 9.7 % (0.0-5.0); NEUTROPHILS # 3.5 10^3/uL (1.8-7.7); NEUTROPHILS % 53.4 % (36.0-66.0); PLATELET COUNT, AUTOMATED 338 10^3/uL (150-450); RED BLOOD COUNT 3.94 10^6/uL (4.00-5.40); WHITE BLOOD COUNT 6.5 10^3/uL (4.0-10.0)
[2018-10-06 14:00] VITALS: BP 139/94
--- NOTE | 2018-10-06 18:28 | IPNPDOC ---
Text Note Date of Service The patient was seen on 10/06/18. NOTE Subjective: Patient was seen and examined at the bedside. . Currently, patient reports that he feeling better. She is oriented to person, place and time. She denies any headaches, nausea, vomiting, abdominal pain or any problems with her bowel movements. She denies chest pain, shortness of breath or palpitations. Objective: Vitals (See below) General: Lying in bed, no acute distress, comfortable, AAOx3 HEENT: NC, AT CVS: RRR, +S1S2 Lungs: Fair air entry b/l, -w/r/r Abdomen: Soft, ND, NT Extremities: - Edema, - Calf tenderness Assessment and plan: Sigmoid volvulus - s/p diverting ileostomy and subsequent reversal on 09/14/18 - Functional optimization as per PT/OT/PM&R Episodes of delirium - likely 2/2 change in environment / medication adjustments - Quetiapine dose has been increased Multiple sclerosis - MRI brain negative for new plaque formation on 10/01/18 - Continue Meds as ordered - Will have outpatient follow up with Neurology Seizure disorder - Cont Meds as ordered Hypertension - BP appears well controlled - Cont Lisinopril, Coreg Pre-Diabetes/Hyperglycemia - Hemoglobin A1c 6.1 from 03/2018 - Advised dietary changes; Continue caloric controlled diet Dyslipidemia - Cont Atorvastatin Mood disorder - c/w Fluoxetine, Quetiapine, GERD - c/w Omeprazole DVT prophylaxis - c/w Lovenox VS,Fishbone, I+O VS, Fishbone, I+O Laboratory Tests 10/06/18 10:45 Red Blood Count 3.94 L, Mean Corpuscular Volume 79.9 L, Mean Corpuscular Hemoglo bin 25.4 L, Mean Corpuscular Hemoglobin Concent 31.7 L, Red Cell Distribution Width 17.2 H, Neutrophils (%) (Auto) 53.4, Lymphocytes (%) (Auto) 34.4, Monocytes (%) (Auto) 9.7 H, Eosinophils (%) (Auto) 1.5, Basophils (%) (Auto) 0.8, Neutrophils # (Auto) 3.5, Lymphocytes # (Auto) 2.2, Monocytes # (Auto) 0.6, Eosinophils # (Auto) 0.1, Basophils # (Auto) 0.1 Vital Signs Date Time Temp Pulse Resp B/P (MAP) Pulse Ox O2 Delivery O2 Flow Rate FiO2 10/06/18 14:00 99.3 85 20 139/94 [phone] 94 I&O- Last 24 Hours up to 6 AM 10/06/18 06:00 Intake Total 990 ml Balance 990 ml JAYCE FLORES MD Oct 06, 2018 18:28
[2018-10-06 20:00] VITALS: BP 126/59
[2018-10-06] MEDS: ACETAMINOPHEN TAB 650MG DOSE (2X325MG) PO PRN (20:22)
[2018-10-06] MEDS: ATORVASTATIN 20 MG TAB PO SCH (20:22)
[2018-10-06] MEDS: SENNA 8.6 MG TAB (SENOKOT) PO SCH (20:22)
[2018-10-06] MEDS ORDERED: QUEtiapine FUMARATE 200 MG TAB PO SCH (21:00)
[2018-10-07 06:00] VITALS: BP 144/85
[2018-10-07] MEDS: IPRATROPIUM HFA INHALER 12.9 GRAMS (ATROVENT HFA) INH SCH ×2 (07:31→20:01)
--- NOTE | 2018-10-07 08:48 | CR ---
DATE OF CONSULTATION: 10/07/2018 REFERRING PROVIDER: Dr. Harris REASON FOR CONSULTATION: Confusion, altered mental status. The patient is a 62-year-old female with past medical history significant for diagnosis of multiple sclerosis in 1986 presently followed by [facility] for management. The patient has not been on Copaxone for the past 13 months due to patient noncompliance and not returning back to the office it seems. The patient presented to the hospital with a sigmoid volvulus requiring sigmoid resection with diverting ileostomy in April 2018 and admitted on 09/14/2018 for reversal. The patient is currently in rehabilitation for physical therapy. The patient has been having waxing and waning mental status changes. In the workup, the patient had a MRI which did not reveal any new multiple sclerosis plaques. The patient did not have any evidence of epileptiform discharges on electroencephalogram (EEG). She states she has a past history of pseudo seizures. The patient is currently on carbamazepine which was increased to 300 mg twice a day. The patient's levels are therapeutic at 4.4 and 5.7 most recently. The patient's carbamazepine level was decreased earlier today back to 300 mg in the morning and 100 mg in the evening. The patient is otherwise doing well at this time. The patient is no longer having episodes of confusion this morning. The patient was quite confused earlier in the morning however. She was acting inappropriately and required Ativan and extra dose of Seroquel. Seroquel was gradually being reduced from 200 every night to 150 every night for four days. The patient did receive 100 mg in the previous evening. The patient is having symptoms of sundowning. She will benefit by restarting the 150 mg dosage of Seroquel at bedtime. The patient has tremor which the patient states is her baseline tremor in both arms and she has spasticity in the legs with sustained clonus at the ankles. REVIEW OF SYSTEMS: 14 point review of systems obtained and is negative except as per history of present illness (HPI). PAST MEDICAL HISTORY: 1. History of multiple sclerosis. 2. History of pseudo seizures as per the patient. 3. Depression. 4. Anxiety. 5. The patient has baseline dementia. PAST SURGICAL HISTORY: 1. Tubal ligation. 2. Knee surgery. 3. Colonoscopy. 4. Sigmoid resection in April 2018 with diverting ileostomy and reversal. SOCIAL HISTORY: The patient denies use of any tobacco, alcohol or illicit drugs. She lives with her . Her takes care of most activities of daily living (ADLs) for the patient. The patient ambulates briefly with the use of a walker. ALLERGIES: No known drug allergies. HOME MEDICATIONS: - carbamazepine 300 mg in the a.m. and 100 mg in the p.m. - diazepam 5 mg daily - fluoxetine 60 mg daily - furosemide 20 mg daily - gabapentin 300 mg by mouth three times a day - glatiramer (Copaxone) 40 mg subcu injection three days a week, not used in over 13 months - ipratropium bromide (Atrovent) 2 puffs inhaled four times a day - magnesium citrate 250 mg by mouth daily - modafinil 100 mg by mouth daily - multivitamin by mouth daily - omeprazole 40 mg daily - potassium citrate 10 mEq twice a day - quetiapine home dosage 200 mg at bedtime - tizanidine 8 mg by mouth three times a day - Tylenol as needed The patient was followed in the [facility] in 2001 between July and March. The patient refused treatment for MS at that time. The patient has been followed in the [facility] in the past most recently. PHYSICAL EXAMINATION: Blood pressure 139/94. Pulse rate 85. Respiratory rate 20. Oxygenation is 94% on room air. Temperature 99.3 degrees Fahrenheit. The patient is oriented to herself, the year, the month. She knows she is in the hospital. She is slow to respond at times with some bradyphrenia. She states she has to think a lot to answer questions. This is likely due to her baseline dementia. She thinks she is still on Copaxone, although [facility] states that she does not take it. Still some baseline confusion. She is able to follow all commands. Pupils are 2.5 mm round, reactive to light. Extraocular movements reveal dysconjugate gaze with right end gaze and slight diplopia in far right lateral field. Central gaze is normal. There is no facial asymmetry at activation. Palate elevates symmetrically. Sensation V1, V2 and V3 is intact to light touch. There is no pronator drift. Strength is 5/5 including bilateral deltoid, biceps, triceps, handgrip, iliopsoas, quadriceps, anterior tibialis. Deep tendon reflexes are 2+ in the upper extremities, 3 at the lower extremities, 4 at the Achilles with sustained clonus. Sensory is intact to light touch in all four extremities. Coordination normal finger to nose without any signs of gross ataxia or dysmetria. ASSESSMENT: Advanced multiple sclerosis with multiple areas of small vessel ischemic disease and atrophy of the brain with baseline dementia. Patient here with intermittent episodes of delirium and sundowning. Past history of pseudo seizures. Past history of multiple sclerosis, treated in the past with Copaxone. PLAN: 1. Resume Seroquel 150 mg by mouth at bedtime. 2. Continue carbamazepine at present dosage of 300 mg daily and 100 mg in the evening. 3. Avoid benzodiazepine for possible worsening of confusion. 4. Patient can follow up in the [facility] 4-6 weeks after discharge from rehabilitation. The patient does not have any electrophysiologic or clinical evidence of seizure activity, the patient reports pseudo seizure activity in the past. 5. Continue supportive care.
[2018-10-07] MEDS: oxyBUTYnin 5 MG TAB PO SCH ×2 (09:50→20:23)
[2018-10-07] MEDS: SENOKOT S TAB PO SCH ×2 (09:50→20:21)
[2018-10-07] MEDS: POTASSIUM CHLORIDE 10 MEQ SR TABLET PO SCH (09:50)
[2018-10-07] MEDS: MODAFINIL 100 MG TABLET PO SCH (09:51)
[2018-10-07] MEDS: SIMETHICONE 80 MG CHEW TAB PO SCH ×3 (09:51→20:22)
[2018-10-07] MEDS: LISINOPRIL 10 MG TAB PO SCH (09:51)
[2018-10-07] MEDS: FLUoxetine 20 MG CAP PO SCH (09:51)
[2018-10-07] MEDS: carBAMazepine 200 MG TAB PO SCH ×2 (09:52→20:23)
[2018-10-07] MEDS: OMEPRAZOLE 20 MG CAP PO SCH (09:52)
[2018-10-07] MEDS: GABAPENTIN 100 MG CAP PO SCH ×3 (09:52→20:22)
[2018-10-07] MEDS: CARVedilol 3.125 MG TAB PO SCH ×2 (09:53→20:24)
[2018-10-07] MEDS: ENOXAPARIN 40 MG/0.4 ML SYRINGE (J1650) SC SCH (09:53)
--- NOTE | 2018-10-07 10:45 | IPNPDOC ---
PM&R Progress Note DATE OF SERVICE: Oct 07, 2018 Boating Safety Officer Progress Note Subjective: Patient seen in her room stating she feels much better and is able to participate in therapy. REVIEW OF SYSTEMS: The following is a completed review of systems and has been reviewed. Review of systems otherwise unremarkable. PAIN: Patient self reports mild abdominal pain EYES: Negative for recent vision loss EARS, NOSE, & THROAT: denies dysphagia, hearing loss CARDIOVASCULAR: denies chest pain or palpitations PULMONARY: Negative. Denies shortness of breath GASTROINTESTINAL: +diarrhea (resolved) GENITOURINARY: +incontinence MUSCULOSKELETAL: bilat LE weakness NEUROLOGICAL: +MS SKIN: abdominal incision PSYCHIATRIC:+confused All other review of systems found to be negative. PHYSICAL EXAMINATION: VITAL SIGNS: Please see below. GENERAL: Pleasant and cooperative. No acute distress. HEENT: PERRL. Extraocular movements intact. Clear conjunctiva CARDIOVASCULAR: Regular rate and rhythm. No murmurs, rubs, or gallops LUNGS: Clear to auscultation bilaterally. + scattered wheezes. No rhonchi ABDOMEN: Soft, nontender, mildly-distended. Positive bowel sounds. no rebound tenderness/guarding NEUROLOGICAL: Alert and oriented times three. Cranial nerves II through XII grossly intact. Sensation grossly intact +dysmetria on the left, mild word finding difficulty, confused EXTREMITIES: 5-\5 strength bilateral upper extremities. 5-\5 strength right lower extremity. 5-/5 strength in left lower extremity. bilat edema LE (improving) SKIN: abdominal incision c/d/i ASSESSMENT:62-year-old F with past medical history of MS who presents status post ileostomy reversal with new gait and ADL impairments. PLAN: 1. Rehab: PT, TO, assess for DMEs, able to ambulate stand-by assist with RW, ambulating further requiring contact guard assist -strengthen and stretch all limbs, improve core strength, build up tolerance for ambulation and improve dynamic balance 2. Neuro: h MS with seizure disorder with cognitive decline while on ARU -patient was getting Copaxone h2gdiwdr at home, she reports she has not received this medication for close to a year, will ask for it be brought in from home to restart while in house, however per her [facility] neurologist this was not prescribed in over a year -MRI 09/30/18 shows no stroke, and no progression of MS- patient still able to fully participate in therapy and making functional gains, but declining cognitively -discussed case with Dr. Solorio on 10/02/18 who recommends increasing Tegretol dosing and to obtain an EEG to rule out complex-partial seizures- -Tegretol level 4.4, up to 5.7 on higher dose of Tegretol -EEG negative for seizure activity -off tizanidine - 10/05/18 patient had agitation with psychotic features after getting lower dose of Seroquel and on higher dose of tegretol- consulted neurology- recs appreciated- differential dx Seroquel withdrawal vs anticholinergic toxicity vs dementia with delirium- patient improved with extra dose of Seroquel -c/u Seroquel 150mg qHS and Tegretol lower back to 300mg and 100mg per neurology recs (appreciated) -UA negative x2 -given she has not seen her [facility] neurologist in over a year and after discussing with their nursing staff that the resident she worked with has graduated, will refer to [facility] neurology group for closer management 3. Cardio: pmh HLD, not on a statin will start a statin while here- medicine consulted -d/c'd lasix for edema given increased urge incontinence, a/u acewrap and elevate when out of therapy-swelling improving 4. Resp: c/u breathing treatments, will add Duonebs for wheeze on exam 5. : neurogenic bladder in setting of MS, timed voids, c/u oxybutynin- UA negative, PT provided pelvic floor strengthening exercises over the weekend and patient reports she is practicing these -patient still reporting urgency, repeat UA negative 6. DVT ppx: lovenox and teds 7. GI: s/p ileostomy reversal with colonic dilation on 09/14/18- c/u bowel meds, surgery recs appreciated - maynor removed -ppx: omeprazole 8. Psych: c/u Seroquel (tapering), Prozac, and modafinil 9. Hypokalemia- resolved, will c/u to monitor 10. Pain/tone: s/p tizanidine, c/u gabapentin 9. Dispo: 10/12/18 to home with family support Allergies Coded Allergies: No Known Allergies (Verified , 09/02/18) Vital Signs Vital Signs Date Time Temp Pulse Resp B/P (MAP) Pulse Ox O2 Delivery O2 Flow Rate FiO2 10/07/18 06:00 98.5 84 18 144/85 (104) 93 Current Medications Current Medications Current Medications Acetaminophen (Tylenol Tab) 650 mg Q4HP PRN PO MILD PAIN (PS 1-4) Last administered on 10/06/18 20:22; Start 09/23/18 at 14:15 Albuterol/ Ipratropium (Duoneb (Ipr 0.5mg/Alb 2.5mg)) 3 ml RTID NEB Last administered on 10/02/18 07:24; Start 09/29/18 at 20:00; Stop 10/02/18 at 07:54; Status DC Atorvastatin Calcium (Lipitor) 10 mg QHS PO Last administered on 09/28/18 20:30; Start 09/26/18 at 21:00; Stop 09/29/18 at 10:05; Status DC Atorvastatin Calcium (Lipitor) 20 mg QHS PO Last administered on 10/06/18 20:22; Start 09/29/18 at 21:00 Carbamazepine (TEGretol) 100 mg BID PO Last administered on 10/02/18 08:22; Start 09/24/18 at 21:00; Stop 10/02/18 at 11:24; Status DC Carbamazepine (TEGretol) 100 mg QHS PO Last administered on 10/06/18 20:21; Start 10/06/18 at 21:00 Carbamazepine (TEGretol) 100 mg TID PO ; Start 09/23/18 at 16:00; Stop 09/23/18 at 16:00; Status DC Carbamazepine (TEGretol) 100 mg TID PO Last administered on 09/24/18 16:06; Start 09/23/18 at 16:00; Stop 09/24/18 at 17:10; Status DC Carbamazepine (TEGretol) 200 mg QAM PO Last administered on 10/02/18 08:23; Start 09/24/18 at 09:00; Stop 10/02/18 at 11:24; Status DC Carbamazepine (TEGretol) 300 mg BID PO Last administered on 10/06/18 10:00; Start 10/02/18 at 21:00; Stop 10/06/18 at 10:35; Status DC Carbamazepine (TEGretol) 300 mg DAILY PO Last administered on 10/07/18 09:52; Start 10/07/18 at 09:00 Carvedilol (COReg) 3.125 mg BID PO Last administered on 10/07/18 09:53; Start 10/02/18 at 09:00 Enoxaparin Sodium (Lovenox) 40 mg DAILY SC Last administered on 10/07/18 09:53; Start 09/24/18 at 09:00 Fluoxetine HCl (PROzac) 60 mg DAILY PO Last administered on 10/07/18 09:51; Start 09/24/18 at 09:00 Furosemide (Lasix) 20 mg DAILY PO Last administered on 09/25/18 08:50; Start 09/24/18 at 09:00; Stop 09/25/18 at 14:07; Status DC Gabapentin (Neurontin) 200 mg TID PO Last administered on 10/07/18 09:52; Start 10/05/18 at 16:00 Gabapentin (Neurontin) 300 mg TID PO Last administered on 10/05/18 09:04; Start 09/23/18 at 16:00; Stop 10/05/18 at 12:51; Status DC Ipratropium Bliss (Atrovent Hfa) 2 puff RBID INH Last administered on 10/07/18 07:31; Start 09/23/18 at 20:00 Lisinopril (Prinivil) 5 mg DAILY PO Last administered on 09/30/18 07:43; Start 09/26/18 at 09:00; Stop 09/30/18 at 19:02; Status DC Lisinopril (Prinivil) 10 mg DAILY PO Last administered on 10/07/18 09:51; Start 10/01/18 at 09:00 Lorazepam (Ativan) 0.25 mg Q6HP PRN PO AGITATION Last administered on 10/06/18 10:51; Start 10/06/18 at 10:30 Magnesium Hydroxide (Milk Of Magnesia) 30 ml DAILYPRN PRN PO CONSTIPATION; Start 09/23/18 at 14:15 Magnesium Citrate (Citrate Of Magnesia) 150 ml 3XWP PRN PO constipation; Start 09/24/18 at 22:45 Magnesium Citrate (Citrate Of Magnesia) 150 ml DAILY PO Last administered on 09/24/18 08:15; Start 09/24/18 at 09:00; Stop 09/24/18 at 22:34; Status DC Methocarbamol (Robaxin) 750 mg Q6HP PRN PO MUSCLE SPASMS; Start 09/23/18 at 14:15; Stop 09/25/18 at 10:57; Status DC Modafinil (Provigil) 100 mg QAM PO Last administered on 10/07/18 09:51; Start 09/24/18 at 09:00 Omeprazole (PriLOSEC) 40 mg DAILY PO Last administered on 10/07/18 09:52; Start 09/24/18 at 09:00 Ondansetron HCl (Zofran) 4 mg Q6HP PRN PO NAUSEA OR VOMITING; Start 09/23/18 at 14:15 Oxybutynin Chloride (Ditropan) 5 mg BID PO Last administered on 10/07/18 09:50; Start 09/23/18 at 21:00 Potassium Chloride 10 meq/ IV Miscellaneous Supplies 100 ml @ 100 mls/hr Q1H IV Last administered on 09/24/18 14:09; Start 09/24/18 at 09:00; Stop 09/24/18 at 12:59; Status DC Potassium Chloride (Micro-K Extencaps) 20 meq DAILY PO Last administered on 10/07/18 09:50; Start 09/24/18 at 09:00 Quetiapine Fumarate (SEROquel) 50 mg STAT STAT PO Last administered on 10/06 10:23; Start 10/06/18 at 10:20; Stop 10/06/18 at 10:21; Status DC Quetiapine Fumarate (SEROquel) 100 mg QHS PO Last administered on 10/05/18 20:47; Start 10/02/18 at 21:00; Stop 10/06/18 at 10:18; Status DC Quetiapine Fumarate (SEROquel) 150 mg QHS PO Last administered on 10/01/18at 21:07; Start 10/01/18 at 21:00; Stop 10/02/18 at 11:26; Status DC Quetiapine Fumarate (SEROquel) 200 mg QHS PO Last administered on 09/30/18at 22:48; Start 09/23/18 at 21:00; Stop 10/01/18 at 09:58; Status DC Quetiapine Fumarate (SEROquel) 200 mg QHS PO Last administered on 10/06/18 20:22; Start 10/06/18 at 21:00 Senna (Senokot) 1 tab QHS PO Last administered on 10/05/18 20:47; Start 09/23/18 at 21:00 Senna/Docusate Sodium (Senokot S) 1 tab BID PO Last administered on 10/07/18 09:50; Start 09/23/18 at 21:00 Simethicone (Mylicon) 80 mg TID PO Last administered on 10/07/18 09:51; Start 09/23/18 at 16:00 Tizanidine HCl (Zanaflex) 2 mg Q6HP PRN PO SPASMS Last administered on 09/25/18 08:53; Start 09/23/18 at 14:15; Stop 09/25/18 at 10:57; Status DC Tizanidine HCl (Zanaflex) 4 mg TID PO Last administered on 10/05/18at 09:04; Start 10/03/18 at 16:00; Stop 10/05/18 at 10:11; Status DC Tizanidine HCl (Zanaflex) 8 mg TID PO Last administered on 10/03/18at 07:55; Start 09/25/18 at 16:00; Stop 10/03/18 at 15:45; Status DC SHAYLA COWAN MD Oct 07, 2018 10:45
[2018-10-07 14:00] VITALS: BP 135/68
[2018-10-07 20:00] VITALS: BP 155/86
[2018-10-07] MEDS: SENNA 8.6 MG TAB (SENOKOT) PO SCH (20:22)
[2018-10-07] MEDS: ATORVASTATIN 20 MG TAB PO SCH (20:22)
[2018-10-07] MEDS: QUEtiapine FUMARATE 50 MG TAB PO SCH (20:23)
[2018-10-08 06:00] VITALS: BP 150/75
[2018-10-08 07:49] LABS: BASO % 0.7 % (0.0-1.0); EOS # 0.2 10^3/uL (0.0-0.50); EOS % 3.6 % (0.0-3.0); HEMATOCRIT 30.6 % (36.0-47.0); HEMOGLOBIN 9.5 g/dl (12.0-15.5); LYMPH % 37.1 % (24.0-44.0); MEAN CORPUSCULAR HEMOGLOBIN 25.4 pg (27.0-33.0); MEAN CORPUSCULAR VOLUME 81.8 fl (80.0-96.0); MONO # 0.7 10^3/uL (0.0-0.8); MONO % 12.5 % (0.0-5.0); NEUTROPHILS # 2.5 10^3/uL (1.8-7.7); NEUTROPHILS % 45.7 % (36.0-66.0); PLATELET COUNT, AUTOMATED 282 10^3/uL (150-450); RED BLOOD COUNT 3.74 10^6/uL (4.00-5.40); WHITE BLOOD COUNT 5.5 10^3/uL (4.0-10.0)
[2018-10-08] MEDS: IPRATROPIUM HFA INHALER 12.9 GRAMS (ATROVENT HFA) INH SCH ×2 (07:49→20:25)
[2018-10-08 08:13] LABS: BLOOD UREA NITROGEN 8 MG/DL (7-18); CALCIUM LEVEL 8.6 MG/DL (8.8-10.2); CARBON DIOXIDE LEVEL 27 MEQ/L (21-32); CHLORIDE LEVEL 101 MEQ/L (98-107); CREATININE FOR GFR 0.68 MG/DL (0.55-1.30); GLOMERULAR FILTRATION RATE > 60.0 (>45); GLUCOSE, FASTING 93 MG/DL (70-100); POTASSIUM SERUM 4.1 MEQ/L (3.5-5.1); SODIUM LEVEL 136 MEQ/L (136-145)
[2018-10-08] MEDS: POTASSIUM CHLORIDE 10 MEQ SR TABLET PO SCH (08:54)
[2018-10-08] MEDS: MODAFINIL 100 MG TABLET PO SCH (08:54)
[2018-10-08] MEDS: ENOXAPARIN 40 MG/0.4 ML SYRINGE (J1650) SC SCH (08:54)
[2018-10-08] MEDS: FLUoxetine 20 MG CAP PO SCH (08:55)
[2018-10-08] MEDS: OMEPRAZOLE 20 MG CAP PO SCH (08:55)
[2018-10-08] MEDS: SIMETHICONE 80 MG CHEW TAB PO SCH ×3 (08:55→20:45)
[2018-10-08] MEDS: carBAMazepine 200 MG TAB PO SCH ×2 (08:55→20:45)
[2018-10-08] MEDS: GABAPENTIN 100 MG CAP PO SCH ×3 (08:55→20:45)
[2018-10-08] MEDS: LISINOPRIL 10 MG TAB PO SCH (08:56)
[2018-10-08] MEDS: SENOKOT S TAB PO SCH ×2 (08:56→20:45)
[2018-10-08] MEDS: CARVedilol 3.125 MG TAB PO SCH ×2 (08:56→20:46)
[2018-10-08] MEDS: oxyBUTYnin 5 MG TAB PO SCH ×2 (08:57→20:45)
--- NOTE | 2018-10-08 11:38 | IPNPDOC ---
Text Note Date of Service The patient was seen on 10/08/18. NOTE Subjective: Patient was seen and examined at the bedside, she was seen sitting up in her chair. She denies any chest pain, shortness of breath or palpitations. She reports her appetite is fine and has not experience any nausea or vomiting. She denies abdominal pain and has reported normal bowel movements. Denies any discomfort with urination. Objective: Vitals (See below) General: Lying in bed, no acute distress, comfortable, AAOx3 HEENT: NC, AT CVS: RRR, +S1S2 Lungs: Fair air entry b/l, no appreciable wheezing, rhonchi or rales Abdomen: Soft, remains nondistended without tenderness Extremities: No appreciable low tremor, edema, - Calf tenderness Assessment and plan: Sigmoid volvulus - s/p diverting ileostomy and subsequent reversal on 09/14/18 - Functional optimization as per PT/OT/PM&R - Patient reports that she has been progressing with physical therapy s/p Episodes of delirium - likely 2/2 change in environment / medication adjustments - c/w Quetiapine at adjusted dose Multiple sclerosis - MRI brain negative for new plaque formation on 10/01/18 - Continue Meds as ordered - Neurology was consulted; will continue with outpatient follow-up Seizure disorder - Cont Meds as ordered Hypertension - BP appears well controlled - Cont Lisinopril, Coreg Pre-Diabetes/Hyperglycemia - Hemoglobin A1c 6.1 from 03/2018 - Advised dietary changes; Continue caloric controlled diet Dyslipidemia - Cont Atorvastatin Mood disorder - c/w Fluoxetine, Quetiapine, GERD - c/w Omeprazole DVT prophylaxis - c/w Lovenox VS,Fishbone, I+O VS, Fishbone, I+O Laboratory Tests 10/08/18 07:22 Red Blood Count 3.74 L, Mean Corpuscular Volume 81.8, Mean Corpuscular Hemoglobin 25.4 L, Mean Corpuscular Hemoglobin Concent 31.0 L, Red Cell Distribution Width 17.5 H, Neutrophils (%) (Auto) 45.7, Lymphocytes (%) (Auto) 37.1, Monocytes (%) (Auto) 12.5 H, Eosinophils (%) (Auto) 3.6 H, Basophils (%) (Auto) 0.7, Neutrophils # (Auto) 2.5, Lymphocytes # (Auto) 2.0, Monocytes # (Auto) 0.7, Eosinophils # (Auto) 0.2, Basophils # (Auto) 0.0, Calcium Level 8.6 L Vital Signs Date Time Temp Pulse Resp B/P (MAP) Pulse Ox O2 Delivery O2 Flow Rate FiO2 10/08/18 08:56 150/75 10/08/18 06:00 99.3 89 18 93 I&O- Last 24 Hours up to 6 AM 10/08/18 06:00 Intake Total 1320 ml Output Total 0 ml Balance 1320 ml JAYCE FLORES MD Oct 08, 2018 11:38
[2018-10-08 14:00] VITALS: BP 141/78
[2018-10-08 20:00] VITALS: BP 150/76
[2018-10-08] MEDS: ATORVASTATIN 20 MG TAB PO SCH (20:45)
[2018-10-08] MEDS: SENNA 8.6 MG TAB (SENOKOT) PO SCH (20:45)
[2018-10-08] MEDS: QUEtiapine FUMARATE 50 MG TAB PO SCH (20:45)
[2018-10-09 06:00] VITALS: BP 145/79
[2018-10-09] MEDS: IPRATROPIUM HFA INHALER 12.9 GRAMS (ATROVENT HFA) INH SCH ×2 (07:23→20:51)
[2018-10-09] MEDS: LISINOPRIL 10 MG TAB PO SCH (09:18)
[2018-10-09] MEDS: ENOXAPARIN 40 MG/0.4 ML SYRINGE (J1650) SC SCH (09:18)
[2018-10-09] MEDS: POTASSIUM CHLORIDE 10 MEQ SR TABLET PO SCH (09:18)
[2018-10-09] MEDS: FLUoxetine 20 MG CAP PO SCH (09:25)
[2018-10-09] MEDS: carBAMazepine 200 MG TAB PO SCH ×2 (09:25→21:05)
[2018-10-09] MEDS: SENOKOT S TAB PO SCH ×2 (09:25→21:06)
[2018-10-09] MEDS: oxyBUTYnin 5 MG TAB PO SCH ×2 (09:25→21:05)
[2018-10-09] MEDS: CARVedilol 3.125 MG TAB PO SCH ×2 (09:26→21:06)
[2018-10-09] MEDS: GABAPENTIN 100 MG CAP PO SCH ×3 (09:26→21:05)
[2018-10-09] MEDS: MODAFINIL 100 MG TABLET PO SCH (09:26)
[2018-10-09] MEDS: SIMETHICONE 80 MG CHEW TAB PO SCH ×3 (09:26→21:05)
[2018-10-09] MEDS: OMEPRAZOLE 20 MG CAP PO SCH (09:27)
[2018-10-09 14:00] VITALS: BP 150/81
[2018-10-09 20:00] VITALS: BP 160/83
[2018-10-09] MEDS: QUEtiapine FUMARATE 50 MG TAB PO SCH (21:05)
[2018-10-09] MEDS: SENNA 8.6 MG TAB (SENOKOT) PO SCH (21:05)
[2018-10-09] MEDS: ATORVASTATIN 20 MG TAB PO SCH (21:05)
[2018-10-09] MEDS: ACETAMINOPHEN TAB 650MG DOSE (2X325MG) PO PRN (21:05)
[2018-10-10 06:00] VITALS: BP 149/67
[2018-10-10] MEDS: IPRATROPIUM HFA INHALER 12.9 GRAMS (ATROVENT HFA) INH SCH ×2 (06:56→19:49)
[2018-10-10] MEDS: SENOKOT S TAB PO SCH ×2 (09:00→21:00)
[2018-10-10] MEDS: ENOXAPARIN 40 MG/0.4 ML SYRINGE (J1650) SC SCH (09:44)
[2018-10-10] MEDS: FLUoxetine 20 MG CAP PO SCH (09:45)
[2018-10-10] MEDS: POTASSIUM CHLORIDE 10 MEQ SR TABLET PO SCH (09:45)
[2018-10-10] MEDS: carBAMazepine 200 MG TAB PO SCH ×2 (09:46→21:13)
[2018-10-10] MEDS: oxyBUTYnin 5 MG TAB PO SCH ×2 (09:47→21:13)
[2018-10-10] MEDS: MODAFINIL 100 MG TABLET PO SCH (09:47)
[2018-10-10] MEDS: CARVedilol 3.125 MG TAB PO SCH ×2 (09:47→21:13)
[2018-10-10] MEDS: SIMETHICONE 80 MG CHEW TAB PO SCH ×3 (09:47→21:13)
[2018-10-10] MEDS: LISINOPRIL 10 MG TAB PO SCH (09:48)
[2018-10-10] MEDS: GABAPENTIN 100 MG CAP PO SCH ×3 (09:48→21:13)
[2018-10-10] MEDS: OMEPRAZOLE 20 MG CAP PO SCH (09:48)
--- NOTE | 2018-10-10 11:21 | IPNPDOC ---
Text Note Date of Service The patient was seen on 10/10/18. NOTE Subjective: Patient was seen and examined at the bedside. Patient denies any problems overnight. She denies chest pain, palpitations, nausea, vomiting, abdominal pain, diarrhea, or urinary discomfort. Objective: Vitals (See below) General: Lying in bed, no acute distress, comfortable, AAOx3 HEENT: NC, AT CVS: RRR, +S1S2 Lungs: Air entry appears to be fair bilaterally without any evidence of rhonchi, rales or wheezing Abdomen: Remains soft without distention or tenderness Extremities: Extremities are free of any edema, - Calf tenderness Assessment and plan: Sigmoid volvulus - s/p diverting ileostomy and subsequent reversal on 09/14/18 - Functional optimization as per PT/OT/PM&R - Patient has continued to work with physical therapy and has made slow progression s/p Episodes of delirium - likely 2/2 change in environment / medication adjustments - c/w Quetiapine at adjusted dose Multiple sclerosis - MRI brain negative for new plaque formation on 10/01/18 - Continue Meds as ordered - Neurology was consulted; will have outpatient follow up Seizure disorder - Cont Meds as ordered Hypertension - BP appears well controlled - Cont Lisinopril, Coreg Pre-Diabetes/Hyperglycemia - Hemoglobin A1c 6.1 from 03/2018 - Advised dietary changes; Continue caloric controlled diet Dyslipidemia - Cont Atorvastatin Mood disorder - c/w Fluoxetine, Quetiapine, GERD - c/w Omeprazole DVT prophylaxis - c/w Lovenox VS,Fishbone, I+O VS, Fishbone, I+O Vital Signs Date Time Temp Pulse Resp B/P (MAP) Pulse Ox O2 Delivery O2 Flow Rate FiO2 10/10/18 09:48 149/67 10/10/18 09:47 79 10/10/18 06:00 98.5 18 96 I&O- Last 24 Hours up to 6 AM 10/10/18 06:00 Intake Total 1060 ml Balance 1060 ml JAYCE FLORES MD Oct 10, 2018 11:21
[2018-10-10 14:00] VITALS: BP 140/76
[2018-10-10 20:08] VITALS: BP 152/66
[2018-10-10] MEDS: SENNA 8.6 MG TAB (SENOKOT) PO SCH (21:00)
[2018-10-10] MEDS: ATORVASTATIN 20 MG TAB PO SCH (21:13)
[2018-10-10] MEDS: QUEtiapine FUMARATE 50 MG TAB PO SCH (21:13)
[2018-10-10] MEDS: ACETAMINOPHEN TAB 650MG DOSE (2X325MG) PO PRN (21:13)
[2018-10-11 06:05] VITALS: BP 145/76
[2018-10-11] MEDS: IPRATROPIUM HFA INHALER 12.9 GRAMS (ATROVENT HFA) INH SCH ×2 (08:00→19:25)
[2018-10-11] MEDS: OMEPRAZOLE 20 MG CAP PO SCH (08:31)
[2018-10-11] MEDS: FLUoxetine 20 MG CAP PO SCH (08:31)
[2018-10-11] MEDS: SENOKOT S TAB PO SCH ×2 (08:32→20:08)
[2018-10-11] MEDS: SIMETHICONE 80 MG CHEW TAB PO SCH ×3 (08:32→20:08)
[2018-10-11] MEDS: LISINOPRIL 10 MG TAB PO SCH (08:32)
[2018-10-11] MEDS: MODAFINIL 100 MG TABLET PO SCH (08:32)
[2018-10-11] MEDS: POTASSIUM CHLORIDE 10 MEQ SR TABLET PO SCH (08:32)
[2018-10-11] MEDS: carBAMazepine 200 MG TAB PO SCH ×2 (08:32→20:08)
[2018-10-11] MEDS: GABAPENTIN 100 MG CAP PO SCH ×3 (08:33→20:07)
[2018-10-11] MEDS: CARVedilol 3.125 MG TAB PO SCH ×2 (08:33→20:08)
[2018-10-11] MEDS: oxyBUTYnin 5 MG TAB PO SCH ×2 (08:33→20:08)
[2018-10-11] MEDS: ENOXAPARIN 40 MG/0.4 ML SYRINGE (J1650) SC SCH (08:33)
[2018-10-11 14:00] VITALS: BP 147/76
--- NOTE | 2018-10-11 14:37 | IPNPDOC ---
Text Note Date of Service The patient was seen on 10/11/18. NOTE Subjective: Patient was seen and examined at the bedside. Denies any CP, SOB or palpitations. Denies any N/V, abdominal pain, C/D or dysuria. Has progressed with PT Objective: Vitals (See below) General: Lying in bed, no acute distress, comfortable, AAOx3 HEENT: NC, AT CVS: RRR, +S1S2 Lungs: Fair air entry b/l, no rhonchi / wheezing / rales Abdomen: Remains soft without distention or tenderness Extremities: No edema at lower extremities, - Calf tenderness Assessment and plan: Sigmoid volvulus - s/p diverting ileostomy and subsequent reversal on 09/14/18 - Functional optimization as per PT/OT/PM&R - Continues to work with PT; reports that she has been progressing s/p Episodes of delirium - likely 2/2 change in environment / medication adjustments - c/w Quetiapine at adjusted dose Multiple sclerosis - MRI brain negative for new plaque formation on 10/01/18 - Continue Meds as ordered - Neurology was consulted; outpatient follow up Seizure disorder - c/w Carbamazepine Hypertension - BP appears well controlled - Cont Lisinopril, Coreg Pre-Diabetes/Hyperglycemia - Hemoglobin A1c 6.1 from 03/2018 - Advised dietary changes; Continue caloric controlled diet Dyslipidemia - Cont Atorvastatin Mood disorder - c/w Fluoxetine, Quetiapine, GERD - c/w Omeprazole DVT prophylaxis - c/w Lovenox VS,Fishbone, I+O VS, Fishbone, I+O Vital Signs Date Time Temp Pulse Resp B/P (MAP) Pulse Ox O2 Delivery O2 Flow Rate FiO2 10/11/18 08:32 145/76 10/11/18 06:05 96.7 96 18 96 I&O- Last 24 Hours up to 6 AM 10/11/18 06:00 Intake Total 780 ml Output Total 0 ml Balance 780 ml JAYCE FLORES MD Oct 11, 2018 14:37
[2018-10-11 20:00] VITALS: BP 165/86
[2018-10-11] MEDS: ACETAMINOPHEN TAB 650MG DOSE (2X325MG) PO PRN (20:07)
[2018-10-11] MEDS: ATORVASTATIN 20 MG TAB PO SCH (20:07)
[2018-10-11] MEDS: QUEtiapine FUMARATE 50 MG TAB PO SCH (20:08)
[2018-10-11] MEDS: SENNA 8.6 MG TAB (SENOKOT) PO SCH (20:08)
[2018-10-12 06:00] VITALS: BP 157/80
[2018-10-12] MEDS: IPRATROPIUM HFA INHALER 12.9 GRAMS (ATROVENT HFA) INH SCH (07:10)
[2018-10-12 08:15] VITALS: BP 157/80
[2018-10-12] MEDS: SIMETHICONE 80 MG CHEW TAB PO SCH ×2 (08:15→17:07)
[2018-10-12] MEDS: POTASSIUM CHLORIDE 10 MEQ SR TABLET PO SCH (08:15)
[2018-10-12] MEDS: SENOKOT S TAB PO SCH (08:15)
[2018-10-12] MEDS: CARVedilol 3.125 MG TAB PO SCH (08:15)
[2018-10-12] MEDS: FLUoxetine 20 MG CAP PO SCH (08:15)
[2018-10-12] MEDS: ENOXAPARIN 40 MG/0.4 ML SYRINGE (J1650) SC SCH (08:15)
[2018-10-12] MEDS: oxyBUTYnin 5 MG TAB PO SCH (08:16)
[2018-10-12] MEDS: carBAMazepine 200 MG TAB PO SCH (08:16)
[2018-10-12] MEDS: OMEPRAZOLE 20 MG CAP PO SCH (08:16)
[2018-10-12] MEDS: GABAPENTIN 100 MG CAP PO SCH ×2 (08:16→17:07)
[2018-10-12] MEDS: LISINOPRIL 10 MG TAB PO SCH (08:16)
[2018-10-12] MEDS: MODAFINIL 100 MG TABLET PO SCH (08:16)
[2018-10-12] MEDS ORDERED: GABA-1171 PO (08:59)
[2018-10-12] MEDS ORDERED: LISI10TA4 PO (08:59)
[2018-10-12] MEDS ORDERED: CARV3.12 PO (08:59)
[2018-10-12] MEDS ORDERED: CARB20TA PO ×2 (08:59)
[2018-10-12] MEDS ORDERED: QUET5TAB PO (08:59)
[2018-10-12] MEDS ORDERED: KLOR10TA76 PO (08:59)
[2018-10-12] MEDS ORDERED: SENN-52 PO (08:59)
[2018-10-12] MEDS ORDERED: OXYB5TAB10 PO (08:59)
[2018-10-12] MEDS ORDERED: FLUO20CA19 PO (08:59)
[2018-10-12] MEDS ORDERED: MODA100T13 PO (08:59)
[2018-10-12] MEDS ORDERED: OMEP-218 PO (08:59)
[2018-10-12] MEDS ORDERED: RA M1.74 PO (08:59)
[2018-10-12] MEDS ORDERED: ATOR1TAB21 PO (08:59)
--- NOTE | 2018-10-12 09:40 | IPNPDOC ---
Subjective Date Seen The patient was seen on 10/12/18. Subjective Chief Complaint/HPI Patient is a 62-year-old female, past medical history significant for multiple sclerosis, status post ileostomy reversal and discharged to rehabilitation unit after surgical intervention for mobilization and strengthening.. Events since last encounter In bed at time of assessment. Denies pain, denies constipation, no diarrhea, denies chest pain, shortness of breath. Able to state where she is and who she is. Objective Physical Examination Other physical findings GENERAL: NAD SKIN : Warm, dry intact HEENT: Atraumatic, normocephalic, PERRL, moist mucous membrane CV: Regular rate and rhythm, S1S2, no JVD, no edema, distal pulses not palpable RESP: CTAB, no accessory muscle use noted ABDOMEN: BS+, non distended, non tender. Surgical sutures to RLQ dry , have since been removed MS: no joint deformities NEURO: Alert and oriented x 2, CN2-12 grossly intact PSYCH: no anxiety or agitation, appropriate mood and affect. Assessment /Plan Assessment Sigmoid volvulus -Status post ileostomy reversal -Currently undergoing rehabilitation by primary team Multiple Scelerosis -evaluated by neurology this admit -no new lesions or plaque suggestive of MS exacerbation -continue current mgt Seizure disorder -history of psuedoseizures -No seizure activity since admit -continued on seizure precautions and medication with Tegretol Hypertension -Continue lisinopril -increase dose Coreg -Blood pressure monitoring per unit protocol Hyperglycemia -Hemoglobin A1c 6.1 -Caloric controlled diet DVT prophylaxis -Lovenox 40 mg daily Plan/VTE VTE Prophylaxis Ordered?: Yes VS, I&O, 24H, Fishbone Vital Signs/I&O Vital Signs Date Time Temp Pulse Resp B/P (MAP) Pulse Ox O2 Delivery O2 Flow Rate FiO2 10/12/18 08:15 82 157/80 10/12/18 06:00 98.8 18 95 I&O- Last 24 Hours up to 6 AM 10/12/18 06:00 Intake Total 1080 ml Output Total 0 ml Balance 1080 ml RICKI JONES HAND III CUTTER Oct 12, 2018 09:40
--- NOTE | 2018-10-12 12:27 | PMRDS ---
DATE OF ADMISSION: 09/23/2018 DATE OF DISCHARGE: CHIEF COMPLAINT/DISCHARGE DIAGNOSIS: Ileostomy reversal in setting of multiple sclerosis (MS). HISTORY OF PRESENT ILLNESS: This is a 62-year-old female with a past medical history of multiple sclerosis, hyperlipidemia, smoker, bronchitis, obesity, urinary incontinence who had a sigmoid volvulus requiring sigmoid resection with diverting ileostomy in April 2018 admitted to [facility] on 09/14/2018 for reversal. She had barium enema on 09/08/2018 showing persistent stricture of the anastomoses side. She was reevaluated by Dr. Flores and underwent a laparoscopic ileostomy reversal dilation of her colorectal anastomosis on 09/14/2018. The patient initially had difficulty having bowel movements with episodes of emesis and eventually was able to pass the glottis and have bowel movements. She continued to have abdominal distension with repeat abdominal x-ray showing colonic distension without free air. She was evaluated by therapy and found to have deficits in her activities of daily living (ADL) and ambulation. She was deemed medically appropriate for discharge to acute rehabilitation unit (ARU) on 09/23/2018. Upon arrival, the patient reports fatigue and chronic urinary incontinence. PAST MEDICAL HISTORY: As per history of present illness (HPI). HOSPITAL COURSE: The patient was admitted around a comprehensive PT, OT, speech language pathology program. During her hospital course, the patient gradually had a cognitive decline thought to be possibly due to subclinical seizures versus medication alterations versus worsening MS. MRI was performed on 09/30/2018 showing no new stroke. Electroencephalogram (EEG) on 10/02/2018 was negative for seizure activity. Her tizanidine was tapered and her Seroquel was tapered gradually as well to optimize her daytime lucidity. However, on 10/05/2018, the patient had extreme agitation with psychotic features and was evaluated by neurology who recommended increasing the Seroquel and reducing Tegretol dosing. Urinalysis (UA) were negative times two. It was discussed that patient would followup with [facility]'s neurology group here as it had been over 1 year since her last visit with the [facility] group. Despite her cognitive decline, the patient progressed in therapy, was able to ambulate and complete her ADLs. Her and daughter were trained to assist with her management. Regarding her recent ileostomy, the patient was seen by surgery. Her bowel medications adjusted and she continued to void well. She was deemed functionally medically stable to return home with home services. DISCHARGE MEDICATIONS: As per discharge instructions. FUNCTIONAL HISTORY: Upon discharge, the patient was standby assist for functional transfers, able to ambulate 100 feet contact guard level, able to propel her wheelchair 300 feet, modified independent in occupational therapy. She was standby assist for upper and lower body dressing, toileting and eating. Thank you for this referral.
[2018-10-12 14:00] VITALS: BP 131/70
[2018-10-12] MEDS ORDERED: CARVedilol 6.25 MG TAB PO SCH (21:00)
== END 2018-10-12 17:40 | disposition home health service (06) | DRG 58 ==
LOC: M PM&R 12:00
PROVIDERS: ADMIT Physical Medicine & Rehabilitation; ATTEND Physical Medicine & Rehabilitation
DX: R26.89 Other abnormalities of gait and mobility (principal); G35 Multiple sclerosis; E78.5 Hyperlipidemia, unspecified; E66.9 Obesity, unspecified; I10 Essential (primary) hypertension; R32 Unspecified urinary incontinence; F32.9 Major depressive disorder, single episode, unspecified; E87.6 Hypokalemia; J44.9 Chronic obstructive pulmonary disease, unspecified; M62.81 Muscle weakness (generalized); R73.03 Prediabetes; R41.0 Disorientation, unspecified; F39 Unspecified mood [affective] disorder; F03.90 Unspecified dementia, unspecified severity, without behavioral disturbance, psychotic disturbance, mood disturbance, and anxiety; R60.0 Localized edema; R19.7 Diarrhea, unspecified; N31.9 Neuromuscular dysfunction of bladder, unspecified; R30.0 Dysuria; G40.909 Epilepsy, unspecified, not intractable, without status epilepticus; Z90.49 Acquired absence of other specified parts of digestive tract; Z79.899 Other long term (current) drug therapy; Z87.891 Personal history of nicotine dependence; Z68.30 Body mass index [BMI] 30.0-30.9, adult; Z91.14 Patient's other noncompliance with medication regimen

== ENCOUNTER → 2019-01-04 | Outpatient (REF) | payer MEDICAID ==
[~2019-01-04] MED LIST changes: +ATOR1TAB21 PO; -BISA10SU2 PR; +BISA10SU20 PR; +CARB20TA PO; +CARV3.12 PO; +GABA-1171 PO; +KLOR10TA76 PO; +LISI10TA4 PO; +METH750T2 PO; -METH75TA PO; +OMEP-218 PO; -OMEP40CA2 PO; +OMEP40CA97 PO; -QUET1TAB9 PO; +QUET200T2 PO; +SENN-53 PO; -SENN1TAB40 PO
[2019-01-04 15:45] LABS: BASO # 0.1 10^3/uL (0.0-0.2); BASO % 0.7 % (0.0-1.0); EOS # 0.3 10^3/uL (0.0-0.5); EOS % 4.2 % (0.0-3.0); HEMATOCRIT 39.6 % (36.0-47.0); HEMOGLOBIN 12.6 g/dl (12.0-15.5); LYMPH # 2.7 10^3/uL (1.5-5.0); LYMPH % 34.6 % (24.0-44.0); MEAN CORPUSCULAR HEMOGLOBIN 27.1 pg (27.0-33.0); MEAN CORPUSCULAR HGB CONC 31.8 g/dl (32.0-36.5); MEAN CORPUSCULAR VOLUME 85.2 fl (80.0-96.0); MONO # 0.8 10^3/uL (0.0-0.8); MONO % 10.3 % (0.0-5.0); NEUTROPHILS # 3.8 10^3/uL (1.5-8.5); NEUTROPHILS % 49.9 % (36.0-66.0); PLATELET COUNT, AUTOMATED 284 10^3/uL (150-450); RED BLOOD COUNT 4.65 10^6/uL (4.00-5.40); WHITE BLOOD COUNT 7.7 10^3/uL (4.0-10.0)
[2019-01-04 15:59] LABS: ALBUMIN 3.6 GM/DL (3.2-5.2); ALT/SGPT 40 U/L (12-78); BILIRUBIN,TOTAL 0.3 MG/DL (0.2-1.0); BLOOD UREA NITROGEN 11 MG/DL (7-18); CALCIUM LEVEL 9.2 MG/DL (8.8-10.2); CARBAMAZEPINE (TEGRETOL) LEVEL 7.3 UG/ML (4.0-10.0); CARBON DIOXIDE LEVEL 30 MEQ/L (21-32); CHLORIDE LEVEL 97 MEQ/L (98-107); CREATININE FOR GFR 0.76 MG/DL (0.55-1.30); GLOMERULAR FILTRATION RATE > 60.0 (>45); GLUCOSE, FASTING 90 MG/DL (70-100); POTASSIUM SERUM 4.7 MEQ/L (3.5-5.1); SODIUM LEVEL 132 MEQ/L (136-145); TOTAL 25(OH) VITAMIN D 25.5 NG/ML (30.0-100.0); TOTAL PROTEIN 8.2 GM/DL (6.4-8.2)
== END ==
LOC: M SFHCPLAZ 11:38
PROVIDERS: ATTEND Family Medicine
DX: Z51.81 Encounter for therapeutic drug level monitoring (principal); I10 Essential (primary) hypertension; G47.00 Insomnia, unspecified; E55.9 Vitamin D deficiency, unspecified

== ENCOUNTER → 2019-03-01 | Outpatient (CLI) | payer OTHER, MEDICAID ==
--- NOTE | 2019-03-01 12:43 | REPMRS ---
Patient History The patient states she has not had a clinical breast exam in over a year. Family history of breast cancer in paternal grandmother. Digital Mammo Screening Bilat: March 01, 2019 - Exam #: [id number] Bilateral CC and MLO view(s) were taken. Technologist: Lizbet Soto, Technologist Prior study comparison: March 24, 2017, digital woman screen mammo, performed at [facility]. March 24, 2015, digital woman screen mammo, performed at [facility]. June 21, 2013, bilateral digital mammo screening bilat performed at [facility]. FINDINGS: There are scattered fibroglandular densities. There has been no change in the appearance of the mammogram from the prior studies. There is a mild amount of scattered fibroglandular density which is fairly symmetric. There is no interval development of dominant mass, architectural distortion, or grouped microcalcification suggestive of malignancy. Assessment: BI-RADS/ACR category 1 mammogram. Negative Mammogram. Recommendation Routine screening mammogram of both breasts in 1 year (for women over age 40). This patient's Lifetime Breast Cancer Risk is estimated at 7.3 %. This mammogram was interpreted with the aid of an FDA-approved computer-aided dectection system. Electronically Signed By: Nicho Estes MD 03/01/19 [id number]
== END ==
LOC: M RAD 11:13
PROVIDERS: ATTEND Family Medicine
DX: Z12.31 Encounter for screening mammogram for malignant neoplasm of breast (principal)

== ENCOUNTER → 2020-04-19 | Outpatient (REF) | payer MEDICARE, MEDICAID ==
[~2020-04-19] MED LIST changes: -FLUO20CA19 PO; +FLUO20CA22 PO; +GABA-282 PO; -GABA-843 PO; +PANT40TA29 PO; -PANT40TA3 PO
[2020-04-19 16:05] LABS: BASO # 0.1 10^3/uL (0.0-0.2); BASO % 0.7 % (0.0-1.0); EOS # 0.3 10^3/uL (0.0-0.5); EOS % 4.4 % (0.0-3.0); HEMATOCRIT 36.2 % (36.0-47.0); HEMOGLOBIN 11.6 g/dl (12.0-15.5); LYMPH # 1.8 10^3/uL (1.5-5.0); LYMPH % 25.6 % (24.0-44.0); MEAN CORPUSCULAR HEMOGLOBIN 28.4 pg (27.0-33.0); MEAN CORPUSCULAR VOLUME 88.5 fl (80.0-96.0); MONO # 0.9 10^3/uL (0.0-0.8); MONO % 12.5 % (0.0-5.0); NEUTROPHILS # 3.9 10^3/uL (1.5-8.5); NEUTROPHILS % 56.7 % (36.0-66.0); PLATELET COUNT, AUTOMATED 303 10^3/uL (150-450); RED BLOOD COUNT 4.09 10^6/uL (4.00-5.40); WHITE BLOOD COUNT 6.9 10^3/uL (4.0-10.0)
[2020-04-19 16:38] LABS: ALT/SGPT 21 U/L (12-78); BILIRUBIN,TOTAL 0.3 MG/DL (0.2-1.0); BLOOD UREA NITROGEN 12 MG/DL (7-18); CALCIUM LEVEL 8.7 MG/DL (8.8-10.2); CARBON DIOXIDE LEVEL 29 MEQ/L (21-32); CHLORIDE LEVEL 95 MEQ/L (98-107); CHOLESTEROL LEVEL 189 MG/DL (<200); CHOLESTEROL RISK RATIO 2.054 (<5); CREATININE FOR GFR 0.77 MG/DL (0.55-1.30); GLOMERULAR FILTRATION RATE > 60.0 (>45); GLUCOSE, FASTING 92 MG/DL (70-100); HDL CHOLESTEROL 92 MG/DL (>40); LDL CHOLESTEROL 80 MG/DL (<100); NON-HDL-C 97 MG/DL; POTASSIUM SERUM 5.3 MEQ/L (3.5-5.1); SODIUM LEVEL 130 MEQ/L (136-145); TOTAL PROTEIN 8.1 GM/DL (6.4-8.2); TRIGLYCERIDES LEVEL 87 MG/DL (<150)
[2020-04-19 16:50] LABS: TOTAL 25(OH) VITAMIN D 26.5 NG/ML (30.0-100.0)
[2020-04-19 17:35] LABS: HEMOGLOBIN A1c 5.4 %
== END ==
LOC: M SFHCPLAZ 12:22
PROVIDERS: ATTEND Family Medicine
DX: E55.9 Vitamin D deficiency, unspecified (principal); G50.0 Trigeminal neuralgia; I10 Essential (primary) hypertension; E78.2 Mixed hyperlipidemia; Z13.1 Encounter for screening for diabetes mellitus; Z79.899 Other long term (current) drug therapy

== ENCOUNTER → 2020-05-08 | Outpatient (REF) | payer MEDICAID ==
[2020-05-08 16:30] LABS: OSMOLALITY URINE 306 MOSM/KG (500-800)
[2020-05-08 16:44] LABS: SODIUM,RANDOM URINE 53 MEQ/L
[2020-05-08 16:46] LABS: HEMATOCRIT 36.1 % (36.0-47.0); HEMOGLOBIN 11.5 g/dl (12.0-15.5); MEAN CORPUSCULAR HEMOGLOBIN 27.6 pg (27.0-33.0); MEAN CORPUSCULAR HGB CONC 31.9 g/dl (32.0-36.5); MEAN CORPUSCULAR VOLUME 86.8 fl (80.0-96.0); PLATELET COUNT, AUTOMATED 244 10^3/uL (150-450); RED BLOOD COUNT 4.16 10^6/uL (4.00-5.40); WHITE BLOOD COUNT 6.9 10^3/uL (4.0-10.0)
[2020-05-08 17:04] LABS: ALBUMIN 3.7 GM/DL (3.2-5.2); ALT/SGPT 21 U/L (12-78); BILIRUBIN,TOTAL 0.2 MG/DL (0.2-1.0); BLOOD UREA NITROGEN 15 MG/DL (7-18); CARBON DIOXIDE LEVEL 31 MEQ/L (21-32); CHLORIDE LEVEL 94 MEQ/L (98-107); CREATININE FOR GFR 0.79 MG/DL (0.55-1.30); FERRITIN 11 NG/ML (8-252); GLOMERULAR FILTRATION RATE > 60.0 (>45); GLUCOSE, FASTING 95 MG/DL (70-100); IRON (FE) 46 UG/DL (50-170); LDH LACTATE DEHYDROGENASE 205 U/L (84-246); PERCENT SATURATION 12.3 % (13.2-45.0); POTASSIUM SERUM 5.4 MEQ/L (3.5-5.1); SODIUM LEVEL 131 MEQ/L (136-145); TOTAL IRON BINDING CAPACITY 375 UG/DL (250-450)
== END ==
LOC: M PLALAB 13:58
PROVIDERS: ATTEND Family Medicine
DX: D64.9 Anemia, unspecified (principal); E87.5 Hyperkalemia; E87.1 Hypo-osmolality and hyponatremia

== ENCOUNTER 2020-05-15 09:31 | Outpatient (CLI) | payer MEDICARE, MEDICAID ==
[~2020-05-15] VITALS: Ht 172.7 cm; Wt 81.6 kg
[~2020-05-15 09:31] MED LIST changes: +COSYNTROPIN 0.25 MG/ML VIAL (J0834 PER 0.25MG) IV ONE; +LISI10TA22 PO; -LISI10TA4 PO; +METH-1165 PO; -METH750T2 PO; +QUET50TA3 PO; -QUET5TAB PO
[2020-05-15 10:14] VITALS: BP 128/68
[2020-05-15 11:00] LABS: CORTISOL BASELINE 11.1 UG/DL (4.3-22.4)
[2020-05-15 11:45] VITALS: BP 118/56
[2020-05-15 12:57] LABS: BLOOD UREA NITROGEN 12 MG/DL (7-18); CARBON DIOXIDE LEVEL 34 MEQ/L (21-32); CHLORIDE LEVEL 97 MEQ/L (98-107); CREATININE FOR GFR 0.83 MG/DL (0.55-1.30); GLOMERULAR FILTRATION RATE > 60.0 (>45); GLUCOSE, FASTING 92 MG/DL (70-100); SODIUM LEVEL 134 MEQ/L (136-145)
== END 2020-05-15 11:50 | disposition home or self-care (01) ==
LOC: M INFU 09:31
PROVIDERS: ATTEND Family Medicine
DX: E87.5 Hyperkalemia (principal); E87.1 Hypo-osmolality and hyponatremia
CPT/HCPCS: 36592; 80048; 82024; 82533; 84443; 96374; J0834

== ENCOUNTER → 2020-06-27 | Outpatient (CLI) | payer MEDICARE, MEDICAID ==
[~2020-06-27] MED LIST changes: -COSYNTROPIN 0.25 MG/ML VIAL (J0834 PER 0.25MG) IV ONE
[2020-06-27 14:35] LABS: BLOOD UREA NITROGEN 10 MG/DL (7-18); CALCIUM LEVEL 8.6 MG/DL (8.8-10.2); CARBON DIOXIDE LEVEL 28 MEQ/L (21-32); CHLORIDE LEVEL 95 MEQ/L (98-107); CREATININE FOR GFR 0.61 MG/DL (0.55-1.30); GLOMERULAR FILTRATION RATE > 60.0 (>45); GLUCOSE, FASTING 91 MG/DL (70-100); POTASSIUM SERUM 4.5 MEQ/L (3.5-5.1); SODIUM LEVEL 129 MEQ/L (136-145)
== END ==
LOC: M LAB 12:41
PROVIDERS: ATTEND Psychiatry & Neurology Neurology
DX: G35 Multiple sclerosis (principal)

== ENCOUNTER → 2020-09-05 | Outpatient (REF) | payer MEDICARE, MEDICAID ==
[~2020-09-05] MED LIST changes: +OMEP40CA4 PO; -OMEP40CA97 PO
[2020-09-05 15:46] LABS: BLOOD UREA NITROGEN 15 MG/DL (7-18); CALCIUM LEVEL 9.1 MG/DL (8.8-10.2); CARBON DIOXIDE LEVEL 29 MEQ/L (21-32); CHLORIDE LEVEL 96 MEQ/L (98-107); GLOMERULAR FILTRATION RATE > 60.0 (>45); GLUCOSE, FASTING 94 MG/DL (70-100); POTASSIUM SERUM 5.2 MEQ/L (3.5-5.1); SODIUM LEVEL 131 MEQ/L (136-145)
== END ==
LOC: M SFHCPLAZ 13:32
PROVIDERS: ATTEND Family Medicine
DX: I10 Essential (primary) hypertension (principal)
CPT/HCPCS: 36415; 80048; G0463

== ENCOUNTER 2020-10-03 14:03 | Inpatient (IN) | payer MEDICARE, MEDICAID ==
[~2020-10-03] VITALS: Ht 172.7 cm; Wt 86.0 kg
[2020-10-03] MEDS ORDERED: KETOROLAC 30 MG/ML 1ML VIAL IV ONE (14:40)
[2020-10-03] MEDS ORDERED: ONDANSETRON 4MG/2ML VIAL IV ONE (14:40)
[2020-10-03] MEDS ORDERED: NS 1,000 ML IV ONE (14:40)
[2020-10-03 15:13] LABS: BASO % 0.1 % (0.0-1.0); EOS % 0.2 % (0.0-3.0); HEMOGLOBIN 13.1 g/dl (12.0-15.5); LYMPH # 0.7 10^3/uL (1.5-5.0); LYMPH % 5.9 % (24.0-44.0); MEAN CORPUSCULAR HEMOGLOBIN 27.5 pg (27.0-33.0); MEAN CORPUSCULAR HGB CONC 32.8 g/dl (32.0-36.5); MONO # 1.6 10^3/uL (0.0-0.8); MONO % 12.6 % (2.0-8.0); NEUTROPHILS # 9.9 10^3/uL (1.5-8.5); NEUTROPHILS % 80.5 % (36.0-66.0); PLATELET COUNT, AUTOMATED 253 10^3/uL (150-450); RED BLOOD COUNT 4.76 10^6/uL (4.00-5.40)
[2020-10-03 15:37] LABS: WHITE BLOOD COUNT 12.3 10^3/uL (4.0-10.0)
[2020-10-03 15:41] LABS: BLOOD UREA NITROGEN 9 MG/DL (7-18); CREATININE FOR GFR 0.72 MG/DL (0.55-1.30); GLUCOSE, FASTING 114 MG/DL (70-100)
[2020-10-03 15:42] LABS: ALBUMIN 3.7 GM/DL (3.2-5.2); ALT/SGPT 229 U/L (12-78); BILIRUBIN,DIRECT 0.4 MG/DL (0.0-0.2); BILIRUBIN,TOTAL 0.6 MG/DL (0.2-1.0); CALCIUM LEVEL 8.9 MG/DL (8.8-10.2); CARBON DIOXIDE LEVEL 30 MEQ/L (21-32); CHLORIDE LEVEL 96 MEQ/L (98-107); GLOMERULAR FILTRATION RATE > 60.0 (>45); LIPASE 47 U/L (73-393); POTASSIUM SERUM 3.7 MEQ/L (3.5-5.1); SODIUM LEVEL 131 MEQ/L (136-145); TOTAL PROTEIN 8.2 GM/DL (6.4-8.2)
[2020-10-03] MEDS ORDERED: ISOVUE-370 76% 100ML VIAL As Ordered ONE (15:47)
--- NOTE | 2020-10-03 16:33 | REP ---
INDICATION: abd pain/distention. COMPARISON: 04/29/2018 TECHNIQUE: Axial contrast-enhanced images from the lung bases to the pubic symphysis using 100 cc Isovue 370 intravenous contrast material. Coronal and sagittal reformations obtained. This CT examination was performed using the following dose reduction techniques: Automated exposure control, adjustment of mA and/or kv according to the patient's size, and the use of iterative reconstruction technique. FINDINGS: Dilated air-filled large bowel is appreciated suggesting obstruction which may be secondary to adhesions and postsurgical scarring in the lower pelvis and likely in the region of the left lower quadrant at the site of prior surgery. Small amount of left upper quadrant and pelvic ascites noted. No free air. The small bowel is without definite obstruction although mildly dilated fluid-filled loops of small bowel in the pelvis are identified and nonspecific. Liver, spleen, pancreas, bilateral adrenal glands and kidneys are relatively normal/stable. Cholelithiasis noted without acute cholecystitis. Further evaluation of the pelvis demonstrates normal bladder and age-appropriate uterus/adnexa. Atherosclerotic changes to the aorta and vasculature noted without aneurysm or dissection. Musculoskeletal structures demonstrate chronic scoliosis and degenerative changes. Lung bases demonstrate advanced subpleural fibrosis, scarring, and suspected adenopathy. IMPRESSION: 1. Pattern suggesting large bowel obstruction likely transition in the left lower quadrant related to postsurgical scarring and adhesions. Associated small amount of free fluid is identified. No free air. 2. Nonacute findings as described above. <Electronically signed by Nathan Montana > 10/03/20 [id number]
[2020-10-03] MEDS ORDERED: NS 500 ML IV ONE (17:15)
[2020-10-03] MEDS ORDERED: ACETAMINOPHEN 325 MG TAB PO ONE (17:35)
[2020-10-03 17:37] LABS: RSV AMPLIFICATION NEGATIVE (NEGATIVE)
[2020-10-03] MEDS ORDERED: fentaNYL 100 MCG/2 ML INJECTION (J3010) As Ordered ONE ×2 (18:54→22:32)
[2020-10-03] MEDS ORDERED: dexameTHASONE 4 MG/ML 1ML VIAL (J1100 PER 1MG) As Ordered ONE (18:55)
[2020-10-03] MEDS ORDERED: LIDOCAINE 2% 100MG/5ML SDV (FOR ANES.) As Ordered ONE (18:55)
[2020-10-03] MEDS ORDERED: ONDANSETRON 4MG/2ML VIAL As Ordered ONE (18:55)
[2020-10-03] MEDS ORDERED: MIDAZOLAM INJ 2MG/2ML VIAL (J2250 PER 1MG) As Ordered ONE (18:55)
[2020-10-03] MEDS ORDERED: propofoL 200 MG/20 ML VIAL As Ordered ONE (18:55)
[2020-10-03] MEDS ORDERED: ROCURONIUM BROMIDE 50 MG/5 ML VIAL As Ordered ONE ×2 (19:18→19:46)
[2020-10-03] MEDS ORDERED: ESMOLOL INJ 100MG/10ML VIAL As Ordered ONE (19:27)
[2020-10-03] MEDS ORDERED: VASOPRESSIN INJ 20 UNITS/ML VIAL As Ordered ONE (19:40)
[2020-10-03] MEDS ORDERED: ZOSYN 3.375GM VIAL (J2543) As Ordered ONE (20:09)
[2020-10-03] MEDS ORDERED: SUGAMMADEX SODIUM 500 MG/5 ML VIAL (BRIDION) As Ordered ONE (20:22)
[2020-10-03] MEDS ORDERED: ACETAMINOPHEN 1000MG 100ML IV BTL (OFIRMEV) (J0131 PER 10MG) As Ordered ONE (20:35)
[2020-10-03] MEDS ORDERED: IPRATROPIUM 0.5MG/ALBUTEROL 2.5MG INH SOL UD 3ML (DUONEB) NEB PRN (22:15)
[2020-10-03] MEDS ORDERED: MORPHINE 2 MG/ML 1ML VIAL (J2270) IV PRN ×2 (22:15→22:35)
[2020-10-03] MEDS: fentaNYL 100 MCG/2 ML INJECTION (J3010) IV PRN ×4 (22:34→22:53)
[2020-10-03] MEDS ORDERED: ONDANSETRON 4MG/2ML VIAL IV PRN (22:35)
[2020-10-03] MEDS ORDERED: METOCLOPRAMIDE INJ 10MG/2ML VIAL (J2765 PER 1) IV PRN (22:35)
[2020-10-03] MEDS ORDERED: LR 1,000 ML IV SCH (22:35)
[2020-10-04] VITALS (10 sets, daily range): BP systolic 109–122; BP diastolic 59–68
[2020-10-04] MEDS: PIPERACILLIN/TAZOBACTAM SOD 3.375 GM in D5W MINI-BAG PLUS 50 ML IV SCH ×4 (00:27→17:12)
[2020-10-04] MEDS: KETOROLAC 30 MG/ML 1ML VIAL IV SCH ×4 (00:27→17:12)
[2020-10-04] MEDS: ACETAMINOPHEN 500 MG TAB PO SCH ×3 (01:49→17:12)
[2020-10-04 02:51] LABS: CK-MB VALUE MASS 1.4 NG/ML (<3.6); MB/CK RELATIVE INDEX 1.35 (< OR =4); TROPONIN I 0.15 NG/ML (< 0.10)
[2020-10-04] MEDS ORDERED: ASPIRIN 300 MG SUPP PR ONE (03:00)
--- NOTE | 2020-10-04 03:12 | CR.PDOC ---
General Date of Consultation: Oct 04, 2020 Referring Provider: Denys Murphy Jr Primary Care Physician: RAVIN MORALES MD Attending Physician: MIKE WEAVER DO Consultation REASON FOR CONSULTATION/CHIEF COMPLAINT: Assistance with medical management HISTORY OF PRESENT ILLNESS: Mrs. Monzon is a 64-year-old female with a history of multiple sclerosis who presented to the ER originally with complaints of 3-4 days of worsening abdominal pain, nausea, vomiting. CT scan showed a large bowel obstruction with a likely transition in the left lower quadrant related to post surgical scarring and adhesions. She was admitted by Dr. Murphy and was taken to the OR where she underwent colonoscopic decompression of the large bowel obstruction and partial colectomy with ostomy. Postoperatively, she had no obvious complications. We're asked to assist with medical management. Called by the RN this evening with the patient complaining some central chest pain which radiated to the left shoulder. The patient is a very poor historian and admits to difficulty with memory. There is no family at bedside. Details of history are obtained from the patient as well as a thorough review of the medical record. ALLERGIES: Please see below. HOME MEDICATIONS: Please see below. PAST MEDICAL HISTORY: 1. Multiple sclerosis. 2. Hyperlipidemia. 3. Sigmoid volvulus status post resection. 4. Seizure 5. Gout PAST SURGICAL HISTORY: 1. Tubal ligation. 2. Knee surgery. 3. Colonoscopy. 4. Sigmoid resection with ileostomy. 5. Reversal of diverting ileostomy with dilation of colorectal anastomosis. FAMILY HISTORY: Patient's mother in her 80s, but the patient is not sure of her medical history. She knows that her father had a stroke. SOCIAL HISTORY: Patient states she quit smoking 2-3 years ago. She denies any alcohol or illegal drugs. She lives with her and daughter. REVIEW OF SYSTEMS: Complete 10 point review of systems is negative except as noted above PHYSICAL EXAMINATION: Patient is seen in her hospital room lying in bed. She is oriented to person and place. She is a little bit slow to answer and is confused as to some of the details medical history. HEENT is unremarkable. Without adenopathy. Lungs clear to auscultation. Heart regular rate and rhythm without murmur. No tenderness with palpation of the chest. Surgical dressing is in place at the mid abdomen with a small amount of dried blood noted. Ostomy on the right is viable with liquid output. Patient is moving all extremities and strength is equal bilaterally. Skin is warm and dry with no obvious rash or lesion. Psych: She is very pleasant. ASSESSMENT/PLAN: 1. Bowel obstruction status post partial colectomy with ostomy. Plan per surgery. 2. Chest pain with no known history of coronary artery disease. Initial troponin 0.15. Will give patient aspirin rectally. Monitor serial troponins. Will check echocardiogram. Will consult cardiology if needed. 3. Seizure. Patient unable to take by mouth at this time. Will continue on Keppra until she can tolerate by mouth and resume carbamazepine. Seizure precautions. 4. Multiple sclerosis. Continue supportive care. 5. Leukocytosis, reactive. Recheck labs in the morning. 6. Transaminitis, status post partial colon resection with bowel obstruction, nausea and vomiting. Continue to monitor with daily labs. 7. DVT prophylaxis. Will resume anticoagulation when okay with surgery. Thank you for allowing us to just the care of this very nice lady. We will continue to follow with you. Vital Signs/I&O Vital Signs Date Time Temp Pulse Resp B/P (MAP) Pulse Ox O2 Delivery O2 Flow Rate FiO2 10/04/20 01:40 100.4 103 19 110/63 (79) 91 Nasal Cannula 2.0 I&O- Last 24 Hours up to 6 AM 10/04/20 06:00 Intake Total 3700 ml Output Total 525 ml Balance 3175 ml Laboratory Data Labs 24H Laboratory Tests 2 10/03/20 14:38: Immature Granulocyte % (Auto) 0.7, Neutrophils (%) (Auto) 80.5H, Lymphocytes (%) (Auto) 5.9L, Monocytes (%) (Auto) 12.6H, Eosinophils (%) (Auto) 0.2, Basophils (%) (Auto) 0.1, Neutrophils # (Auto) 9.9H, Lymphocytes # (Auto) 0.7L, Monocytes # (Auto) 1.6H, Eosinophils # (Auto) 0.0, Basophils # (Auto) 0.0, Nucleated Red Blood Cells % (auto) 0.0, Anion Gap 5L, Glomerular Filtration Rate > 60.0, Lactic Acid Level 2.4*H, Calcium Level 8.9, Total Bilirubin 0.6, Direct Bilirubin 0.4H, Aspartate Amino Transf (AST/SGOT) 138H, Alanine Aminotransferase (ALT/SGPT) 229H, Alkaline Phosphatase 193H, Total Protein 8.2, Albumin 3.7, Albumin/Globulin Ratio 0.8L, Lipase 47L 10/03/20 16:45: Coronavirus (COVID-19)(PCR) NEGATIVE, Influenza Type A (RT-PCR) NEGATIVE, Influenza Type B (RT-PCR) NEGATIVE, Respiratory Syncytial Virus (PCR) NEGATIVE 10/03/20 18:08: Urine Color YELLOW, Urine Appearance HAZY, Urine pH 6.0, Urine Specific [place] 1.045, Urine Protein NEGATIVE, Urine Glucose (UA) NEGATIVE, Urine Ketones NEGATIVE, Urine Blood 1+H, Urine Nitrite NEGATIVE, Urine Bilirubin NEGATIVE, Urine Urobilinogen 0.2, Urine Leukocyte Esterase TRACEH, Urine WBC (Auto) 7H, Urine RBC (Auto) 13H, Urine Hyaline Casts (Auto) 1, Urine Bacteria (Auto) 1+H, Urine Squamous Epithelial Cells 0, Urine Mucus (Auto) SMALL, Urine Sperm (Auto) 10/04/20 02:11: Total Creatine Kinase 104, Creatine Kinase MB 1.4, Creatine Kinase MB Relative Index 1.35, Troponin I 0.15H CBC/BMP Laboratory Tests 10/03/20 14:38 Microbiology Microbiology 10/03/20 Urine Culture, Received Pending Allergies Coded Allergies: No Known Allergies (Verified , 09/02/18) Home Medications Scheduled Atorvastatin Calcium (Atorvastatin Calcium) 20 Mg Tablet, 20 MG PO QHS, #30 Carbamazepine (Carbamazepine) 200 Mg Tablet, 300 MG PO DAILY, #45 Carbamazepine (Carbamazepine) 200 Mg Tablet, 100 MG PO QHS, #15 Fluoxetine Hcl (Fluoxetine HCl) 20 Mg Cap, 60 MG PO DAILY, (Reported) Furosemide (Furosemide) 20 Mg Tab, 20 MG PO DAILY, (Reported) Glatiramer Acetate (Copaxone) 40 Mg/Ml Inj, 40 MG SC 3XW, (Reported) MON/WED/FRI Magnesium Hydroxide (Milk of Magnesia) 400 Mg/5 Ml Oral.susp, 30 ML PO BID for 30 Days, #30 Modafinil (Modafinil) 100 Mg Tab, 100 MG PO DAILY, (Reported) Modafinil (Modafinil) 100 Mg Tablet, 100 MG PO QAM, #30 Multivitamins (Thera M Plus Tablet) 1 Tab Tab, 1 TAB PO DAILY, (Reported) Omeprazole (Omeprazole) 40 Mg Capsule.dr, 40 MG PO DAILY, (Reported) Oxybutynin Chloride (Oxybutynin Chloride) 5 Mg Tab, 5 MG PO BID, (Reported) Potassium Chloride (Klor-Con M10) 10 Meq Tab.er.prt, 20 MEQ PO DAILY, #60 Quetiapine Fumarate (Quetiapine Fumarate) 50 Mg Tablet, 150 MG PO QHS, #90 Sennosides/Docusate Sodium (Senna Plus Tablet) 1 Each Tablet, 1 TAB PO BID for 30 Days, #60 Sennosides/Docusate Sodium (Senna Plus Tablet) 1 Each Tablet, 1 TAB PO BID, #60 Scheduled PRN Acetaminophen (Acetaminophen) 325 Mg Tab, 650 MG PO Q4H PRN for PAIN, (Reported) Magnesium Citrate (Citrate of Magnesia) 296 Ml Solution, 150 ML PO 3XWP PRN for constipation, #12 TAVON HICKEY Oct 04, 2020 03:12
[2020-10-04] MEDS: LR 1,000 ML IV SCH ×3 (04:16→16:09)
[2020-10-04] MEDS: levETIRAcetam INJection 500 MG in D5W MINI-BAG PLUS 100 ML IV SCH ×2 (05:09→16:09)
[2020-10-04 06:26] LABS: TROPONIN I 0.12 NG/ML (< 0.10)
[2020-10-04 08:52] LABS: BASO % 0.2 % (0.0-1.0); EOS % 0.1 % (0.0-3.0); HEMATOCRIT 32.4 % (36.0-47.0); HEMOGLOBIN 10.3 g/dl (12.0-15.5); LYMPH # 0.9 10^3/uL (1.5-5.0); LYMPH % 10.8 % (24.0-44.0); MEAN CORPUSCULAR HGB CONC 31.8 g/dl (32.0-36.5); MONO # 0.9 10^3/uL (0.0-0.8); MONO % 10.5 % (2.0-8.0); NEUTROPHILS # 6.5 10^3/uL (1.5-8.5); NEUTROPHILS % 78.2 % (36.0-66.0); PLATELET COUNT, AUTOMATED 204 10^3/uL (150-450); RED BLOOD COUNT 3.81 10^6/uL (4.00-5.40); WHITE BLOOD COUNT 8.4 10^3/uL (4.0-10.0)
[2020-10-04 09:00] LABS: ALBUMIN 2.4 GM/DL (3.2-5.2); ALT/SGPT 121 U/L (12-78); BILIRUBIN,TOTAL 0.6 MG/DL (0.2-1.0); BLOOD UREA NITROGEN 9 MG/DL (7-18); CALCIUM LEVEL 7.9 MG/DL (8.8-10.2); CARBON DIOXIDE LEVEL 28 MEQ/L (21-32); CHLORIDE LEVEL 103 MEQ/L (98-107); CREATININE FOR GFR 0.59 MG/DL (0.55-1.30); GLOMERULAR FILTRATION RATE > 60.0 (>45); GLUCOSE, FASTING 108 MG/DL (70-100); POTASSIUM SERUM 3.6 MEQ/L (3.5-5.1); SODIUM LEVEL 136 MEQ/L (136-145); TOTAL PROTEIN 5.5 GM/DL (6.4-8.2)
[2020-10-04] MEDS: PANTOPRAZOLE 40MG VIAL (C9113 PER 1) IV SCH (09:55)
[2020-10-04] MEDS ORDERED: TEGR1TAB PO (11:02)
[2020-10-04] MEDS ORDERED: ATOR1TAB21 PO (11:02)
[2020-10-04] MEDS ORDERED: MELA10CA6 PO (11:12)
[2020-10-04] MEDS ORDERED: MAGN400C PO (11:12)
[2020-10-04] MEDS ORDERED: DOCU100C16 PO (11:12)
[2020-10-04] MEDS ORDERED: TECF240C PO (11:12)
[2020-10-04] MEDS ORDERED: GABA-282 PO (11:12)
[2020-10-04] MEDS ORDERED: ASPI-161 PO (11:13)
[2020-10-04] MEDS ORDERED: CARB1CAP3 PO (11:43)
--- NOTE | 2020-10-04 13:39 | IPNPDOC ---
Text Note Date of Service The patient was seen on 10/04/20. NOTE General surgery. Dr. Murphy The patient is a 64-year-old female admitted with large bowel obstruction, postsurgical scarring and adhesions status post colonic decompression, sigmoid colectomy, colostomy 10/03/[address] Murphy. The pt is resting in bed this morning, pain is reasonably controlled. Tmax 100.8 Heart rate 88, respiratory rate 19, blood pressure 110/59, 95% 2 L nasal cannula. Sleeping comfortably, arouses easily to voice Respirations easy, no wheezing S1-S2 regular rate rhythm Abdomen with surgical sites clean and dry, small amount of shadowing noted on the lower portion of the dressing on the midline incision. Ostomy with scant amount of bloody drainage. WBC 8.4, hemoglobin 10.3, platelets 204 LFTs downtrending Assessment/plan Status post colonic decompression, sigmoid colectomy, colostomy 10/03/[address] Murphy. The patient is reviewed and examined as per Dr. Murphy this morning. Continue n.p.o. LR 125 ml/hr Scheduled Toradol 15 mg IV every 6 IV Zosyn Continue to monitor VS,Fishbone, I+O VS, Fishbone, I+O Laboratory Tests 10/03/20 14:38 10/04/20 05:33 10/04/20 05:37 Vital Signs Date Time Temp Pulse Resp B/P (MAP) Pulse Ox O2 Delivery O2 Flow Rate FiO2 10/04/20 10:00 100.9 93 18 110/61 (77) 95 Nasal Cannula 2.0 I&O- Last 24 Hours up to 6 AM 10/04/20 06:00 Intake Total 3700 ml Output Total 825 ml Balance 2875 ml Kely Morgan Oct 04, 2020 13:39
[2020-10-04] MEDS: ONDANSETRON 4MG/2ML VIAL IV PRN (17:12)
--- NOTE | 2020-10-04 17:28 | HPE ---
HISTORY AND PHYSICAL DATE OF ADMISSION: 10/03/2020 CHIEF COMPLAINT: Large bowel obstruction. BRIEF HISTORY OF PRESENT ILLNESS: The patient is a 64-year-old female who has had a sigmoid volvulus, under sigmoid colectomy with colonic anastomosis and then had a diverting ileostomy. She had this reversed and was reportedly doing well until three days prior to admission where she developed progressive abdominal distention, pain and discomfort. She had questionable areas of stricture near the prior anastomosis and underwent balloon dilatation of this previously. In any case, she presents with large bowel obstruction, ending at the level of the anastomotic area. She has pain all across the abdomen without fevers, without chills and it is constant pain. PAST MEDICAL HISTORY: 1. History of tubal ligation. 2. History of knee surgery. 3. History of colonoscopy. 4. History of sigmoid resection with ileostomy. 5. History of diverting ileostomy. 6. History of multiple sclerosis. 7. History of hyperlipidemia. 8. Sigmoid volvulus, status post resection. 9. Seizures. 10. Gout. 11. Hypercholesterolemia. 12. GE reflux. 13. Chronic constipation. MEDICATIONS: 1. Atorvastatin. 2. Carbamazepine. 3. Fluoxetine. 4. Copaxone. 5. Milk of Magnesia. 6. Modafinil. 7. Multivitamins. 8. Omeprazole. 9. Oxybutynin. 10. Potassium. 11. Quetiapine fumarate. 12. Senna Plus. PHYSICAL EXAMINATION: GENERAL: Reveals a [id number] who looks much older than stated age. HEENT: Unremarkable. NECK: Supple without adenopathy. LUNGS: Clear to auscultation. HEART: Regular. ABDOMEN: Distended, tympanitic, tender on the left-hand side in the left upper quadrant with guarding without significant rebound, however. EXTREMITIES: Warm and well perfused. IMPRESSION AND PLAN: The patient has a colonic obstruction and it may be from a volvulus although my concern at this point is possibly a sigmoid stricture. At this point, my concern is that we may need to proceed with a colectomy and a possible colostomy. However, I did feel that it is not unreasonable to proceed with a colonoscopy and see if we can decompress her. Most of this appears to be air and if we could remove some of the air, we might be able to provide some relief and then in some cases, may be able to proceed with a laparoscopic variety of colectomy for her but in any case at this point, my plan is for a colonoscopy. We will see what this provides for us. She also understands that if we are not able to provide adequate release, decompression with a colonoscopy, then we need to proceed with an exploratory lap with possible large bowel resection.
--- NOTE | 2020-10-04 17:48 | RO ---
OPERATIVE NOTE DATE OF OPERATION: 10/03/2020 PREOPERATIVE DIAGNOSIS: Large bowel obstruction. POSTOPERATIVE DIAGNOSIS: Large bowel obstruction with dusky large bowel proximal to the obstruction and decreased perfusion at the stricture. PROCEDURE: Colonoscopic decompression. SURGEON: Denys Murphy Jr., M.D. SURFACE GRINDER TENDER: None. ANESTHESIA: Sedation. ESTIMATED BLOOD LOSS: Minimal. BRIEF PROCEDURE SUMMARY: The gastroscope was actually used for proceeding with the colonoscopic decompression and it was inserted into the anus through the rectum. There was some minimal stool in this area and I was able to get through the rectum up through the rectosigmoid junction and up through the sigmoid colon where the anastomosis was performed and this was all narrowed in this area. There was somewhat dark bloody fluid here and the mucosa was quite pale in this area. I was able to slide through this area, but it was very narrowed and above this, I was able to get into a pocket of significant air that I was able to decompress, but the majority of the stool in this area was very particulate and was not able to be suctioned nor could I get past this area and could not extend up to the splenic flexure area. The colonoscope was gradually removed at this time after copiously irrigating and suctioning as much fluid as I could from this area and removed in its entirety with the above findings as previously dictated. My recommendation at this time given the persistence of the abdominal distention, the dusky appearing colon, and persistent narrowing is to proceed with an exploratory laparotomy with possible colonic resection and probably colostomy.
[2020-10-04] MEDS: IPRATROPIUM 0.5MG/ALBUTEROL 2.5MG INH SOL UD 3ML (DUONEB) NEB SCH (19:36)
[2020-10-04] MEDS: MORPHINE 2 MG/ML 1ML VIAL (J2270) IV PRN (22:14)
[2020-10-05] MEDS: PIPERACILLIN/TAZOBACTAM SOD 3.375 GM in D5W MINI-BAG PLUS 50 ML IV SCH ×3 (00:15→11:36)
[2020-10-05] MEDS: LR 1,000 ML IV SCH (00:15)
[2020-10-05] MEDS: KETOROLAC 30 MG/ML 1ML VIAL IV SCH ×4 (00:15→16:51)
[2020-10-05] MEDS: IPRATROPIUM 0.5MG/ALBUTEROL 2.5MG INH SOL UD 3ML (DUONEB) NEB SCH ×4 (02:00→19:59)
[2020-10-05] MEDS: ACETAMINOPHEN 500 MG TAB PO SCH ×4 (02:00→16:51)
[2020-10-05 03:09] VITALS: BP 127/67
[2020-10-05] MEDS: levETIRAcetam INJection 500 MG in D5W MINI-BAG PLUS 100 ML IV SCH (03:34)
[2020-10-05] MEDS: MORPHINE 2 MG/ML 1ML VIAL (J2270) IV PRN ×2 (04:08→21:52)
[2020-10-05 06:32] VITALS: BP 137/68
[2020-10-05] MEDS: PANTOPRAZOLE 40MG VIAL (C9113 PER 1) IV SCH (09:39)
[2020-10-05 10:00] VITALS: BP 134/69
[2020-10-05] MEDS: FUROSEMIDE 20 MG TAB PO SCH (11:37)
[2020-10-05] MEDS: GABAPENTIN 300 MG CAP PO SCH ×2 (11:37→21:51)
[2020-10-05] MEDS: MAGNESIUM OXIDE 400MG TAB (MAG-OX) PO SCH (11:37)
[2020-10-05] MEDS: carBAMazepine XR 100 MG TAB PO SCH ×2 (11:37→21:51)
[2020-10-05] MEDS: oxyBUTYnin 5 MG TAB PO SCH ×2 (11:37→21:51)
[2020-10-05] MEDS: ASPIRIN 81MG ENTERIC TABLET PO SCH (11:38)
[2020-10-05] MEDS: FLUoxetine 20 MG CAP PO SCH (11:38)
[2020-10-05] MEDS: MODAFINIL 100 MG TABLET PO SCH (11:38)
--- NOTE | 2020-10-05 12:08 | IPN ---
PROGRESS NOTE DATE: 10/05/2020 SUBJECTIVE: The patient overall seems to be feeling better, having less pain, is a little bit more mobile today. She overall has had some low-grade temperature but her white count was normal yesterday and she is overall feeling better. She is having some osteotomy output without nausea, without nausea. She has not had any fevers or chills. Her urine output has been good. She has had a fair bit of stool out of the ostomy itself. She is feeling less distended. IMPRESSION/PLAN: Patient is status post colectomy with colostomy and seems to be making some good progress and the ostomy. I do feel that we can go slowly with her diet and start her on some clear liquids, Hep-lock her IV, increase her activity and will get her Masterson out tomorrow morning. From the standpoint of continuing on with current treatment, I do feel that mostly it is going to be a rehabilitation activity issue and we need to get her mobilized a little bit more prior to discharge given her overall presentation and reports from the nursing staff, OT, I anticipate she will probably here the weekend to get adequately moving well and accustomed to her ostomy prior to discharge.
--- NOTE | 2020-10-05 12:54 | RO ---
OPERATIVE NOTE DATE OF OPERATION: / / PREOPERATIVE DIAGNOSIS: Colonic obstruction. 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 PROCEDURE: Transverse descending colon colectomy with end colostomy. SURGEON: Denys Murphy Jr., MD MEDICAL AFFAIRS MANAGER: ANESTHESIA: General endotracheal anesthesia. ESTIMATED BLOOD LOSS: Minimal. FLUIDS: Crystalloid. BRIEF PROCEDURE SUMMARY: The patient was brought to the operating room and was given general anesthesia. After adequate anesthesia and preoperative antibiotics were given, the patient was prepped and draped in the usual sterile fashion. Next, a midline incision was made with a skin knife. Blunt dissection was carried down to fascia and the patient had a midline hernia from the umbilicus inferiorly. I was able to get through this area and mobilize the small bowel out of this area as well as the large bowel. Eventually after mobilizing the incision along the midline and all the small bowel and large bowel that was partially scarred up to this area, I then delivered some large bowel and there was a large bowel volvulus in the splenic flexure area and this was reduced. However, this still appeared to be quite hemorrhagic and there were multiple adhesions of small bowel and some internal hernias appreciated and eventually there were adhesions all across the previous colonic anastomosis. Once I was able to mobilize all these small bowel adhesions, some of which needed to be repaired given some serosal tears with 3-0 Vicryl, I then was able to evaluate the colonic anastomosis and this appeared necrotic and ischemic and I felt that this was going to need resection as well as the bowel proximal to this was dilated and hemorrhagic and I felt that this was going to need resection up to at least the mid-transverse colon. Thus, I transected the colon proximally on the right side of the mid-transverse colon and took the mesentery with Blevins 60 staplers and eventually resected this colon all the way down to the colonic anastomosis. The colonic anastomosis was resected as well and the bowel in this area was resected using the DANNIE-75 stapler as well. The specimen was sent and at this time, the proximal colon was still dilated and I actually had a hard time taking this colon off midline with the transverse colon, would not reach out to that area. Thus, I resected more to this large bowel up to the hepatic flexure and brought this out through a transrectus muscle incision and brought up colostomy in this area. The abdomen was copiously irrigated and the midline then was closed with looped 0 PDS. Shahida were used to approximate the skin. The colostomy was fashioned using 3-0 Vicryl and an ostomy appliance was applied thereafter. Dry sterile dressing was applied. The patient was awakened, extubated and brought to the recovery room awake, alert, hemodynamically stable. Sponge and needle counts were correct x2.
[2020-10-05 14:00] VITALS: BP 140/81
[2020-10-05] MEDS: cefTRIAXone SOD 1 GM in D5W MINI-BAG PLUS 50 ML IV SCH (16:50)
--- NOTE | 2020-10-05 17:51 | ECGEPIP ---
[facility] - ED Test Date: 2020-10-04 Pat Name: CHARITY ALLEN Department: Room: [place] [address] Gender: Female Change Management Expert: MIRNA : 1955 Requested By: [place] Order Number: [id number] Reading MD: Elo Park Measurements Intervals [place] Rate: 98 P: 58 SC: 166 QRS: 39 QRSD: 86 T: 43 QT: 356 QTc: 454 Interpretive Statements Normal sinus rhythm NSTTW abnormalities decreased rate 04/29/18 Electronically Signed on 10-05-2020 17:51:40 EDT by Elo Park
--- NOTE | 2020-10-05 19:24 | ECHO ---
ECHOCARDIOGRAM DATE OF PROCEDURE: 10/04/2020 Age: 64 Gender: Female Height: 68 inches Weight: 216 pounds Body surface area: 2.11 m2 PATIENT LOCATION: Inpatient [address] [place] [address], Room 5136. REFERRING PHYSICIAN: Kendra Roberto NP. INDICATION: Chest pain. MEASUREMENTS: 2D Measurements: RV 4.0 cm LV 4.3 cm Septum 1.1 cm Posterior wall 1.1 cm Aortic Root 3.9 cm LA 3.6 cm LVEF 75 % Doppler Measurements: AV 1.82 m/s LVOT 1.08 m/s LVOT diameter 2.0 cm Mean AV systolic gradient 7 mmHg MV-E 83, A 91, E/A ratio 0.9 Early mitral deceleration time 198 msec E prime medial __, A prime medial 13, E prime lateral 11 Average E/E prime ratio 8.3/PCWP 12.2 mmHg PV 0.95 m/s Pulmonary artery acceleration time 98 msec RVSP 45 mmHg IVC 2.3 cm COMMENTS: Normal sinus rhythm without intraventricular conduction disturbance. Technically challenging study in light of the patient's body habitus, but diagnostically useful information was still obtained. M-mode and two-dimensional echocardiography was performed with pulse, continuous wave, color flow, and tissue Doppler studies. Normal LV size with LV wall thickness upper limits of normal. Wall motion was symmetrical and hyperkinetic. Left atrial size upper limits of normal with grade 1 LV diastolic dysfunction, but currently normal estimated mean left atrial pressure. Slightly dilated right heart chambers with normal wall motion and Doppler evidence of at least moderate pulmonary hypertension. Mildly dilated inferior vena cava with adequate respiratory collapse in keeping with central venous pressure upper limits of normal. Aortic root diameter upper limits of normal. Moderate aortic valvular sclerosis without stenosis and only very mild insufficiency. Slight thickening of the mitral annulus, but adequate leaflet excursion and no posterior systolic buckling. No apparent insufficiency. Normal appearing tricuspid valve with mild insufficiency. No apparent intracardiac mass or pericardial effusion. MTDD
[2020-10-05 20:32] VITALS: BP 125/72
[2020-10-05] MEDS: ATORVASTATIN 20 MG TAB PO SCH (21:51)
[2020-10-05] MEDS: RAMELTEON 8 MG TAB (ROZEREM) PO PRN (21:51)
[2020-10-05] MEDS: ONDANSETRON 4MG/2ML VIAL IV PRN (23:09)
[2020-10-06] MEDS: KETOROLAC 30 MG/ML 1ML VIAL IV SCH ×5 (01:03→23:33)
[2020-10-06] MEDS: ACETAMINOPHEN 500 MG TAB PO SCH ×4 (01:04→17:32)
[2020-10-06 01:19] VITALS: BP 125/65
[2020-10-06] MEDS: IPRATROPIUM 0.5MG/ALBUTEROL 2.5MG INH SOL UD 3ML (DUONEB) NEB SCH ×4 (02:00→19:40)
[2020-10-06 05:47] VITALS: BP 126/68
--- NOTE | 2020-10-06 08:49 | IPNPDOC ---
Text Note Date of Service The patient was seen on 10/06/20. NOTE No acute events overnight. Pain is controlled. She has stool and air in the bag. She is tolerating clq diet without any nausea or emesis. VSSAF NAD abd - soft, TTP appropriate, dressings c/d/i labs - below A) 64y/o female s/p splenic flexure volvulus with end transverse colostomy. P) reg diet ambulate PT/OY PMNR eval ostomy teaching Juancho Flores DO VS,Fishbone, I+O VS, Fishbone, I+O Vital Signs Date Time Temp Pulse Resp B/P (MAP) Pulse Ox O2 Delivery O2 Flow Rate FiO2 10/06/20 05:47 98.6 82 20 126/68 (87) 94 Nasal Cannula 2.0 I&O- Last 24 Hours up to 6 AM 10/06/20 05:59 Intake Total 1770 ml Output Total 1950 ml Balance -180 ml DONATO FLORES DO Oct 06, 2020 08:49
[2020-10-06] MEDS: PANTOPRAZOLE 40MG VIAL (C9113 PER 1) IV SCH (09:36)
[2020-10-06] MEDS: carBAMazepine XR 100 MG TAB PO SCH ×2 (09:37→21:00)
[2020-10-06] MEDS: FUROSEMIDE 20 MG TAB PO SCH (09:41)
[2020-10-06] MEDS: FLUoxetine 20 MG CAP PO SCH (09:41)
[2020-10-06] MEDS: MAGNESIUM OXIDE 400MG TAB (MAG-OX) PO SCH (09:41)
[2020-10-06] MEDS: GABAPENTIN 300 MG CAP PO SCH ×2 (09:41→21:00)
[2020-10-06] MEDS: MODAFINIL 100 MG TABLET PO SCH (09:42)
[2020-10-06] MEDS: oxyBUTYnin 5 MG TAB PO SCH ×2 (09:42→21:00)
[2020-10-06] MEDS: ASPIRIN 81MG ENTERIC TABLET PO SCH (09:42)
[2020-10-06] MEDS: MORPHINE 2 MG/ML 1ML VIAL (J2270) IV PRN (10:05)
[2020-10-06] MEDS: ONDANSETRON 4MG/2ML VIAL IV PRN ×2 (12:31→19:53)
[2020-10-06 14:00] VITALS: BP 135/74
[2020-10-06] MEDS: MAALOX 30 ML SUSP *UDC PO PRN (15:43)
[2020-10-06] MEDS: cefTRIAXone SOD 1 GM in D5W MINI-BAG PLUS 50 ML IV SCH (15:44)
[2020-10-06] MEDS ORDERED: MIRALAX *UNIT DOSE* 17GM PACKET PO PRN (16:50)
[2020-10-06 18:00] VITALS: BP 167/93
[2020-10-06] MEDS: ATORVASTATIN 20 MG TAB PO SCH (21:00)
[2020-10-06 22:00] VITALS: BP 160/80
[2020-10-06] MEDS ORDERED: METOCLOPRAMIDE INJ 10MG/2ML VIAL (J2765 PER 1) IV ONE (23:25)
[2020-10-07] MEDS: ACETAMINOPHEN 500 MG TAB PO SCH ×3 (01:18→17:13)
[2020-10-07 02:00] VITALS: BP 152/86
[2020-10-07] MEDS: IPRATROPIUM 0.5MG/ALBUTEROL 2.5MG INH SOL UD 3ML (DUONEB) NEB SCH ×4 (02:00→20:00)
[2020-10-07] MEDS: ONDANSETRON 4MG/2ML VIAL IV PRN (02:39)
[2020-10-07] MEDS: KETOROLAC 30 MG/ML 1ML VIAL IV SCH ×3 (05:49→17:13)
[2020-10-07 06:00] VITALS: BP 167/87
[2020-10-07 06:22] LABS: HEMATOCRIT 35.6 % (36.0-47.0); HEMOGLOBIN 11.3 g/dl (12.0-15.5); MEAN CORPUSCULAR HEMOGLOBIN 27.1 pg (27.0-33.0); MEAN CORPUSCULAR HGB CONC 31.7 g/dl (32.0-36.5); MEAN CORPUSCULAR VOLUME 85.4 fl (80.0-96.0); PLATELET COUNT, AUTOMATED 317 10^3/uL (150-450); RED BLOOD COUNT 4.17 10^6/uL (4.00-5.40)
[2020-10-07 06:42] LABS: BLOOD UREA NITROGEN 10 MG/DL (7-18); CALCIUM LEVEL 8.5 MG/DL (8.8-10.2); CARBON DIOXIDE LEVEL 32 MEQ/L (21-32); CHLORIDE LEVEL 100 MEQ/L (98-107); CREATININE FOR GFR 0.45 MG/DL (0.55-1.30); GLOMERULAR FILTRATION RATE > 60.0 (>45); GLUCOSE, FASTING 112 MG/DL (70-100); POTASSIUM SERUM 3.6 MEQ/L (3.5-5.1); SODIUM LEVEL 137 MEQ/L (136-145)
--- NOTE | 2020-10-07 07:39 | IPNPDOC ---
Text Note Date of Service The patient was seen on 10/07/20. NOTE Overnight she had problems with nausea and emesis. Pain is controlled. She has stool and air in the bag this am. VSSAF NAD abd - soft, TTP appropriate, dressings c/d/i, slightly distended labs - below A) 64y/o female s/p splenic flexure volvulus with end transverse colostomy. P) clq diet ambulate PT/OT PMNR eval ostomy teaching Juancho Flores DO VS,Елена, I+O VS, Елена, I+O Laboratory Tests 10/07/20 05:37 Vital Signs Date Time Temp Pulse Resp B/P (MAP) Pulse Ox O2 Delivery O2 Flow Rate FiO2 10/07/20 06:00 97.6 106 20 167/87 (113) 96 Nasal Cannula 2.0 I&O- Last 24 Hours up to 6 AM 10/07/20 05:59 Intake Total 530 ml Output Total 1950 ml Balance -1420 ml DONATO FLORES DO Oct 07, 2020 07:39
[2020-10-07 10:00] VITALS: BP 155/84
[2020-10-07] MEDS: PANTOPRAZOLE 40MG VIAL (C9113 PER 1) IV SCH (10:28)
[2020-10-07] MEDS: ASPIRIN 81MG ENTERIC TABLET PO SCH (10:28)
[2020-10-07] MEDS: MAGNESIUM OXIDE 400MG TAB (MAG-OX) PO SCH (10:29)
[2020-10-07] MEDS: oxyBUTYnin 5 MG TAB PO SCH ×2 (10:29→20:25)
[2020-10-07] MEDS: GABAPENTIN 300 MG CAP PO SCH ×2 (10:29→20:25)
[2020-10-07] MEDS: FLUoxetine 20 MG CAP PO SCH (10:29)
[2020-10-07] MEDS: FUROSEMIDE 20 MG TAB PO SCH (10:29)
[2020-10-07] MEDS: MODAFINIL 100 MG TABLET PO SCH (10:30)
[2020-10-07] MEDS: carBAMazepine XR 100 MG TAB PO SCH ×2 (10:30→20:26)
--- NOTE | 2020-10-07 11:13 | IPN ---
PROGRESS NOTE DATE: 10/07/2020 SUBJECTIVE: Kg is seen on 5 Link. She is on the surgical service. Hospitalists were consulted. She looks like she is progressing after undergoing surgical intervention for a splenic flexure volvulus. Her medical problems appear to be multiple sclerosis, seizure disorder, and history of gout. She had an echocardiogram done and she has a normal ejection fraction. Her blood pressure has been mildly elevated intermittently. Does not have a outpatient history of hypertension. OBJECTIVE: VITAL SIGNS: Blood pressure 167/87, pulse 100, respiratory rate 20, 96% O2 saturation on 2 liters. GENERAL APPEARANCE: She is alert, conversant, and in no distress. LUNGS: Clear. HEART: Regular rhythm. ABDOMEN: Soft. She has gas and stool in her ostomy. EXTREMITIES: No peripheral edema. LABORATORY DATA: CBC unremarkable. Electrolytes unremarkable. Creatinine stable. IMPRESSION: 1. Elevated blood pressure probably situational. I would not start an antihypertensive at this point. 2. Hyperlipidemia. Continue atorvastatin 20 mg daily. 3. Escherichia coli (E. coli) urinary tract infection (UTI). She is on Rocephin for this day #2. I would recommend five days of antibiotic therapy. Call if there is any hospitalist involvement needed during her case.
[2020-10-07 14:00] VITALS: BP 154/97
[2020-10-07] MEDS: cefTRIAXone SOD 1 GM in D5W MINI-BAG PLUS 50 ML IV SCH (17:10)
[2020-10-07 18:00] VITALS: BP 145/86
[2020-10-07] MEDS: ATORVASTATIN 20 MG TAB PO SCH (20:25)
[2020-10-07] MEDS: RAMELTEON 8 MG TAB (ROZEREM) PO PRN (20:25)
[2020-10-07 22:00] VITALS: BP 134/68
[2020-10-08] MEDS: ACETAMINOPHEN 500 MG TAB PO SCH ×3 (01:10→18:34)
[2020-10-08] MEDS: KETOROLAC 30 MG/ML 1ML VIAL IV SCH ×5 (01:10→23:44)
[2020-10-08] MEDS: IPRATROPIUM 0.5MG/ALBUTEROL 2.5MG INH SOL UD 3ML (DUONEB) NEB SCH ×4 (02:00→20:00)
[2020-10-08 06:00] VITALS: BP 165/77
[2020-10-08 06:50] LABS: HEMATOCRIT 34.2 % (36.0-47.0); MEAN CORPUSCULAR HEMOGLOBIN 27.2 pg (27.0-33.0); MEAN CORPUSCULAR HGB CONC 32.2 g/dl (32.0-36.5); MEAN CORPUSCULAR VOLUME 84.7 fl (80.0-96.0); PLATELET COUNT, AUTOMATED 298 10^3/uL (150-450); RED BLOOD COUNT 4.04 10^6/uL (4.00-5.40)
[2020-10-08 07:21] LABS: BLOOD UREA NITROGEN 19 MG/DL (7-18); CALCIUM LEVEL 8.1 MG/DL (8.8-10.2); CARBON DIOXIDE LEVEL 36 MEQ/L (21-32); CHLORIDE LEVEL 97 MEQ/L (98-107); CREATININE FOR GFR 0.52 MG/DL (0.55-1.30); GLOMERULAR FILTRATION RATE > 60.0 (>45); GLUCOSE, FASTING 84 MG/DL (70-100); POTASSIUM SERUM 3.1 MEQ/L (3.5-5.1); SODIUM LEVEL 135 MEQ/L (136-145)
--- NOTE | 2020-10-08 08:36 | IPNPDOC ---
Text Note Date of Service The patient was seen on 10/08/20. NOTE She apparently had an NG placed yesterday. She does feel much better today, and pain is controlled. She has small stool and air in the bag this am. VSSAF NAD abd - soft, TTP appropriate, dressings c/d/i, less distended labs - below A) 64y/o female s/p splenic flexure volvulus with end transverse colostomy. P) sips and chips ambulate PT/OT PMNR eval ostomy teaching await return of bowel function laxative Juancho Flores DO VS,Fishbone, I+O VS, Fishbone, I+O Laboratory Tests 10/08/20 06:23 Vital Signs Date Time Temp Pulse Resp B/P (MAP) Pulse Ox O2 Delivery O2 Flow Rate FiO2 10/08/20 06:00 97.1 81 20 165/77 (106) 97 Nasal Cannula 2.0 I&O- Last 24 Hours up to 6 AM 10/08/20 05:59 Intake Total 550 ml Output Total 5700 ml Balance -5150 ml DONATO FLORES DO Oct 08, 2020 08:36
[2020-10-08] MEDS ORDERED: MAGNESIUM CITRATE 300 ML BTL PO ONE (08:45)
[2020-10-08] MEDS: KCL 40MEQ in NS 1000ML 1,000 ML IV SCH ×2 (09:35→19:54)
[2020-10-08] MEDS: GABAPENTIN 300 MG CAP PO SCH ×2 (09:36→22:50)
[2020-10-08] MEDS: carBAMazepine XR 100 MG TAB PO SCH ×2 (09:36→22:51)
[2020-10-08] MEDS: FLUoxetine 20 MG CAP PO SCH (09:37)
[2020-10-08] MEDS: FUROSEMIDE 20 MG TAB PO SCH (09:38)
[2020-10-08] MEDS: MAGNESIUM OXIDE 400MG TAB (MAG-OX) PO SCH (09:38)
[2020-10-08] MEDS: oxyBUTYnin 5 MG TAB PO SCH ×2 (09:38→22:50)
[2020-10-08] MEDS: MODAFINIL 100 MG TABLET PO SCH (09:39)
[2020-10-08] MEDS: PANTOPRAZOLE 40MG VIAL (C9113 PER 1) IV SCH (09:39)
[2020-10-08] MEDS: ASPIRIN 81MG ENTERIC TABLET PO SCH (09:39)
[2020-10-08 10:00] VITALS: BP 155/88
--- NOTE | 2020-10-08 10:26 | IPN ---
PROGRESS NOTE DATE: 10/08/2020 SUBJECTIVE: Kg is seen on 5 Link on the surgical service. Her blood pressure is mildly elevated. No chest pain and no shortness of breath. 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 OBJECTIVE: VITAL SIGNS: As listed. Blood pressure 134/68 last night and 165/77 this morning. GENERAL APPEARANCE: She is alert and conversant in no distress. HEENT: Nasogastric tube in place. LUNGS: Clear. HEART: Regular rate and rhythm. ABDOMEN: Soft and less distended than previously. Air and stool in the colostomy bag. LABORATORY DATA: CBC is unremarkable. CMP shows stable renal function. Potassium is down to 3.1. IMPRESSION/PLAN: 1. Elevated blood pressure. We are keeping an eye on this. At this point, I do not think she requires specific treatment. 2. Hypokalemia. It looks like potassium has been added to her intravenous (IV) fluids. 3. Escherichia coli (E. coli) urinary tract infection (UTI) on day #3 of five days of planned Rocephin. 4. Hyperlipidemia. Continue atorvastatin. Labs ordered for tomorrow.
[2020-10-08 14:00] VITALS: BP 162/92
[2020-10-08] MEDS: MAALOX 30 ML SUSP *UDC PO PRN (14:44)
[2020-10-08] MEDS: cefTRIAXone SOD 1 GM in D5W MINI-BAG PLUS 50 ML IV SCH (16:40)
[2020-10-08 18:00] VITALS: BP 147/79
[2020-10-08] MEDS: RAMELTEON 8 MG TAB (ROZEREM) PO PRN (20:31)
[2020-10-08 20:48] VITALS: BP 149/70
[2020-10-08] MEDS: ATORVASTATIN 20 MG TAB PO SCH (22:50)
[2020-10-09] MEDS: IPRATROPIUM 0.5MG/ALBUTEROL 2.5MG INH SOL UD 3ML (DUONEB) NEB SCH ×4 (01:04→20:00)
[2020-10-09] MEDS: ACETAMINOPHEN 500 MG TAB PO SCH ×3 (02:00→16:55)
[2020-10-09 06:00] VITALS: BP 143/80
[2020-10-09 06:23] LABS: HEMOGLOBIN 10.7 g/dl (12.0-15.5); MEAN CORPUSCULAR HGB CONC 31.5 g/dl (32.0-36.5); MEAN CORPUSCULAR VOLUME 85.9 fl (80.0-96.0); PLATELET COUNT, AUTOMATED 290 10^3/uL (150-450); RED BLOOD COUNT 3.96 10^6/uL (4.00-5.40); WHITE BLOOD COUNT 6.3 10^3/uL (4.0-10.0)
[2020-10-09 06:49] LABS: BLOOD UREA NITROGEN 18 MG/DL (7-18); CALCIUM LEVEL 8.3 MG/DL (8.8-10.2); CARBON DIOXIDE LEVEL 31 MEQ/L (21-32); CHLORIDE LEVEL 101 MEQ/L (98-107); CREATININE FOR GFR 0.43 MG/DL (0.55-1.30); GLOMERULAR FILTRATION RATE > 60.0 (>45); GLUCOSE, FASTING 62 MG/DL (70-100); POTASSIUM SERUM 3.8 MEQ/L (3.5-5.1); SODIUM LEVEL 139 MEQ/L (136-145)
[2020-10-09] MEDS: MAALOX 30 ML SUSP *UDC PO PRN ×2 (07:03→16:54)
[2020-10-09] MEDS: KCL 40MEQ in NS 1000ML 1,000 ML IV SCH ×2 (07:03→15:10)
[2020-10-09] MEDS: FLUoxetine 20 MG CAP PO SCH (08:26)
[2020-10-09] MEDS: ASPIRIN 81MG ENTERIC TABLET PO SCH (08:26)
[2020-10-09] MEDS: PANTOPRAZOLE 40MG VIAL (C9113 PER 1) IV SCH (08:26)
[2020-10-09] MEDS: GABAPENTIN 300 MG CAP PO SCH ×2 (08:26→21:29)
[2020-10-09] MEDS: MAGNESIUM OXIDE 400MG TAB (MAG-OX) PO SCH (08:26)
[2020-10-09] MEDS: MODAFINIL 100 MG TABLET PO SCH (08:26)
[2020-10-09] MEDS: carBAMazepine XR 100 MG TAB PO SCH ×2 (08:26→21:29)
[2020-10-09] MEDS: FUROSEMIDE 20 MG TAB PO SCH (08:27)
[2020-10-09] MEDS: oxyBUTYnin 5 MG TAB PO SCH ×2 (08:27→21:29)
--- NOTE | 2020-10-09 08:49 | IPNPDOC ---
Text Note Date of Service The patient was seen on 10/09/20. NOTE No acute events overnight. NG output is still high, but she claims to be drink ing a lot. She does feel much better today, and pain is controlled. She has more stool and air in the bag this am. No problems with any nausea or emesis. 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 P) clamp NG clq diet ambulate PT/OT PMNR eval ostomy teaching Juancho Flores DO VS,Fishbone, I+O VS, Fishbone, I+O Laboratory Tests 10/09/20 06:06 Vital Signs Date Time Temp Pulse Resp B/P (MAP) Pulse Ox O2 Delivery O2 Flow Rate FiO2 10/09/20 07:27 2.0 10/09/20 06:00 98.2 72 20 143/80 (101) 98 Nasal Cannula I&O- Last 24 Hours up to 6 AM 10/09/20 06:00 Intake Total 1270 ml Output Total 2600 ml Balance -1330 ml DONATO FLORES DO Oct 09, 2020 08:49
[2020-10-09 10:00] VITALS: BP 156/85
--- NOTE | 2020-10-09 11:39 | IPN ---
PROGRESS NOTE DATE: 10/09/2020 SUBJECTIVE: Kg is seen on 5 Link. She is on the hospitalist service. We are watching her medical issues. Her blood pressure is better today and seems to be coming down some. She still has the nasogastric tube in place. OBJECTIVE: VITAL SIGNS: Blood pressure 143/80, pulse 72. LUNGS: Clear. HEART: Regular rhythm. ABDOMEN: Soft and less distended. LABORATORY DATA: CBC and CMP are both stable. IMPRESSION AND PLAN: 1. Elevated blood pressure that seems to be coming down without antihypertensives. 2. Escherichia coli (E. coli) urinary tract infection (UTI) day four out of five planned days of Rocephin. 3. Hypokalemia improved with adding potassium to the IV fluids. Would recommend discontinuing the ceftriaxone after tomorrow's dose.
[2020-10-09 14:00] VITALS: BP 153/87
[2020-10-09] MEDS: cefTRIAXone SOD 1 GM in D5W MINI-BAG PLUS 50 ML IV SCH (15:10)
[2020-10-09 18:00] VITALS: BP 143/87
[2020-10-09 21:19] VITALS: BP 138/86
[2020-10-09] MEDS: ONDANSETRON 4MG/2ML VIAL IV PRN (21:28)
[2020-10-09] MEDS: ATORVASTATIN 20 MG TAB PO SCH (21:29)
[2020-10-10] VITALS (26 sets, daily range): BP systolic 81–129; BP diastolic 48–85
[2020-10-10] MEDS: IPRATROPIUM 0.5MG/ALBUTEROL 2.5MG INH SOL UD 3ML (DUONEB) NEB SCH ×3 (00:40→19:26)
[2020-10-10] MEDS: KCL 40MEQ in NS 1000ML 1,000 ML IV SCH (01:03)
[2020-10-10] MEDS: RAMELTEON 8 MG TAB (ROZEREM) PO PRN (01:58)
[2020-10-10] MEDS: ACETAMINOPHEN 500 MG TAB PO SCH ×3 (01:58→19:57)
[2020-10-10] MEDS: MORPHINE 2 MG/ML 1ML VIAL (J2270) IV PRN (02:51)
[2020-10-10 06:36] LABS: HEMATOCRIT 26.2 % (36.0-47.0); MEAN CORPUSCULAR HEMOGLOBIN 27.2 pg (27.0-33.0); MEAN CORPUSCULAR HGB CONC 31.3 g/dl (32.0-36.5); PLATELET COUNT, AUTOMATED 405 10^3/uL (150-450); RED BLOOD COUNT 3.01 10^6/uL (4.00-5.40); WHITE BLOOD COUNT 10.5 10^3/uL (4.0-10.0)
[2020-10-10 06:45] LABS: HEMOGLOBIN 8.2 g/dl (12.0-15.5)
[2020-10-10 06:46] LABS: BLOOD UREA NITROGEN 20 MG/DL (7-18); CALCIUM LEVEL 7.9 MG/DL (8.8-10.2); CARBON DIOXIDE LEVEL 29 MEQ/L (21-32); CHLORIDE LEVEL 103 MEQ/L (98-107); CREATININE FOR GFR 0.72 MG/DL (0.55-1.30); GLOMERULAR FILTRATION RATE > 60.0 (>45); GLUCOSE, FASTING 93 MG/DL (70-100); POTASSIUM SERUM 5.4 MEQ/L (3.5-5.1); SODIUM LEVEL 137 MEQ/L (136-145)
[2020-10-10] MEDS: D5W/0.45% SODIUM CHLORIDE 1,000 ML IV SCH ×3 (07:44→23:24)
[2020-10-10] MEDS: GABAPENTIN 300 MG CAP PO SCH ×2 (07:45→21:00)
[2020-10-10] MEDS: carBAMazepine XR 100 MG TAB PO SCH ×2 (07:45→20:15)
[2020-10-10] MEDS: PANTOPRAZOLE 40MG VIAL (C9113 PER 1) IV SCH ×2 (07:45→20:14)
[2020-10-10] MEDS: FLUoxetine 20 MG CAP PO SCH (07:45)
[2020-10-10] MEDS: ASPIRIN 81MG ENTERIC TABLET PO SCH (07:46)
[2020-10-10] MEDS: oxyBUTYnin 5 MG TAB PO SCH ×2 (07:46→20:14)
[2020-10-10] MEDS: MODAFINIL 100 MG TABLET PO SCH (07:46)
[2020-10-10] MEDS: MAGNESIUM OXIDE 400MG TAB (MAG-OX) PO SCH (07:46)
[2020-10-10] MEDS: FUROSEMIDE 20 MG TAB PO SCH (07:46)
--- NOTE | 2020-10-10 08:19 | IPN ---
PROGRESS NOTE DATE: 10/10/2020 SUBJECTIVE: Kg was seen urgently on 5 Link. She is passing melanotic stool into her ostomy back and systolic pressure is in the 90s. Her blood pressure has been trending high over the last few days so this was a significant change so she has also dropped her hemoglobin. She feels quite thirsty. She denies abdominal pain. OBJECTIVE: VITAL SIGNS: Blood pressure is 90/57, just rechecked, it was 93/50. Pulse was 116, respiratory rate is 19 and 98% on O2 saturation. GENERAL APPEARANCE: She looks a little pale. LUNGS: Clear. HEART: Regular rhythm. ABDOMEN: Soft, she has melanotic stool in the ostomy. EXTREMITIES: No peripheral edema. LABORATORY DATA: Sodium is 137, potassium is 5.4, BUN is 20, creatinine 0.7, glucose is 93, white count is 10.5, hemoglobin is 8.2, it was 10.7 yesterday, platelets 405,000. IMPRESSION: 1. Acute blood loss anemia secondary to presumed upper GI bleeding. She is already on IV Protonix. I gave her a bolus of saline. The case was discussed with Dr. Flores who is on the floor. May need upper endoscopy today, suspect upper GI bleed with the high BUN/creatinine ratio and the sudden rise of her potassium. 2. Hypotension. I have discontinued her furosemide. She is getting a saline bolus. Follow-up labs have been ordered. 3. E. coli UTI, this is day #5 of her Rocephin. I plan on discontinuing the Ceftriaxone today. 4. Hypokalemia. This is resolved. She is not hyperkalemic, probably from the presumed upper GI bleeding.
--- NOTE | 2020-10-10 08:39 | IPNPDOC ---
Text Note Date of Service The patient was seen on 10/10/20. NOTE No acute events overnight. NG output is still high, but she claims to be drink ing a lot. She did not tolerate the NG being clamped, and had to return to suction last night. She also is having melanotic stool overnight. 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 P) NG to LIS sips and chips ambulate PT/OT PMNR eval ostomy teaching CT abd and pelvis fluid bolus and switch IV fluids due to hyperkalemia Juancho Flores DO VS,Елена, I+O VSЕлена, I+O Laboratory Tests 10/10/20 06:10 Vital Signs Date Time Temp Pulse Resp B/P (MAP) Pulse Ox O2 Delivery O2 Flow Rate FiO2 10/10/20 06:40 97.6 116 19 90/57 (68) 98 Nasal Cannula 2.0 I&O- Last 24 Hours up to 6 AM 10/10/20 06:00 Intake Total 2170 ml Output Total 4250 ml Balance -2080 ml DONATO FLORES DO Oct 10, 2020 08:39
[2020-10-10] MEDS ORDERED: NS 500 ML IV ONE ×2 (09:00→10:10)
[2020-10-10] MEDS: GASTROGRAFIN SOLUTION 30ML PO SCH ×2 (09:40→10:14)
[2020-10-10 10:37] LABS: HEMATOCRIT 25.7 % (36.0-47.0); MEAN CORPUSCULAR HEMOGLOBIN 27.6 pg (27.0-33.0); MEAN CORPUSCULAR HGB CONC 31.1 g/dl (32.0-36.5); MEAN CORPUSCULAR VOLUME 88.6 fl (80.0-96.0); PLATELET COUNT, AUTOMATED 358 10^3/uL (150-450); WHITE BLOOD COUNT 13.4 10^3/uL (4.0-10.0)
--- NOTE | 2020-10-10 10:53 | IPN ---
PROGRESS NOTE DATE: 10/10/2020 SUBJECTIVE: Kg continues to be hypotensive. She has received two boluses of saline, her blood pressure is now 80/50 manually. She is appearing more drowsy but is arousable. I am transferring her to the Intensive Care Unit. I spoke with Dr. Flores, he has ordered a stat CBC and I think she needs urgent endoscopy. I am going to type and cross and transfuse her 2 units of packed red blood cells. Stat CT of the abdomen and pelvis has been ordered.
[2020-10-10] MEDS ORDERED: ISOVUE-370 76% 100ML VIAL As Ordered ONE (11:00)
--- NOTE | 2020-10-10 11:52 | REP ---
INDICATION: post-op melena COMPARISON: 10/03/2020. TECHNIQUE: CT Scan of the abdomen and pelvis was performed with intravenous administration of 100 cc of Isovue 370, and oral contrast. FINDINGS: Lung bases: There are stable bibasilar fibrotic changes. Liver: Normal Gallbladder: A subcentimeter gallstone is seen in the gallbladder.. Spleen: Normal. Adrenals: Normal. Pancreas: Normal. Kidneys: There is a probable subcentimeter cyst in the mid left kidney laterally. Small and large bowel: There are multiple mild to moderately dilated small bowel loops in the left abdomen which probably represents an ileus. There is no free air. A right abdominal ostomy is noted. There is thickening of the ostomy in the abdominal wall and there is a mild amount of surrounding air in fluid in the abdominal wall soft tissues. No other bowel wall thickening is seen.A catheter is seen in the esophagus and the distal tip is at the gastroesophageal junction. Free fluid: There is a tiny amount of free fluid in the left upper quadrant.. Abdominal aorta: No aneurysm or dissection. Adenopathy: None. Appendix: Not inflamed. Osseous structures: Unremarkable. Pelvis: No mass. There is small amount of air in the urinary bladder. Multiple skin maynor are seen in the midline of the abdomen and pelvis. IMPRESSION: Multiple mild to moderately dilated small bowel loops in left abdomen probably represents an ileus. No free air. Right abdominal ostomy demonstrates thickening in the abdominal wall with a small amount of adjacent air and fluid in the surrounding soft tissues. Remaining bowel loops demonstrate no thickening or inflammation. Tiny amount of free fluid in the left upper quadrant. A catheter is seen in the esophagus and the distal tip is at the gastroesophageal junction. <Electronically signed by Diallo Paula > 10/10/20 1145
[2020-10-10] MEDS: OCTREOTIDE ACETATE 100MCG/ML VIAL (J2354 PER 25MCG) SC SCH ×2 (14:13→22:12)
[2020-10-10 16:17] LABS: HEMATOCRIT 29.2 % (36.0-47.0); HEMOGLOBIN 9.4 g/dl (12.0-15.5); MEAN CORPUSCULAR HEMOGLOBIN 28.7 pg (27.0-33.0); MEAN CORPUSCULAR HGB CONC 32.2 g/dl (32.0-36.5); PLATELET COUNT, AUTOMATED 307 10^3/uL (150-450); RED BLOOD COUNT 3.28 10^6/uL (4.00-5.40); WHITE BLOOD COUNT 10.8 10^3/uL (4.0-10.0)
[2020-10-10 18:19] LABS: HEMATOCRIT 27.6 % (36.0-47.0); HEMOGLOBIN 9.1 g/dl (12.0-15.5); MEAN CORPUSCULAR HEMOGLOBIN 29.1 pg (27.0-33.0); MEAN CORPUSCULAR VOLUME 88.2 fl (80.0-96.0); PLATELET COUNT, AUTOMATED 331 10^3/uL (150-450); RED BLOOD COUNT 3.13 10^6/uL (4.00-5.40)
[2020-10-10] MEDS: ATORVASTATIN 20 MG TAB PO SCH (20:15)
[2020-10-11] VITALS (35 sets, daily range): BP systolic 73–137; BP diastolic 41–64
[2020-10-11 00:13] LABS: HEMATOCRIT 21.7 % (36.0-47.0); HEMOGLOBIN 7.2 g/dl (12.0-15.5); MEAN CORPUSCULAR HEMOGLOBIN 29.1 pg (27.0-33.0); MEAN CORPUSCULAR HGB CONC 33.2 g/dl (32.0-36.5); MEAN CORPUSCULAR VOLUME 87.9 fl (80.0-96.0); PLATELET COUNT, AUTOMATED 321 10^3/uL (150-450); RED BLOOD COUNT 2.47 10^6/uL (4.00-5.40); WHITE BLOOD COUNT 12.1 10^3/uL (4.0-10.0)
[2020-10-11] MEDS ORDERED: NS 500 ML IV ONE (00:20)
[2020-10-11] MEDS: ACETAMINOPHEN 500 MG TAB PO SCH ×3 (02:00→18:00)
[2020-10-11] MEDS: IPRATROPIUM 0.5MG/ALBUTEROL 2.5MG INH SOL UD 3ML (DUONEB) NEB SCH ×4 (02:31→19:20)
[2020-10-11] MEDS: OCTREOTIDE ACETATE 100MCG/ML VIAL (J2354 PER 25MCG) SC SCH ×3 (06:02→21:10)
[2020-10-11] MEDS ORDERED: fentaNYL 100 MCG/2 ML INJECTION (J3010) As Ordered ONE (07:34)
[2020-10-11] MEDS ORDERED: propofoL 200 MG/20 ML VIAL As Ordered ONE (07:34)
[2020-10-11] MEDS ORDERED: LIDOCAINE 2% 100MG/5ML SDV (FOR ANES.) As Ordered ONE (07:34)
--- NOTE | 2020-10-11 07:42 | IPNPDOC ---
Text Note Date of Service The patient was seen on 10/11/20. NOTE Overnight she has started to bleed again. Blood pressure has dropped, and hgb has dropped. To OR for emergent EGD this am. consent is signed no changes to H+P. Juancho Flores DO VS,Елена, I+O VS, Елена, I+O Laboratory Tests 10/10/20 10:27 10/10/20 15:53 10/10/20 17:56 10/10/20 23:36 Vital Signs Date Time Temp Pulse Resp B/P (MAP) Pulse Ox O2 Delivery O2 Flow Rate FiO2 10/11/20 06:37 98.2 84 16 108/53 99 Nasal Cannula 1.0 I&O- Last 24 Hours up to 6 AM 10/11/20 06:00 Intake Total 6715 ml Output Total 2600 ml Balance 4115 ml DONATO FLORES DO Oct 11, 2020 07:42
--- NOTE | 2020-10-11 08:18 | ROOR ---
Patient Name: Kg Monzon Procedure Date: 10/11/2020 7:34 AM Date of : 1955 Age: 65 Room: [facility] Gender: Female Note Status: Finalized Procedure: Upper GI endoscopy Indications: Melena Providers: DO Judy Whitten MD: 2. Inpatient 2. Inpatient Requesting Provider: Medicines: Propofol per Anesthesia Complications: No immediate complications. Procedure: Pre-Anesthesia Assessment: - Prior to the procedure, a History and Physical was performed, and patient medications and allergies were reviewed. The patient is competent. The risks and benefits of the procedure and the sedation options and risks were discussed with the patient. All questions were answered and informed consent was obtained. Patient identification and proposed procedure were verified by the physician, the nurse, the workforce development program director and the scale technician in the endoscopy suite. Mental Status Examination: alert and oriented. Airway Examination: normal oropharyngeal airway and neck mobility. Respiratory Examination: clear to auscultation. CV Examination: normal. Prophylactic Antibiotics: The patient does not require prophylactic antibiotics. Prior Anticoagulants: The patient has taken no previous anticoagulant or antiplatelet agents. ASA Grade Assessment: IV - A patient with severe systemic disease that is a constant threat to life. After reviewing the risks and benefits, the patient was deemed in satisfactory condition to undergo the procedure. The anesthesia plan was to use monitored anesthesia care (MAC). Immediately prior to administration of medications, the patient was re-assessed for adequacy to receive sedatives. The heart rate, respiratory rate, oxygen saturations, blood pressure, adequacy of pulmonary ventilation, and response to care were monitored throughout the procedure. The physical status of the patient was re-assessed after the procedure. The Endoscope was introduced through the mouth, and advanced to the third part of duodenum. The upper GI endoscopy was accomplished without difficulty. The patient tolerated the procedure well. Findings: Hematin (altered blood/cdiuyd-phkbib-rral material) was found in the entire examined stomach. Diffuse severe inflammation characterized by congestion (edema), erosions and friability was found in the prepyloric region of the stomach. Impression: - Hematin (altered blood/smmicy-qfppev-synn material) in the entire stomach. - Gastritis. - No specimens collected. Recommendation: - Return patient to hospital cui for ongoing care. Procedure Code(s): --- Professional --- 79997, Esophagogastroduodenoscopy, flexible, transoral; diagnostic, including collection of specimen(s) by brushing or washing, when performed (separate procedure) Diagnosis Code(s): --- Professional --- K92.2, Gastrointestinal hemorrhage, unspecified K29.70, Gastritis, unspecified, without bleeding K92.1, Melena (includes Hematochezia) CPT copyright 2019 [employer]. All rights reserved. The codes documented in this report are preliminary and upon fringe maker review may be revised to meet current compliance requirements. Diallo Flores DO 10/11/2020 8:18:08 AM Electronically signed by Diallo Flores DO Number of Addenda: 0 Note Initiated On: 10/11/2020 7:34 AM Estimated Blood Loss: Estimated blood loss: none.
[2020-10-11] MEDS: FLUoxetine 20 MG CAP PO SCH (09:00)
[2020-10-11] MEDS: carBAMazepine XR 100 MG TAB PO SCH ×2 (09:00→20:29)
[2020-10-11] MEDS: GABAPENTIN 300 MG CAP PO SCH ×2 (09:00→20:29)
[2020-10-11] MEDS: oxyBUTYnin 5 MG TAB PO SCH ×2 (09:00→20:29)
[2020-10-11] MEDS: MAGNESIUM OXIDE 400MG TAB (MAG-OX) PO SCH (09:00)
[2020-10-11] MEDS: MODAFINIL 100 MG TABLET PO SCH (09:00)
[2020-10-11] MEDS: D5W/0.45% SODIUM CHLORIDE 1,000 ML IV SCH ×3 (09:12→23:34)
[2020-10-11] MEDS: SUCRALFATE SUSP 1GM/10ML UD PO SCH ×4 (09:12→23:34)
[2020-10-11] MEDS: PANTOPRAZOLE 40MG VIAL (C9113 PER 1) IV SCH ×2 (09:12→20:29)
[2020-10-11 09:56] LABS: VENOUS BASE EXCESS -2.3 (-2.0-2.0); VENOUS HCO3 24.5 MEQ/L (23.0-27.0); VENOUS O2 SATURATION 62.3 % (60.0-80.0); VENOUS PARTIAL PRESSURE CO2 50.9 mmHg (38.0-50.0); VENOUS PARTIAL PRESSURE O2 31.5 mmHg (30.0-50.0); VENOUS PH 7.301 UNITS (7.330-7.430); VENOUS STANDARD HCO3 21.8 MEQ/L; VENOUS TOTAL CO2 26.1 MEQ/L (24.0-28.0)
[2020-10-11 10:05] LABS: HEMATOCRIT 35.9 % (36.0-47.0); HEMOGLOBIN 12.1 g/dl (12.0-15.5); MEAN CORPUSCULAR HGB CONC 33.7 g/dl (32.0-36.5); MEAN CORPUSCULAR VOLUME 88.9 fl (80.0-96.0); PLATELET COUNT, AUTOMATED 192 10^3/uL (150-450); RED BLOOD COUNT 4.04 10^6/uL (4.00-5.40); WHITE BLOOD COUNT 11.9 10^3/uL (4.0-10.0)
[2020-10-11 10:17] LABS: INR 4.42; PROTHROMBIN TIME 43.2 SECONDS (12.5-14.3)
[2020-10-11 10:18] LABS: PARTIAL THROMBOPLASTIN TIME 50.5 SECONDS (24.2-38.5)
[2020-10-11 10:26] LABS: BLOOD UREA NITROGEN 25 MG/DL (7-18); CALCIUM LEVEL 6.9 MG/DL (8.8-10.2); CARBON DIOXIDE LEVEL 25 MEQ/L (21-32); CHLORIDE LEVEL 103 MEQ/L (98-107); CREATININE FOR GFR 0.69 MG/DL (0.55-1.30); GLOMERULAR FILTRATION RATE > 60.0 (>45); GLUCOSE, FASTING 155 MG/DL (70-100); SODIUM LEVEL 133 MEQ/L (136-145)
--- NOTE | 2020-10-11 11:07 | IPN ---
PROGRESS NOTE DATE: 10/11/2020 SUBJECTIVE: Kg underwent EGD this morning and as expected, she does have an upper GI bleed. She ended up needing more blood overnight and she has received a total of six units since yesterday. I do not see her morning CBC back yet. She is lethargic. I am worried about hepatic encephalopathy with the large amount of blood digested. OBJECTIVE: VITAL SIGNS: Blood pressure 136/64, pulse 85, afebrile, 91% O2 saturation on room air. GENERAL APPEARANCE: She is lethargic and slow to arouse. She is, however, status post EGD just recently. I could not test for asterixis. LUNGS: Clear. HEART: Regular rate and rhythm. ABDOMEN: Soft and nondistended. EXTREMITIES: No peripheral edema. LABORATORY DATA: Last hemoglobin was 7.2. Troponin is negative. Morning labs are pending. IMPRESSION/PLAN: 1. Upper gastrointestinal (GI) bleed with acute blood loss anemia. She is on intravenous (IV) Protonix and p.o. Carafate. Serial CBCs are ordered. She has IV fluids going. Workup per surgery. The only medicine she is currently taking that increases the risk of GI bleeding is her selective serotonin reuptake inhibitor (SSRI) and we are discontinuing the Prozac today. 2. History of depression. She is on Prozac and SSRIs do increase the risk of upper GI bleeding, as well as recurrence of bleeding after initial event. We will discontinue the fluoxetine. She is not taking p.o. anyway and fluoxetine should wean itself out of her system over the course of about a week. Need to observe for recurrence of depression symptoms. 3. Altered mental status. Check ammonia level. 4. Hyperlipidemia. Will hold her atorvastatin. 5. Recent Escherichia coli (E. coli) urinary tract infection (UTI). She finished Rocephin yesterday. No sign of recurrence of this.
[2020-10-11] MEDS: MORPHINE 2 MG/ML 1ML VIAL (J2270) IV PRN (13:02)
[2020-10-11 16:18] LABS: HEMATOCRIT 31.3 % (36.0-47.0); HEMOGLOBIN 10.8 g/dl (12.0-15.5); MEAN CORPUSCULAR HEMOGLOBIN 29.6 pg (27.0-33.0); MEAN CORPUSCULAR HGB CONC 34.5 g/dl (32.0-36.5); MEAN CORPUSCULAR VOLUME 85.8 fl (80.0-96.0); PLATELET COUNT, AUTOMATED 178 10^3/uL (150-450); RED BLOOD COUNT 3.65 10^6/uL (4.00-5.40); WHITE BLOOD COUNT 12.9 10^3/uL (4.0-10.0)
[2020-10-11] MEDS: ATORVASTATIN 20 MG TAB PO SCH (20:29)
[2020-10-11 22:35] LABS: HEMATOCRIT 29.4 % (36.0-47.0); MEAN CORPUSCULAR HEMOGLOBIN 29.8 pg (27.0-33.0); MEAN CORPUSCULAR VOLUME 87.5 fl (80.0-96.0); PLATELET COUNT, AUTOMATED 189 10^3/uL (150-450); RED BLOOD COUNT 3.36 10^6/uL (4.00-5.40); WHITE BLOOD COUNT 11.8 10^3/uL (4.0-10.0)
[2020-10-12] VITALS (10 sets, daily range): BP systolic 114–128; BP diastolic 56–77
[2020-10-12] MEDS: IPRATROPIUM 0.5MG/ALBUTEROL 2.5MG INH SOL UD 3ML (DUONEB) NEB SCH ×4 (00:39→19:31)
[2020-10-12] MEDS: ACETAMINOPHEN 500 MG TAB PO SCH ×3 (01:06→17:49)
[2020-10-12] MEDS: MORPHINE 2 MG/ML 1ML VIAL (J2270) IV PRN ×3 (01:07→14:33)
[2020-10-12 04:35] LABS: HEMATOCRIT 29.1 % (36.0-47.0); HEMOGLOBIN 9.8 g/dl (12.0-15.5); MEAN CORPUSCULAR HEMOGLOBIN 29.8 pg (27.0-33.0); MEAN CORPUSCULAR HGB CONC 33.7 g/dl (32.0-36.5); MEAN CORPUSCULAR VOLUME 88.4 fl (80.0-96.0); PLATELET COUNT, AUTOMATED 184 10^3/uL (150-450); RED BLOOD COUNT 3.29 10^6/uL (4.00-5.40); WHITE BLOOD COUNT 9.4 10^3/uL (4.0-10.0)
[2020-10-12] MEDS: OCTREOTIDE ACETATE 100MCG/ML VIAL (J2354 PER 25MCG) SC SCH ×3 (05:02→21:56)
[2020-10-12] MEDS: SUCRALFATE SUSP 1GM/10ML UD PO SCH ×4 (05:02→23:42)
[2020-10-12 05:03] LABS: BLOOD UREA NITROGEN 9 MG/DL (7-18); CALCIUM LEVEL 7.1 MG/DL (8.8-10.2); CARBON DIOXIDE LEVEL 28 MEQ/L (21-32); CHLORIDE LEVEL 109 MEQ/L (98-107); CREATININE FOR GFR 0.28 MG/DL (0.55-1.30); GLOMERULAR FILTRATION RATE > 60.0 (>45); GLUCOSE, FASTING 138 MG/DL (70-100); POTASSIUM SERUM 4.2 MEQ/L (3.5-5.1); SODIUM LEVEL 140 MEQ/L (136-145)
[2020-10-12 06:28] LABS: HEMATOCRIT 26.1 % (36.0-47.0); HEMOGLOBIN 8.8 g/dl (12.0-15.5); MEAN CORPUSCULAR HEMOGLOBIN 30.3 pg (27.0-33.0); MEAN CORPUSCULAR HGB CONC 33.7 g/dl (32.0-36.5); PLATELET COUNT, AUTOMATED 171 10^3/uL (150-450)
[2020-10-12] MEDS: D5W/0.45% SODIUM CHLORIDE 1,000 ML IV SCH ×3 (07:40→23:42)
--- NOTE | 2020-10-12 08:53 | ECGEPIP ---
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
[2020-10-12] MEDS: oxyBUTYnin 5 MG TAB PO SCH ×2 (08:55→21:00)
[2020-10-12] MEDS: FLUoxetine 20 MG CAP PO SCH (08:56)
[2020-10-12] MEDS: GABAPENTIN 300 MG CAP PO SCH ×2 (08:56→21:00)
[2020-10-12] MEDS: MODAFINIL 100 MG TABLET PO SCH (08:56)
[2020-10-12] MEDS: carBAMazepine XR 100 MG TAB PO SCH ×2 (08:56→21:00)
[2020-10-12] MEDS: MAGNESIUM OXIDE 400MG TAB (MAG-OX) PO SCH (08:56)
[2020-10-12] MEDS: PANTOPRAZOLE 40MG VIAL (C9113 PER 1) IV SCH ×2 (09:56→21:55)
[2020-10-12 10:14] LABS: HEMATOCRIT 32.3 % (36.0-47.0); MEAN CORPUSCULAR HEMOGLOBIN 29.6 pg (27.0-33.0); MEAN CORPUSCULAR HGB CONC 33.4 g/dl (32.0-36.5); MEAN CORPUSCULAR VOLUME 88.5 fl (80.0-96.0); PLATELET COUNT, AUTOMATED 197 10^3/uL (150-450); RED BLOOD COUNT 3.65 10^6/uL (4.00-5.40); WHITE BLOOD COUNT 9.6 10^3/uL (4.0-10.0)
[2020-10-12 10:19] LABS: HEMOGLOBIN 10.8 g/dl (12.0-15.5)
--- NOTE | 2020-10-12 10:46 | IPN ---
PROGRESS NOTE DATE: 10/12/2020 SUBJECTIVE: Kg is seen in the ICU. She is on the internal surgical service, hospitalists on consult. She is having continuing upper GI bleeding. She has maroon colored blood in her ostomy. Her blood pressure has been stable. Hemoglobin continues to drift down. She has already received 6 units of blood during this admission. PHYSICAL EXAMINATION: VITAL SIGNS: Afebrile, blood pressure 120/56. GENERAL: She is lying in bed, acts a little sleepy. LUNGS: Clear. HEART: Regular rhythm. ABDOMEN: Soft, nontender. Blood in the ostomy bag is maroon colored. EXTREMITIES: No peripheral edema. LABORATORY DATA: White count 8, hemoglobin 8.8 (was 10 last night), platelets 171,000. Sodium 140, potassium 4.2, BUN 9, creatinine 0.3, glucose 138. IMPRESSION: 1. Upper GI bleed/acute blood loss anemia, status post 6 units of transfusion: Case discussed with Dr. Flores today. Bleeding scan ordered. We do not have vascular surgery available to do a selective angiogram. 2. History of depression: She is off her Prozac. When the EGD was done, numerous digestive capsules were found and all of her p.o. meds are on hold. MTDD
--- NOTE | 2020-10-12 16:17 | IPNPDOC ---
Text Note Date of Service The patient was seen on 10/12/20. NOTE Is a 64-year-old female status post splenic flexure volvulus with end transverse colostomy. She did not tolerate the NG being clamped. She also is having melanotic stool overnight. EGD remarkable for digestive bloating stomach, with friable pylorus, clear duodenum. Multiple undissolved Tegretol tablets were discovered as well. no changes to H+P. 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 P) NG to LIS sips and chips ambulate PT/OT PMNR eval Try clamping NG tube againif nausea develops then unclamp Avoid p.o. medications and switch to IV medications if possible. Consider bleeding scan. VS,Fishbone, I+O VS, Fishbone, I+O Laboratory Tests 10/11/20 22:26 10/12/20 04:15 10/12/20 06:11 10/12/20 09:58 Vital Signs Date Time Temp Pulse Resp B/P (MAP) Pulse Ox O2 Delivery O2 Flow Rate FiO2 10/12/20 14:43 20 97 Nasal Cannula 1.0 10/12/20 12:00 98.0 86 121/77 (92) I&O- Last 24 Hours up to 6 AM 10/12/20 06:00 Intake Total 3510 ml Output Total 2875 ml Balance 635 ml Inocencio Valentin DO Oct 12, 2020 16:17
[2020-10-12] MEDS: ONDANSETRON 4MG/2ML VIAL IV PRN (19:33)
[2020-10-12] MEDS: ATORVASTATIN 20 MG TAB PO SCH (21:00)
[2020-10-13] VITALS (12 sets, daily range): BP systolic 116–132; BP diastolic 55–67
[2020-10-13] MEDS: ACETAMINOPHEN 500 MG TAB PO SCH ×4 (02:00→18:00)
[2020-10-13] MEDS: IPRATROPIUM 0.5MG/ALBUTEROL 2.5MG INH SOL UD 3ML (DUONEB) NEB SCH ×4 (04:31→20:00)
[2020-10-13 05:21] LABS: HEMATOCRIT 30.4 % (36.0-47.0); HEMOGLOBIN 10.1 g/dl (12.0-15.5); MEAN CORPUSCULAR HEMOGLOBIN 29.5 pg (27.0-33.0); MEAN CORPUSCULAR HGB CONC 33.2 g/dl (32.0-36.5); MEAN CORPUSCULAR VOLUME 88.9 fl (80.0-96.0); PLATELET COUNT, AUTOMATED 228 10^3/uL (150-450); RED BLOOD COUNT 3.42 10^6/uL (4.00-5.40); WHITE BLOOD COUNT 8.3 10^3/uL (4.0-10.0)
[2020-10-13 05:55] LABS: BLOOD UREA NITROGEN 3 MG/DL (7-18); CALCIUM LEVEL 7.4 MG/DL (8.8-10.2); CARBON DIOXIDE LEVEL 31 MEQ/L (21-32); CHLORIDE LEVEL 106 MEQ/L (98-107); CREATININE FOR GFR 0.41 MG/DL (0.55-1.30); GLOMERULAR FILTRATION RATE > 60.0 (>45); GLUCOSE, FASTING 117 MG/DL (70-100); SODIUM LEVEL 139 MEQ/L (136-145)
[2020-10-13] MEDS: OCTREOTIDE ACETATE 100MCG/ML VIAL (J2354 PER 25MCG) SC SCH ×3 (06:07→22:02)
[2020-10-13] MEDS: SUCRALFATE SUSP 1GM/10ML UD PO SCH ×3 (06:07→18:11)
[2020-10-13] MEDS: MAGNESIUM OXIDE 400MG TAB (MAG-OX) PO SCH (07:11)
[2020-10-13] MEDS: oxyBUTYnin 5 MG TAB PO SCH ×2 (07:11→21:03)
[2020-10-13] MEDS: GABAPENTIN 300 MG CAP PO SCH ×2 (07:11→21:03)
[2020-10-13] MEDS: MODAFINIL 100 MG TABLET PO SCH (07:12)
[2020-10-13] MEDS: FLUoxetine 20 MG CAP PO SCH (07:12)
[2020-10-13] MEDS: carBAMazepine XR 100 MG TAB PO SCH ×2 (07:12→21:03)
[2020-10-13] MEDS: D5W/0.45% SODIUM CHLORIDE 1,000 ML IV SCH ×2 (07:31→15:41)
[2020-10-13] MEDS: PANTOPRAZOLE 40MG VIAL (C9113 PER 1) IV SCH ×2 (09:13→21:02)
--- NOTE | 2020-10-13 09:44 | IPNPDOC ---
Text Note Date of Service The patient was seen on 10/13/20. NOTE General surgery. Dr. Flores The patient is a 64-year-old female status post splenic flexure volvulus with transverse descending colon colectomy and colostomy as per Dr. Murphy 10/05/2020. EGD as per Dr. Flores 10/11/2020. She has tolerated the NG being clamped since last evening. Hemoglobin this morning is 10.1, compared with 10.8 yesterday. She is up out of bed to the chair. She denies nausea this morning. Denies abdominal pain. EGD 10/11/[address] Flores was remarkable for hematin, diffuse inflammation, friability in the prepyloric region. Also, undissolved medication tablets were noted. Afebrile. Heart rate 81, respiratory rate 16, blood pressure 120/58, 100% room air. General. The patient is out of bed sitting in the chair, appears in no acute distress. S1-S2 regular rate rhythm Lungs are clear to auscultation Abdomen is soft, nontender, nondistended, 600 mL stool output yesterday. WBC 8.3, hemoglobin 10.1, platelets 228. Assessment/plan Status post splenic flexure volvulus with transverse descending colon colectomy and colostomy as per Dr. Murphy 10/05/2020. EGD as per Dr. Flores 10/11/2020. The patient is reviewed with Dr. Flores this morning. Has tolerated clamping of the NG tube since last evening, will discontinue NG tube. Trial of clear liquids. Undissolved medication tablets were noted on EGD, will also trial Reglan 10 mg IV every 6. Encourage out of bed and ambulate PT/OT DC [place] Transfer to medical floor. VS,Fishbone, I+O VS, Fishbone, I+O Laboratory Tests 10/12/20 09:58 10/13/20 05:11 Vital Signs Date Time Temp Pulse Resp B/P (MAP) Pulse Ox O2 Delivery O2 Flow Rate FiO2 10/13/20 08:00 98.0 81 16 120/58 (78) 100 Room Air 10/13/20 06:00 1.0 I&O- Last 24 Hours up to 6 AM 10/13/20 05:59 Intake Total 3353 ml Output Total 6020 ml Balance -2667 ml Morgan,Kely PA Oct 13, 2020 09:44
[2020-10-13] MEDS: METOCLOPRAMIDE INJ 10MG/2ML VIAL (J2765 PER 1) IV SCH ×3 (10:34→22:02)
--- NOTE | 2020-10-13 10:43 | IPN ---
PROGRESS NOTE DATE: 10/13/2020 SUBJECTIVE: Kg is seen in the ICU. She is having significant less bleeding into her ostomy. OBJECTIVE: VITAL SIGNS: Blood pressure 120/58, afebrile, O2 saturation 100%. GENERAL APPEARANCE: Alert and conversant, complaining of nasogastric tube still in place. LUNGS: Clear. HEART: Regular rhythm. ABDOMEN: Soft, nontender. A small amount of dark-red blood noted in the ostomy bag. EXTREMITIES: No peripheral edema. LABORATORY DATA: Hemoglobin is 10.1 which is stable from yesterday. Electrolytes are unremarkable. Creatinine is 0.4. IMPRESSION: 1. Upper GI bleed, unknown site. She is being transferred out of the ICU, she stopped bleeding. The obvious problem is we do not know where this bleeding came from. She will be prone to rebleeding unless we find the source. 2. Depression, we stopped her Prozac as SSRIs are associated with increased risk of upper GI bleed and rebleed. 3. Hyperlipidemia, her atorvastatin is on hold while she is off oral medications. 4. E. coli UTI. She finished a course of Rocephin.
[2020-10-13] MEDS: ATORVASTATIN 20 MG TAB PO SCH (21:03)
[2020-10-14] MEDS: D5W/0.45% SODIUM CHLORIDE 1,000 ML IV SCH ×2 (00:01→08:03)
[2020-10-14] MEDS: SUCRALFATE SUSP 1GM/10ML UD PO SCH ×3 (00:02→12:50)
[2020-10-14 01:37] VITALS: BP 130/64
[2020-10-14] MEDS: IPRATROPIUM 0.5MG/ALBUTEROL 2.5MG INH SOL UD 3ML (DUONEB) NEB SCH ×4 (01:46→20:00)
[2020-10-14] MEDS: ACETAMINOPHEN 500 MG TAB PO SCH ×3 (02:25→18:00)
[2020-10-14] MEDS: METOCLOPRAMIDE INJ 10MG/2ML VIAL (J2765 PER 1) IV SCH ×2 (03:54→09:41)
[2020-10-14 05:47] VITALS: BP 129/63
[2020-10-14] MEDS: OCTREOTIDE ACETATE 100MCG/ML VIAL (J2354 PER 25MCG) SC SCH (06:38)
[2020-10-14 07:06] LABS: HEMOGLOBIN 9.3 g/dl (12.0-15.5); MEAN CORPUSCULAR HEMOGLOBIN 29.4 pg (27.0-33.0); MEAN CORPUSCULAR HGB CONC 32.1 g/dl (32.0-36.5); MEAN CORPUSCULAR VOLUME 91.8 fl (80.0-96.0); PLATELET COUNT, AUTOMATED 248 10^3/uL (150-450); RED BLOOD COUNT 3.16 10^6/uL (4.00-5.40); WHITE BLOOD COUNT 6.5 10^3/uL (4.0-10.0)
[2020-10-14 07:36] LABS: BLOOD UREA NITROGEN 2 MG/DL (7-18); CALCIUM LEVEL 7.5 MG/DL (8.8-10.2); CARBON DIOXIDE LEVEL 30 MEQ/L (21-32); CHLORIDE LEVEL 104 MEQ/L (98-107); CREATININE FOR GFR 0.43 MG/DL (0.55-1.30); GLOMERULAR FILTRATION RATE > 60.0 (>45); GLUCOSE, FASTING 112 MG/DL (70-100); POTASSIUM SERUM 3.7 MEQ/L (3.5-5.1); SODIUM LEVEL 138 MEQ/L (136-145)
[2020-10-14] MEDS: MAGNESIUM OXIDE 400MG TAB (MAG-OX) PO SCH (09:39)
[2020-10-14] MEDS: oxyBUTYnin 5 MG TAB PO SCH ×2 (09:39→22:02)
[2020-10-14] MEDS: GABAPENTIN 300 MG CAP PO SCH ×2 (09:40→22:01)
[2020-10-14] MEDS: PANTOPRAZOLE 40MG VIAL (C9113 PER 1) IV SCH (09:40)
[2020-10-14] MEDS: FLUoxetine 20 MG CAP PO SCH (09:40)
[2020-10-14] MEDS: MODAFINIL 100 MG TABLET PO SCH (09:40)
[2020-10-14] MEDS: carBAMazepine XR 100 MG TAB PO SCH ×2 (09:56→22:02)
[2020-10-14 10:00] VITALS: BP 139/70
--- NOTE | 2020-10-14 13:21 | IPN ---
PROGRESS NOTE DATE: 10/14/2020 Kg is seen on five Link. Her nasogastric tube is out, and she is feeling better. Has not been able to be out of bed very much. Does not seem to be having a lot of bleeding into her ostomy. PHYSICAL EXAMINATION: Vital signs stable. Alert, oriented, conversant. Lungs clear. Heart regular rate and rhythm. Abdomen soft. Scant dark blood in the bottom of her ostomy bag. Incision looks well healed. LABORATORY DATA: Hemoglobin is stable at 9.3. Electrolytes unremarkable. IMPRESSION: Medically stable. It looks like the bleeding has abated for now. Unfortunately, we still do know where it has come from. No sense in getting a bleeding scan now, as the bleeding looks like it has essentially stopped for the time being.
[2020-10-14 14:00] VITALS: BP 127/63
[2020-10-14] MEDS: FUROSEMIDE 20 MG TAB PO SCH (14:48)
--- NOTE | 2020-10-14 16:42 | IPN ---
PROGRESS NOTE DATE: 10/14/2020 HISTORY: Patient is now 11 days postoperative from a partial colectomy with end transverse colostomy apparently for a volvulus of the splenic flexure area. She had passed some melena several days ago and had an upper endoscopy on October 11, 2020, that revealed some changes of diffuse gastritis with some erosions in the prepyloric area. She has been on some treatment with Carafate and Protonix since then. VITAL SIGNS: Show that she has been afebrile over the past 24 hours. Her pulse early this afternoon is 90, with a blood pressure of 127/63 and her oxygen saturation on 1 liter of nasal cannula oxygen is 92. INTAKE AND OUTPUT: Shows that yesterday she had 3700 in with 3300 out. She took 900 mL of oral liquids, but got 2700 mL of intravenous (IV) fluid. Urine output was 3 liters and stool was 280 mL. PHYSICAL EXAMINATION: GENERAL: Patient is a pleasant woman lying quietly in the hospital bed. She is alert and appears oriented. HEART EXAM: Shows a regular rate and rhythm. LUNGS: Seem clear bilaterally. ABDOMINAL EXAM: Shows her abdomen to be somewhat protuberant. She has a midline abdominal incision with maynor in place. There is a colostomy in the right upper quadrant with an appliance in place. The colostomy appears viable, with a small amount of watery stool in the bag. She does have bowel sounds present. LOWER EXTREMITIES: Appear mildly edematous. LABORATORY STUDIES: Today showed a white count of 6, hemoglobin 9, hematocrit 29 and a platelet count of 248,000. Chemistry profile showed normal electrolytes, BUN of 2, creatinine 0.4 and a glucose of 112. Her liver function tests and protein and albumin have not been checked since October 04, 2020. IMPRESSION: Patient overall appears to be doing well since her surgery. She is requesting that her diet be advanced from clear liquids. PLAN: Patient will be advanced to a regular diet. I will saline lock her IV. I will adjust her medications and discontinue several medications that no longer seem necessary. Her Protonix will be changed from IV to oral and I will stop the Carafate, as I think this is probably no longer necessary. I am going to restart 20 mg of Lasix daily, which was one of her preadmission medications. She should continue with her physical therapy. I will allow her to shower as desired. I will order a complete chemistry profile and a CBC with differential for the morning, but will otherwise stop her daily labs.
[2020-10-14 18:00] VITALS: BP 141/70
[2020-10-14 22:00] VITALS: BP 129/60
[2020-10-14] MEDS: RAMELTEON 8 MG TAB (ROZEREM) PO PRN (22:01)
[2020-10-14] MEDS: PANTOPRAZOLE 40MG TAB (PROTONIX) PO SCH (22:01)
[2020-10-14] MEDS: ATORVASTATIN 20 MG TAB PO SCH (22:01)
[2020-10-15] MEDS: IPRATROPIUM 0.5MG/ALBUTEROL 2.5MG INH SOL UD 3ML (DUONEB) NEB SCH ×2 (01:31→07:18)
[2020-10-15] MEDS: ACETAMINOPHEN 500 MG TAB PO SCH (02:00)
[2020-10-15 06:00] VITALS: BP 134/70
[2020-10-15 07:09] LABS: BASO % 0.5 % (0.0-1.0); EOS # 0.3 10^3/uL (0.0-0.5); EOS % 5.2 % (0.0-3.0); HEMATOCRIT 29.4 % (36.0-47.0); HEMOGLOBIN 9.6 g/dl (12.0-15.5); LYMPH % 17.3 % (24.0-44.0); MEAN CORPUSCULAR HEMOGLOBIN 29.9 pg (27.0-33.0); MEAN CORPUSCULAR HGB CONC 32.7 g/dl (32.0-36.5); MEAN CORPUSCULAR VOLUME 91.6 fl (80.0-96.0); MONO # 0.7 10^3/uL (0.0-0.8); NEUTROPHILS # 3.9 10^3/uL (1.5-8.5); PLATELET COUNT, AUTOMATED 260 10^3/uL (150-450); RED BLOOD COUNT 3.21 10^6/uL (4.00-5.40)
[2020-10-15 07:34] LABS: ALBUMIN 2.2 GM/DL (3.2-5.2); ALT/SGPT 17 U/L (12-78); BILIRUBIN,TOTAL 0.3 MG/DL (0.2-1.0); BLOOD UREA NITROGEN 5 MG/DL (7-18); CALCIUM LEVEL 7.9 MG/DL (8.8-10.2); CARBON DIOXIDE LEVEL 30 MEQ/L (21-32); CHLORIDE LEVEL 104 MEQ/L (98-107); CREATININE FOR GFR 0.44 MG/DL (0.55-1.30); GLOMERULAR FILTRATION RATE > 60.0 (>45); GLUCOSE, FASTING 91 MG/DL (70-100); SODIUM LEVEL 139 MEQ/L (136-145); TOTAL PROTEIN 5.4 GM/DL (6.4-8.2)
[2020-10-15] MEDS ORDERED: ONDANSETRON 4 MG ORAL DISINTEGRATING TAB SL PRN (09:05)
[2020-10-15] MEDS: oxyBUTYnin 5 MG TAB PO SCH ×2 (09:34→21:24)
[2020-10-15] MEDS: PANTOPRAZOLE 40MG TAB (PROTONIX) PO SCH ×2 (09:35→21:24)
[2020-10-15] MEDS: GABAPENTIN 300 MG CAP PO SCH ×2 (09:35→21:24)
[2020-10-15] MEDS: MODAFINIL 100 MG TABLET PO SCH (09:35)
[2020-10-15] MEDS: FUROSEMIDE 20 MG TAB PO SCH (09:35)
[2020-10-15] MEDS: MAGNESIUM OXIDE 400MG TAB (MAG-OX) PO SCH (09:35)
[2020-10-15] MEDS: FLUoxetine 20 MG CAP PO SCH (09:36)
[2020-10-15] MEDS: carBAMazepine XR 100 MG TAB PO SCH ×2 (09:36→21:23)
--- NOTE | 2020-10-15 12:17 | IPN ---
PROGRESS NOTE DATE: 10/15/2020 SUBJECTIVE: Kg feels "the best I have in a long time" today. She was still having bleeding into her ostomy bag and workup is deferred to surgery. Hemoglobin is drifting down a bit from what it was a few days ago. No perfuse bleeding, but a steady oozing of blood noted. Per patient, she has not been getting out of bed very much, which we need to work on as well. OBJECTIVE: VITAL SIGNS: Stable. Blood pressure 134/70. LUNGS: Clear. HEART: Regular rate and rhythm. ABDOMEN: Soft and nontender. Maroon blood in the ostomy bag. EXTREMITIES: No peripheral edema. LABORATORY DATA: Electrolytes unremarkable. Hemoglobin 9.6. IMPRESSION: 1. Gastrointestinal (GI) bleed. Workup deferred to surgery. 2. Anemia. She has been transfused six units altogether. Bleeding is scant, but persistent. Would transfuse if hemoglobin gets down into the 8s again. 3. Hyperlipidemia. We held her atorvastatin while she was not taking p.o. well and this has been restarted. 4. History of depression. I had planned to fluoxetine as SSRIs are associated with recurrence of GI bleeding. However, her mood brightened significantly when this was restarted; so I think it is worth the risk and would recommend continuing this.
[2020-10-15 14:00] VITALS: BP 125/67
[2020-10-15] MEDS: NORCO, ANEXSIA 5/325MG TABLET (HYDROcodone/ACETAMINOPHEN) PO PRN (14:00)
--- NOTE | 2020-10-15 14:41 | IPN ---
PROGRESS NOTE DATE: 10/15/2020 HISTORY: The patient is now 12 days postop from a partial colectomy with end transverse colostomy for a volvulus. She reports that she is actually feeling pretty well. She has had no nausea or vomiting and is taking a regular diet without difficulty. She apparently had a good response to her dose of Lasix yesterday with multiple voids though unfortunately this could not be measured. There have been no further signs of any gastrointestinal bleeding. OBJECTIVE: VITAL SIGNS: The patient has been afebrile over the past 24 hours. Her pulse is in the mid to upper 80's to low 90's and her blood pressure is excellent. Her oxygen saturations on one liter of nasal cannula oxygen are in the low to mid 90's INTAKE AND OUTPUT: Yesterday she had 3,800 recorded in with 125 mL of stool recorded but 9 incontinent voids. She reports no passage of any material from her rectum. PHYSICAL EXAMINATION: GENERAL APPEARANCE: The patient is alert and oriented. She appears quite comfortable at rest. She was texting with family when I came to see her. SKIN: Warm and dry. HEENT: Sclerae are anicteric. HEART: Regular rhythm. LUNGS: Clear. ABDOMEN: Perhaps mildly protuberant. She does have active bowel sounds. She has a midline incision closed with skin maynor and this is without any redness or drainage. Her ostomy on the right side of the abdomen has a small amount of loose stool in the bag. EXTREMITIES: Lower extremities still may have a trace of edema. LABORATORY STUDIES: Today white count of 6, hemoglobin 10, hematocrit 29, and a platelet count of 260,000. Differential count shows 65% neutrophils, 17% lymphocytes and 11% monocytes. Chemistry profile shows normal electrolytes with a BUN of 5, creatinine 0.44 and a glucose of 91. Her liver function tests are normal with a total protein of 5.4 and an albumin of 2.2. IMPRESSION: The patient is doing well today. She appears comfortable and is tolerating a diet well. She is having good ostomy function with no further evidence for bleeding. She reports that she has been up out of bed. PLAN: 1. I will discontinue some of her remaining orders for IV medications and convert these to oral formulations or p.r.n. formulations. 2. I will continue with her daily Lasix. 3. She is encouraged to be up out of bed. 4. We will need to see how she progresses with physical therapy to know when it might be safe to discharge her. 5. It may be that she would be candidate for acute rehab.
[2020-10-15] MEDS: ATORVASTATIN 20 MG TAB PO SCH (21:23)
[2020-10-15] MEDS: RAMELTEON 8 MG TAB (ROZEREM) PO PRN (21:24)
[2020-10-15 22:00] VITALS: BP 125/65
[2020-10-16 06:00] VITALS: BP 122/66
[2020-10-16] MEDS: ACETAMINOPHEN TAB 650MG DOSE (2X325MG) PO PRN ×2 (06:26→21:26)
[2020-10-16 08:10] LABS: HEMATOCRIT 31.2 % (36.0-47.0); HEMOGLOBIN 10.1 g/dl (12.0-15.5); MEAN CORPUSCULAR HEMOGLOBIN 29.4 pg (27.0-33.0); MEAN CORPUSCULAR HGB CONC 32.4 g/dl (32.0-36.5); PLATELET COUNT, AUTOMATED 322 10^3/uL (150-450); RED BLOOD COUNT 3.43 10^6/uL (4.00-5.40); WHITE BLOOD COUNT 6.4 10^3/uL (4.0-10.0)
[2020-10-16] MEDS: oxyBUTYnin 5 MG TAB PO SCH ×2 (08:28→21:25)
[2020-10-16] MEDS: FUROSEMIDE 20 MG TAB PO SCH (08:28)
[2020-10-16] MEDS: PANTOPRAZOLE 40MG TAB (PROTONIX) PO SCH ×2 (08:28→21:25)
[2020-10-16] MEDS: FLUoxetine 20 MG CAP PO SCH (08:28)
[2020-10-16] MEDS: MODAFINIL 100 MG TABLET PO SCH (08:28)
[2020-10-16] MEDS: GABAPENTIN 300 MG CAP PO SCH ×2 (08:28→21:25)
[2020-10-16] MEDS: carBAMazepine XR 100 MG TAB PO SCH ×2 (08:28→21:25)
[2020-10-16] MEDS: NORCO, ANEXSIA 5/325MG TABLET (HYDROcodone/ACETAMINOPHEN) PO PRN (08:29)
[2020-10-16] MEDS: MAGNESIUM OXIDE 400MG TAB (MAG-OX) PO SCH (08:31)
--- NOTE | 2020-10-16 09:33 | IPNPDOC ---
Text Note Date of Service The patient was seen on 10/16/20. NOTE General surgery. Dr. Murphy The patient is a 64-year-old female status post splenic flexure volvulus with transverse descending colon colectomy and colostomy as per Dr. Murphy 10/05/2020. EGD as per Dr. Flores 10/11/2020 with hematin, diffuse inflammation, friability in the prepyloric region, undissolved medication tablets were noted. The patient is resting in bed, denies nausea, vomiting, abdominal pain. Afebrile. VSS General. resting in bed, appears in no acute distress. S1-S2 regular rate rhythm Lungs are clear to auscultation Abdomen is soft, nontender, nondistended, incision with maynor intact/clean/dry. WBC 6.4, hemoglobin 10.1, platelets 322. Assessment/plan Status post splenic flexure volvulus with transverse descending colon colectomy and colostomy as per Dr. Murphy 10/05/2020. EGD as per Dr. Flores 10/11/2020. Tolerating regular diet. PT/OT ARU screen ordered. VS,Fishbone, I+O VS, Fishbone, I+O Laboratory Tests 10/16/20 07:57 Vital Signs Date Time Temp Pulse Resp B/P (MAP) Pulse Ox O2 Delivery O2 Flow Rate FiO2 10/16/20 08:29 18 10/16/20 06:44 1.0 10/16/20 06:00 98.5 79 122/66 (84) 95 Nasal Cannula I&O- Last 24 Hours up to 6 AM 10/16/20 06:00 Intake Total 3180 ml Output Total 150 ml Balance 3030 ml Kely Morgan Oct 16, 2020 09:26
--- NOTE | 2020-10-16 09:52 | IPN ---
PROGRESS NOTE DATE: 10/16/2020 SUBJECTIVE: Kg is seen on 5 Link. She is on the surgical service. Hospitalists are consulted. This is the first day I have seen here where she did not have blood in her ostomy bag. She feels well. She is getting physical therapy, but they think she will either need short term rehab or ARU before discharge home. I do not think she had labs ordered for today. OBJECTIVE: VITAL SIGNS: As listed. HEENT: Unremarkable. LUNGS: Clear. HEART: Regular rate and rhythm. ABDOMEN: Soft and nontender. No blood in the ostomy bag. EXTREMITIES: No peripheral edema. LABORATORY DATA: I ordered some morning labs. Hemoglobin has come back at 10.1. IMPRESSION: 1. Upper gastrointestinal (GI) bleeding with acute blood loss anemia. Bleeding site unknown. We still have not determined where she is bleeding from. Currently appears to have stopped. Daily CBCs are ordered. Workup per surgery. 2. Escherichia coli (E. coli) urinary tract infection (UTI). She finished five days of Rocephin a few days ago. No sign of recurrence. 3. History of depression. I tried stopping her Prozac as SSRIs are associated with increased risk of GI bleeding, but she seemed to slip into some depression fairly quickly, so this has been restarted. 4. Hyperlipidemia. She is back on atorvastatin. 5. Deconditioning. Physical therapy is working with her. She will need some short term rehab or acute rehabilitation unit (ARU) before discharge.
[2020-10-16 14:00] VITALS: BP 128/69
[2020-10-16] MEDS: MAALOX 30 ML SUSP *UDC PO PRN (15:34)
[2020-10-16] MEDS: RAMELTEON 8 MG TAB (ROZEREM) PO PRN (21:25)
[2020-10-16] MEDS: ATORVASTATIN 20 MG TAB PO SCH (21:25)
[2020-10-17 05:22] VITALS: BP 124/66
[2020-10-17 06:42] LABS: HEMATOCRIT 31.9 % (36.0-47.0); HEMOGLOBIN 10.4 g/dl (12.0-15.5); MEAN CORPUSCULAR HEMOGLOBIN 29.5 pg (27.0-33.0); MEAN CORPUSCULAR HGB CONC 32.6 g/dl (32.0-36.5); MEAN CORPUSCULAR VOLUME 90.6 fl (80.0-96.0); PLATELET COUNT, AUTOMATED 351 10^3/uL (150-450); RED BLOOD COUNT 3.52 10^6/uL (4.00-5.40); WHITE BLOOD COUNT 5.9 10^3/uL (4.0-10.0)
[2020-10-17 07:16] LABS: BLOOD UREA NITROGEN 8 MG/DL (7-18); CALCIUM LEVEL 8.3 MG/DL (8.8-10.2); CARBON DIOXIDE LEVEL 28 MEQ/L (21-32); CHLORIDE LEVEL 103 MEQ/L (98-107); CREATININE FOR GFR 0.52 MG/DL (0.55-1.30); GLOMERULAR FILTRATION RATE > 60.0 (>45); GLUCOSE, FASTING 107 MG/DL (70-100); POTASSIUM SERUM 4.3 MEQ/L (3.5-5.1); SODIUM LEVEL 137 MEQ/L (136-145)
--- NOTE | 2020-10-17 08:46 | IPNPDOC ---
Text Note Date of Service The patient was seen on 10/17/20. NOTE General surgery. Dr. Murphy The patient is a 64-year-old female status post splenic flexure volvulus with transverse descending colon colectomy and colostomy as per Dr. Murphy 10/05/2020. EGD as per Dr. Flores 10/11/2020 with hematin, diffuse inflammation, friability in the prepyloric region, undissolved medication tablets were noted. The patient is resting in bed, denies nausea, vomiting, abdominal pain. Afebrile. VSS General. resting in bed, appears in no acute distress. S1-S2 regular rate rhythm Lungs are clear to auscultation Abdomen is soft, nontender, nondistended, incision with maynor intact/clean/dry. Ostomy with brown stool in bag. WBC 5.9, hemoglobin 10.4, platelets 351. Assessment/plan Status post splenic flexure volvulus with transverse descending colon colectomy and colostomy as per Dr. Murphy 10/05/2020. EGD as per Dr. Flores 10/11/2020. Tolerating regular diet. PT/OT STR vs ARU, PFS assisting. VS,Fishbone, I+O VS, Fishbone, I+O Laboratory Tests 10/17/20 06:25 Vital Signs Date Time Temp Pulse Resp B/P (MAP) Pulse Ox O2 Delivery O2 Flow Rate FiO2 10/17/20 05:22 97.9 85 18 124/66 (85) 95 Room Air 10/16/20 06:44 1.0 I&O- Last 24 Hours up to 6 AM 10/17/20 05:59 Intake Total 1800 ml Output Total 0 ml Balance 1800 ml Kely Morgan Oct 17, 2020 08:46
[2020-10-17] MEDS: oxyBUTYnin 5 MG TAB PO SCH (09:57)
[2020-10-17] MEDS: MODAFINIL 100 MG TABLET PO SCH (09:57)
[2020-10-17] MEDS: MAGNESIUM OXIDE 400MG TAB (MAG-OX) PO SCH (09:57)
[2020-10-17] MEDS: GABAPENTIN 300 MG CAP PO SCH (09:57)
[2020-10-17] MEDS: PANTOPRAZOLE 40MG TAB (PROTONIX) PO SCH (09:57)
[2020-10-17] MEDS: FLUoxetine 20 MG CAP PO SCH (09:57)
[2020-10-17] MEDS: carBAMazepine XR 100 MG TAB PO SCH (09:58)
[2020-10-17] MEDS: FUROSEMIDE 20 MG TAB PO SCH (09:58)
[2020-10-17 12:00] VITALS: BP 127/77
[2020-10-17] MEDS ORDERED: IPRA0.00 NEB (12:33)
[2020-10-17] MEDS ORDERED: PANT40TA29 PO (12:33)
[2020-10-17] MEDS ORDERED: MIRA1POW3 PO (12:33)
[2020-10-17] MEDS ORDERED: RAME8TAB2 PO (12:33)
[2020-10-17] MEDS ORDERED: FURO20TA2 PO (12:33)
--- NOTE | 2020-10-17 13:51 | IPNPDOC ---
Subjective Date Seen The patient was seen on 10/17/20. Subjective Chief Complaint/HPI Patient tolerating oral feeding very well scheduled to be transferred to ARU today General: Denies: ROS Unobtainable, Chills, Night Sweats, Fatigue, Malaise, Normal Appetite, Other Symptoms Constitutional: Denies: Chills, Fever, Malaise, Night Sweats, Weakness, Fatigue, Weight Loss, Lethargy, Other Eyes: Denies: Pain, Vision change, Conjunctivae inflammation, Eyelid inflammati on, Redness, Other ENT: Denies: Head Aches, Ear Pain, Dysphagia, Sinus Congestion, Post Nasal Drip, Sore Throat, Epistaxis, Other Symptoms Skin: Denies: Rash, Lesions, Jaundice, Bruising, Itching, Dry, Breakdown, Nail Changes, Other Pulmonary: Denies: Dyspnea, Cough, Pleuritic Chest Pain, Other Symptoms Cardiovascular: Denies: Chest Pain, Palpitations, Orthopnea, Paroxysmal Noc. Dyspnea, Edema, Lt Headedness, Other Symptoms Gastrointestinal: Denies: Nausea, Vomiting, Abdominal Pain, Diarrhea, Constipation, Melena, Hematochezia, Other Symptoms Genitourinary: Denies: Dysuria, Frequency, Incontinence, Hematuria, Retention, Other Symptoms Hematologic: Denies: Bruising, Bleeding Excessively, Petecchia, Purpura, Enlarged Lymph Nodes, Other Hematologic Endocrine: Denies: Polydipsia, Polyphagia, Polyuria, Heat Intolerance, Cold Intolerance, Other Endocrine Sx Musculoskeletal: Denies: Neck Pain, Back Pain, Shoulder Pain, Arm Pain, Hand Pain, Leg Pain, Foot Pain, Joint Pain, Muscle Pain, Spasms, Other Symptoms Psych: Denies: Mood Normal, Anxiety, Depression, Memory Issues, Thoughts of Self Harm, Anger, Thoughts of Harming Other, Other Psych Objective Physical Examination General Exam: Positive: Alert, Cooperative Eye Exam: Positive: PERRLA, Conjunctiva & lids normal ENT Exam: Positive: Atraumatic Neck Exam: Positive: Supple Chest Exam: Positive: Clear to auscultation, Normal air movement Heart Exam: Positive: Rate Normal, Normal S1, Normal S2 Abdomen Exam: Positive: Normal bowel sounds, Soft Extremity Exam: Positive: Other (Normal) Skin Exam: Positive: Nl turgor and temperature Neuro Exam: Positive: Other (No focal motor or sensory deficit) Psych Exam: Positive: Mental status NL Assessment /Plan Problems (1) Large bowel obstruction Status: Acute (2) HTN (hypertension) Status: Chronic (3) Multiple sclerosis Status: Chronic Plan/VTE VTE Prophylaxis Ordered?: Yes Plan Patient seen and examined on fifth fifth floor, patient is currently on surgical service and hopefully will be discharged to ARU today She denies any symptoms is tolerating oral feeding liquids very well. #Upper gastrointestinal (GI) bleeding with acute blood loss anemia. Unknown source of bleeding, H&H stable and hopefully bleeding has stopped, further work-up as per surgical recommendation. # Escherichia coli (E. coli) urinary tract infection (UTI). Patient finished 5 days of Rocephin, 8 current no signs of recurrent infection # History of depression. Continue patient's Prozac is without her SSRIs patient relapses with her depression. # Hyperlipidemia. Continue patient's atorvastatin # Deconditioning. Physical therapy is working with her. Patient is currently being transferred to ARU for rehab before she is discharged home Disposition ARU VS, I&O, 24H, Fishbone Vital Signs/I&O Vital Signs Date Time Temp Pulse Resp B/P (MAP) Pulse Ox O2 Delivery O2 Flow Rate FiO2 10/17/20 12:00 99.1 99 19 127/77 (94) 97 Room Air 10/16/20 06:44 1.0 I&O- Last 24 Hours up to 6 AM 10/17/20 05:59 Intake Total 1800 ml Output Total 0 ml Balance 1800 ml Laboratory Data 24H LABS Laboratory Tests 2 10/17/20 06:25: Nucleated Red Blood Cells % (auto) 0.0, Anion Gap 6L, Glomerular Filtration Rate > 60.0, Calcium Level 8.3L CBC/BMP Laboratory Tests 10/17/20 06:25 MORENA ABDALLA MD Oct 17, 2020 13:51
[2020-10-17 14:00] VITALS: BP 127/76
--- NOTE | 2020-10-17 15:41 | DS.PDOC ---
Discharge Summary General Date of Admission Oct 03, 2020 at 22:22 Date of Discharge 10/17/20 Discharge Summary General surgery. Dr. Murphy. PROCEDURES PERFORMED DURING STAY: status post splenic flexure volvulus with transverse descending colon colectomy and colostomy as per Dr. Murphy 10/05/2020. EGD as per Dr. Flores 10/11/2020 with hematin, diffuse inflammation, friability in the prepyloric region, undissolved medication tablets were noted. ADMITTING DIAGNOSES: Colon obstruction, volvulus. History of tubal ligation. History of knee surgery. History of colonoscopy. History of sigmoid resection with ileostomy. History of diverting ileostomy. History of multiple sclerosis. History of hyperlipidemia. Sigmoid volvulus, status post resection. Seizures. Gout. Hypercholesterolemia. GE reflux. Chronic constipation. DISCHARGE DIAGNOSES: Colon obstruction, volvulus. Status post splenic flexure volvulus with transverse descending colon colectomy and colostomy as per Dr. Murphy 10/05/2020. History of tubal ligation. History of colonoscopy. History of sigmoid resection with ileostomy. History of diverting ileostomy. History of multiple sclerosis. History of hyperlipidemia. Sigmoid volvulus, status post resection. Seizures. Gout. Hypercholesterolemia. GE reflux. Chronic constipation. HISTORY OF PRESENT ILLNESS: The patient is a 64-year-old female admitted 10/03/2020 with sigmoid volvulus, status post splenic flexure volvulus with transverse descending colon colectomy and colostomy as per Dr. Murphy 10/05/2020. EGD as per Dr. Flores 10/11/2020 with hematin, diffuse inflammation, friability in the prepyloric region, undissolved medication tablets were noted. HOSPITAL COURSE: By 10/04/2020 the patient was noting to have some air in the ostomy bag. By 10/05/2020 the patient was noted to have small amount of stool in the bag. She was started on clear liquids. Physical and occupational therapy was requested to help with activity. She was treated with IV Rocephin for 5 days related to E. coli UTI. She was noted to have melanotic stool in her ostomy bag and was taken for urgent EGD as per Dr. Flores 10/11/2020 with hematin, diffuse inflammation, friability in the prepyloric region, undissolved medication tablets were noted. The patient received a total of 6 units PRBCs 10/10 and 10/11. The patient had tolerated clamping of the NG tube and subsequently this was discontinued 10/13/2020 and the patient was tried again on clear liquids. She was advanced to regular diet on 10/14. By 10/15 she was no longer having melanotic stool, ostomy output was brown and no further evidence of bleeding. Hemoglobin was stable 9.3-10.1. ARU screen was requested for continued rehabilitation and the patient was transferred to acute rehab 10/17/2020. DISCHARGE MEDICATIONS: Please see below. ALLERGIES: Please see below. PHYSICAL EXAMINATION ON DISCHARGE: Afebrile. VSS General. resting in bed, appears in no acute distress. S1-S2 regular rate rhythm Lungs are clear to auscultation Abdomen is soft, nontender, nondistended, incision with maynor intact/clean/dry. Ostomy with brown stool in bag. LABORATORY DATA: Please see below. DISCHARGE PLAN: Discharge today to acute rehab unit Activity as tolerated Regular diet Outpatient follow-up with Dr. Murphy after discharge DISCHARGE CONDITION: Stable. TIME SPENT ON DISCHARGE: Greater than 30 minutes. Vital Signs/I&Os Vital Signs Date Time Temp Pulse Resp B/P (MAP) Pulse Ox O2 Delivery O2 Flow Rate FiO2 10/17/20 12:00 99.1 99 19 127/77 (94) 97 Room Air 10/16/20 06:44 1.0 I&O- Last 24 Hours up to 6 AM 10/17/20 06:00 Intake Total 1800 ml Output Total 0 ml Balance 1800 ml Laboratory Data Labs 24H Laboratory Tests 2 10/17/20 06:25: Nucleated Red Blood Cells % (auto) 0.0, Anion Gap 6L, Glomerular Filtration Rate > 60.0, Calcium Level 8.3L CBC/BMP Laboratory Tests 10/17/20 06:25 Discharge Medications Scheduled Atorvastatin Calcium (Atorvastatin Calcium) 20 Mg Tablet, 20 MG PO QHS, (Reported) Carbamazepine (Carbamazepine ER) 100 Mg Cpmp.12hr, 300 MG PO BID, (Reported) Fluoxetine Hcl (Fluoxetine HCl) 20 Mg Cap, 40 MG PO DAILY, (Reported) Furosemide (Furosemide) 20 Mg Tab, 20 MG PO DAILY, (Reported) Furosemide (Furosemide) 20 Mg Tablet, 20 MG PO DAILY Gabapentin (Gabapentin) 300 Mg Capsule, 300 MG PO BID, (Reported) TAKES IN MORNING AND AFTERNOON; BEGINS TAKING 300 MG TID ON FRIDAY Magnesium Oxide (Magnesium) 400 Mg Capsule, 400 MG PO DAILY, (Reported) Melatonin (Melatonin) 10 Mg Capsule, 10 MG PO QHS, (Reported) Modafinil (Modafinil) 100 Mg Tab, 100 MG PO DAILY, (Reported) Multivitamins (Thera M Plus Tablet) 1 Tab Tab, 1 TAB PO DAILY, (Reported) Oxybutynin Chloride (Oxybutynin Chloride) 5 Mg Tab, 5 MG PO BID, (Reported) Pantoprazole Sodium (Pantoprazole Sodium) 40 Mg Tablet.dr, 40 MG PO BID Scheduled PRN Acetaminophen (Acetaminophen) 325 Mg Tab, 650 MG PO Q4H PRN for PAIN, (Reported) Ipratropium/Albuterol Sulfate (Iprat-Albut 0.5-3(2.5) mg/3 ml) 3 Ml Ampul.neb, 3 ML NEB Q2HP PRN for SOB/WHEEZING Polyethylene Glycol 3350 (Miralax) 17 Gm Powd.pack, 1 PKT PO DAILYPRN PRN for CONSTIPATION Ramelteon (Ramelteon) 8 Mg Tablet, 8 MG PO QHS PRN for INSOMNIA Allergies Coded Allergies: No Known Allergies (Verified , 09/02/18) Kely Morgan Oct 17, 2020 15:27
== END 2020-10-17 17:00 | DRG 329 ==
LOC: M ED 14:03 → EDBD 14:03 → M ED 19:34 → M MS5PR 22:22 → UNDOADMIN 10-04 10:06 → M ICU 10-10 11:05 → M MS5PR 10-13 17:14
PROVIDERS: ADMIT Surgery; ATTEND Surgery
PROC: 0DBL0ZZ Excision of Transverse Colon, Open Approach (ICD-10-PCS; principal; 2020-10-03 19:30)
PROC: 30233N1 Transfusion of Nonautologous Red Blood Cells into Peripheral Vein, Percutaneous Approach (ICD-10-PCS; 2020-10-10)
PROC: 0DJ08ZZ Inspection of Upper Intestinal Tract, Via Natural or Artificial Opening Endoscopic (ICD-10-PCS; 2020-10-11)
DX: K56.2 Volvulus (principal); K55.069 Acute infarction of intestine, part and extent unspecified; K29.71 Gastritis, unspecified, with bleeding; E87.2 Acidosis; N39.0 Urinary tract infection, site not specified; D62 Acute posthemorrhagic anemia; K56.609 Unspecified intestinal obstruction, unspecified as to partial versus complete obstruction; G35 Multiple sclerosis; E87.5 Hyperkalemia; E78.5 Hyperlipidemia, unspecified; M10.9 Gout, unspecified; K21.9 Gastro-esophageal reflux disease without esophagitis; Z79.899 Other long term (current) drug therapy

== ENCOUNTER 2020-10-17 12:55 | Inpatient (IN) | payer MEDICARE, MEDICAID ==
[~2020-10-17] VITALS: Ht 172.7 cm; Wt 79.9 kg
[~2020-10-17 12:55] MED LIST changes: +ASPI-161 PO; +CARB1CAP3 PO; +IPRA0.00 NEB; +MAGN400C PO; +MELA10CA6 PO; +MIRA1POW3 PO; +RAME8TAB2 PO; +TECF240C PO; +TEGR1TAB PO
[2020-10-17] MEDS ORDERED: ONDANSETRON 4 MG ORAL DISINTEGRATING TAB SL PRN (16:45)
[2020-10-17] MEDS ORDERED: MIRALAX *UNIT DOSE* 17GM PACKET PO PRN (16:45)
[2020-10-17] MEDS ORDERED: NORCO, ANEXSIA 5/325MG TABLET (HYDROcodone/ACETAMINOPHEN) PO PRN (16:45)
--- NOTE | 2020-10-17 16:56 | HPEPDOC ---
[employer] Chief Note DATE OF ADMISSION: 10-17-20 DATE OF SERVICE: 10-18-20 TIME OF ADMISSION: Please refer to physician's admission order. 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 She was diagnosed with a large bowel obstruction and evaluated by surgery who initially performed a colonoscopic decompression on 10-03-20, however due to concern for strictures and a dusky appearing colon was progressed to an ex-lap with a transverse descending colon colectomy with colostomy for splenic flexure volvulus. Following surgery she had an NG tubes placed on 10-07-20 because she was unable to tolerate clear liquids and developed melanotic stools on 10-10-20 with drops in BPs. She underwent an emergent EGD on 10-11-20 which showing diffuse gastritis with erosions for which she was started on Carafate and protonix. She was able to transition to po medications and food, was evaluated by therapy and found to have mobility and ADL impairments after a prolonged hospital course and deemed medically appropriate for discharge to ARU on 10-17-20. REVIEW OF SYSTEMS: The following is a completed review of systems and has been reviewed. Review of systems otherwise unremarkable. PAIN: Patient self reports low back pain and incisional pain EYES: No recent vision changes EARS, NOSE, & THROAT: No throat pain, or dysphagia, or rhinorrhea CARDIOVASCULAR: [Denies chest pain or palpitations PULMONARY: Denies shortness of breath GASTROINTESTINAL: Denies constipation/diarrhea GENITOURINARY: denies dysuria MUSCULOSKELETAL: generalizes weakness NEUROLOGICAL:+ MS wit right sided paresis HEMATOLOGICAL: denies easy bruising SKIN: +colostomy and abdominal incision PSYCHIATRIC: Unremarkable All other review of systems found to be negative. PAST MEDICAL HISTORY: as per hpi PAST SURGICAL HISTORY: As per HPI, tubal ligation, knee surgery ALLERGIES: Please see below. MEDICATIONS: Please see below. FAMILY HISTORY: Father- stroke SOCIAL HISTORY:Former smoker, no etoh/illicit drugs DIET: regular PHYSICAL EXAMINATION: VITAL SIGNS: Please see below. GENERAL: Pleasant and cooperative. No acute distress. HEENT: PERRL. Extraocular movements intact. Clear conjunctiva CARDIOVASCULAR: Regular rate and rhythm. No murmurs, rubs, or gallops LUNGS: Clear to auscultation bilaterally. No wheezes. No rhonchi ABDOMEN: Soft, nontender, nondistended. Positive bowel sounds, +colostomy, incision with maynor c/d/i NEUROLOGICAL: Alert and oriented times three. Cranial nerves II through XII grossly intact. Sensation grossly intact EXTREMITIES: 5-\5 strength bilateral upper extremities. 4\5 strength right lower extremity. 5/5 strength in left lower extremity. LABORATORY DATA: Please see below. IMAGING:Imaging documentation personally reviewed by record FUNCTIONAL STATUS: Premorbid: Mod-Independent with all activities of daily life as well as mobility On Admission: Contact-min assist for functional transfers, ambulation, bed mobility, dressing GOALS: Mod-I for functional transfers, ambulation, bed mobility, dressing, bathing, toileting ASSESSMENT:65-year-old F with past medical history of MS and sigmoid volvulus s /p colectomy with diverting ileostomy that was reversed who presents status post splenic volvulus with LBO requiring transverse colectomy and colostomy PLAN: 1. Rehab- PT/OT advance mobility and ADls, energy conservation given hx of MS, evaluate fo AFO 2. Neuro- hx of MS contributing to overall weakness and now deconditioned due to prolonged hospital stay -seizure disorder, c/u tegretol and gabapentin 3. CArdiac- grade 1 diastolic CHF per recent ECHO, c/u lasix, daily weights, fluid restrict and monitor for fluid overload -HLD c/u statin -medicine consulted to assist in overall management 4. Resp- monitor for infection 5. GI- s/p transverse colectomy, c/u ostomy care, monitor for worsening abominal findings - EGD 10-11-20 showing diffuse gastritis with GI bleed- c/u carafate and protonix -f/u gen surgery 6. DVT ppx- teds, avoid AC due to GI bleed 7. - neurogenic bladder in setting of MS c/u oxybutynin 8. psych- depression- c/u prozac and provigil 9. Pain - tylenol and gabapentin, oxycodone prn 10. Dispo- TBD POST ADMISSION PHYSICIAN EVALUATION: Medical and functional status: Description of medical status, medical assessment: As above. Rehabilitation diagnosis and current and prior cold morbid medical conditions as above. Risk of complications and plans to mitigate them as above. Description of functional status current status is as above. Prior status as above. Status compared to preadmission: There are no clinically significant differences between the patient's current status and the information described on the preadmission screening document. Treatment plan anticipated: Treatment plan is as described above. Required disciplines including physical therapy, occupational therapy, others as noted above. Intensity of services: 3 hours a day, 6 days a week. Special considerations: There are no specific special or safety considerations that would likely preclude immediate implementation of an intensive rehabilitation program or subsequently influence the plan of care. ATTESTATION: Considering all the information above, it is my best judgment that this patient requires intensive rehabilitation therapy as described above and an inpatient hospital environment due to the complexity of nursing, medical, and rehabilitation needs required by the patient. Furthermore, this patient can reasonably be expected to participate in an benefit from an inpatient rehabilitation stay with an interdisciplinary team approach to the delivery of rehabilitation care under the direction and supervision of rehabilitation physician PROGNOSIS: good ESTIMATED LENGTH OF STAY:10-14 days. PROJECTED DISCHARGE DESTINATION: Home with family support and any durable m edical equipment required to increase functional safety and mobility. TIME SPENT COUNSELING AND COORDINATING INITIAL CARE: Greater than 70 minutes. Vital Signs Vital Signs Date Time Temp Pulse Resp B/P (MAP) Pulse Ox O2 Delivery O2 Flow Rate FiO2 10/17/20 17:00 98.7 89 18 130/62 (84) 93 Room Air Home Medications Scheduled Atorvastatin Calcium (Atorvastatin Calcium) 20 Mg Tablet, 20 MG PO QHS, (Re ported) Carbamazepine (Carbamazepine ER) 100 Mg Cpmp.12hr, 300 MG PO BID, (Reported) Fluoxetine Hcl (Fluoxetine HCl) 20 Mg Cap, 40 MG PO DAILY, (Reported) Furosemide (Furosemide) 20 Mg Tab, 20 MG PO DAILY, (Reported) Furosemide (Furosemide) 20 Mg Tablet, 20 MG PO DAILY Gabapentin (Gabapentin) 300 Mg Capsule, 300 MG PO BID, (Reported) TAKES IN MORNING AND AFTERNOON; BEGINS TAKING 300 MG TID ON FRIDAY Magnesium Oxide (Magnesium) 400 Mg Capsule, 400 MG PO DAILY, (Reported) Melatonin (Melatonin) 10 Mg Capsule, 10 MG PO QHS, (Reported) Modafinil (Modafinil) 100 Mg Tab, 100 MG PO DAILY, (Reported) Multivitamins (Thera M Plus Tablet) 1 Tab Tab, 1 TAB PO DAILY, (Reported) Oxybutynin Chloride (Oxybutynin Chloride) 5 Mg Tab, 5 MG PO BID, (Reported) Pantoprazole Sodium (Pantoprazole Sodium) 40 Mg Tablet.dr, 40 MG PO BID Scheduled PRN Acetaminophen (Acetaminophen) 325 Mg Tab, 650 MG PO Q4H PRN for PAIN, (Reported) Ipratropium/Albuterol Sulfate (Iprat-Albut 0.5-3(2.5) mg/3 ml) 3 Ml Ampul.neb, 3 ML NEB Q2HP PRN for SOB/WHEEZING Polyethylene Glycol 3350 (Miralax) 17 Gm Powd.pack, 1 PKT PO DAILYPRN PRN for CONSTIPATION Ramelteon (Ramelteon) 8 Mg Tablet, 8 MG PO QHS PRN for INSOMNIA Allergies Coded Allergies: No Known Allergies (Verified , 09/02/18) A-FIB/CHADSVASC A-FIB History Current/History of A-Fib/PAF?: No Current PO Anticoag Therapy: No SHAYLA COWAN MD Oct 17, 2020 16:56
[2020-10-17 17:00] VITALS: BP 130/62
[2020-10-17] MEDS: COMBIVENT RESPIMAT 100-20MCG INHALER 4GM INH SCH (19:39)
[2020-10-17 20:00] VITALS: BP 95/53
[2020-10-17] MEDS: DOCUSATE SODIUM 100MG CAPSULE PO SCH (20:07)
[2020-10-17] MEDS: PANTOPRAZOLE 40MG TAB (PROTONIX) PO SCH (20:07)
[2020-10-17] MEDS: GABAPENTIN 300 MG CAP PO SCH (20:07)
[2020-10-17] MEDS: RAMELTEON 8 MG TAB (ROZEREM) PO PRN (20:08)
[2020-10-17] MEDS: ACETAMINOPHEN TAB 650MG DOSE (2X325MG) PO PRN (20:08)
[2020-10-17] MEDS: ATORVASTATIN 20 MG TAB PO SCH (20:08)
[2020-10-17] MEDS: REMEDY PHYTOPLEX Z-GUARD PASTE 113GM TUBE (FROM STOREROOM PRODUCT) TOP SCH (20:09)
[2020-10-17] MEDS: oxyBUTYnin 5 MG TAB PO SCH (20:54)
[2020-10-17] MEDS: carBAMazepine XR 100 MG TAB PO SCH (20:54)
[2020-10-17] MEDS ORDERED: SENNA 8.6 MG TAB (SENOKOT) PO SCH (21:00)
[2020-10-18 06:00] VITALS: BP 130/56
[2020-10-18] MEDS: COMBIVENT RESPIMAT 100-20MCG INHALER 4GM INH SCH ×3 (07:06→20:00)
[2020-10-18 07:42] LABS: BASO # 0.1 10^3/uL (0.0-0.2); BASO % 0.8 % (0.0-1.0); EOS # 0.3 10^3/uL (0.0-0.5); EOS % 5.2 % (0.0-3.0); HEMATOCRIT 32.3 % (36.0-47.0); HEMOGLOBIN 10.3 g/dl (12.0-15.5); LYMPH # 1.5 10^3/uL (1.5-5.0); LYMPH % 23.6 % (24.0-44.0); MEAN CORPUSCULAR HEMOGLOBIN 28.9 pg (27.0-33.0); MEAN CORPUSCULAR HGB CONC 31.9 g/dl (32.0-36.5); MEAN CORPUSCULAR VOLUME 90.5 fl (80.0-96.0); MONO # 0.7 10^3/uL (0.0-0.8); NEUTROPHILS # 3.7 10^3/uL (1.5-8.5); NEUTROPHILS % 58.8 % (36.0-66.0); PLATELET COUNT, AUTOMATED 400 10^3/uL (150-450); RED BLOOD COUNT 3.57 10^6/uL (4.00-5.40); WHITE BLOOD COUNT 6.4 10^3/uL (4.0-10.0)
[2020-10-18 08:17] LABS: ALBUMIN 2.6 GM/DL (3.2-5.2); ALT/SGPT 15 U/L (12-78); BILIRUBIN,TOTAL 0.2 MG/DL (0.2-1.0); BLOOD UREA NITROGEN 10 MG/DL (7-18); CALCIUM LEVEL 8.4 MG/DL (8.8-10.2); CARBON DIOXIDE LEVEL 27 MEQ/L (21-32); CHLORIDE LEVEL 101 MEQ/L (98-107); CREATININE FOR GFR 0.47 MG/DL (0.55-1.30); GLOMERULAR FILTRATION RATE > 60.0 (>45); GLUCOSE, FASTING 98 MG/DL (70-100); POTASSIUM SERUM 4.6 MEQ/L (3.5-5.1); SODIUM LEVEL 136 MEQ/L (136-145); TOTAL PROTEIN 6.5 GM/DL (6.4-8.2)
[2020-10-18] MEDS: GABAPENTIN 300 MG CAP PO SCH ×2 (08:59→21:39)
[2020-10-18] MEDS: FLUoxetine 20 MG CAP PO SCH (08:59)
[2020-10-18] MEDS: FUROSEMIDE 20 MG TAB PO SCH (08:59)
[2020-10-18] MEDS: MODAFINIL 100 MG TABLET PO SCH (08:59)
[2020-10-18] MEDS: MAGNESIUM OXIDE 400MG TAB (MAG-OX) PO SCH (08:59)
[2020-10-18] MEDS: PANTOPRAZOLE 40MG TAB (PROTONIX) PO SCH ×2 (08:59→21:39)
[2020-10-18] MEDS: DOCUSATE SODIUM 100MG CAPSULE PO SCH ×2 (08:59→21:39)
[2020-10-18] MEDS: oxyBUTYnin 5 MG TAB PO SCH ×2 (08:59→21:39)
[2020-10-18] MEDS: REMEDY PHYTOPLEX Z-GUARD PASTE 113GM TUBE (FROM STOREROOM PRODUCT) TOP SCH ×3 (09:00→21:40)
[2020-10-18] MEDS: carBAMazepine XR 100 MG TAB PO SCH ×2 (09:00→21:39)
[2020-10-18] MEDS: SUCRALFATE 1 GM TAB PO SCH ×3 (12:17→21:40)
[2020-10-18 14:00] VITALS: BP 122/57
[2020-10-18] MEDS: oxyCODONE 5MG TAB PO PRN ×2 (14:06→21:46)
--- NOTE | 2020-10-18 14:09 | CR.PDOC ---
General Date of Consultation: Oct 18, 2020 Referring Provider: SHAYLA COWAN MD Attending Physician: MORENA ABDALLA MD Consultation REASON FOR CONSULTATION/CHIEF COMPLAINT: Medical management. HISTORY OF PRESENT ILLNESS: This is 65 years old female with past medical history of multiple medical problems had developed upper GI bleed, E. coli and depression. Once this stabilized on medical floor she was transferred to ARU for a strength training and physical therapy.. ALLERGIES: Please see below. HOME MEDICATIONS: Please see below. PAST MEDICAL HISTORY: Multiple sclerosis, hyperlipidemia, sigmoid volvulus s/p resection, seizure disorder, gout PAST SURGICAL HISTORY: Tubal ligation, knee surgery, colonoscopy, sigmoid resection with ileostomy, reversal of diverting ileostomy with dilatation of colorectal anastomosis FAMILY HISTORY: Mother in her 80s but does not know family history of her parents SOCIAL HISTORY: Patient quit smoking 2 to 3 years ago she denies alcohol or illegal drugs lives with her and daughter REVIEW OF SYSTEMS: CONSTITUTIONAL: No fever nausea weakness. HEENT: No eye or ear problems. CARDIOVASCULAR: No chest pain palpitations. RESPIRATORY: No shortness of breath cough. GENITOURINARY: No dysuria frequency. MUSCULOSKELETAL: No aches pains or limitation of movement. GASTROINTESTINAL: No nausea vomiting diarrhea. SKIN: No rash or eruption. NEUROLOGICAL: No motor or sensory weakness or cranial nerve deformity. PSYCHIATRIC: No anxiety depression. ENDOCRINE: No diabetes anemia. HEMATOLOGIC/LYMPHATIC: No anemia. ALLERGIC/IMMUNOLOGIC: No allergies. PHYSICAL EXAMINATION: VITAL SIGNS: Please see below. GENERAL APPEARANCE: Within normal limits. HEENT: PERRLA extraocular muscles intact. RESPIRATORY: Clear to A&P. CARDIOVASCULAR: S1-S2 regular. ABDOMEN: Benign. EXTREMITIES: No clubbing sinus edema. NEUROLOGICAL: No focal motor or sensory deficit. PSYCHIATRIC: Normal. LABORATORY DATA: Please see below. ASSESSMENT/PLAN: Patient's been admitted to ARU for physical therapy Patient H&H is stable his unknown source of bleeding and will continue monitor her CBC during her stay in ARU and transfuse as needed Regarding her UTI she finished 5 days of Rocephin, she is off antibiotics and asymptomatic Continue all home medications We will monitor patient in ARU while she is receiving physical therapy before discharging home. Vital Signs/I&O Vital Signs Date Time Temp Pulse Resp B/P (MAP) Pulse Ox O2 Delivery O2 Flow Rate FiO2 10/18/20 14:06 20 10/18/20 06:00 98.0 80 130/56 (80) 93 Room Air I&O- Last 24 Hours up to 6 AM 10/18/20 06:00 Intake Total 150 ml Balance 150 ml Laboratory Data Labs 24H Laboratory Tests 2 10/18/20 06:57: Immature Granulocyte % (Auto) 0.6, Neutrophils (%) (Auto) 58.8, Lymphocytes (%) (Auto) 23.6L, Monocytes (%) (Auto) 11.0H, Eosinophils (%) (Auto) 5.2H, Basophils (%) (Auto) 0.8, Neutrophils # (Auto) 3.7, Lymphocytes # (Auto) 1.5, Monocytes # (Auto) 0.7, Eosinophils # (Auto) 0.3, Basophils # (Auto) 0.1, Nucleated Red Blood Cells % (auto) 0.0, Anion Gap 8, Glomerular Filtration Rate > 60.0, Calcium Level 8.4L, Total Bilirubin 0.2, Aspartate Amino Transf (AST/SGOT) 14, Alanine Aminotransferase (ALT/SGPT) 15, Alkaline Phosphatase 81, Total Protein 6.5, Albumin 2.6L, Albumin/Globulin Ratio 0.7L CBC/BMP Laboratory Tests 10/18/20 06:57 Allergies Coded Allergies: No Known Allergies (Verified , 09/02/18) Home Medications Scheduled Atorvastatin Calcium (Atorvastatin Calcium) 20 Mg Tablet, 20 MG PO QHS, (Reported) Carbamazepine (Carbamazepine ER) 100 Mg Cpmp.12hr, 300 MG PO BID, (Reported) Fluoxetine Hcl (Fluoxetine HCl) 20 Mg Cap, 40 MG PO DAILY, (Reported) Furosemide (Furosemide) 20 Mg Tab, 20 MG PO DAILY, (Reported) Furosemide (Furosemide) 20 Mg Tablet, 20 MG PO DAILY for 10 Days Gabapentin (Gabapentin) 300 Mg Capsule, 300 MG PO BID, (Reported) TAKES IN MORNING AND AFTERNOON; BEGINS TAKING 300 MG TID ON FRIDAY Magnesium Oxide (Magnesium) 400 Mg Capsule, 400 MG PO DAILY, (Reported) Melatonin (Melatonin) 10 Mg Capsule, 10 MG PO QHS, (Reported) Modafinil (Modafinil) 100 Mg Tab, 100 MG PO DAILY, (Reported) Multivitamins (Thera M Plus Tablet) 1 Tab Tab, 1 TAB PO DAILY, (Reported) Oxybutynin Chloride (Oxybutynin Chloride) 5 Mg Tab, 5 MG PO BID, (Reported) Pantoprazole Sodium (Pantoprazole Sodium) 40 Mg Tablet.dr, 40 MG PO BID for 7 Days Scheduled PRN Acetaminophen (Acetaminophen) 325 Mg Tab, 650 MG PO Q4H PRN for PAIN, (Reported) Ipratropium/Albuterol Sulfate (Iprat-Albut 0.5-3(2.5) mg/3 ml) 3 Ml Ampul.neb, 3 ML NEB Q2HP PRN for SOB/WHEEZING for 7 Days Polyethylene Glycol 3350 (Miralax) 17 Gm Powd.pack, 1 PKT PO DAILYPRN PRN for CONSTIPATION for 7 Days Ramelteon (Ramelteon) 8 Mg Tablet, 8 MG PO QHS PRN for INSOMNIA for 7 Days MORENA ABDALLA MD Oct 18, 2020 14:09
[2020-10-18 20:00] VITALS: BP 135/72
[2020-10-18] MEDS: RAMELTEON 8 MG TAB (ROZEREM) PO PRN (21:39)
[2020-10-18] MEDS: ATORVASTATIN 20 MG TAB PO SCH (21:39)
[2020-10-19 06:00] VITALS: BP 115/60
[2020-10-19] MEDS: COMBIVENT RESPIMAT 100-20MCG INHALER 4GM INH SCH ×3 (07:11→19:24)
[2020-10-19] MEDS: SUCRALFATE 1 GM TAB PO SCH ×4 (07:30→21:31)
[2020-10-19] MEDS: carBAMazepine XR 100 MG TAB PO SCH ×2 (09:22→21:32)
[2020-10-19] MEDS: oxyBUTYnin 5 MG TAB PO SCH ×2 (09:22→21:32)
[2020-10-19] MEDS: MAGNESIUM OXIDE 400MG TAB (MAG-OX) PO SCH (09:22)
[2020-10-19] MEDS: FUROSEMIDE 20 MG TAB PO SCH (09:22)
[2020-10-19] MEDS: DOCUSATE SODIUM 100MG CAPSULE PO SCH ×2 (09:22→21:31)
[2020-10-19] MEDS: MODAFINIL 100 MG TABLET PO SCH (09:22)
[2020-10-19] MEDS: FLUoxetine 20 MG CAP PO SCH (09:22)
[2020-10-19] MEDS: PANTOPRAZOLE 40MG TAB (PROTONIX) PO SCH ×2 (09:22→21:31)
[2020-10-19] MEDS: GABAPENTIN 300 MG CAP PO SCH ×2 (09:22→21:31)
[2020-10-19] MEDS: REMEDY PHYTOPLEX Z-GUARD PASTE 113GM TUBE (FROM STOREROOM PRODUCT) TOP SCH ×3 (09:23→21:33)
[2020-10-19] MEDS: oxyCODONE 5MG TAB PO PRN ×2 (09:24→13:22)
--- NOTE | 2020-10-19 10:58 | IPNPDOC ---
PM&R Progress Note DATE OF SERVICE: Oct 19, 2020 [employer] Progress Note Subjective: Patient stating her pain is well controlled with oxycodone and that although she has some tightness in her right leg she says it is not bothering her and she is able to walking safely on her right leg. REVIEW OF SYSTEMS: The following is a completed review of systems and has been reviewed. Review of systems otherwise unremarkable. PAIN: Patient self reports low back pain and incisional pain EYES: No recent vision changes EARS, NOSE, & THROAT: No throat pain, or dysphagia, or rhinorrhea CARDIOVASCULAR: Denies chest pain or palpitations PULMONARY: Denies shortness of breath GASTROINTESTINAL: Denies constipation/diarrhea GENITOURINARY: denies dysuria MUSCULOSKELETAL: generalizes weakness NEUROLOGICAL:+ MS with right sided paresis HEMATOLOGICAL: denies easy bruising SKIN: +colostomy and abdominal incision PSYCHIATRIC: Unremarkable All other review of systems found to be negative. PHYSICAL EXAMINATION: VITAL SIGNS: Please see below. GENERAL: Pleasant and cooperative. No acute distress. HEENT: PERRL. Extraocular movements intact. Clear conjunctiva CARDIOVASCULAR: Regular rate and rhythm. No murmurs, rubs, or gallops LUNGS: Clear to auscultation bilaterally. No wheezes. No rhonchi ABDOMEN: Soft, nontender, nondistended. Positive bowel sounds, +colostomy, incision with maynor c/d/i NEUROLOGICAL: Alert and oriented times three. Cranial nerves II through XII grossly intact. Sensation grossly intact EXTREMITIES: 5-\5 strength bilateral upper extremities. 4\5 strength right lower extremity. 5/5 strength in left lower extremity. 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 Rehab- PT/OT advance mobility and ADls, energy conservation given hx of MS, evaluate fo AFO 2. Neuro- hx of MS contributing to overall weakness and now deconditioned due to prolonged hospital stay -seizure disorder, c/u tegretol and gabapentin 3. CArdiac- grade 1 diastolic CHF per recent ECHO, c/u lasix, daily weights, fluid restrict and monitor for fluid overload -HLD c/u statin -medicine consulted to assist in overall management 4. Resp- monitor for infection 5. GI- s/p transverse colectomy with malabsorption, c/u ostomy care, monitor for worsening abdominal findings - EGD 10-11-20 showing diffuse gastritis with GI bleed- c/u carafate and protonix -f/u gen surgery 6. DVT ppx- teds, avoid AC due to GI bleed 7. - neurogenic bladder in setting of MS c/u oxybutynin 8. psych- depression- c/u prozac and provigil 9. Pain - tylenol and gabapentin, oxycodone prn 10. Dispo- TBD Allergies Coded Allergies: No Known Allergies (Verified , 09/02/18) Vital Signs Vital Signs Date Time Temp Pulse Resp B/P (MAP) Pulse Ox O2 Delivery O2 Flow Rate FiO2 10/19/20 09:24 18 Room Air 10/19/20 06:00 98.9 84 115/60 (78) 84 Current Medications Current Medications Current Medications Medications (Trade) Dose Ordered Sig/Gilma Route PRN Reason Start Time Stop Time Status Last Admin Dose Admin Acetaminophen (Tylenol Tab) 650 mg Q8HP PRN PO fever/MILD PAIN (PS 1-4) 10/17/20 16:45 10/17/20 20:08 Acetaminophen/ Hydrocodone Bitart ([place], Anexsia 5/325) 1 tab Q4HP PRN PO MODERATE PAIN (PS 5-7) 10/17/20 16:45 10/18/20 13:12 DC Albuterol/ Ipratropium (Combivent Respimat 100-20mcg) 1 puff RTID INH 10/17/20 20:00 10/19/20 07:11 Atorvastatin Calcium (Lipitor) 20 mg QHS PO 10/17/20 21:00 10/18/20 21:39 Carbamazepine (TEGretol XR) 300 mg BID PO 10/17/20 21:00 10/19/20 09:22 Docusate Sodium (Colace) 100 mg BID PO 10/17/20 21:00 10/19/20 09:22 Fluoxetine HCl (PROzac) 40 mg DAILY PO 10/18/20 09:00 10/19/20 09:22 Furosemide (Lasix) 20 mg DAILY PO 10/18/20 09:00 10/19/20 09:22 Gabapentin (Neurontin) 300 mg BID PO 10/17/20 21:00 10/19/20 09:22 Magnesium Oxide (Mag-Ox) 400 mg DAILY PO 10/18/20 09:00 10/19/20 09:22 Modafinil (Provigil) 100 mg QAM PO 10/18/20 09:00 10/19/20 09:22 Ondansetron HCl (Zofran Odt) 4 mg Q4HP PRN SL NAUSEA OR VOMITING 10/17/20 16:45 Oxybutynin Chloride (Ditropan) 5 mg BID PO 10/17/20 21:00 10/19/20 09:22 Oxycodone HCl (Roxicodone, Oxyir) 5 mg Q4HP PRN PO MODERATE PAIN (PS 5-7) 10/18/20 12:55 10/19/20 09:24 Pantoprazole Sodium (Protonix) 40 mg BID PO 10/17/20 21:00 10/19/20 09:22 Polyethylene Glycol (Miralax) 1 pkt DAILY PRN PO CONSTIPATION 10/17/20 16:45 Ramelteon (Rozerem) 8 mg QHS PRN PO INSOMNIA 10/17/20 16:45 10/18/20 21:39 Senna (Senokot) 1 tab QHS PO 10/17/20 21:00 10/18/20 10:56 DC 10/17/20 20:07 Sucralfate (Carafate) 1 gm ACHS PO 10/18/20 12:00 10/18/20 21:40 SHAYLA COWAN MD Oct 19, 2020 10:58
[2020-10-19] MEDS ORDERED: oxyCODONE 5MG TAB PO PRN (14:15)
[2020-10-19 14:26] VITALS: BP 113/64
[2020-10-19] MEDS: oxyCODONE 5MG TAB PO SCH (17:09)
[2020-10-19 20:00] VITALS: BP 108/56
[2020-10-19] MEDS: RAMELTEON 8 MG TAB (ROZEREM) PO PRN (21:31)
[2020-10-19] MEDS: ATORVASTATIN 20 MG TAB PO SCH (21:31)
[2020-10-20] MEDS: ACETAMINOPHEN TAB 650MG DOSE (2X325MG) PO PRN ×2 (01:48→20:51)
[2020-10-20 06:00] VITALS: BP 119/58
[2020-10-20] MEDS: COMBIVENT RESPIMAT 100-20MCG INHALER 4GM INH SCH ×3 (07:13→20:30)
[2020-10-20 07:15] LABS: BASO % 1.1 % (0.0-1.0); EOS % 4.3 % (0.0-3.0); HEMATOCRIT 31.4 % (36.0-47.0); HEMOGLOBIN 10.2 g/dl (12.0-15.5); LYMPH # 1.2 10^3/uL (1.5-5.0); LYMPH % 22.8 % (24.0-44.0); MEAN CORPUSCULAR HEMOGLOBIN 29.2 pg (27.0-33.0); MEAN CORPUSCULAR HGB CONC 32.5 g/dl (32.0-36.5); MONO # 0.7 10^3/uL (0.0-0.8); MONO % 13.7 % (2.0-8.0); NEUTROPHILS # 3.1 10^3/uL (1.5-8.5); NEUTROPHILS % 57.7 % (36.0-66.0); PLATELET COUNT, AUTOMATED 401 10^3/uL (150-450); RED BLOOD COUNT 3.49 10^6/uL (4.00-5.40); WHITE BLOOD COUNT 5.3 10^3/uL (4.0-10.0)
[2020-10-20 07:16] LABS: BASO # 0.1 10^3/uL (0.0-0.2); EOS # 0.2 10^3/uL (0.0-0.5)
[2020-10-20 07:36] LABS: BLOOD UREA NITROGEN 9 MG/DL (7-18); CALCIUM LEVEL 8.3 MG/DL (8.8-10.2); CARBON DIOXIDE LEVEL 28 MEQ/L (21-32); CHLORIDE LEVEL 100 MEQ/L (98-107); GLOMERULAR FILTRATION RATE > 60.0 (>45); GLUCOSE, FASTING 99 MG/DL (70-100); POTASSIUM SERUM 4.4 MEQ/L (3.5-5.1); SODIUM LEVEL 134 MEQ/L (136-145)
[2020-10-20] MEDS: FUROSEMIDE 20 MG TAB PO SCH (09:06)
[2020-10-20] MEDS: SUCRALFATE 1 GM TAB PO SCH ×4 (09:07→20:50)
[2020-10-20] MEDS: MODAFINIL 100 MG TABLET PO SCH (09:07)
[2020-10-20] MEDS: DOCUSATE SODIUM 100MG CAPSULE PO SCH ×2 (09:07→20:50)
[2020-10-20] MEDS: carBAMazepine XR 100 MG TAB PO SCH ×2 (09:07→20:50)
[2020-10-20] MEDS: FLUoxetine 20 MG CAP PO SCH (09:07)
[2020-10-20] MEDS: oxyBUTYnin 5 MG TAB PO SCH ×2 (09:07→20:50)
[2020-10-20] MEDS: MAGNESIUM OXIDE 400MG TAB (MAG-OX) PO SCH (09:07)
[2020-10-20] MEDS: PANTOPRAZOLE 40MG TAB (PROTONIX) PO SCH ×2 (09:07→20:50)
[2020-10-20] MEDS: GABAPENTIN 300 MG CAP PO SCH ×2 (09:07→20:50)
[2020-10-20] MEDS: REMEDY PHYTOPLEX Z-GUARD PASTE 113GM TUBE (FROM STOREROOM PRODUCT) TOP SCH ×3 (09:09→20:55)
[2020-10-20] MEDS: oxyCODONE 5MG TAB PO SCH ×3 (09:09→18:28)
--- NOTE | 2020-10-20 11:31 | IPNPDOC ---
PM&R Progress Note DATE OF SERVICE: Oct 20, 2020 [employer] Progress Note Subjective: Patient reproting her low back is bothering her and would like her oxycodone scheduled. Otherwise she is feeling ok. REVIEW OF SYSTEMS: The following is a completed review of systems and has been reviewed. Review of systems otherwise unremarkable. PAIN: Patient self reports low back pain and incisional pain EYES: No recent vision changes EARS, NOSE, & THROAT: No throat pain, or dysphagia, or rhinorrhea CARDIOVASCULAR: Denies chest pain or palpitations PULMONARY: Denies shortness of breath GASTROINTESTINAL: Denies constipation/diarrhea GENITOURINARY: denies dysuria MUSCULOSKELETAL: generalizes weakness NEUROLOGICAL:+ MS with right sided paresis HEMATOLOGICAL: denies easy bruising SKIN: +colostomy and abdominal incision PSYCHIATRIC: Unremarkable All other review of systems found to be negative. PHYSICAL EXAMINATION: VITAL SIGNS: Please see below. GENERAL: Pleasant and cooperative. No acute distress. HEENT: PERRL. Extraocular movements intact. Clear conjunctiva CARDIOVASCULAR: Regular rate and rhythm. No murmurs, rubs, or gallops LUNGS: Clear to auscultation bilaterally. No wheezes. No rhonchi ABDOMEN: Soft, nontender, nondistended. Positive bowel sounds, +colostomy, incision with maynor c/d/i NEUROLOGICAL: Alert and oriented times three. Cranial nerves II through XII grossly intact. Sensation grossly intact EXTREMITIES: 5-\5 strength bilateral upper extremities. 4\5 strength right lower extremity. 5/5 strength in left lower extremity. ASSESSMENT:65-year-old F with past medical history of MS and sigmoid volvulus s/p colectomy with diverting ileostomy that was reversed who presents status po st splenic volvulus with LBO requiring transverse colectomy and colostomy PLAN: 1. Rehab- PT/OT advance mobility and ADls, energy conservation given hx of MS, evaluate fo AFO 2. Neuro- hx of MS contributing to overall weakness and now deconditioned due to prolonged hospital stay -seizure disorder, c/u tegretol and gabapentin 3. CArdiac- grade 1 diastolic CHF per recent ECHO, c/u lasix, daily weights, fluid restrict and monitor for fluid overload -HLD c/u statin -medicine consulted to assist in overall management 4. Resp- monitor for infection 5. GI- s/p transverse colectomy with malabsorption, c/u ostomy care, monitor for worsening abdominal findings - EGD 10-11-20 showing diffuse gastritis with GI bleed- c/u carafate and protonix -f/u gen surgery 6. DVT ppx- teds, avoid AC due to GI bleed 7. - neurogenic bladder in setting of MS c/u oxybutynin 8. psych- depression- c/u prozac and provigil 9. Pain - tylenol and gabapentin, oxycodone scheduled 10. Dispo- TBD Allergies Coded Allergies: No Known Allergies (Verified , 09/02/18) Vital Signs Vital Signs Date Time Temp Pulse Resp B/P (MAP) Pulse Ox O2 Delivery O2 Flow Rate FiO2 10/20/20 09:39 18 10/20/20 06:00 98.5 77 119/58 (78) 95 Room Air Laboratory Data CBC/BMP Laboratory Tests 10/20/20 06:44 Labs 24H Laboratory Tests 2 10/20/20 06:44: Immature Granulocyte % (Auto) 0.4, Neutrophils (%) (Auto) 57.7, Lymphocytes (%) (Auto) 22.8L, Monocytes (%) (Auto) 13.7H, Eosinophils (%) (Auto) 4.3H, Basophils (%) (Auto) 1.1H, Neutrophils # (Auto) 3.1, Lymphocytes # (Auto) 1.2L, Monocytes # (Auto) 0.7, Eosinophils # (Auto) 0.2, Basophils # (Auto) 0.1, Nucleated Red Blood Cells % (auto) 0.0, Anion Gap 6L, Glomerular Filtration Rate > 60.0, Calcium Level 8.3L Current Medications Current Medications Current Medications Medications (Trade) Dose Ordered Sig/Gilma Route PRN Reason Start Time Stop Time Status Last Admin Dose Admin Acetaminophen (Tylenol Tab) 650 mg Q8HP PRN PO fever/MILD PAIN (PS 1-4) 10/17/20 16:45 10/20/20 01:48 Acetaminophen/ Hydrocodone Bitart ([place], Anexsia 5/325) 1 tab Q4HP PRN PO MODERATE PAIN (PS 5-7) 10/17/20 16:45 10/18/20 13:12 DC Albuterol/ Ipratropium (Combivent Respimat 100-20mcg) 1 puff RTID INH 10/17/20 20:00 10/20/20 07:13 Atorvastatin Calcium (Lipitor) 20 mg QHS PO 10/17/20 21:00 10/19/20 21:31 Carbamazepine (TEGretol XR) 300 mg BID PO 10/17/20 21:00 10/20/20 09:07 Docusate Sodium (Colace) 100 mg BID PO 10/17/20 21:00 10/20/20 09:07 Fluoxetine HCl (PROzac) 40 mg DAILY PO 10/18/20 09:00 10/20/20 09:07 Furosemide (Lasix) 20 mg DAILY PO 10/18/20 09:00 10/20/20 09:06 Gabapentin (Neurontin) 300 mg BID PO 10/17/20 21:00 10/20/20 09:07 Magnesium Oxide (Mag-Ox) 400 mg DAILY PO 10/18/20 09:00 10/20/20 09:07 Modafinil (Provigil) 100 mg QAM PO 10/18/20 09:00 10/20/20 09:07 Ondansetron HCl (Zofran Odt) 4 mg Q4HP PRN SL NAUSEA OR VOMITING 10/17/20 16:45 Oxybutynin Chloride (Ditropan) 5 mg BID PO 10/17/20 21:00 10/20/20 09:07 Oxycodone HCl (Roxicodone, Oxyir) 5 mg 0800,1300,1800 PO 10/19/20 18:00 10/20/20 09:09 Oxycodone HCl (Roxicodone, Oxyir) 5 mg Q24H PRN PO SEE LABEL COMMENTS 10/19/20 14:15 Oxycodone HCl (Roxicodone, Oxyir) 5 mg Q4HP PRN PO MODERATE PAIN (PS 5-7) 10/18/20 12:55 10/19/20 14:15 DC 10/19/20 13:22 Pantoprazole Sodium (Protonix) 40 mg BID PO 10/17/20 21:00 10/20/20 09:07 Polyethylene Glycol (Miralax) 1 pkt DAILY PRN PO CONSTIPATION 10/17/20 16:45 Ramelteon (Rozerem) 8 mg QHS PRN PO INSOMNIA 10/17/20 16:45 10/19/20 21:31 Senna (Senokot) 1 tab QHS PO 10/17/20 21:00 10/18/20 10:56 DC 10/17/20 20:07 Sucralfate (Carafate) 1 gm ACHS PO 10/18/20 12:00 10/20/20 09:07 SHAYLA COWAN MD Oct 20, 2020 11:31
[2020-10-20 14:00] VITALS: BP 121/59
[2020-10-20 20:00] VITALS: BP 105/69
[2020-10-20] MEDS: ATORVASTATIN 20 MG TAB PO SCH (20:50)
[2020-10-20] MEDS: RAMELTEON 8 MG TAB (ROZEREM) PO PRN (20:51)
[2020-10-21 04:00] VITALS: BP 133/64
[2020-10-21] MEDS: COMBIVENT RESPIMAT 100-20MCG INHALER 4GM INH SCH ×3 (07:08→20:12)
[2020-10-21] MEDS: carBAMazepine XR 100 MG TAB PO SCH ×2 (08:50→19:21)
[2020-10-21] MEDS: MODAFINIL 100 MG TABLET PO SCH (08:51)
[2020-10-21] MEDS: oxyBUTYnin 5 MG TAB PO SCH ×2 (08:51→19:21)
[2020-10-21] MEDS: DOCUSATE SODIUM 100MG CAPSULE PO SCH ×2 (08:51→19:21)
[2020-10-21] MEDS: FUROSEMIDE 20 MG TAB PO SCH (08:51)
[2020-10-21] MEDS: FLUoxetine 20 MG CAP PO SCH (08:51)
[2020-10-21] MEDS: SUCRALFATE 1 GM TAB PO SCH ×4 (08:51→19:26)
[2020-10-21] MEDS: oxyCODONE 5MG TAB PO SCH ×3 (08:51→17:27)
[2020-10-21] MEDS: MAGNESIUM OXIDE 400MG TAB (MAG-OX) PO SCH (08:51)
[2020-10-21] MEDS: PANTOPRAZOLE 40MG TAB (PROTONIX) PO SCH ×2 (08:51→19:21)
[2020-10-21] MEDS: REMEDY PHYTOPLEX Z-GUARD PASTE 113GM TUBE (FROM STOREROOM PRODUCT) TOP SCH ×3 (08:52→19:22)
[2020-10-21] MEDS: GABAPENTIN 300 MG CAP PO SCH ×2 (08:52→19:21)
[2020-10-21 14:00] VITALS: BP 117/59
[2020-10-21] MEDS: ATORVASTATIN 20 MG TAB PO SCH (19:21)
[2020-10-21] MEDS: RAMELTEON 8 MG TAB (ROZEREM) PO PRN (19:22)
[2020-10-21] MEDS: ACETAMINOPHEN TAB 650MG DOSE (2X325MG) PO PRN (19:24)
[2020-10-21 20:00] VITALS: BP 116/63
[2020-10-22 06:00] VITALS: BP 134/61
[2020-10-22] MEDS: SUCRALFATE 1 GM TAB PO SCH ×4 (07:09→19:21)
[2020-10-22] MEDS: PANTOPRAZOLE 40MG TAB (PROTONIX) PO SCH ×2 (07:09→19:20)
[2020-10-22] MEDS: GABAPENTIN 300 MG CAP PO SCH ×2 (07:09→19:20)
[2020-10-22] MEDS: carBAMazepine XR 100 MG TAB PO SCH ×2 (07:10→19:20)
[2020-10-22] MEDS: MAGNESIUM OXIDE 400MG TAB (MAG-OX) PO SCH (07:10)
[2020-10-22] MEDS: DOCUSATE SODIUM 100MG CAPSULE PO SCH ×2 (07:10→19:20)
[2020-10-22] MEDS: oxyBUTYnin 5 MG TAB PO SCH ×2 (07:10→19:20)
[2020-10-22] MEDS: FLUoxetine 20 MG CAP PO SCH (07:10)
[2020-10-22] MEDS: FUROSEMIDE 20 MG TAB PO SCH (07:10)
[2020-10-22] MEDS: MODAFINIL 100 MG TABLET PO SCH (07:10)
[2020-10-22] MEDS: REMEDY PHYTOPLEX Z-GUARD PASTE 113GM TUBE (FROM STOREROOM PRODUCT) TOP SCH ×3 (07:11→19:21)
[2020-10-22] MEDS: oxyCODONE 5MG TAB PO SCH ×3 (07:11→17:01)
[2020-10-22] MEDS: COMBIVENT RESPIMAT 100-20MCG INHALER 4GM INH SCH ×2 (07:20→13:10)
[2020-10-22] MEDS: ACETAMINOPHEN TAB 650MG DOSE (2X325MG) PO PRN (10:15)
[2020-10-22 14:00] VITALS: BP 142/73
[2020-10-22] MEDS: RAMELTEON 8 MG TAB (ROZEREM) PO PRN (19:20)
[2020-10-22] MEDS: ATORVASTATIN 20 MG TAB PO SCH (19:20)
[2020-10-22 20:00] VITALS: BP 125/64
[2020-10-23] MEDS: COMBIVENT RESPIMAT 100-20MCG INHALER 4GM INH SCH ×4 (00:36→20:00)
[2020-10-23 06:00] VITALS: BP 130/61
[2020-10-23 06:49] LABS: BASO % 0.6 % (0.0-1.0); EOS # 0.2 10^3/uL (0.0-0.5); EOS % 3.5 % (0.0-3.0); HEMATOCRIT 30.5 % (36.0-47.0); HEMOGLOBIN 9.9 g/dl (12.0-15.5); LYMPH # 1.1 10^3/uL (1.5-5.0); LYMPH % 20.4 % (24.0-44.0); MEAN CORPUSCULAR HEMOGLOBIN 29.2 pg (27.0-33.0); MEAN CORPUSCULAR HGB CONC 32.5 g/dl (32.0-36.5); MONO # 0.7 10^3/uL (0.0-0.8); MONO % 12.2 % (2.0-8.0); NEUTROPHILS # 3.4 10^3/uL (1.5-8.5); NEUTROPHILS % 62.9 % (36.0-66.0); PLATELET COUNT, AUTOMATED 329 10^3/uL (150-450); RED BLOOD COUNT 3.39 10^6/uL (4.00-5.40); WHITE BLOOD COUNT 5.4 10^3/uL (4.0-10.0)
[2020-10-23 07:11] LABS: BLOOD UREA NITROGEN 8 MG/DL (7-18); CALCIUM LEVEL 8.4 MG/DL (8.8-10.2); CARBON DIOXIDE LEVEL 27 MEQ/L (21-32); CHLORIDE LEVEL 102 MEQ/L (98-107); CREATININE FOR GFR 0.46 MG/DL (0.55-1.30); GLOMERULAR FILTRATION RATE > 60.0 (>45); GLUCOSE, FASTING 102 MG/DL (70-100); POTASSIUM SERUM 4.2 MEQ/L (3.5-5.1); SODIUM LEVEL 136 MEQ/L (136-145)
[2020-10-23] MEDS: DOCUSATE SODIUM 100MG CAPSULE PO SCH ×2 (08:45→21:14)
[2020-10-23] MEDS: SUCRALFATE 1 GM TAB PO SCH ×4 (08:45→21:14)
[2020-10-23] MEDS: PANTOPRAZOLE 40MG TAB (PROTONIX) PO SCH ×2 (08:45→21:14)
[2020-10-23] MEDS: FLUoxetine 20 MG CAP PO SCH (08:46)
[2020-10-23] MEDS: oxyBUTYnin 5 MG TAB PO SCH ×2 (08:46→21:13)
[2020-10-23] MEDS: FUROSEMIDE 20 MG TAB PO SCH (08:46)
[2020-10-23] MEDS: GABAPENTIN 300 MG CAP PO SCH ×2 (08:46→21:14)
[2020-10-23] MEDS: MODAFINIL 100 MG TABLET PO SCH (08:46)
[2020-10-23] MEDS: MAGNESIUM OXIDE 400MG TAB (MAG-OX) PO SCH (08:46)
[2020-10-23] MEDS: REMEDY PHYTOPLEX Z-GUARD PASTE 113GM TUBE (FROM STOREROOM PRODUCT) TOP SCH ×3 (08:47→21:15)
[2020-10-23] MEDS: oxyCODONE 5MG TAB PO SCH ×3 (08:47→18:00)
[2020-10-23] MEDS: carBAMazepine XR 100 MG TAB PO SCH ×2 (08:47→21:14)
[2020-10-23] MEDS: ACETAMINOPHEN TAB 650MG DOSE (2X325MG) PO PRN (11:39)
[2020-10-23 14:00] VITALS: BP 112/57
[2020-10-23 20:00] VITALS: BP 108/58
[2020-10-23] MEDS: ATORVASTATIN 20 MG TAB PO SCH (21:14)
[2020-10-24 06:23] VITALS: BP 133/72
--- NOTE | 2020-10-24 07:26 | IPNPDOC ---
PM&R Progress Note DATE OF SERVICE: Oct 24, 2020 Insecticide Sprayer Progress Note Subjective: Patient reporting her Tegretol pills for her trigeminal neuralgia are showing up un digested in her colostomy bag, stating she takes a capsule form at home. REVIEW OF SYSTEMS: The following is a completed review of systems and has been r eviewed. Review of systems otherwise unremarkable. PAIN: Patient self reports low back pain and incisional pain EYES: No recent vision changes EARS, NOSE, & THROAT: No throat pain, or dysphagia, or rhinorrhea CARDIOVASCULAR: Denies chest pain or palpitations PULMONARY: Denies shortness of breath GASTROINTESTINAL: Denies constipation/diarrhea GENITOURINARY: denies dysuria MUSCULOSKELETAL: generalizes weakness NEUROLOGICAL:+ MS with right sided paresis HEMATOLOGICAL: denies easy bruising SKIN: +colostomy and abdominal incision PSYCHIATRIC: Unremarkable All other review of systems found to be negative. PHYSICAL EXAMINATION: VITAL SIGNS: Please see below. GENERAL: Pleasant and cooperative. No acute distress. HEENT: PERRL. Extraocular movements intact. Clear conjunctiva CARDIOVASCULAR: Regular rate and rhythm. No murmurs, rubs, or gallops LUNGS: Clear to auscultation bilaterally. No wheezes. No rhonchi ABDOMEN: Soft, nontender, nondistended. Positive bowel sounds, +colostomy, incision with maynor c/d/i NEUROLOGICAL: Alert and oriented times three. Cranial nerves II through XII grossly intact. Sensation grossly intact EXTREMITIES: 5-\5 strength bilateral upper extremities. 4\5 strength right lower extremity. 5/5 strength in left lower extremity. 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 Rehab- PT/OT advance mobility and ADls, energy conservation given hx of MS, evaluate fo AFO, ambulating with RW 2. Neuro- hx of MS contributing to overall weakness and now deconditioned due to prolonged hospital stay -seizure disorder and trigeminal neuralgia c/u tegretol (spoke with pharmacy about changing pill so that it gets absorbed) and gabapentin 3. CArdiac- grade 1 diastolic CHF per recent ECHO, c/u lasix, daily weights, fluid restrict and monitor for fluid overload -HLD c/u statin -medicine consulted to assist in overall management 4. Resp- monitor for infection 5. GI- s/p transverse colectomy with malabsorption, c/u ostomy care, monitor for worsening abdominal findings - EGD 10-11-20 showing diffuse gastritis with GI bleed- c/u carafate and protonix -f/u gen surgery 6. DVT ppx- teds, avoid AC due to GI bleed 7. - neurogenic bladder in setting of MS c/u oxybutynin 8. psych- depression- c/u prozac and provigil 9. Pain - tylenol and gabapentin, oxycodone scheduled 10. Dispo- 10-27-20 to home pending family training Allergies Coded Allergies: No Known Allergies (Verified , 09/02/18) Vital Signs Vital Signs Date Time Temp Pulse Resp B/P (MAP) Pulse Ox O2 Delivery O2 Flow Rate FiO2 10/24/20 06:23 98.1 83 18 133/72 (92) 94 Room Air Current Medications Current Medications Current Medications Medications (Trade) Dose Ordered Sig/Gilma Route PRN Reason Start Time Stop Time Status Last Admin Dose Admin Acetaminophen (Tylenol Tab) 650 mg Q8HP PRN PO fever/MILD PAIN (PS 1-4) 10/17/20 16:45 10/23/20 11:39 Acetaminophen/ Hydrocodone Bitart ([place], Anexsia 5/325) 1 tab Q4HP PRN PO MODERATE PAIN (PS 5-7) 10/17/20 16:45 10/18/20 13:12 DC Albuterol/ Ipratropium (Combivent Respimat 100-20mcg) 1 puff RTID INH 10/17/20 20:00 10/23/20 20:00 Atorvastatin Calcium (Lipitor) 20 mg QHS PO 10/17/20 21:00 10/23/20 21:14 Carbamazepine (TEGretol XR) 300 mg BID PO 10/17/20 21:00 10/23/20 21:14 Docusate Sodium (Colace) 100 mg BID PO 10/17/20 21:00 10/23/20 21:14 Fluoxetine HCl (PROzac) 40 mg DAILY PO 10/18/20 09:00 10/23/20 08:46 Furosemide (Lasix) 20 mg DAILY PO 10/18/20 09:00 10/23/20 08:46 Gabapentin (Neurontin) 300 mg BID PO 10/17/20 21:00 10/23/20 21:14 Magnesium Oxide (Mag-Ox) 400 mg DAILY PO 10/18/20 09:00 10/23/20 08:46 Modafinil (Provigil) 100 mg QAM PO 10/18/20 09:00 10/23/20 08:46 Ondansetron HCl (Zofran Odt) 4 mg Q4HP PRN SL NAUSEA OR VOMITING 10/17/20 16:45 Oxybutynin Chloride (Ditropan) 5 mg BID PO 10/17/20 21:00 10/23/20 21:13 Oxycodone HCl (Roxicodone, Oxyir) 5 mg 0800,1300,1800 PO 10/19/20 18:00 10/23/20 18:00 Oxycodone HCl (Roxicodone, Oxyir) 5 mg Q24H PRN PO SEE LABEL COMMENTS 10/19/20 14:15 Oxycodone HCl (Roxicodone, Oxyir) 5 mg Q4HP PRN PO MODERATE PAIN (PS 5-7) 10/18/20 12:55 10/19/20 14:15 DC 10/19/20 13:22 Pantoprazole Sodium (Protonix) 40 mg BID PO 10/17/20 21:00 10/23/20 21:14 Polyethylene Glycol (Miralax) 1 pkt DAILY PRN PO CONSTIPATION 10/17/20 16:45 Ramelteon (Rozerem) 8 mg QHS PRN PO INSOMNIA 10/17/20 16:45 10/22/20 19:20 Senna (Senokot) 1 tab QHS PO 10/17/20 21:00 10/18/20 10:56 DC 10/17/20 20:07 Sucralfate (Carafate) 1 gm ACHS PO 10/18/20 12:00 10/23/20 21:14 SHAYLA COWAN MD Oct 24, 2020 07:26
[2020-10-24] MEDS: COMBIVENT RESPIMAT 100-20MCG INHALER 4GM INH SCH ×3 (07:31→20:14)
[2020-10-24] MEDS: SUCRALFATE 1 GM TAB PO SCH ×4 (07:33→21:12)
[2020-10-24] MEDS: DOCUSATE SODIUM 100MG CAPSULE PO SCH ×2 (07:33→21:11)
[2020-10-24] MEDS: MODAFINIL 100 MG TABLET PO SCH (07:33)
[2020-10-24] MEDS: oxyCODONE 5MG TAB PO SCH ×3 (07:33→17:08)
[2020-10-24] MEDS: oxyBUTYnin 5 MG TAB PO SCH ×2 (07:33→21:12)
[2020-10-24] MEDS: GABAPENTIN 300 MG CAP PO SCH ×2 (07:33→21:12)
[2020-10-24] MEDS: PANTOPRAZOLE 40MG TAB (PROTONIX) PO SCH ×2 (07:34→21:12)
[2020-10-24] MEDS: MAGNESIUM OXIDE 400MG TAB (MAG-OX) PO SCH (07:34)
[2020-10-24] MEDS: FUROSEMIDE 20 MG TAB PO SCH (07:34)
[2020-10-24] MEDS: FLUoxetine 20 MG CAP PO SCH (07:34)
[2020-10-24] MEDS: carBAMazepine XR 100 MG TAB PO SCH (07:34)
[2020-10-24] MEDS: REMEDY PHYTOPLEX Z-GUARD PASTE 113GM TUBE (FROM STOREROOM PRODUCT) TOP SCH ×3 (07:35→21:13)
[2020-10-24 14:00] VITALS: BP 131/70
[2020-10-24] MEDS: carBAMazepine 200MG TABLET PO SCH ×2 (17:08→21:12)
[2020-10-24 19:42] VITALS: BP 112/61
[2020-10-24] MEDS: ATORVASTATIN 20 MG TAB PO SCH (21:11)
[2020-10-24] MEDS: RAMELTEON 8 MG TAB (ROZEREM) PO PRN (21:12)
[2020-10-25 05:56] VITALS: BP 119/60
[2020-10-25] MEDS: SUCRALFATE 1 GM TAB PO SCH ×4 (07:11→20:43)
[2020-10-25] MEDS: DOCUSATE SODIUM 100MG CAPSULE PO SCH ×2 (07:11→20:43)
[2020-10-25] MEDS: GABAPENTIN 300 MG CAP PO SCH ×2 (07:11→20:43)
[2020-10-25] MEDS: carBAMazepine 200MG TABLET PO SCH ×3 (07:11→20:43)
[2020-10-25] MEDS: FUROSEMIDE 20 MG TAB PO SCH (07:11)
[2020-10-25] MEDS: FLUoxetine 20 MG CAP PO SCH (07:12)
[2020-10-25] MEDS: MODAFINIL 100 MG TABLET PO SCH (07:12)
[2020-10-25] MEDS: oxyBUTYnin 5 MG TAB PO SCH ×2 (07:12→20:43)
[2020-10-25] MEDS: PANTOPRAZOLE 40MG TAB (PROTONIX) PO SCH ×2 (07:12→20:43)
[2020-10-25] MEDS: MAGNESIUM OXIDE 400MG TAB (MAG-OX) PO SCH (07:12)
[2020-10-25] MEDS: oxyCODONE 5MG TAB PO SCH ×3 (07:12→17:29)
[2020-10-25] MEDS: REMEDY PHYTOPLEX Z-GUARD PASTE 113GM TUBE (FROM STOREROOM PRODUCT) TOP SCH ×3 (07:13→20:44)
[2020-10-25] MEDS: COMBIVENT RESPIMAT 100-20MCG INHALER 4GM INH SCH ×3 (07:20→20:13)
[2020-10-25 07:36] LABS: BASO % 0.6 % (0.0-1.0); EOS # 0.2 10^3/uL (0.0-0.5); HEMATOCRIT 31.2 % (36.0-47.0); LYMPH # 1.3 10^3/uL (1.5-5.0); LYMPH % 25.5 % (24.0-44.0); MEAN CORPUSCULAR HEMOGLOBIN 28.9 pg (27.0-33.0); MEAN CORPUSCULAR HGB CONC 32.1 g/dl (32.0-36.5); MEAN CORPUSCULAR VOLUME 90.2 fl (80.0-96.0); MONO # 0.6 10^3/uL (0.0-0.8); MONO % 11.7 % (2.0-8.0); NEUTROPHILS # 2.9 10^3/uL (1.5-8.5); NEUTROPHILS % 58.8 % (36.0-66.0); PLATELET COUNT, AUTOMATED 293 10^3/uL (150-450); RED BLOOD COUNT 3.46 10^6/uL (4.00-5.40)
[2020-10-25 07:56] LABS: BLOOD UREA NITROGEN 7 MG/DL (7-18); CALCIUM LEVEL 8.5 MG/DL (8.8-10.2); CARBON DIOXIDE LEVEL 29 MEQ/L (21-32); CHLORIDE LEVEL 102 MEQ/L (98-107); CREATININE FOR GFR 0.56 MG/DL (0.55-1.30); GLOMERULAR FILTRATION RATE > 60.0 (>45); GLUCOSE, FASTING 106 MG/DL (70-100); SODIUM LEVEL 135 MEQ/L (136-145)
--- NOTE | 2020-10-25 10:11 | IPNPDOC ---
PM&R Progress Note DATE OF SERVICE: Oct 25, 2020 Batch Records Clerk Progress Note Subjective: Patient seen in her room stating she is feeling well, her back aches, but she does not want to try a heating pad. When a pillow was placed behind her back she said the pain improved. She states the oxycodone is helping her back pain. REVIEW OF SYSTEMS: The following is a completed review of systems and has been reviewed. Review of systems otherwise unremarkable. PAIN: Patient self reports low back pain and incisional pain EYES: No recent vision changes EARS, NOSE, & THROAT: No throat pain, or dysphagia, or rhinorrhea CARDIOVASCULAR: Denies chest pain or palpitations PULMONARY: Denies shortness of breath GASTROINTESTINAL: Denies constipation/diarrhea GENITOURINARY: denies dysuria MUSCULOSKELETAL: generalizes weakness NEUROLOGICAL:+ MS with right sided paresis HEMATOLOGICAL: denies easy bruising SKIN: +colostomy and abdominal incision PSYCHIATRIC: Unremarkable All other review of systems found to be negative. PHYSICAL EXAMINATION: VITAL SIGNS: Please see below. GENERAL: Pleasant and cooperative. No acute distress. HEENT: PERRL. Extraocular movements intact. Clear conjunctiva CARDIOVASCULAR: Regular rate and rhythm. No murmurs, rubs, or gallops LUNGS: Clear to auscultation bilaterally. No wheezes. No rhonchi ABDOMEN: Soft, nontender, nondistended. Positive bowel sounds, +colostomy, incision with maynor c/d/i NEUROLOGICAL: Alert and oriented times three. Cranial nerves II through XII grossly intact. Sensation grossly intact EXTREMITIES: 5-\5 strength bilateral upper extremities. 4\5 strength right lower extremity. 5/5 strength in left lower extremity. 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 Rehab- PT/OT advance mobility and ADls, energy conservation given hx of MS, evaluate fo AFO, ambulating with RW 2. Neuro- hx of MS contributing to overall weakness and now deconditioned due to prolonged hospital stay -seizure disorder and trigeminal neuralgia c/u tegretol (spoke with pharmacy about changing pill so that it gets absorbed) and gabapentin 3. CArdiac- grade 1 diastolic CHF per recent ECHO, c/u lasix, daily weights, fluid restrict and monitor for fluid overload -HLD c/u statin -medicine consulted to assist in overall management 4. Resp- monitor for infection 5. GI- s/p transverse colectomy with malabsorption, c/u ostomy care, monitor for worsening abdominal findings - EGD 10-11-20 showing diffuse gastritis with GI bleed- c/u carafate and protonix -f/u gen surgery 6. DVT ppx- teds, avoid AC due to GI bleed 7. - neurogenic bladder in setting of MS c/u oxybutynin 8. psych- depression- c/u prozac and provigil 9. Pain - tylenol and gabapentin, oxycodone scheduled 10. Dispo- 10-27-20 to home pending family training Allergies Coded Allergies: No Known Allergies (Verified , 09/02/18) Vital Signs Vital Signs Date Time Temp Pulse Resp B/P (MAP) Pulse Ox O2 Delivery O2 Flow Rate FiO2 10/25/20 07:42 16 10/25/20 05:56 97.5 80 119/60 (79) 92 Room Air Laboratory Data CBC/BMP Laboratory Tests 10/25/20 07:16 Labs 24H Laboratory Tests 2 10/25/20 07:16: Immature Granulocyte % (Auto) 0.4, Neutrophils (%) (Auto) 58.8, Lymphocytes (%) (Auto) 25.5, Monocytes (%) (Auto) 11.7H, Eosinophils (%) (Auto) 3.0, Basophils (%) (Auto) 0.6, Neutrophils # (Auto) 2.9, Lymphocytes # (Auto) 1.3L, Monocytes # (Auto) 0.6, Eosinophils # (Auto) 0.2, Basophils # (Auto) 0.0, Nucleated Red Blood Cells % (auto) 0.0, Anion Gap 4L, Glomerular Filtration Rate > 60.0, Calcium Level 8.5L Current Medications Current Medications Current Medications Medications (Trade) Dose Ordered Sig/Gilma Route PRN Reason Start Time Stop Time Status Last Admin Dose Admin Acetaminophen (Tylenol Tab) 650 mg Q8HP PRN PO fever/MILD PAIN (PS 1-4) 10/17/20 16:45 10/23/20 11:39 Acetaminophen/ Hydrocodone Bitart ([place], Anexsia 5/325) 1 tab Q4HP PRN PO MODERATE PAIN (PS 5-7) 10/17/20 16:45 10/18/20 13:12 DC Albuterol/ Ipratropium (Combivent Respimat 100-20mcg) 1 puff RTID INH 10/17/20 20:00 10/25/20 07:20 Atorvastatin Calcium (Lipitor) 20 mg QHS PO 10/17/20 21:00 10/24/20 21:11 Carbamazepine (TEGretol XR) 300 mg BID PO 10/17/20 21:00 10/24/20 12:47 DC 10/24/20 07:34 Carbamazepine (TEGretol) 200 mg TID PO 10/24/20 16:00 10/25/20 07:11 Docusate Sodium (Colace) 100 mg BID PO 10/17/20 21:00 10/25/20 07:11 Fluoxetine HCl (PROzac) 40 mg DAILY PO 10/18/20 09:00 10/25/20 07:12 Furosemide (Lasix) 20 mg DAILY PO 10/18/20 09:00 10/25/20 07:11 Gabapentin (Neurontin) 300 mg BID PO 10/17/20 21:00 10/25/20 07:11 Magnesium Oxide (Mag-Ox) 400 mg DAILY PO 10/18/20 09:00 10/25/20 07:12 Modafinil (Provigil) 100 mg QAM PO 10/18/20 09:00 10/25/20 07:12 Ondansetron HCl (Zofran Odt) 4 mg Q4HP PRN SL NAUSEA OR VOMITING 10/17/20 16:45 10/24/20 13:37 Oxybutynin Chloride (Ditropan) 5 mg BID PO 10/17/20 21:00 10/25/20 07:12 Oxycodone HCl (Roxicodone, Oxyir) 5 mg 0800,1300,1800 PO 10/19/20 18:00 10/25/20 07:12 Oxycodone HCl (Roxicodone, Oxyir) 5 mg Q24H PRN PO SEE LABEL COMMENTS 10/19/20 14:15 10/24/20 21:14 Oxycodone HCl (Roxicodone, Oxyir) 5 mg Q4HP PRN PO MODERATE PAIN (PS 5-7) 10/18/20 12:55 10/19/20 14:15 DC 10/19/20 13:22 Pantoprazole Sodium (Protonix) 40 mg BID PO 10/17/20 21:00 10/25/20 07:12 Polyethylene Glycol (Miralax) 1 pkt DAILY PRN PO CONSTIPATION 10/17/20 16:45 Ramelteon (Rozerem) 8 mg QHS PRN PO INSOMNIA 10/17/20 16:45 10/24/20 21:12 Senna (Senokot) 1 tab QHS PO 10/17/20 21:00 10/18/20 10:56 DC 10/17/20 20:07 Sucralfate (Carafate) 1 gm ACHS PO 10/18/20 12:00 10/25/20 07:11 SHAYLA COWAN MD Oct 25, 2020 10:11
[2020-10-25 14:00] VITALS: BP 116/57
[2020-10-25] MEDS: RAMELTEON 8 MG TAB (ROZEREM) PO PRN (20:43)
[2020-10-25] MEDS: ATORVASTATIN 20 MG TAB PO SCH (20:43)
[2020-10-25] MEDS: ACETAMINOPHEN TAB 650MG DOSE (2X325MG) PO PRN (20:44)
[2020-10-25 22:00] VITALS: BP 119/64
[2020-10-26 06:00] VITALS: BP 126/64
[2020-10-26] MEDS: COMBIVENT RESPIMAT 100-20MCG INHALER 4GM INH SCH ×3 (06:13→20:17)
[2020-10-26] MEDS: ACETAMINOPHEN TAB 650MG DOSE (2X325MG) PO PRN (06:33)
[2020-10-26] MEDS: SUCRALFATE 1 GM TAB PO SCH ×4 (07:42→20:19)
[2020-10-26] MEDS: FUROSEMIDE 20 MG TAB PO SCH (07:42)
[2020-10-26] MEDS: FLUoxetine 20 MG CAP PO SCH (07:42)
[2020-10-26] MEDS: oxyCODONE 5MG TAB PO SCH ×3 (07:43→17:24)
[2020-10-26] MEDS: DOCUSATE SODIUM 100MG CAPSULE PO SCH ×2 (07:43→20:19)
[2020-10-26] MEDS: GABAPENTIN 300 MG CAP PO SCH (07:43)
[2020-10-26] MEDS: MAGNESIUM OXIDE 400MG TAB (MAG-OX) PO SCH (07:43)
[2020-10-26] MEDS: MODAFINIL 100 MG TABLET PO SCH (07:43)
[2020-10-26] MEDS: REMEDY PHYTOPLEX Z-GUARD PASTE 113GM TUBE (FROM STOREROOM PRODUCT) TOP SCH ×3 (07:43→20:21)
[2020-10-26] MEDS: carBAMazepine 200MG TABLET PO SCH ×3 (07:43→20:19)
[2020-10-26] MEDS: PANTOPRAZOLE 40MG TAB (PROTONIX) PO SCH ×2 (07:43→20:19)
[2020-10-26] MEDS: oxyBUTYnin 5 MG TAB PO SCH ×2 (07:43→20:19)
--- NOTE | 2020-10-26 08:42 | IPNPDOC ---
PM&R Progress Note DATE OF SERVICE: Oct 26, 2020 Production Underwriter Progress Note Subjective: Patient stating her trigeminal neuralgia is still troubling her since she was not absorbing her extended release tabs following the abdominal surgery. REVIEW OF SYSTEMS: The following is a completed review of systems and has been reviewed. Review of systems otherwise unremarkable. PAIN: Patient self reports low back pain and incisional pain EYES: No recent vision changes EARS, NOSE, & THROAT: No throat pain, or dysphagia, or rhinorrhea CARDIOVASCULAR: Denies chest pain or palpitations PULMONARY: Denies shortness of breath GASTROINTESTINAL: Denies constipation/diarrhea GENITOURINARY: denies dysuria MUSCULOSKELETAL: generalizes weakness NEUROLOGICAL:+ MS with right sided paresis HEMATOLOGICAL: denies easy bruising SKIN: +colostomy and abdominal incision PSYCHIATRIC: Unremarkable All other review of systems found to be negative. PHYSICAL EXAMINATION: VITAL SIGNS: Please see below. GENERAL: Pleasant and cooperative. No acute distress. HEENT: PERRL. Extraocular movements intact. Clear conjunctiva CARDIOVASCULAR: Regular rate and rhythm. No murmurs, rubs, or gallops LUNGS: Clear to auscultation bilaterally. No wheezes. No rhonchi ABDOMEN: Soft, nontender, nondistended. Positive bowel sounds, +colostomy, incision with maynor c/d/i NEUROLOGICAL: Alert and oriented times three. Cranial nerves II through XII grossly intact. Sensation grossly intact EXTREMITIES: 5-\5 strength bilateral upper extremities. 4\5 strength right lower extremity. 5/5 strength in left lower extremity. 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 Rehab- PT/OT advance mobility and ADls, energy conservation given hx of MS, evaluate fo AFO, ambulating with RW 2. Neuro- hx of MS contributing to overall weakness and now deconditioned due to prolonged hospital stay -seizure disorder and trigeminal neuralgia c/u tegretol (spoke with pharmacy about changing pill so that it gets absorbed) and gabapentin 3. CArdiac- grade 1 diastolic CHF per recent ECHO, c/u lasix, daily weights, fluid restrict and monitor for fluid overload -HLD c/u statin -medicine consulted to assist in overall management 4. Resp- monitor for infection 5. GI- s/p transverse colectomy with malabsorption, c/u ostomy care, monitor for worsening abdominal findings - EGD 10-11-20 showing diffuse gastritis with GI bleed- c/u carafate and protonix -f/u gen surgery 6. DVT ppx- teds, avoid AC due to GI bleed 7. - neurogenic bladder in setting of MS c/u oxybutynin 8. psych- depression- c/u prozac and provigil 9. Pain - tylenol and gabapentin (will increase dosing to treat trigeminal neuralgia flair while immediate release tegretol begins to take effect), oxycodone scheduled 10. Dispo- 10-27-20 to home with family support Allergies Coded Allergies: No Known Allergies (Verified , 09/02/18) Vital Signs Vital Signs Date Time Temp Pulse Resp B/P (MAP) Pulse Ox O2 Delivery O2 Flow Rate FiO2 10/26/20 08:13 16 10/26/20 06:00 98.1 74 126/64 (84) 94 Room Air Current Medications Current Medications Current Medications Medications (Trade) Dose Ordered Sig/Gilma Route PRN Reason Start Time Stop Time Status Last Admin Dose Admin Acetaminophen (Tylenol Tab) 650 mg Q8HP PRN PO fever/MILD PAIN (PS 1-4) 10/17/20 16:45 10/26/20 06:33 Acetaminophen/ Hydrocodone Bitart ([place], Anexsia 5/325) 1 tab Q4HP PRN PO MODERATE PAIN (PS 5-7) 10/17/20 16:45 10/18/20 13:12 DC Albuterol/ Ipratropium (Combivent Respimat 100-20mcg) 1 puff RTID INH 10/17/20 20:00 10/26/20 06:13 Atorvastatin Calcium (Lipitor) 20 mg QHS PO 10/17/20 21:00 10/25/20 20:43 Carbamazepine (TEGretol XR) 300 mg BID PO 10/17/20 21:00 10/24/20 12:47 DC 10/24/20 07:34 Carbamazepine (TEGretol) 200 mg TID PO 10/24/20 16:00 10/26/20 07:43 Docusate Sodium (Colace) 100 mg BID PO 10/17/20 21:00 7/22/21 07:43 Fluoxetine HCl (PROzac) 40 mg DAILY PO 10/18/20 09:00 10/26/20 07:42 Furosemide (Lasix) 20 mg DAILY PO 10/18/20 09:00 10/26/20 07:42 Gabapentin (Neurontin) 300 mg BID PO 10/17/20 21:00 10/26/20 07:43 Magnesium Oxide (Mag-Ox) 400 mg DAILY PO 10/18/20 09:00 10/26/20 07:43 Modafinil (Provigil) 100 mg QAM PO 10/18/20 09:00 10/26/20 07:43 Ondansetron HCl (Zofran Odt) 4 mg Q4HP PRN SL NAUSEA OR VOMITING 10/17/20 16:45 10/24/20 13:37 Oxybutynin Chloride (Ditropan) 5 mg BID PO 10/17/20 21:00 10/26/20 07:43 Oxycodone HCl (Roxicodone, Oxyir) 5 mg 0800,1300,1800 PO 10/19/20 18:00 10/26/20 07:43 Oxycodone HCl (Roxicodone, Oxyir) 5 mg Q24H PRN PO SEE LABEL COMMENTS 10/19/20 14:15 10/24/20 21:14 Oxycodone HCl (Roxicodone, Oxyir) 5 mg Q4HP PRN PO MODERATE PAIN (PS 5-7) 10/18/20 12:55 10/19/20 14:15 DC 10/19/20 13:22 Pantoprazole Sodium (Protonix) 40 mg BID PO 10/17/20 21:00 10/26/20 07:43 Polyethylene Glycol (Miralax) 1 pkt DAILY PRN PO CONSTIPATION 10/17/20 16:45 Ramelteon (Rozerem) 8 mg QHS PRN PO INSOMNIA 10/17/20 16:45 10/25/20 20:43 Senna (Senokot) 1 tab QHS PO 10/17/20 21:00 10/18/20 10:56 DC 10/17/20 20:07 Sucralfate (Carafate) 1 gm ACHS PO 10/18/20 12:00 10/26/20 07:42 SHAYLA COWAN MD Oct 26, 2020 08:42
[2020-10-26] MEDS ORDERED: ATOR1TAB21 PO (08:46)
[2020-10-26] MEDS ORDERED: GABA-282 PO (08:46)
[2020-10-26] MEDS ORDERED: MAGN400T2 PO (08:46)
[2020-10-26] MEDS ORDERED: FLUO20CA22 PO (08:46)
[2020-10-26] MEDS ORDERED: CARB20TA PO (08:46)
[2020-10-26] MEDS ORDERED: FURO20TA2 PO (08:46)
[2020-10-26] MEDS ORDERED: SUCR1TA PO (08:46)
[2020-10-26] MEDS ORDERED: PANT40TA29 PO (08:46)
[2020-10-26] MEDS ORDERED: OXYB5TAB10 PO (08:46)
[2020-10-26 13:58] VITALS: BP 137/71
[2020-10-26] MEDS: GABAPENTIN 400MG CAP PO SCH ×2 (16:07→20:19)
--- NOTE | 2020-10-26 18:17 | IPNPDOC ---
Text Note Date of Service The patient was seen on 10/26/20. NOTE SUBJECTIVE: Patient feels much stronger than admission and is hopeful that she will get to go home tomorrow. Denies urinary symptoms at this time. PHYSICAL EXAM: VITAL SIGNS: see below GENERAL APPEARANCE: Well appearing thin older female, lying in bed, NAD HEENT: Atraumatic, normocephalic. Eyes are anicteric. Mucous membranes are pink and moist CARDIOVASCULAR: NSR regular rhythm, no noted murmurs LUNGS: CTAB ABDOMEN: Normoactive sounds, soft, nondistended. No rebound tenderness or guarding. Ostomy site with maynor is clean, dry, and intact without any surrounding erythema EXTREMITIES: No lower extremity edema, no apparent rashes/petechiae. NEUROLOGICAL: Awake, speech is clear, AOx3 LABORATORY STUDIES: Reviewed, please see below. RADIOLOGY STUDIES: No recent ASSESSMENT: This is 65 years old female with past medical history of multiple medical problems had developed upper GI bleed, E. coli and depression. Once this stabilized on medical floor she was transferred to ARU for a strength training a nd physical therapy.. PLAN: # Anemia: Stable, no indication for transfusion # s/p colosctomy: Ostomy site is CDI with maynor in place. Continue wound care management per surgery. # s/p UTI: Patient completed 5 days of CTX and denies any urinary symptoms at this time. # Neurogenic bladder: In setting of MS, this places her at risk for recurrent UTIs, continue to monitor for clinical e/o infection and obtain UA/UCx if concern arises. # Mood disorder/depression: Continue home medications # HLD: Continue statin # HFpEF: Continue lasix and routine heart failure management. # Seizure disorder: Continue with Tegretol # MS: Continue with PM&R stay for further strengthening prior to discharge DISPO: Remain on ARU DIET: heart healthy DVT PROPHY: Ambulation CONSULTS: None DISCHARGE: Anticipated d/c 10/27/20 per PM&R recommendations VS,Fishbone, I+O VS, Fishbone, I+O Vital Signs Date Time Temp Pulse Resp B/P (MAP) Pulse Ox O2 Delivery O2 Flow Rate FiO2 10/26/20 17:24 16 10/26/20 13:58 97.2 76 137/71 (93) 98 Room Air I&O- Last 24 Hours up to 6 AM 10/26/20 06:00 Intake Total 1450 ml Balance 1450 ml REBECCA CHRISTOPHER MD [facility] Oct 26, 2020 18:17
[2020-10-26] MEDS ORDERED: tiZANidine 4 MG TAB PO ONE (18:45)
[2020-10-26 20:00] VITALS: BP 125/67
[2020-10-26] MEDS: ATORVASTATIN 20 MG TAB PO SCH (20:19)
[2020-10-26] MEDS: RAMELTEON 8 MG TAB (ROZEREM) PO PRN (20:19)
[2020-10-27 06:00] VITALS: BP 118/59
[2020-10-27] MEDS: COMBIVENT RESPIMAT 100-20MCG INHALER 4GM INH SCH ×2 (07:25→13:14)
[2020-10-27] MEDS: SUCRALFATE 1 GM TAB PO SCH ×2 (07:27→12:14)
[2020-10-27] MEDS: FUROSEMIDE 20 MG TAB PO SCH (07:28)
[2020-10-27] MEDS: oxyCODONE 5MG TAB PO SCH ×2 (07:28→12:15)
[2020-10-27] MEDS: oxyBUTYnin 5 MG TAB PO SCH (07:28)
[2020-10-27] MEDS: DOCUSATE SODIUM 100MG CAPSULE PO SCH (07:28)
[2020-10-27] MEDS: MAGNESIUM OXIDE 400MG TAB (MAG-OX) PO SCH (07:29)
[2020-10-27] MEDS: GABAPENTIN 400MG CAP PO SCH (07:29)
[2020-10-27] MEDS: FLUoxetine 20 MG CAP PO SCH (07:29)
[2020-10-27] MEDS: MODAFINIL 100 MG TABLET PO SCH (07:29)
[2020-10-27] MEDS: carBAMazepine 200MG TABLET PO SCH (07:30)
[2020-10-27] MEDS: REMEDY PHYTOPLEX Z-GUARD PASTE 113GM TUBE (FROM STOREROOM PRODUCT) TOP SCH (07:30)
[2020-10-27] MEDS: PANTOPRAZOLE 40MG TAB (PROTONIX) PO SCH (07:31)
[2020-10-27] MEDS ORDERED: GABA-283 PO (09:31)
--- NOTE | 2020-10-31 12:53 | PMRDS ---
NAME: CHARITY ALLEN [facility] WT ID#: [id number] JOB: [id number] GENO: 10/27/2020 ACCT: [id number] DOCTOR: SHAYLA COWAN MD PMR DISCHARGE SUMMARY DATE OF ADMISSION: 10/17/2020 DATE OF DISCHARGE: 10/27/2020 CHIEF COMPLAINT/DISCHARGE DIAGNOSIS: Weakness in the setting of large bowel obstruction status post colectomy with a history of multiple sclerosis. HISTORY OF PRESENT ILLNESS: This is a 64-year-old female with a past medical history of multiple sclerosis, hyperlipidemia, seizures, gout chronic constipation, who had sigmoid volvulus status post sigmoid colectomy with colonic anastomosis with diverting ileostomy that was reversed in 2018 who later presented to [facility] ED on 10/03/2020 with abdominal pain and distention. She was diagnosed with a large bowel obstruction and evaluated by Surgery who initially performed a colonoscopic decompression on 10/03/20, however due to concern for strictures and a dusky appearing colon, was progressed to an exploratory laparotomy of the transverse descending colon colectomy with colostomy for splenic flexure volvulus. Following surgery she had an NG-tube placed on 10/07/2020 because she was unable to tolerate clear liquids and developed melanotic stools on 10/10/2020 with drops in BPs. She underwent an emergent EGD on 10/11/2020 which showed diffuse gastritis with erosions for which she was started on Carafate and Protonix. She was able to transition to p.o. medications and food and was evaluated by therapy and found to have mobility and ADL impairments after a prolonged hospital course and deemed medically appropriate for discharge to ARU on 10/17/2020. PAST MEDICAL HISTORY: As per HPI. HOSPITAL COURSE: Patient was admitted and enrolled in a comprehensive PT/OT program. She received 24 hour nursing supervision and weekly team meetings were held to discuss her progress. The patient was noted to have inadequate absorption of her Tegretol and did develop worsening trigeminal neuralgia pain. She was treated with increased doses of Gabapentin and p.r.n. dose of Tizanidine while the immediate release Tegretol began to take effect. Patient otherwise did not show signs of GI bleed and was continued on Carafate and Protonix. She was evaluated by an Easement Worker for a right lower extremity AFO for her footdrop and weakness in the setting of multiple sclerosis. For her Grade 1 diastolic chronic CHF she received Lasix, was placed on a fluid restriction with daily weights. She overall made steady gains in therapy and was deemed medically and functionally stable to return home with family who would assist her with ostomy care. DISCHARGE MEDICATIONS: As per instructions. FUNCTIONAL HISTORY ON DISCHARGE: Patient was standby assist to modified independent for functional transfers and ambulation. Thank you for this referral.
== END 2020-10-27 15:30 | disposition home health service (06) | DRG 59 ==
LOC: M PM&R 17:00
PROVIDERS: ADMIT Physical Medicine & Rehabilitation; ATTEND Physical Medicine & Rehabilitation
DX: G35 Multiple sclerosis (principal); I50.32 Chronic diastolic (congestive) heart failure; K91.2 Postsurgical malabsorption, not elsewhere classified; R53.1 Weakness; Z79.899 Other long term (current) drug therapy; E78.5 Hyperlipidemia, unspecified; K29.70 Gastritis, unspecified, without bleeding; F32.9 Major depressive disorder, single episode, unspecified; D64.9 Anemia, unspecified; G40.909 Epilepsy, unspecified, not intractable, without status epilepticus; Z93.3 Colostomy status; N31.9 Neuromuscular dysfunction of bladder, unspecified; G50.0 Trigeminal neuralgia; M21.371 Foot drop, right foot; K59.09 Other constipation; Z90.49 Acquired absence of other specified parts of digestive tract; Z74.1 Need for assistance with personal care; Z74.09 Other reduced mobility

== ENCOUNTER → 2020-11-14 | Outpatient (CLI) | payer MEDICARE, MEDICAID ==
[~2020-11-14] MED LIST changes: +GABA-283 PO; +MAGN400T2 PO; -QUET50TA3 PO; +QUET50TA4 PO; +SUCR1TA PO
[2020-11-14 13:11] LABS: HEMATOCRIT 37.1 % (36.0-47.0); HEMOGLOBIN 11.9 g/dl (12.0-15.5); MEAN CORPUSCULAR HEMOGLOBIN 27.7 pg (27.0-33.0); MEAN CORPUSCULAR HGB CONC 32.1 g/dl (32.0-36.5); MEAN CORPUSCULAR VOLUME 86.5 fl (80.0-96.0); PLATELET COUNT, AUTOMATED 295 10^3/uL (150-450); RED BLOOD COUNT 4.29 10^6/uL (4.00-5.40); WHITE BLOOD COUNT 5.2 10^3/uL (4.0-10.0)
[2020-11-14 13:47] LABS: ALBUMIN 3.4 GM/DL (3.2-5.2); ALT/SGPT 13 U/L (12-78); BILIRUBIN,TOTAL 0.4 MG/DL (0.2-1.0); BLOOD UREA NITROGEN 6 MG/DL (7-18); CALCIUM LEVEL 8.6 MG/DL (8.8-10.2); CARBAMAZEPINE (TEGRETOL) LEVEL 10.8 UG/ML (4.0-10.0); CARBON DIOXIDE LEVEL 27 MEQ/L (21-32); CHLORIDE LEVEL 99 MEQ/L (98-107); CREATININE FOR GFR 0.49 MG/DL (0.55-1.30); GLOMERULAR FILTRATION RATE > 60.0 (>45); GLUCOSE, FASTING 92 MG/DL (70-100); POTASSIUM SERUM 4.7 MEQ/L (3.5-5.1); SODIUM LEVEL 133 MEQ/L (136-145); TOTAL PROTEIN 7.7 GM/DL (6.4-8.2)
== END ==
LOC: M PLALAB 12:03
PROVIDERS: ATTEND Family Medicine
DX: G50.0 Trigeminal neuralgia (principal); I10 Essential (primary) hypertension

== ENCOUNTER → 2021-01-15 | Outpatient (CLI) | payer MEDICARE, MEDICAID ==
[~2021-01-15] MED LIST changes: -KLOR10TA76 PO; +POTA-136 PO
[2021-01-15 14:51] LABS: HEMATOCRIT 36.2 % (36.0-47.0); HEMOGLOBIN 11.7 g/dl (12.0-15.5); MEAN CORPUSCULAR HEMOGLOBIN 26.8 pg (27.0-33.0); MEAN CORPUSCULAR HGB CONC 32.3 g/dl (32.0-36.5); PLATELET COUNT, AUTOMATED 229 10^3/uL (150-450); RED BLOOD COUNT 4.36 10^6/uL (4.00-5.40); WHITE BLOOD COUNT 5.3 10^3/uL (4.0-10.0)
[2021-01-15 15:13] LABS: ALBUMIN 3.6 GM/DL (3.2-5.2); ALT/SGPT 14 U/L (12-78); BILIRUBIN,TOTAL 0.2 MG/DL (0.2-1.0); BLOOD UREA NITROGEN 8 MG/DL (7-18); CALCIUM LEVEL 8.7 MG/DL (8.8-10.2); CARBAMAZEPINE (TEGRETOL) LEVEL 8.5 UG/ML (4.0-10.0); CARBON DIOXIDE LEVEL 30 MEQ/L (21-32); CHLORIDE LEVEL 98 MEQ/L (98-107); CREATININE FOR GFR 0.67 MG/DL (0.55-1.30); GLOMERULAR FILTRATION RATE > 60.0 (>45); GLUCOSE, FASTING 85 MG/DL (70-100); POTASSIUM SERUM 4.4 MEQ/L (3.5-5.1); SODIUM LEVEL 133 MEQ/L (136-145); TOTAL PROTEIN 8.1 GM/DL (6.4-8.2)
== END ==
LOC: M PLALAB 12:36
PROVIDERS: ATTEND Family Medicine
DX: I10 Essential (primary) hypertension (principal)

== ENCOUNTER 2021-05-01 06:01 | Inpatient (IN) | payer MEDICARE, MEDICAID ==
[2021-05-01] VITALS (8 sets, daily range): BP systolic 120–144; BP diastolic 66–85
[~2021-05-01] VITALS: Ht 172.7 cm; Wt 80.1 kg
[~2021-05-01 06:01] MED LIST changes: +CARB1SUS PO; +GABA600T4 PO; +LR 1,000 ML IV ONE; +OMEP-173 PO; -OMEP-218 PO; +PANT20TA6 PO; +TIZA10TA PO; -TIZA4TAB4 PO; +cefTRIAXone SOD 1 GM in D5W MINI-BAG PLUS 50 ML IV ONE
[2021-05-01] MEDS ORDERED: MIDAZOLAM INJ 2MG/2ML VIAL (J2250 PER 1MG) As Ordered ONE (06:56)
[2021-05-01] MEDS ORDERED: fentaNYL 100 MCG/2 ML INJECTION As Ordered ONE ×2 (06:56→09:13)
[2021-05-01] MEDS ORDERED: PHENYLephrine 500MCG 5ML (100MCG/ML) SYRINGE As Ordered ONE (06:57)
[2021-05-01] MEDS ORDERED: ROCURONIUM BROMIDE 50 MG/5 ML VIAL As Ordered ONE (06:57)
[2021-05-01] MEDS ORDERED: SUGAMMADEX SODIUM 500 MG/5 ML VIAL (BRIDION) As Ordered ONE (06:57)
[2021-05-01] MEDS ORDERED: propofoL 200 MG/20 ML VIAL As Ordered ONE (06:57)
[2021-05-01] MEDS ORDERED: LIDOCAINE 2% 100MG/5ML SDV (FOR ANES.) As Ordered ONE (06:57)
[2021-05-01] MEDS ORDERED: dexameTHASONE 4 MG/ML 1ML VIAL (J1100 PER 1MG) As Ordered ONE (06:57)
[2021-05-01] MEDS ORDERED: ONDANSETRON 4MG/2ML VIAL As Ordered ONE (06:57)
[2021-05-01 07:06] LABS: HEMATOCRIT 41.3 % (36.0-47.0); HEMOGLOBIN 13.2 g/dl (12.0-15.5); MEAN CORPUSCULAR HEMOGLOBIN 26.6 pg (27.0-33.0); MEAN CORPUSCULAR VOLUME 83.3 fl (80.0-96.0); PLATELET COUNT, AUTOMATED 278 10^3/uL (150-450); RED BLOOD COUNT 4.96 10^6/uL (4.00-5.40); WHITE BLOOD COUNT 7.2 10^3/uL (4.0-10.0)
[2021-05-01] MEDS ORDERED: BUPIVACAINE HCL 0.25% 30ML VIAL As Ordered ONE (07:10)
[2021-05-01] MEDS ORDERED: BUPIVACAINE/EPIN 0.5% 30 ML VIAL As Ordered ONE (07:10)
[2021-05-01] MEDS ORDERED: BUPIVACAINE LIPOSOME/PF 1.3% 20ML VIAL (13.3MG/ML)(EXPAREL)(C9290 PER1MG) As Ordered ONE (07:10)
[2021-05-01] MEDS ORDERED: GLUCAGON INJ 1MG VIAL As Ordered ONE (07:10)
[2021-05-01] MEDS ORDERED: ALBUTEROL SULFATE 2.5 MG/0.5 ML INH NEB SOLN INH ONE (07:20)
[2021-05-01 07:45] LABS: ALBUMIN 3.9 GM/DL (3.2-5.2); ALT/SGPT 17 U/L (12-78); BILIRUBIN,TOTAL 0.2 MG/DL (0.2-1.0); BLOOD UREA NITROGEN 11 MG/DL (7-18); CALCIUM LEVEL 9.5 MG/DL (8.8-10.2); CARBON DIOXIDE LEVEL 25 MEQ/L (21-32); CHLORIDE LEVEL 103 MEQ/L (98-107); CREATININE FOR GFR 0.73 MG/DL (0.55-1.30); GLOMERULAR FILTRATION RATE > 60.0 (>45); GLUCOSE, FASTING 95 MG/DL (70-100); POTASSIUM SERUM 4.2 MEQ/L (3.5-5.1); SODIUM LEVEL 135 MEQ/L (136-145); TOTAL PROTEIN 8.8 GM/DL (6.4-8.2)
[2021-05-01] MEDS ORDERED: ePHEDrine SULFATE 25 MG/5 ML(5MG/ML) SYRINGE As Ordered ONE (07:50)
[2021-05-01] MEDS ORDERED: ACETAMINOPHEN 1000MG 100ML IV BTL (OFIRMEV) (J0131 PER 10MG) As Ordered ONE (07:51)
[2021-05-01] MEDS ORDERED: IPRATROPIUM 0.5MG/ALBUTEROL 2.5MG INH SOL UD 3ML (DUONEB) NEB PRN (10:55)
[2021-05-01] MEDS: KETOROLAC 30 MG/ML 1ML VIAL IV SCH ×2 (12:00→17:25)
[2021-05-01] MEDS: SUCRALFATE 1 GM TAB PO SCH ×3 (12:00→20:01)
[2021-05-01] MEDS ORDERED: ONDANSETRON 4MG/2ML VIAL IV PRN (12:20)
[2021-05-01] MEDS ORDERED: HYDROMORPHONE HCL 0.5 MG/ 0.5 ML SYRINGE (J1170 PER 1) IV PRN (12:20)
[2021-05-01] MEDS ORDERED: LR 1,000 ML IV SCH (12:20)
[2021-05-01] MEDS ORDERED: METOCLOPRAMIDE INJ 10MG/2ML VIAL (J2765 PER 1) IV PRN (12:20)
[2021-05-01] MEDS ORDERED: oxyCODONE 5MG TAB PO PRN (12:20)
[2021-05-01] MEDS: fentaNYL 100 MCG/2 ML INJECTION IV PRN ×4 (12:28→12:48)
[2021-05-01] MEDS: IPRATROPIUM 0.5MG/ALBUTEROL 2.5MG INH SOL UD 3ML (DUONEB) NEB SCH ×2 (14:00→18:29)
[2021-05-01] MEDS: MORPHINE 4 MG/ML 1ML VIAL/SYRINGE (J2270) IV PRN ×2 (14:26→20:24)
[2021-05-01] MEDS: MAGNESIUM OXIDE 400MG TAB (MAG-OX) PO SCH (14:32)
[2021-05-01] MEDS: NS 1,000 ML IV SCH ×3 (14:50→22:17)
[2021-05-01] MEDS: ACETAMINOPHEN TAB 650MG DOSE (2X325MG) PO PRN (19:05)
[2021-05-01] MEDS: oxyBUTYnin 5 MG TAB PO SCH (20:01)
[2021-05-01] MEDS: ATORVASTATIN 20 MG TAB PO SCH (20:01)
[2021-05-02] MEDS: KETOROLAC 30 MG/ML 1ML VIAL IV SCH ×4 (00:58→18:23)
[2021-05-02] MEDS: IPRATROPIUM 0.5MG/ALBUTEROL 2.5MG INH SOL UD 3ML (DUONEB) NEB SCH ×4 (01:02→20:00)
[2021-05-02 03:15] VITALS: BP 122/75
[2021-05-02] MEDS: MORPHINE 4 MG/ML 1ML VIAL/SYRINGE (J2270) IV PRN ×3 (04:05→14:27)
[2021-05-02] MEDS: hydrOXYzine 25 MG TAB PO PRN (04:23)
[2021-05-02] MEDS: NS 1,000 ML IV SCH ×2 (06:22→16:17)
[2021-05-02 07:15] VITALS: BP 122/75
[2021-05-02] MEDS ORDERED: cefTRIAXone SOD 1 GM in D5W MINI-BAG PLUS 50 ML IV ONE (08:00)
[2021-05-02] MEDS: SUCRALFATE 1 GM TAB PO SCH ×4 (08:23→20:48)
[2021-05-02] MEDS: FLUoxetine 20 MG CAP PO SCH (08:24)
[2021-05-02] MEDS: oxyBUTYnin 5 MG TAB PO SCH ×2 (08:24→20:48)
[2021-05-02] MEDS: MAGNESIUM OXIDE 400MG TAB (MAG-OX) PO SCH (08:24)
[2021-05-02] MEDS: PANTOPRAZOLE 40MG VIAL (C9113 PER 1) IV SCH (08:24)
[2021-05-02] MEDS: MODAFINIL 100 MG TABLET PO SCH (08:24)
[2021-05-02 11:15] VITALS: BP 138/85
[2021-05-02 16:00] VITALS: BP 158/91
[2021-05-02] MEDS: SIMETHICONE 80MG CHEW TAB PO SCH ×2 (16:18→20:48)
[2021-05-02] MEDS: ACETAMINOPHEN TAB 650MG DOSE (2X325MG) PO PRN (16:18)
[2021-05-02 17:18] VITALS: BP 156/91
[2021-05-02 19:53] VITALS: BP 124/72
[2021-05-02] MEDS: MORPHINE 2 MG/ML 1ML VIAL (J2270) IV PRN (20:48)
[2021-05-02] MEDS: ATORVASTATIN 20 MG TAB PO SCH (20:48)
[2021-05-02] MEDS ORDERED: carBAMazepine 100MG 5ML SUSP ORAL SYRINGE *DRAW UP EXACT DOSE PO SCH (21:00)
[2021-05-03] VITALS (11 sets, daily range): BP systolic 136–152; BP diastolic 77–90
[2021-05-03] MEDS: carBAMazepine 100MG 5ML SUSP ORAL SYRINGE *DRAW UP EXACT DOSE PO SCH ×3 (00:06→20:27)
[2021-05-03] MEDS: KETOROLAC 30 MG/ML 1ML VIAL IV SCH ×4 (00:06→18:22)
[2021-05-03] MEDS: NS 1,000 ML IV SCH ×2 (00:29→08:33)
[2021-05-03] MEDS: IPRATROPIUM 0.5MG/ALBUTEROL 2.5MG INH SOL UD 3ML (DUONEB) NEB SCH ×4 (02:00→17:30)
[2021-05-03] MEDS: ONDANSETRON 4MG/2ML VIAL IV PRN (05:01)
[2021-05-03 06:37] LABS: HEMATOCRIT 33.5 % (36.0-47.0); MEAN CORPUSCULAR HGB CONC 31.6 g/dl (32.0-36.5); MEAN CORPUSCULAR VOLUME 85.5 fl (80.0-96.0); PLATELET COUNT, AUTOMATED 176 10^3/uL (150-450); RED BLOOD COUNT 3.92 10^6/uL (4.00-5.40); WHITE BLOOD COUNT 8.4 10^3/uL (4.0-10.0)
[2021-05-03 06:41] LABS: HEMOGLOBIN 10.6 g/dl (12.0-15.5)
[2021-05-03 07:00] LABS: BLOOD UREA NITROGEN 6 MG/DL (7-18); CREATININE FOR GFR 0.51 MG/DL (0.55-1.30); GLUCOSE, FASTING 105 MG/DL (70-100)
[2021-05-03 07:01] LABS: CALCIUM LEVEL 8.3 MG/DL (8.8-10.2); CARBON DIOXIDE LEVEL 28 MEQ/L (21-32); CHLORIDE LEVEL 108 MEQ/L (98-107); GLOMERULAR FILTRATION RATE > 60.0 (>45); POTASSIUM SERUM 4.3 MEQ/L (3.5-5.1); SODIUM LEVEL 138 MEQ/L (136-145)
[2021-05-03] MEDS: SUCRALFATE 1 GM TAB PO SCH ×4 (08:32→20:27)
[2021-05-03] MEDS: MORPHINE 2 MG/ML 1ML VIAL (J2270) IV PRN (08:33)
[2021-05-03] MEDS: MODAFINIL 100 MG TABLET PO SCH (10:05)
[2021-05-03] MEDS: FLUoxetine 20 MG CAP PO SCH (10:05)
[2021-05-03] MEDS: PANTOPRAZOLE 40MG VIAL (C9113 PER 1) IV SCH (10:05)
[2021-05-03] MEDS: oxyBUTYnin 5 MG TAB PO SCH ×2 (10:06→20:27)
[2021-05-03] MEDS: MAGNESIUM OXIDE 400MG TAB (MAG-OX) PO SCH (10:06)
[2021-05-03] MEDS: SIMETHICONE 80MG CHEW TAB PO SCH ×3 (10:06→20:27)
[2021-05-03] MEDS: ACETAMINOPHEN TAB 650MG DOSE (2X325MG) PO PRN (16:06)
[2021-05-03] MEDS: ATORVASTATIN 20 MG TAB PO SCH (20:27)
[2021-05-04] MEDS: KETOROLAC 30 MG/ML 1ML VIAL IV SCH ×4 (00:16→18:05)
[2021-05-04 02:00] VITALS: BP 138/82
[2021-05-04] MEDS: IPRATROPIUM 0.5MG/ALBUTEROL 2.5MG INH SOL UD 3ML (DUONEB) NEB SCH ×4 (02:00→17:28)
[2021-05-04 06:00] VITALS: BP 141/83
[2021-05-04 07:54] LABS: HEMATOCRIT 31.6 % (36.0-47.0); HEMOGLOBIN 10.1 g/dl (12.0-15.5); MEAN CORPUSCULAR HEMOGLOBIN 26.8 pg (27.0-33.0); MEAN CORPUSCULAR VOLUME 83.8 fl (80.0-96.0); PLATELET COUNT, AUTOMATED 177 10^3/uL (150-450); RED BLOOD COUNT 3.77 10^6/uL (4.00-5.40); WHITE BLOOD COUNT 6.9 10^3/uL (4.0-10.0)
[2021-05-04 08:00] VITALS: BP 136/79
[2021-05-04 08:11] LABS: BLOOD UREA NITROGEN 8 MG/DL (7-18); CALCIUM LEVEL 8.5 MG/DL (8.8-10.2); CARBON DIOXIDE LEVEL 26 MEQ/L (21-32); CHLORIDE LEVEL 103 MEQ/L (98-107); GLOMERULAR FILTRATION RATE > 60.0 (>45); GLUCOSE, FASTING 101 MG/DL (70-100); POTASSIUM SERUM 4.1 MEQ/L (3.5-5.1); SODIUM LEVEL 134 MEQ/L (136-145)
[2021-05-04] MEDS: PANTOPRAZOLE 40MG VIAL (C9113 PER 1) IV SCH (08:25)
[2021-05-04] MEDS: FLUoxetine 20 MG CAP PO SCH (08:25)
[2021-05-04] MEDS: SUCRALFATE 1 GM TAB PO SCH ×4 (08:25→21:01)
[2021-05-04] MEDS: oxyBUTYnin 5 MG TAB PO SCH ×2 (08:25→21:01)
[2021-05-04] MEDS: MODAFINIL 100 MG TABLET PO SCH (08:25)
[2021-05-04] MEDS: MAGNESIUM OXIDE 400MG TAB (MAG-OX) PO SCH (08:25)
[2021-05-04] MEDS: SIMETHICONE 80MG CHEW TAB PO SCH ×3 (08:25→21:01)
[2021-05-04] MEDS: carBAMazepine 100MG 5ML SUSP ORAL SYRINGE *DRAW UP EXACT DOSE PO SCH ×2 (08:27→21:01)
[2021-05-04 10:38] VITALS: O2SAT 95
[2021-05-04 14:00] VITALS: BP 141/80
[2021-05-04] MEDS: MORPHINE 2 MG/ML 1ML VIAL (J2270) IV PRN (14:22)
[2021-05-04 21:00] VITALS: BP 145/79
[2021-05-04] MEDS: ATORVASTATIN 20 MG TAB PO SCH (21:01)
[2021-05-05] VITALS (7 sets, daily range): BP systolic 142–170; BP diastolic 82–91; O2SAT 94–97
[2021-05-05] MEDS: ONDANSETRON 4MG/2ML VIAL IV PRN ×2 (00:07→13:30)
[2021-05-05] MEDS: KETOROLAC 30 MG/ML 1ML VIAL IV SCH ×5 (00:08→23:46)
[2021-05-05] MEDS: IPRATROPIUM 0.5MG/ALBUTEROL 2.5MG INH SOL UD 3ML (DUONEB) NEB SCH ×4 (02:00→19:43)
[2021-05-05 06:21] LABS: HEMATOCRIT 33.3 % (36.0-47.0); HEMOGLOBIN 10.8 g/dl (12.0-15.5); MEAN CORPUSCULAR HEMOGLOBIN 26.8 pg (27.0-33.0); MEAN CORPUSCULAR HGB CONC 32.4 g/dl (32.0-36.5); MEAN CORPUSCULAR VOLUME 82.6 fl (80.0-96.0); PLATELET COUNT, AUTOMATED 234 10^3/uL (150-450); RED BLOOD COUNT 4.03 10^6/uL (4.00-5.40)
[2021-05-05 06:44] LABS: BLOOD UREA NITROGEN 11 MG/DL (7-18); CALCIUM LEVEL 8.7 MG/DL (8.8-10.2); CARBON DIOXIDE LEVEL 30 MEQ/L (21-32); CHLORIDE LEVEL 101 MEQ/L (98-107); CREATININE FOR GFR 0.43 MG/DL (0.55-1.30); GLOMERULAR FILTRATION RATE > 60.0 (>45); GLUCOSE, FASTING 113 MG/DL (70-100); POTASSIUM SERUM 4.1 MEQ/L (3.5-5.1); SODIUM LEVEL 134 MEQ/L (136-145)
[2021-05-05] MEDS: PANTOPRAZOLE 40MG VIAL (C9113 PER 1) IV SCH (08:10)
[2021-05-05] MEDS: SIMETHICONE 80MG CHEW TAB PO SCH ×3 (08:10→21:13)
[2021-05-05] MEDS: FLUoxetine 20 MG CAP PO SCH (08:10)
[2021-05-05] MEDS: MODAFINIL 100 MG TABLET PO SCH (08:10)
[2021-05-05] MEDS: carBAMazepine 100MG 5ML SUSP ORAL SYRINGE *DRAW UP EXACT DOSE PO SCH ×2 (08:10→21:13)
[2021-05-05] MEDS: SUCRALFATE 1 GM TAB PO SCH ×4 (08:11→21:13)
[2021-05-05] MEDS: oxyBUTYnin 5 MG TAB PO SCH ×2 (08:11→21:13)
[2021-05-05] MEDS: MAGNESIUM OXIDE 400MG TAB (MAG-OX) PO SCH (08:11)
[2021-05-05] MEDS: DOCUSATE SODIUM 100MG CAPSULE PO SCH ×2 (13:30→21:13)
[2021-05-05] MEDS: FUROSEMIDE 20 MG TAB PO SCH (13:30)
[2021-05-05] MEDS: hydrOXYzine 25 MG TAB PO PRN (13:30)
[2021-05-05] MEDS: MORPHINE 4 MG/ML 1ML VIAL/SYRINGE (J2270) IV PRN (15:08)
[2021-05-05] MEDS: GABAPENTIN 300 MG CAP PO SCH ×2 (17:47→21:13)
[2021-05-05] MEDS ORDERED: FUROSEMIDE 40MG/4ML VIAL (J1940) IV ONE (18:00)
[2021-05-05] MEDS ORDERED: carBAMazepine 100MG 5ML SUSP ORAL SYRINGE *DRAW UP EXACT DOSE PO SCH (21:00)
[2021-05-05] MEDS: ATORVASTATIN 20 MG TAB PO SCH (21:13)
[2021-05-06] MEDS: IPRATROPIUM 0.5MG/ALBUTEROL 2.5MG INH SOL UD 3ML (DUONEB) NEB SCH ×4 (01:26→21:36)
[2021-05-06] MEDS: KETOROLAC 30 MG/ML 1ML VIAL IV SCH (05:57)
[2021-05-06] MEDS: ONDANSETRON 4MG/2ML VIAL IV PRN (05:57)
[2021-05-06 06:06] LABS: HEMATOCRIT 35.7 % (36.0-47.0); HEMOGLOBIN 11.3 g/dl (12.0-15.5); MEAN CORPUSCULAR HEMOGLOBIN 26.5 pg (27.0-33.0); MEAN CORPUSCULAR HGB CONC 31.7 g/dl (32.0-36.5); MEAN CORPUSCULAR VOLUME 83.8 fl (80.0-96.0); PLATELET COUNT, AUTOMATED 271 10^3/uL (150-450); RED BLOOD COUNT 4.26 10^6/uL (4.00-5.40); WHITE BLOOD COUNT 6.4 10^3/uL (4.0-10.0)
[2021-05-06 06:28] LABS: BLOOD UREA NITROGEN 14 MG/DL (7-18); CALCIUM LEVEL 8.8 MG/DL (8.8-10.2); CARBON DIOXIDE LEVEL 30 MEQ/L (21-32); CHLORIDE LEVEL 100 MEQ/L (98-107); CREATININE FOR GFR 0.53 MG/DL (0.55-1.30); GLOMERULAR FILTRATION RATE > 60.0 (>45); GLUCOSE, FASTING 96 MG/DL (70-100); POTASSIUM SERUM 3.8 MEQ/L (3.5-5.1); SODIUM LEVEL 134 MEQ/L (136-145)
[2021-05-06 10:00] VITALS: BP 151/87
[2021-05-06] MEDS: PANTOPRAZOLE 40MG TAB (PROTONIX) PO SCH (10:27)
[2021-05-06] MEDS: SIMETHICONE 80MG CHEW TAB PO SCH ×3 (10:27→21:35)
[2021-05-06] MEDS: SUCRALFATE 1 GM TAB PO SCH ×4 (10:27→21:35)
[2021-05-06] MEDS: DOCUSATE SODIUM 100MG CAPSULE PO SCH ×2 (10:27→21:35)
[2021-05-06] MEDS: GABAPENTIN 300 MG CAP PO SCH ×3 (10:27→21:35)
[2021-05-06] MEDS: carBAMazepine 100MG 5ML SUSP ORAL SYRINGE *DRAW UP EXACT DOSE PO SCH ×2 (10:27→21:35)
[2021-05-06] MEDS: FUROSEMIDE 20 MG TAB PO SCH (10:28)
[2021-05-06] MEDS: oxyBUTYnin 5 MG TAB PO SCH ×2 (10:28→21:35)
[2021-05-06] MEDS: FLUoxetine 20 MG CAP PO SCH (10:28)
[2021-05-06] MEDS: MAGNESIUM OXIDE 400MG TAB (MAG-OX) PO SCH (10:28)
[2021-05-06 12:34] VITALS: O2SAT 90
[2021-05-06] MEDS: SENNA 8.6 MG TAB (SENOKOT) PO SCH ×2 (13:58→21:35)
[2021-05-06] MEDS: MODAFINIL 100 MG TABLET PO SCH (13:58)
[2021-05-06 14:00] VITALS: BP 147/87
[2021-05-06 18:00] VITALS: BP 126/75
[2021-05-06 20:00] VITALS: O2SAT 92
[2021-05-06] MEDS: ACETAMINOPHEN TAB 650MG DOSE (2X325MG) PO PRN (21:36)
[2021-05-06] MEDS: ATORVASTATIN 20 MG TAB PO SCH (21:36)
[2021-05-06] MEDS: ALVIMOPAN 12 MG CAPSULE (ENTEREG) PO SCH (21:36)
[2021-05-06 21:44] VITALS: BP 151/93
[2021-05-07] MEDS: IPRATROPIUM 0.5MG/ALBUTEROL 2.5MG INH SOL UD 3ML (DUONEB) NEB SCH ×4 (01:39→20:48)
[2021-05-07 02:35] VITALS: BP 119/76
[2021-05-07 06:09] VITALS: BP 132/78
[2021-05-07 07:08] LABS: HEMATOCRIT 34.9 % (36.0-47.0); HEMOGLOBIN 11.2 g/dl (12.0-15.5); MEAN CORPUSCULAR HEMOGLOBIN 26.5 pg (27.0-33.0); MEAN CORPUSCULAR HGB CONC 32.1 g/dl (32.0-36.5); MEAN CORPUSCULAR VOLUME 82.7 fl (80.0-96.0); PLATELET COUNT, AUTOMATED 278 10^3/uL (150-450); RED BLOOD COUNT 4.22 10^6/uL (4.00-5.40); WHITE BLOOD COUNT 6.9 10^3/uL (4.0-10.0)
[2021-05-07 07:20] LABS: BLOOD UREA NITROGEN 16 MG/DL (7-18); CALCIUM LEVEL 8.4 MG/DL (8.8-10.2); CARBON DIOXIDE LEVEL 29 MEQ/L (21-32); CHLORIDE LEVEL 101 MEQ/L (98-107); GLOMERULAR FILTRATION RATE > 60.0 (>45); GLUCOSE, FASTING 94 MG/DL (70-100); SODIUM LEVEL 135 MEQ/L (136-145)
[2021-05-07 08:14] VITALS: O2SAT 92
[2021-05-07] MEDS: BISACODYL 10 MG SUPP PR SCH (09:00)
[2021-05-07] MEDS: FLUoxetine 20 MG CAP PO SCH (09:53)
[2021-05-07] MEDS: SENNA 8.6 MG TAB (SENOKOT) PO SCH ×2 (09:53→20:48)
[2021-05-07] MEDS: SUCRALFATE 1 GM TAB PO SCH ×4 (09:53→20:47)
[2021-05-07] MEDS: oxyBUTYnin 5 MG TAB PO SCH ×2 (09:54→20:47)
[2021-05-07] MEDS: ALVIMOPAN 12 MG CAPSULE (ENTEREG) PO SCH ×2 (09:54→20:47)
[2021-05-07] MEDS: DOCUSATE SODIUM 100MG CAPSULE PO SCH ×2 (09:54→20:48)
[2021-05-07] MEDS: GABAPENTIN 300 MG CAP PO SCH ×3 (09:54→20:47)
[2021-05-07] MEDS: SIMETHICONE 80MG CHEW TAB PO SCH ×3 (09:54→20:48)
[2021-05-07] MEDS: PANTOPRAZOLE 40MG TAB (PROTONIX) PO SCH (09:54)
[2021-05-07] MEDS: MODAFINIL 100 MG TABLET PO SCH (09:54)
[2021-05-07] MEDS: FUROSEMIDE 20 MG TAB PO SCH (09:55)
[2021-05-07 10:00] VITALS: BP 135/78
[2021-05-07] MEDS: MAGNESIUM OXIDE 400MG TAB (MAG-OX) PO SCH (10:00)
[2021-05-07] MEDS ORDERED: FLEET ENEMA PR ONE (10:00)
[2021-05-07] MEDS: carBAMazepine 100MG 5ML SUSP ORAL SYRINGE *DRAW UP EXACT DOSE PO SCH ×2 (10:00→20:47)
[2021-05-07 14:00] VITALS: BP 133/79
[2021-05-07] MEDS: ATORVASTATIN 20 MG TAB PO SCH (20:48)
[2021-05-07 22:00] VITALS: BP 123/69
[2021-05-08] VITALS (7 sets, daily range): BP systolic 116–130; BP diastolic 62–73; O2SAT 97
[2021-05-08] MEDS: IPRATROPIUM 0.5MG/ALBUTEROL 2.5MG INH SOL UD 3ML (DUONEB) NEB SCH ×4 (01:37→20:19)
[2021-05-08 07:42] LABS: HEMATOCRIT 32.1 % (36.0-47.0); HEMOGLOBIN 10.4 g/dl (12.0-15.5); MEAN CORPUSCULAR HEMOGLOBIN 26.7 pg (27.0-33.0); MEAN CORPUSCULAR HGB CONC 32.4 g/dl (32.0-36.5); MEAN CORPUSCULAR VOLUME 82.3 fl (80.0-96.0); PLATELET COUNT, AUTOMATED 248 10^3/uL (150-450); WHITE BLOOD COUNT 7.6 10^3/uL (4.0-10.0)
[2021-05-08 07:48] LABS: BLOOD UREA NITROGEN 16 MG/DL (7-18); CALCIUM LEVEL 8.3 MG/DL (8.8-10.2); CARBON DIOXIDE LEVEL 29 MEQ/L (21-32); CHLORIDE LEVEL 100 MEQ/L (98-107); CREATININE FOR GFR 0.54 MG/DL (0.55-1.30); GLOMERULAR FILTRATION RATE > 60.0 (>45); GLUCOSE, FASTING 109 MG/DL (70-100); POTASSIUM SERUM 3.8 MEQ/L (3.5-5.1); SODIUM LEVEL 135 MEQ/L (136-145)
[2021-05-08] MEDS: DOCUSATE SODIUM 100MG CAPSULE PO SCH ×2 (08:32→20:59)
[2021-05-08] MEDS: GABAPENTIN 300 MG CAP PO SCH ×3 (08:32→21:00)
[2021-05-08] MEDS: carBAMazepine 100MG 5ML SUSP ORAL SYRINGE *DRAW UP EXACT DOSE PO SCH ×2 (08:32→21:00)
[2021-05-08] MEDS: BISACODYL 10 MG SUPP PR SCH (08:33)
[2021-05-08] MEDS: ALVIMOPAN 12 MG CAPSULE (ENTEREG) PO SCH ×2 (08:33→20:59)
[2021-05-08] MEDS: SIMETHICONE 80MG CHEW TAB PO SCH ×3 (08:33→20:59)
[2021-05-08] MEDS: SENNA 8.6 MG TAB (SENOKOT) PO SCH ×2 (08:33→21:00)
[2021-05-08] MEDS: FUROSEMIDE 20 MG TAB PO SCH (08:34)
[2021-05-08] MEDS: SUCRALFATE 1 GM TAB PO SCH ×4 (08:34→20:59)
[2021-05-08] MEDS: MODAFINIL 100 MG TABLET PO SCH (08:34)
[2021-05-08] MEDS: PANTOPRAZOLE 40MG TAB (PROTONIX) PO SCH (08:34)
[2021-05-08] MEDS: FLUoxetine 20 MG CAP PO SCH (08:34)
[2021-05-08] MEDS: MAGNESIUM OXIDE 400MG TAB (MAG-OX) PO SCH (08:35)
[2021-05-08] MEDS: oxyBUTYnin 5 MG TAB PO SCH ×2 (08:35→20:59)
[2021-05-08] MEDS: MORPHINE 2 MG/ML 1ML VIAL (J2270) IV PRN (15:47)
[2021-05-08] MEDS: ATORVASTATIN 20 MG TAB PO SCH (20:59)
[2021-05-09] MEDS: IPRATROPIUM 0.5MG/ALBUTEROL 2.5MG INH SOL UD 3ML (DUONEB) NEB SCH ×4 (01:39→20:11)
[2021-05-09 02:00] VITALS: BP 136/79
[2021-05-09 06:00] VITALS: BP 140/76
[2021-05-09 06:42] LABS: HEMATOCRIT 31.4 % (36.0-47.0); MEAN CORPUSCULAR HEMOGLOBIN 26.5 pg (27.0-33.0); MEAN CORPUSCULAR HGB CONC 31.8 g/dl (32.0-36.5); MEAN CORPUSCULAR VOLUME 83.1 fl (80.0-96.0); PLATELET COUNT, AUTOMATED 244 10^3/uL (150-450); RED BLOOD COUNT 3.78 10^6/uL (4.00-5.40); WHITE BLOOD COUNT 5.9 10^3/uL (4.0-10.0)
[2021-05-09 07:05] LABS: BLOOD UREA NITROGEN 12 MG/DL (7-18); CALCIUM LEVEL 8.5 MG/DL (8.8-10.2); CARBON DIOXIDE LEVEL 28 MEQ/L (21-32); CHLORIDE LEVEL 102 MEQ/L (98-107); CREATININE FOR GFR 0.46 MG/DL (0.55-1.30); GLOMERULAR FILTRATION RATE > 60.0 (>45); GLUCOSE, FASTING 90 MG/DL (70-100); POTASSIUM SERUM 3.6 MEQ/L (3.5-5.1); SODIUM LEVEL 137 MEQ/L (136-145)
[2021-05-09] MEDS: DOCUSATE SODIUM 100MG CAPSULE PO SCH ×2 (08:31→21:23)
[2021-05-09] MEDS: SIMETHICONE 80MG CHEW TAB PO SCH ×3 (08:31→21:23)
[2021-05-09] MEDS: MODAFINIL 100 MG TABLET PO SCH (08:31)
[2021-05-09] MEDS: SUCRALFATE 1 GM TAB PO SCH ×4 (08:31→21:23)
[2021-05-09] MEDS: ALVIMOPAN 12 MG CAPSULE (ENTEREG) PO SCH (08:31)
[2021-05-09] MEDS: MAGNESIUM OXIDE 400MG TAB (MAG-OX) PO SCH (08:32)
[2021-05-09] MEDS: FLUoxetine 20 MG CAP PO SCH (08:32)
[2021-05-09] MEDS: oxyBUTYnin 5 MG TAB PO SCH ×2 (08:32→21:23)
[2021-05-09] MEDS: PANTOPRAZOLE 40MG TAB (PROTONIX) PO SCH (08:32)
[2021-05-09] MEDS: GABAPENTIN 300 MG CAP PO SCH ×3 (08:32→21:23)
[2021-05-09] MEDS: FUROSEMIDE 20 MG TAB PO SCH (08:32)
[2021-05-09] MEDS: carBAMazepine 100MG 5ML SUSP ORAL SYRINGE *DRAW UP EXACT DOSE PO SCH ×2 (08:33→21:25)
[2021-05-09] MEDS: BISACODYL 10 MG SUPP PR SCH (08:34)
[2021-05-09] MEDS: SENNA 8.6 MG TAB (SENOKOT) PO SCH (08:34)
[2021-05-09] MEDS: MORPHINE 2 MG/ML 1ML VIAL (J2270) IV PRN (08:49)
[2021-05-09 10:00] VITALS: BP 138/77
[2021-05-09 14:00] VITALS: BP 126/71
[2021-05-09] MEDS: ATORVASTATIN 20 MG TAB PO SCH (21:23)
[2021-05-09 22:00] VITALS: BP 127/70
[2021-05-10 02:00] VITALS: BP 125/70
[2021-05-10] MEDS: IPRATROPIUM 0.5MG/ALBUTEROL 2.5MG INH SOL UD 3ML (DUONEB) NEB SCH ×4 (02:00→20:50)
[2021-05-10 05:30] VITALS: BP 140/63
[2021-05-10] MEDS: carBAMazepine 100MG 5ML SUSP ORAL SYRINGE *DRAW UP EXACT DOSE PO SCH ×2 (08:23→20:50)
[2021-05-10] MEDS: oxyBUTYnin 5 MG TAB PO SCH ×2 (08:23→20:50)
[2021-05-10] MEDS: GABAPENTIN 300 MG CAP PO SCH ×3 (08:23→20:50)
[2021-05-10] MEDS: MODAFINIL 100 MG TABLET PO SCH (08:23)
[2021-05-10] MEDS: SUCRALFATE 1 GM TAB PO SCH ×4 (08:24→20:50)
[2021-05-10] MEDS: DOCUSATE SODIUM 100MG CAPSULE PO SCH (08:24)
[2021-05-10] MEDS: FUROSEMIDE 20 MG TAB PO SCH (08:24)
[2021-05-10] MEDS: FLUoxetine 20 MG CAP PO SCH (08:24)
[2021-05-10] MEDS: PANTOPRAZOLE 40MG TAB (PROTONIX) PO SCH (08:24)
[2021-05-10] MEDS: SIMETHICONE 80MG CHEW TAB PO SCH ×3 (08:24→20:50)
[2021-05-10] MEDS: MAGNESIUM OXIDE 400MG TAB (MAG-OX) PO SCH (08:24)
[2021-05-10 10:00] VITALS: BP 128/70
[2021-05-10 14:17] VITALS: BP 123/71
[2021-05-10 18:00] VITALS: BP 135/79
[2021-05-10] MEDS: ATORVASTATIN 20 MG TAB PO SCH (20:50)
[2021-05-10 21:00] VITALS: BP 129/80
[2021-05-11] MEDS: IPRATROPIUM 0.5MG/ALBUTEROL 2.5MG INH SOL UD 3ML (DUONEB) NEB SCH ×4 (02:07→19:37)
[2021-05-11] MEDS: ACETAMINOPHEN TAB 650MG DOSE (2X325MG) PO PRN ×2 (02:21→20:16)
[2021-05-11 06:14] VITALS: BP 135/77
[2021-05-11] MEDS: carBAMazepine 100MG 5ML SUSP ORAL SYRINGE *DRAW UP EXACT DOSE PO SCH ×2 (08:30→20:17)
[2021-05-11] MEDS: FLUoxetine 20 MG CAP PO SCH (08:30)
[2021-05-11] MEDS: GABAPENTIN 300 MG CAP PO SCH ×3 (08:30→20:17)
[2021-05-11] MEDS: SIMETHICONE 80MG CHEW TAB PO SCH ×3 (08:30→20:17)
[2021-05-11] MEDS: oxyBUTYnin 5 MG TAB PO SCH ×2 (08:31→20:17)
[2021-05-11] MEDS: SUCRALFATE 1 GM TAB PO SCH ×4 (08:31→20:17)
[2021-05-11] MEDS: MODAFINIL 100 MG TABLET PO SCH (08:31)
[2021-05-11] MEDS: FUROSEMIDE 20 MG TAB PO SCH (08:31)
[2021-05-11] MEDS: MAGNESIUM OXIDE 400MG TAB (MAG-OX) PO SCH (08:31)
[2021-05-11] MEDS: PANTOPRAZOLE 40MG TAB (PROTONIX) PO SCH (08:31)
[2021-05-11 14:00] VITALS: BP 131/76
[2021-05-11] MEDS: ATORVASTATIN 20 MG TAB PO SCH (20:17)
[2021-05-11 22:00] VITALS: BP 130/70
[2021-05-12] VITALS (7 sets, daily range): BP systolic 116–146; BP diastolic 70–81; O2SAT 89–92
[2021-05-12] MEDS: IPRATROPIUM 0.5MG/ALBUTEROL 2.5MG INH SOL UD 3ML (DUONEB) NEB SCH ×4 (02:32→19:24)
[2021-05-12] MEDS: MAGNESIUM OXIDE 400MG TAB (MAG-OX) PO SCH (08:29)
[2021-05-12] MEDS: FUROSEMIDE 20 MG TAB PO SCH (08:29)
[2021-05-12] MEDS: SIMETHICONE 80MG CHEW TAB PO SCH ×3 (08:29→20:43)
[2021-05-12] MEDS: SUCRALFATE 1 GM TAB PO SCH ×4 (08:29→20:43)
[2021-05-12] MEDS: MODAFINIL 100 MG TABLET PO SCH (08:29)
[2021-05-12] MEDS: GABAPENTIN 300 MG CAP PO SCH ×3 (08:29→20:43)
[2021-05-12] MEDS: PANTOPRAZOLE 40MG TAB (PROTONIX) PO SCH (08:30)
[2021-05-12] MEDS: carBAMazepine 100MG 5ML SUSP ORAL SYRINGE *DRAW UP EXACT DOSE PO SCH ×2 (08:30→20:44)
[2021-05-12] MEDS: FLUoxetine 20 MG CAP PO SCH (08:30)
[2021-05-12] MEDS: oxyBUTYnin 5 MG TAB PO SCH ×2 (08:30→20:43)
[2021-05-12] MEDS: MORPHINE 2 MG/ML 1ML VIAL (J2270) IV PRN (08:31)
[2021-05-12] MEDS: ATORVASTATIN 20 MG TAB PO SCH (20:43)
[2021-05-13] VITALS (7 sets, daily range): BP systolic 96–135; BP diastolic 58–83; O2SAT 90–93
[2021-05-13] MEDS: IPRATROPIUM 0.5MG/ALBUTEROL 2.5MG INH SOL UD 3ML (DUONEB) NEB SCH ×4 (01:17→20:52)
[2021-05-13] MEDS: SUCRALFATE 1 GM TAB PO SCH ×4 (07:24→20:41)
[2021-05-13] MEDS: FLUoxetine 20 MG CAP PO SCH (10:17)
[2021-05-13] MEDS: PANTOPRAZOLE 40MG TAB (PROTONIX) PO SCH (10:17)
[2021-05-13] MEDS: carBAMazepine 100MG 5ML SUSP ORAL SYRINGE *DRAW UP EXACT DOSE PO SCH ×2 (10:17→20:41)
[2021-05-13] MEDS: MODAFINIL 100 MG TABLET PO SCH (10:17)
[2021-05-13] MEDS: GABAPENTIN 300 MG CAP PO SCH ×3 (10:17→20:41)
[2021-05-13] MEDS: SIMETHICONE 80MG CHEW TAB PO SCH ×3 (10:17→20:42)
[2021-05-13] MEDS: oxyBUTYnin 5 MG TAB PO SCH ×2 (10:18→20:41)
[2021-05-13] MEDS: MAGNESIUM OXIDE 400MG TAB (MAG-OX) PO SCH (10:18)
[2021-05-13] MEDS: FUROSEMIDE 20 MG TAB PO SCH (10:18)
[2021-05-13] MEDS: ACETAMINOPHEN TAB 650MG DOSE (2X325MG) PO PRN (18:14)
[2021-05-13] MEDS: ATORVASTATIN 20 MG TAB PO SCH (20:41)
[2021-05-14] VITALS (7 sets, daily range): BP systolic 120–146; BP diastolic 69–84; O2SAT 89–94
[2021-05-14] MEDS: IPRATROPIUM 0.5MG/ALBUTEROL 2.5MG INH SOL UD 3ML (DUONEB) NEB SCH ×4 (01:06→19:52)
[2021-05-14] MEDS: ACETAMINOPHEN TAB 650MG DOSE (2X325MG) PO PRN ×3 (03:12→16:13)
[2021-05-14] MEDS: ADVAIR HFA 115/21MCG INHALER INH SCH ×2 (08:00→19:52)
[2021-05-14] MEDS: GABAPENTIN 300 MG CAP PO SCH ×3 (09:30→21:35)
[2021-05-14] MEDS: oxyBUTYnin 5 MG TAB PO SCH ×2 (09:30→21:35)
[2021-05-14] MEDS: MODAFINIL 100 MG TABLET PO SCH (09:30)
[2021-05-14] MEDS: SIMETHICONE 80MG CHEW TAB PO SCH ×3 (09:30→21:35)
[2021-05-14] MEDS: FLUoxetine 20 MG CAP PO SCH (09:31)
[2021-05-14] MEDS: FUROSEMIDE 20 MG TAB PO SCH (09:31)
[2021-05-14] MEDS: carBAMazepine 100MG 5ML SUSP ORAL SYRINGE *DRAW UP EXACT DOSE PO SCH ×2 (09:31→21:35)
[2021-05-14] MEDS: PANTOPRAZOLE 40MG TAB (PROTONIX) PO SCH (09:31)
[2021-05-14] MEDS: MAGNESIUM OXIDE 400MG TAB (MAG-OX) PO SCH (09:31)
[2021-05-14] MEDS: SUCRALFATE 1 GM TAB PO SCH ×4 (09:31→21:35)
[2021-05-14] MEDS: hydrOXYzine 25 MG TAB PO PRN (16:13)
[2021-05-14] MEDS: ATORVASTATIN 20 MG TAB PO SCH (21:35)
[2021-05-14] MEDS: NORCO, ANEXSIA 5/325MG TABLET (HYDROcodone/ACETAMINOPHEN) PO PRN (21:36)
[2021-05-15] VITALS (7 sets, daily range): BP systolic 117–129; BP diastolic 65–86; O2SAT 85–93
[2021-05-15] MEDS: IPRATROPIUM 0.5MG/ALBUTEROL 2.5MG INH SOL UD 3ML (DUONEB) NEB SCH ×4 (00:40→20:26)
[2021-05-15] MEDS: ADVAIR HFA 115/21MCG INHALER INH SCH ×2 (06:22→20:25)
[2021-05-15] MEDS: NORCO, ANEXSIA 5/325MG TABLET (HYDROcodone/ACETAMINOPHEN) PO PRN ×3 (06:28→20:09)
[2021-05-15] MEDS: carBAMazepine 100MG 5ML SUSP ORAL SYRINGE *DRAW UP EXACT DOSE PO SCH ×2 (08:24→20:08)
[2021-05-15] MEDS: GABAPENTIN 300 MG CAP PO SCH ×3 (08:25→20:09)
[2021-05-15] MEDS: FLUoxetine 20 MG CAP PO SCH (08:25)
[2021-05-15] MEDS: hydrOXYzine 25 MG TAB PO PRN ×2 (08:25→20:09)
[2021-05-15] MEDS: SUCRALFATE 1 GM TAB PO SCH ×4 (08:25→20:09)
[2021-05-15] MEDS: MAGNESIUM OXIDE 400MG TAB (MAG-OX) PO SCH (08:25)
[2021-05-15] MEDS: SIMETHICONE 80MG CHEW TAB PO SCH ×3 (08:25→20:09)
[2021-05-15] MEDS: oxyBUTYnin 5 MG TAB PO SCH ×2 (08:25→20:09)
[2021-05-15] MEDS: PANTOPRAZOLE 40MG TAB (PROTONIX) PO SCH (08:25)
[2021-05-15] MEDS: MODAFINIL 100 MG TABLET PO SCH (08:25)
[2021-05-15] MEDS: FUROSEMIDE 20 MG TAB PO SCH (08:26)
[2021-05-15 10:49] LABS: BLOOD UREA NITROGEN 7 MG/DL (7-18); CALCIUM LEVEL 8.9 MG/DL (8.8-10.2); CARBON DIOXIDE LEVEL 27 MEQ/L (21-32); CHLORIDE LEVEL 99 MEQ/L (98-107); CREATININE FOR GFR 0.44 MG/DL (0.55-1.30); GLOMERULAR FILTRATION RATE > 60.0 (>45); GLUCOSE, FASTING 105 MG/DL (70-100); NT-PRO BNP 172 PG/ML (<125); POTASSIUM SERUM 4.6 MEQ/L (3.5-5.1); SODIUM LEVEL 132 MEQ/L (136-145)
[2021-05-15] MEDS: ATORVASTATIN 20 MG TAB PO SCH (20:08)
[2021-05-16] MEDS: IPRATROPIUM 0.5MG/ALBUTEROL 2.5MG INH SOL UD 3ML (DUONEB) NEB SCH ×3 (02:00→14:16)
[2021-05-16 05:36] VITALS: BP 125/74
[2021-05-16] MEDS: ADVAIR HFA 115/21MCG INHALER INH SCH (07:52)
[2021-05-16] MEDS: SUCRALFATE 1 GM TAB PO SCH ×2 (08:01→12:54)
[2021-05-16] MEDS: GABAPENTIN 300 MG CAP PO SCH ×2 (08:58→15:35)
[2021-05-16] MEDS: oxyBUTYnin 5 MG TAB PO SCH (08:58)
[2021-05-16] MEDS: SIMETHICONE 80MG CHEW TAB PO SCH ×2 (08:59→15:35)
[2021-05-16] MEDS: MODAFINIL 100 MG TABLET PO SCH (08:59)
[2021-05-16] MEDS: FLUoxetine 20 MG CAP PO SCH (08:59)
[2021-05-16] MEDS: PANTOPRAZOLE 40MG TAB (PROTONIX) PO SCH (08:59)
[2021-05-16] MEDS: carBAMazepine 100MG 5ML SUSP ORAL SYRINGE *DRAW UP EXACT DOSE PO SCH (09:01)
[2021-05-16] MEDS: MAGNESIUM OXIDE 400MG TAB (MAG-OX) PO SCH (12:26)
[2021-05-16] MEDS: FUROSEMIDE 20 MG TAB PO SCH (12:26)
[2021-05-16 14:00] VITALS: BP 123/73
[2021-05-16] MEDS ORDERED: ADVA115A INH (14:46)
== END 2021-05-16 16:49 | disposition home or self-care (01) | DRG 330 ==
LOC: M OR 06:01 → EDSTATUS 07:30 → M MSPAV 14:18
PROVIDERS: ADMIT Surgery; ATTEND Surgery
PROC: 0DBE4ZZ Excision of Large Intestine, Percutaneous Endoscopic Approach (ICD-10-PCS; principal; 2021-05-01 07:30)
DX: Z43.3 Encounter for attention to colostomy (principal); J98.11 Atelectasis; Z90.49 Acquired absence of other specified parts of digestive tract; G35 Multiple sclerosis; K21.9 Gastro-esophageal reflux disease without esophagitis; K59.09 Other constipation; M10.9 Gout, unspecified; E78.5 Hyperlipidemia, unspecified; Z79.899 Other long term (current) drug therapy; Z20.822 Contact with and (suspected) exposure to COVID-19

== ENCOUNTER → 2021-05-21 | Outpatient (CLI) | payer MEDICARE, MEDICAID ==
[~2021-05-21] MED LIST changes: +ADVA115A INH; -LR 1,000 ML IV ONE; -cefTRIAXone SOD 1 GM in D5W MINI-BAG PLUS 50 ML IV ONE
[2021-05-21 13:28] LABS: BASO # 0.1 10^3/uL (0.0-0.2); BASO % 0.9 % (0.0-1.0); EOS # 0.3 10^3/uL (0.0-0.5); EOS % 6.5 % (0.0-3.0); HEMATOCRIT 36.5 % (36.0-47.0); HEMOGLOBIN 11.5 g/dl (12.0-15.5); LYMPH # 1.3 10^3/uL (1.5-5.0); LYMPH % 24.9 % (24.0-44.0); MEAN CORPUSCULAR HEMOGLOBIN 26.5 pg (27.0-33.0); MEAN CORPUSCULAR HGB CONC 31.5 g/dl (32.0-36.5); MEAN CORPUSCULAR VOLUME 84.1 fl (80.0-96.0); MONO # 0.6 10^3/uL (0.0-0.8); MONO % 11.4 % (2.0-8.0); NEUTROPHILS % 56.1 % (36.0-66.0); PLATELET COUNT, AUTOMATED 338 10^3/uL (150-450); RED BLOOD COUNT 4.34 10^6/uL (4.00-5.40); WHITE BLOOD COUNT 5.3 10^3/uL (4.0-10.0)
[2021-05-21 13:39] LABS: INR 1.04
[2021-05-21 14:01] LABS: ALBUMIN 3.5 GM/DL (3.2-5.2); ALT/SGPT 14 U/L (12-78); BILIRUBIN,TOTAL 0.2 MG/DL (0.2-1.0); BLOOD UREA NITROGEN 8 MG/DL (7-18); CALCIUM LEVEL 9.3 MG/DL (8.8-10.2); CARBON DIOXIDE LEVEL 30 MEQ/L (21-32); CHLORIDE LEVEL 103 MEQ/L (98-107); CREATININE FOR GFR 0.54 MG/DL (0.55-1.30); GLOMERULAR FILTRATION RATE > 60.0 (>45); GLUCOSE, FASTING 94 MG/DL (70-100); POTASSIUM SERUM 5.7 MEQ/L (3.5-5.1); SODIUM LEVEL 137 MEQ/L (136-145); TOTAL PROTEIN 8.1 GM/DL (6.4-8.2)
[2021-05-21 14:02] LABS: CARBAMAZEPINE (TEGRETOL) LEVEL 1.7 UG/ML (4.0-10.0); FERRITIN 41 NG/ML (8-252); NT-PRO BNP 135 PG/ML (<125)
== END ==
LOC: M PLALAB 11:11
PROVIDERS: ATTEND Family Medicine
DX: G40.909 Epilepsy, unspecified, not intractable, without status epilepticus (principal); I11.0 Hypertensive heart disease with heart failure; D50.9 Iron deficiency anemia, unspecified; I50.32 Chronic diastolic (congestive) heart failure

== ENCOUNTER → 2021-09-05 | Outpatient (CLI) | payer MEDICARE, MEDICAID ==
[2021-09-05 13:12] LABS: HEMATOCRIT 40.1 % (36.0-47.0); HEMOGLOBIN 13.3 g/dl (12.0-15.5); MEAN CORPUSCULAR HEMOGLOBIN 28.4 pg (27.0-33.0); MEAN CORPUSCULAR HGB CONC 33.2 g/dl (32.0-36.5); MEAN CORPUSCULAR VOLUME 85.7 fl (80.0-96.0); PLATELET COUNT, AUTOMATED 190 10^3/uL (150-450); RED BLOOD COUNT 4.68 10^6/uL (4.00-5.40); WHITE BLOOD COUNT 4.8 10^3/uL (4.0-10.0)
[2021-09-05 13:50] LABS: BLOOD UREA NITROGEN 10 MG/DL (7-18); CALCIUM LEVEL 9.5 MG/DL (8.8-10.2); CARBON DIOXIDE LEVEL 29 MEQ/L (21-32); CHLORIDE LEVEL 100 MEQ/L (98-107); CHOLESTEROL LEVEL 180 MG/DL (<200); CHOLESTEROL RISK RATIO 2.337 (<5); CREATININE FOR GFR 0.64 MG/DL (0.55-1.30); FERRITIN 14 NG/ML (8-252); GLOMERULAR FILTRATION RATE > 60.0 (>45); GLUCOSE, FASTING 102 MG/DL (70-100); HDL CHOLESTEROL 77 MG/DL (>40); LDL CHOLESTEROL 92 MG/DL (<100); NON-HDL-C 103 MG/DL; POTASSIUM SERUM 4.4 MEQ/L (3.5-5.1); SODIUM LEVEL 134 MEQ/L (136-145); TOTAL 25(OH) VITAMIN D 24.7 NG/ML (30.0-100.0); TRIGLYCERIDES LEVEL 56 MG/DL (<150)
== END ==
LOC: M PLALAB 10:11
PROVIDERS: ATTEND Family Medicine
DX: D50.9 Iron deficiency anemia, unspecified (principal); E55.9 Vitamin D deficiency, unspecified; I50.32 Chronic diastolic (congestive) heart failure; E78.2 Mixed hyperlipidemia; Z51.81 Encounter for therapeutic drug level monitoring; Z79.899 Other long term (current) drug therapy

== ENCOUNTER → 2021-12-19 | Outpatient (REF) | payer MEDICARE, MEDICAID | LOC: M SFHCPLAZ 17:09 | PROVIDERS: ATTEND Physician Assistant | DX: R30.0 Dysuria (principal) ==

== ENCOUNTER → 2022-02-13 | Outpatient (CLI) | payer MEDICAID, MEDICARE ==
[~2022-02-13] MED LIST changes: +TIZA1TAB12 PO
== END ==
LOC: M LABSMTC 10:19
PROVIDERS: ATTEND Ophthalmology
DX: Z01.818 Encounter for other preprocedural examination (principal); Z11.52 Encounter for screening for COVID-19

== ENCOUNTER → 2022-04-30 | Outpatient (CLI) | payer MEDICARE, MEDICAID ==
[~2022-04-30] MED LIST changes: -DULE100A INH; +MOME13HF8 INH
[2022-04-30 17:59] LABS: BASO % 0.7 % (0.0-1.0); EOS # 0.2 10^3/uL (0.0-0.5); EOS % 3.7 % (0.0-3.0); HEMATOCRIT 40.8 % (36.0-47.0); HEMOGLOBIN 13.1 g/dl (12.0-15.5); LYMPH # 1.2 10^3/uL (1.5-5.0); LYMPH % 21.3 % (24.0-44.0); MEAN CORPUSCULAR HGB CONC 32.1 g/dl (32.0-36.5); MEAN CORPUSCULAR VOLUME 90.5 fl (80.0-96.0); MONO # 0.6 10^3/uL (0.0-0.8); MONO % 10.8 % (2.0-8.0); NEUTROPHILS # 3.6 10^3/uL (1.5-8.5); NEUTROPHILS % 63.3 % (36.0-66.0); PLATELET COUNT, AUTOMATED 227 10^3/uL (150-450); RED BLOOD COUNT 4.51 10^6/uL (4.00-5.40); WHITE BLOOD COUNT 5.6 10^3/uL (4.0-10.0)
[2022-04-30 19:31] LABS: ALBUMIN 4.1 G/DL (3.2-5.2); ALKALINE PHOSPHATASE 116 U/L (46-116); ALT/SGPT 13 U/L (7.0-40); AST/SGOT 18 U/L (<34); BILIRUBIN,TOTAL 0.2 MG/DL (0.3-1.2); BLOOD UREA NITROGEN 15 MG/DL (9-23); CALCIUM LEVEL 9.2 MG/DL (8.3-10.6); CARBON DIOXIDE LEVEL 29 MMOL/L (20-31); CHLORIDE LEVEL 96 MMOL/L (98-107); CHOLESTEROL LEVEL 154 MG/DL (<200); CHOLESTEROL RISK RATIO 2.14 (<5); CREATININE FOR GFR 0.63 MG/DL (0.55-1.30); GLOMERULAR FILTRATION RATE > 60.0 (>45); GLUCOSE, FASTING 87 MG/DL (74-106); HDL CHOLESTEROL 71.9 MG/DL (>40); LDL CHOLESTEROL 68.3 MG/DL (<100); NON-HDL-C 82 MG/DL; POTASSIUM SERUM 5.1 MMOL/L (3.5-5.1); SODIUM LEVEL 132 MMOL/L (136-145); TOTAL PROTEIN 7.9 G/DL (5.7-8.2); TRIGLYCERIDES LEVEL 69 MG/DL (<150)
[2022-05-02 08:09] LABS: CARBAMAZEPINE (TEGRETOL) LEVEL 8.2 ug/mL (4.0-12.0)
== END ==
LOC: M PLALAB 15:33
PROVIDERS: ATTEND Physician Assistant
DX: Z01.812 Encounter for preprocedural laboratory examination (principal); G35 Multiple sclerosis; G40.909 Epilepsy, unspecified, not intractable, without status epilepticus

== ENCOUNTER → 2022-05-01 | Outpatient (CLI) | payer MEDICARE ==
[~2022-05-01] MED LIST changes: +DULE100A INH; -MOME13HF8 INH
== END ==
LOC: M LABSMTC 10:18
PROVIDERS: ATTEND Anesthesiology
DX: Z01.818 Encounter for other preprocedural examination (principal); Z11.52 Encounter for screening for COVID-19

== ENCOUNTER 2022-05-06 07:39 | Day surgery (SDC) | payer MEDICARE ==
[~2022-05-06] VITALS: Ht 172.7 cm; Wt 81.6 kg
[~2022-05-06 07:39] MED LIST changes: +BSS IRRIG/VANCO(10MG)/TOBRA(5MG)/EPINEPH(1:1000-0.5CC)500ML BAG-ORONLY IR ONE; +CEFUROXIME 1MG/0.1ML INTRACAMERAL INJ As Ordered ONE; +CYCLOPENTOLATE 1% OPHTH SOLN 2ML BTL OS SCH; +LIDOCAINE 1% SDV 5ML VIAL As Ordered ONE; +LIDOCAINE 3.5 % 1ML OPHTH TOPICAL GEL OU ONE; +OFLOXACIN 0.3 % (OCUFLOX) OPTH SOL 5ML OS ONE; +PHENYLEPHRINE 10% OPHTH SOL 5ML OS PRN; +PHENYLEPHRINE 2.5% OPHTH SOL 2ML OS SCH; +TROPICAMIDE 1% OPHTH SOLN 15ML OS SCH
[2022-05-06] MEDS ORDERED: MIDAZOLAM INJ 2MG/2ML VIAL As Ordered ONE (09:05)
[2022-05-06 13:27] VITALS: BP 132/62
== END 2022-05-06 14:27 | disposition home or self-care (01) ==
LOC: M SDC 07:39
PROVIDERS: ATTEND Ophthalmology
DX: H25.12 Age-related nuclear cataract, left eye (principal); K21.9 Gastro-esophageal reflux disease without esophagitis; E78.00 Pure hypercholesterolemia, unspecified; Z90.49 Acquired absence of other specified parts of digestive tract; M54.9 Dorsalgia, unspecified; F41.9 Anxiety disorder, unspecified; F32.A Depression, unspecified; G35 Multiple sclerosis; Z99.89 Dependence on other enabling machines and devices; R56.9 Unspecified convulsions; J44.9 Chronic obstructive pulmonary disease, unspecified; N32.81 Overactive bladder; Z87.891 Personal history of nicotine dependence; Z93.2 Ileostomy status; Z79.899 Other long term (current) drug therapy
CPT/HCPCS: 66984; J0697; J2250; V2632

== ENCOUNTER → 2022-09-11 | Outpatient (CLI) | payer MEDICARE, MEDICAID ==
[~2022-09-11] MED LIST changes: -BSS IRRIG/VANCO(10MG)/TOBRA(5MG)/EPINEPH(1:1000-0.5CC)500ML BAG-ORONLY IR ONE; -CEFUROXIME 1MG/0.1ML INTRACAMERAL INJ As Ordered ONE; -CYCLOPENTOLATE 1% OPHTH SOLN 2ML BTL OS SCH; -DULE100A INH; -LIDOCAINE 1% SDV 5ML VIAL As Ordered ONE; -LIDOCAINE 3.5 % 1ML OPHTH TOPICAL GEL OU ONE; +MOME13HF8 INH; -OFLOXACIN 0.3 % (OCUFLOX) OPTH SOL 5ML OS ONE; -PHENYLEPHRINE 10% OPHTH SOL 5ML OS PRN; -PHENYLEPHRINE 2.5% OPHTH SOL 2ML OS SCH; -TROPICAMIDE 1% OPHTH SOLN 15ML OS SCH
[2022-09-11 14:05] LABS: BASO # 0.1 10^3/uL (0.0-0.2); BASO % 0.7 % (0.0-1.0); EOS # 0.3 10^3/uL (0.0-0.5); EOS % 3.5 % (0.0-3.0); HEMATOCRIT 48.9 % (36.0-47.0); HEMOGLOBIN 15.7 g/dl (12.0-15.5); LYMPH # 1.6 10^3/uL (1.5-5.0); LYMPH % 20.3 % (24.0-44.0); MEAN CORPUSCULAR HEMOGLOBIN 28.5 pg (27.0-33.0); MEAN CORPUSCULAR HGB CONC 32.1 g/dl (32.0-36.5); MEAN CORPUSCULAR VOLUME 88.7 fl (80.0-96.0); MONO # 0.8 10^3/uL (0.0-0.8); MONO % 9.8 % (2.0-8.0); NEUTROPHILS % 65.6 % (36.0-66.0); PLATELET COUNT, AUTOMATED 271 10^3/uL (150-450); RED BLOOD COUNT 5.51 10^6/uL (4.00-5.40); WHITE BLOOD COUNT 7.6 10^3/uL (4.0-10.0)
[2022-09-11 14:22] LABS: ALBUMIN 4.5 G/DL (3.2-5.2); ALKALINE PHOSPHATASE 122 U/L (46-116); ALT/SGPT 12 U/L (7.0-40); AST/SGOT 16 U/L (<34); BILIRUBIN,TOTAL 0.3 MG/DL (0.3-1.2); BLOOD UREA NITROGEN 12 MG/DL (9-23); CARBON DIOXIDE LEVEL 29 MMOL/L (20-31); CHLORIDE LEVEL 99 MMOL/L (98-107); CREATININE FOR GFR 0.66 MG/DL (0.55-1.30); GLOMERULAR FILTRATION RATE > 60.0 (>45); GLUCOSE, FASTING 83 MG/DL (74-106); POTASSIUM SERUM 4.7 MMOL/L (3.5-5.1); SODIUM LEVEL 136 MMOL/L (136-145); TOTAL PROTEIN 8.5 G/DL (5.7-8.2)
== END ==
LOC: M PLALAB 10:41
PROVIDERS: ATTEND Physician Assistant
DX: Z01.818 Encounter for other preprocedural examination (principal); H26.9 Unspecified cataract

== ENCOUNTER 2022-12-05 07:05 | Day surgery (SDC) | payer MEDICARE, MEDICAID ==
[~2022-12-05] VITALS: Ht 172.7 cm; Wt 88.0 kg
[~2022-12-05 07:05] MED LIST changes: +ACETYLCHOLINE OPHTH SOLN 1% 2ML (MIOCHOL-E) As Ordered ONE; +BSS IRRIG/VANCO(10MG)/TOBRA(5MG)/EPINEPH(1:1000-0.5CC)500ML BAG-ORONLY IR ONE; +CEFUROXIME 1MG/0.1ML INTRACAMERAL INJ As Ordered ONE; +CYCLOPENTOLATE 1% OPHTH SOLN 2ML BTL OD SCH; -GABA-283 PO; +GABA-284 PO; +LIDOCAINE 1% SDV 5ML VIAL As Ordered ONE; +LIDOCAINE 3.5 % 1ML OPHTH TOPICAL GEL OU ONE; +OFLOXACIN 0.3 % (OCUFLOX) OPTH SOL 5ML OD ONE; +PHENYLEPHRINE 10% OPHTH SOL 5ML OD PRN; +PHENYLEPHRINE 2.5% OPHTH SOL 2ML OD SCH; +TROPICAMIDE 1% OPHTH SOLN 15ML OD SCH
[2022-12-05] MEDS ORDERED: fentaNYL 100 MCG/2 ML INJECTION As Ordered ONE (10:07)
[2022-12-05] MEDS ORDERED: MIDAZOLAM INJ 2MG/2ML VIAL As Ordered ONE (10:07)
[2022-12-05] MEDS ORDERED: propofoL 200 MG/20 ML VIAL As Ordered ONE (10:08)
[2022-12-05 14:50] VITALS: BP 137/82; TEMP 98.8; O2SAT 90
== END 2022-12-05 14:57 | disposition home or self-care (01) ==
LOC: M SDC 07:05
PROVIDERS: ATTEND Ophthalmology
DX: H25.11 Age-related nuclear cataract, right eye (principal); I10 Essential (primary) hypertension; E78.5 Hyperlipidemia, unspecified; K21.9 Gastro-esophageal reflux disease without esophagitis; M19.90 Unspecified osteoarthritis, unspecified site; M54.9 Dorsalgia, unspecified; F41.9 Anxiety disorder, unspecified; F32.A Depression, unspecified; R51.9 Headache, unspecified; G35 Multiple sclerosis; J44.9 Chronic obstructive pulmonary disease, unspecified; N32.81 Overactive bladder; Z79.899 Other long term (current) drug therapy
CPT/HCPCS: 66984; J0697; J2250; J3010; V2632

== ENCOUNTER 2023-02-14 17:12 | Inpatient (IN) | payer MEDICARE, MEDICAID ==
[~2023-02-14] VITALS: Ht 175.3 cm; Wt 84.1 kg
[~2023-02-14 17:12] MED LIST changes: -ACETYLCHOLINE OPHTH SOLN 1% 2ML (MIOCHOL-E) As Ordered ONE; -BSS IRRIG/VANCO(10MG)/TOBRA(5MG)/EPINEPH(1:1000-0.5CC)500ML BAG-ORONLY IR ONE; -CEFUROXIME 1MG/0.1ML INTRACAMERAL INJ As Ordered ONE; -CYCLOPENTOLATE 1% OPHTH SOLN 2ML BTL OD SCH; -LIDOCAINE 1% SDV 5ML VIAL As Ordered ONE; -LIDOCAINE 3.5 % 1ML OPHTH TOPICAL GEL OU ONE; -OFLOXACIN 0.3 % (OCUFLOX) OPTH SOL 5ML OD ONE; -OXYB5TAB10 PO; +OXYB5TAB11 PO; -PHENYLEPHRINE 10% OPHTH SOL 5ML OD PRN; -PHENYLEPHRINE 2.5% OPHTH SOL 2ML OD SCH; -TROPICAMIDE 1% OPHTH SOLN 15ML OD SCH
[2023-02-14 18:22] LABS: BASO % 0.7 % (0.0-1.0); EOS # 0.2 10^3/uL (0.0-0.5); HEMATOCRIT 43.6 % (36.0-47.0); LYMPH # 1.3 10^3/uL (1.5-5.0); LYMPH % 22.3 % (24.0-44.0); MEAN CORPUSCULAR HEMOGLOBIN 26.2 pg (27.0-33.0); MEAN CORPUSCULAR HGB CONC 32.1 g/dl (32.0-36.5); MEAN CORPUSCULAR VOLUME 81.5 fl (80.0-96.0); MONO # 0.7 10^3/uL (0.0-0.8); MONO % 13.1 % (2.0-8.0); NEUTROPHILS # 3.4 10^3/uL (1.5-8.5); NEUTROPHILS % 60.7 % (36.0-66.0); PLATELET COUNT, AUTOMATED 226 10^3/uL (150-450); RED BLOOD COUNT 5.35 10^6/uL (4.00-5.40); WHITE BLOOD COUNT 5.6 10^3/uL (4.0-10.0)
[2023-02-14 18:34] LABS: ALBUMIN 3.4 G/DL (3.2-5.2); BILIRUBIN,DIRECT 0.4 MG/DL (<0.4); BILIRUBIN,TOTAL 0.7 MG/DL (0.3-1.2); CALCIUM LEVEL 8.4 MG/DL (8.3-10.6); CREATININE FOR GFR 1.05 MG/DL (0.55-1.30); GLOMERULAR FILTRATION RATE 55.5 (>45); POTASSIUM SERUM 5.3 MMOL/L (3.5-5.1); TOTAL PROTEIN 6.8 G/DL (5.7-8.2)
[2023-02-14 18:36] LABS: MB/CK RELATIVE INDEX 2.12 (< OR =4)
[2023-02-14] MEDS ORDERED: ISOVUE-370 76% 100ML VIAL As Ordered ONE (19:11)
[2023-02-14] MEDS ORDERED: FUROSEMIDE 40MG/4ML VIAL IV ONE (19:15)
[2023-02-14 19:37] LABS: INR 1.27; PROTHROMBIN TIME 15.5 SECONDS (12.5-14.5)
[2023-02-14 19:38] LABS: PARTIAL THROMBOPLASTIN TIME 30.4 SECONDS (24.8-34.2)
[2023-02-14 20:06] LABS: CK-MB VALUE MASS 1.3 NG/ML (<3.6)
[2023-02-14 20:08] LABS: MB/CK RELATIVE INDEX 2.88 (< OR =4)
[2023-02-14] MEDS ORDERED: methylPREDNISolone 125MG 2ML VIAL IV ONE (20:45)
[2023-02-14] MEDS ORDERED: IPRATROPIUM 0.5MG/ALBUTEROL 2.5MG INH SOL UD 3ML (DUONEB) NEB ONE (20:45)
[2023-02-14 21:52] LABS: RSV AMPLIFICATION NEGATIVE (NEGATIVE)
[2023-02-14] MEDS ORDERED: FURO20TA2 PO (21:58)
[2023-02-14] MEDS ORDERED: SUCR1TAB56 PO (21:58)
[2023-02-14] MEDS ORDERED: OXYB10TA23 PO (21:58)
[2023-02-14] MEDS ORDERED: HOME MED LIST COMPLETE! XX SCH (22:00)
[2023-02-14] MEDS ORDERED: FLEET ENEMA PR ONE (22:10)
[2023-02-14] MEDS ORDERED: ALBUTEROL SULFATE 2.5MG/0.5ML INH NEB SOLN NEB PRN (22:10)
[2023-02-14] MEDS ORDERED: PILL CUTTER 1 EACH XX PRN (23:25)
[2023-02-14 23:30] VITALS: BP 123/68; TEMP 96.8; O2SAT 92
[2023-02-15] VITALS (23 sets, daily range): BP systolic 108–134; BP diastolic 58–71; TEMP 97–99.1; O2SAT 82–98
[2023-02-15] MEDS: DOCUSATE SODIUM 100MG CAPSULE PO SCH ×3 (00:32→21:11)
[2023-02-15] MEDS: IPRATROPIUM 0.5MG/ALBUTEROL 2.5MG INH SOL UD 3ML (DUONEB) NEB SCH ×4 (01:40→19:37)
[2023-02-15] MEDS ORDERED: methylPREDNISolone 125MG 2ML VIAL IV SCH (05:00)
[2023-02-15] MEDS: tiZANidine 4 MG TAB PO PRN ×2 (05:37→20:15)
[2023-02-15] MEDS: HEPARIN SOD (PORCINE) 5000UNITS/ML 1ML VIAL/SYRINGE SC SCH ×3 (05:37→21:11)
[2023-02-15 06:46] LABS: BLOOD UREA NITROGEN 19 MG/DL (9-23); CALCIUM LEVEL 8.4 MG/DL (8.3-10.6); CARBON DIOXIDE LEVEL 26 MMOL/L (20-31); CHLORIDE LEVEL 101 MMOL/L (98-107); CREATININE FOR GFR 0.82 MG/DL (0.55-1.30); GLOMERULAR FILTRATION RATE > 60.0 (>45); GLUCOSE, FASTING 154 MG/DL (74-106); SODIUM LEVEL 137 MMOL/L (136-145)
[2023-02-15] MEDS: ADVAIR HFA 230/21MCG INHALER INH SCH ×2 (07:23→19:38)
[2023-02-15 07:50] LABS: HEMATOCRIT 42.1 % (36.0-47.0); HEMOGLOBIN 13.6 g/dl (12.0-15.5); MEAN CORPUSCULAR HEMOGLOBIN 26.5 pg (27.0-33.0); MEAN CORPUSCULAR HGB CONC 32.3 g/dl (32.0-36.5); MEAN CORPUSCULAR VOLUME 81.9 fl (80.0-96.0); PLATELET COUNT, AUTOMATED 184 10^3/uL (150-450); RED BLOOD COUNT 5.14 10^6/uL (4.00-5.40); WHITE BLOOD COUNT 2.5 10^3/uL (4.0-10.0)
[2023-02-15 07:58] LABS: MAGNESIUM LEVEL 1.9 MG/DL (1.8-2.4)
[2023-02-15] MEDS: GABAPENTIN 300 MG CAP PO SCH ×3 (08:56→21:11)
[2023-02-15] MEDS: FLUoxetine 20MG CAP PO SCH (08:56)
[2023-02-15] MEDS: MIRALAX *UNIT DOSE* 17GM PACKET PO SCH (08:56)
[2023-02-15] MEDS: carBAMazepine 100MG 5ML SUSP ORAL SYRINGE *DRAW UP EXACT DOSE PO SCH ×2 (08:57→22:00)
[2023-02-15] MEDS ORDERED: FUROSEMIDE 40MG/4ML VIAL IV SCH (09:00)
[2023-02-15] MEDS: PANTOPRAZOLE 20 MG TAB PO SCH ×2 (09:04→21:15)
[2023-02-15 12:13] LABS: ABG BASE EXCESS 0.2 (-2.0-2.0); ABG HCO3 24.9 MMOL/L (22.0-26.0); ABG O2 SATURATION 94.9 % (95.0-99.0); ABG PARTIAL PRESSURE O2 76.1 mmHg (75.0-100.0); ABG STANDARD HCO3 24.6 MMOL/L. (22.0-26.0); ABG TOTAL CO2 26.2 MMOL/L (23.0-31.0); ABG pH (ARTERIAL) 7.402 UNITS (7.350-7.450)
[2023-02-15] MEDS: predniSONE 20 MG TAB PO SCH (17:19)
[2023-02-15] MEDS ORDERED: predniSONE 20 MG TAB PO SCH (21:00)
[2023-02-15] MEDS: ATORVASTATIN 20 MG TAB PO SCH (21:11)
[2023-02-15] MEDS: ACETAMINOPHEN TAB 650MG DOSE (2X325MG) PO PRN (21:11)
[2023-02-15] MEDS: CEFDINIR 300 MG CAP (OMNICEF) PO SCH (21:16)
[2023-02-15] MEDS ORDERED: MORPHINE 2 MG/ML 1ML VIAL IV ONE (23:55)
[2023-02-16] VITALS (57 sets, daily range): BP systolic 127–151; BP diastolic 75–82; TEMP 97.5–98.6; O2SAT 81–95
[2023-02-16] MEDS: IPRATROPIUM 0.5MG/ALBUTEROL 2.5MG INH SOL UD 3ML (DUONEB) NEB SCH ×4 (02:22→20:53)
[2023-02-16] MEDS: HEPARIN SOD (PORCINE) 5000UNITS/ML 1ML VIAL/SYRINGE SC SCH ×3 (06:00→21:54)
[2023-02-16 06:21] LABS: BASO % 0.1 % (0.0-1.0); HEMATOCRIT 38.6 % (36.0-47.0); HEMOGLOBIN 12.7 g/dl (12.0-15.5); LYMPH # 0.5 10^3/uL (1.5-5.0); LYMPH % 7.9 % (24.0-44.0); MEAN CORPUSCULAR HEMOGLOBIN 26.5 pg (27.0-33.0); MEAN CORPUSCULAR HGB CONC 32.9 g/dl (32.0-36.5); MEAN CORPUSCULAR VOLUME 80.6 fl (80.0-96.0); MONO # 0.6 10^3/uL (0.0-0.8); MONO % 8.1 % (2.0-8.0); NEUTROPHILS # 5.6 10^3/uL (1.5-8.5); NEUTROPHILS % 83.6 % (36.0-66.0); PLATELET COUNT, AUTOMATED 221 10^3/uL (150-450); RED BLOOD COUNT 4.79 10^6/uL (4.00-5.40); WHITE BLOOD COUNT 6.8 10^3/uL (4.0-10.0)
[2023-02-16 06:46] LABS: BLOOD UREA NITROGEN 17 MG/DL (9-23); CALCIUM LEVEL 8.4 MG/DL (8.3-10.6); CARBON DIOXIDE LEVEL 29 MMOL/L (20-31); CHLORIDE LEVEL 98 MMOL/L (98-107); CREATININE FOR GFR 0.75 MG/DL (0.55-1.30); GLOMERULAR FILTRATION RATE > 60.0 (>45); GLUCOSE, FASTING 133 MG/DL (74-106); MAGNESIUM LEVEL 1.7 MG/DL (1.8-2.4); POTASSIUM SERUM 4.3 MMOL/L (3.5-5.1); SODIUM LEVEL 136 MMOL/L (136-145)
[2023-02-16] MEDS: ACETAMINOPHEN TAB 650MG DOSE (2X325MG) PO PRN ×2 (06:51→13:43)
[2023-02-16] MEDS: TIOTROPIUM INHALER/CAPSULE (SPIRIVA) INH SCH (07:31)
[2023-02-16] MEDS: ADVAIR HFA 230/21MCG INHALER INH SCH ×2 (07:31→21:04)
[2023-02-16] MEDS: AZITHROMYCIN 250MG TABLET PO SCH (09:20)
[2023-02-16] MEDS: predniSONE 20 MG TAB PO SCH (09:20)
[2023-02-16] MEDS: CEFDINIR 300 MG CAP (OMNICEF) PO SCH ×2 (09:20→20:17)
[2023-02-16] MEDS: FLUoxetine 20MG CAP PO SCH (09:20)
[2023-02-16] MEDS: FUROSEMIDE 40MG/4ML VIAL IV SCH ×2 (09:20→20:12)
[2023-02-16] MEDS: DOCUSATE SODIUM 100MG CAPSULE PO SCH ×2 (09:21→20:11)
[2023-02-16] MEDS: GABAPENTIN 300 MG CAP PO SCH ×3 (09:21→20:11)
[2023-02-16] MEDS: PANTOPRAZOLE 20 MG TAB PO SCH ×2 (09:21→20:19)
[2023-02-16] MEDS: carBAMazepine 100MG 5ML SUSP ORAL SYRINGE *DRAW UP EXACT DOSE PO SCH ×2 (09:21→21:02)
[2023-02-16] MEDS: MIRALAX *UNIT DOSE* 17GM PACKET PO SCH (09:22)
[2023-02-16] MEDS: MAG SULF 1GM/100ML (MAG RUN) 1 GM in IV 1 EA IV SCH ×2 (11:56→12:02)
[2023-02-16] MEDS: tiZANidine 4 MG TAB PO PRN (16:49)
[2023-02-16] MEDS: ATORVASTATIN 20 MG TAB PO SCH (20:11)
[2023-02-16] MEDS: TECFIDERA 240 MG PO SCH (23:28)
[2023-02-17] VITALS (9 sets, daily range): BP systolic 129–141; BP diastolic 82–92; TEMP 97–97.9; O2SAT 88–98
[2023-02-17] MEDS: IPRATROPIUM 0.5MG/ALBUTEROL 2.5MG INH SOL UD 3ML (DUONEB) NEB SCH ×3 (01:19→13:34)
[2023-02-17 05:42] LABS: BASO % 0.5 % (0.0-1.0); EOS # 0.2 10^3/uL (0.0-0.5); EOS % 2.2 % (0.0-3.0); HEMATOCRIT 42.8 % (36.0-47.0); HEMOGLOBIN 13.9 g/dl (12.0-15.5); LYMPH # 1.4 10^3/uL (1.5-5.0); LYMPH % 17.2 % (24.0-44.0); MEAN CORPUSCULAR HEMOGLOBIN 26.2 pg (27.0-33.0); MEAN CORPUSCULAR HGB CONC 32.5 g/dl (32.0-36.5); MEAN CORPUSCULAR VOLUME 80.6 fl (80.0-96.0); MONO # 0.9 10^3/uL (0.0-0.8); MONO % 11.4 % (2.0-8.0); NEUTROPHILS # 5.6 10^3/uL (1.5-8.5); NEUTROPHILS % 68.3 % (36.0-66.0); PLATELET COUNT, AUTOMATED 244 10^3/uL (150-450); RED BLOOD COUNT 5.31 10^6/uL (4.00-5.40); WHITE BLOOD COUNT 8.2 10^3/uL (4.0-10.0)
[2023-02-17] MEDS: HEPARIN SOD (PORCINE) 5000UNITS/ML 1ML VIAL/SYRINGE SC SCH (05:53)
[2023-02-17 06:04] LABS: BLOOD UREA NITROGEN 13 MG/DL (9-23); CALCIUM LEVEL 8.6 MG/DL (8.3-10.6); CARBON DIOXIDE LEVEL 35 MMOL/L (20-31); CHLORIDE LEVEL 96 MMOL/L (98-107); CREATININE FOR GFR 0.67 MG/DL (0.55-1.30); GLOMERULAR FILTRATION RATE > 60.0 (>45); GLUCOSE, FASTING 85 MG/DL (74-106); MAGNESIUM LEVEL 1.8 MG/DL (1.8-2.4); SODIUM LEVEL 137 MMOL/L (136-145)
[2023-02-17] MEDS: GABAPENTIN 300 MG CAP PO SCH (08:30)
[2023-02-17] MEDS: predniSONE 20 MG TAB PO SCH (08:30)
[2023-02-17] MEDS: FLUoxetine 20MG CAP PO SCH (08:30)
[2023-02-17] MEDS: AZITHROMYCIN 250MG TABLET PO SCH (08:30)
[2023-02-17] MEDS: PANTOPRAZOLE 20 MG TAB PO SCH (08:30)
[2023-02-17] MEDS: FUROSEMIDE 40MG/4ML VIAL IV SCH (08:31)
[2023-02-17] MEDS: ACETAMINOPHEN TAB 650MG DOSE (2X325MG) PO PRN (08:31)
[2023-02-17] MEDS: CEFDINIR 300 MG CAP (OMNICEF) PO SCH (08:31)
[2023-02-17] MEDS: DOCUSATE SODIUM 100MG CAPSULE PO SCH (08:31)
[2023-02-17] MEDS: TECFIDERA 240 MG PO SCH (08:31)
[2023-02-17] MEDS: MIRALAX *UNIT DOSE* 17GM PACKET PO SCH (08:32)
[2023-02-17] MEDS: TIOTROPIUM INHALER/CAPSULE (SPIRIVA) INH SCH (09:18)
[2023-02-17] MEDS: ADVAIR HFA 230/21MCG INHALER INH SCH (09:18)
[2023-02-17] MEDS ORDERED: AZIT-12 PO (10:05)
[2023-02-17] MEDS: carBAMazepine 100MG 5ML SUSP ORAL SYRINGE *DRAW UP EXACT DOSE PO SCH (10:22)
[2023-02-17] MEDS ORDERED: VENTAER INH ×2 (10:45→11:01)
[2023-02-17] MEDS ORDERED: CEFD300CAP PO (10:45)
[2023-02-17] MEDS ORDERED: ADVA230A INH (10:45)
[2023-02-17] MEDS ORDERED: TIOT18INH INH (10:45)
[2023-02-17] MEDS ORDERED: SENO8.6T10 PO (10:45)
[2023-02-17] MEDS ORDERED: FURO40TA2 PO (10:45)
[2023-02-17] MEDS ORDERED: PRED20TA PO (10:45)
[2023-02-17] MEDS ORDERED: MIRA1POW3 PO ×2 (10:45→11:01)
[2023-02-17] MEDS ORDERED: ALBU8.5H INH (10:45)
[2023-02-17] MEDS ORDERED: POTA-298 PO (10:49)
[2023-02-17] MEDS ORDERED: ANOR1AER PO (10:58)
[2023-02-17] MEDS ORDERED: IPRA0.00 INH (11:01)
== END 2023-02-17 13:50 | disposition home health service (06) | DRG 196 ==
LOC: EDBD 17:12 → M ED 17:12 → M ED INP 22:07 → M PCU 23:17
PROVIDERS: ADMIT Internal Medicine; ATTEND Internal Medicine
PROC: B246ZZZ Ultrasonography of Right and Left Heart (ICD-10-PCS; principal; 2023-02-15)
DX: J84.9 Interstitial pulmonary disease, unspecified (principal); I50.33 Acute on chronic diastolic (congestive) heart failure; J96.21 Acute and chronic respiratory failure with hypoxia; E87.1 Hypo-osmolality and hyponatremia; N39.0 Urinary tract infection, site not specified; J44.1 Chronic obstructive pulmonary disease with (acute) exacerbation; G93.40 Encephalopathy, unspecified; R18.8 Other ascites; I27.20 Pulmonary hypertension, unspecified; I27.81 Cor pulmonale (chronic); G40.909 Epilepsy, unspecified, not intractable, without status epilepticus; K59.00 Constipation, unspecified; N39.41 Urge incontinence; I11.0 Hypertensive heart disease with heart failure; G35 Multiple sclerosis; K21.9 Gastro-esophageal reflux disease without esophagitis; E78.00 Pure hypercholesterolemia, unspecified; K76.0 Fatty (change of) liver, not elsewhere classified; F32.A Depression, unspecified; Z79.899 Other long term (current) drug therapy; Z20.822 Contact with and (suspected) exposure to COVID-19; Z99.81 Dependence on supplemental oxygen

== ENCOUNTER → 2023-03-03 | Outpatient (REF) | payer MEDICARE, MEDICAID ==
[~2023-03-03] MED LIST changes: +ADVA230A INH; +ALBU8.5H INH; +ANOR1AER PO; +AZIT-12 PO; +CEFD300CAP PO; +FURO40TA2 PO; +IPRA0.00 INH; +OXYB10TA23 PO; +POTA-298 PO; +PRED20TA PO; +SENO8.6T10 PO; +SUCR1TAB56 PO; +TIOT18INH INH; +VENTAER INH
== END ==
LOC: M SFHCPLAZ 12:09
PROVIDERS: ATTEND Family Medicine
DX: D50.9 Iron deficiency anemia, unspecified (principal); K76.0 Fatty (change of) liver, not elsewhere classified; I50.32 Chronic diastolic (congestive) heart failure

== ENCOUNTER → 2023-04-24 | Outpatient (CLI) | payer MEDICARE, MEDICAID ==
[2023-04-24 13:36] LABS: IRON (FE) 105 UG/DL (50-170)
[2023-04-24 13:37] LABS: ALKALINE PHOSPHATASE 87 U/L (46-116); ALT/SGPT 12 U/L (7.0-40); AST/SGOT 21 U/L (<34); BILIRUBIN,TOTAL 0.6 MG/DL (0.3-1.2); BLOOD UREA NITROGEN 19 MG/DL (9-23); CALCIUM LEVEL 9.3 MG/DL (8.3-10.6); CARBON DIOXIDE LEVEL 32 MMOL/L (20-31); CHLORIDE LEVEL 103 MMOL/L (98-107); CREATININE FOR GFR 0.69 MG/DL (0.55-1.30); GLOMERULAR FILTRATION RATE > 60.0 (>45); GLUCOSE, FASTING 91 MG/DL (74-106); MAGNESIUM LEVEL 2.1 MG/DL (1.8-2.4); PERCENT SATURATION 33.8 % (13.2-45.0); SODIUM LEVEL 139 MMOL/L (136-145); TOTAL IRON BINDING CAPACITY 311 UG/DL (250-425); TOTAL PROTEIN 7.8 G/DL (5.7-8.2)
[2023-04-24 13:39] LABS: HEMOGLOBIN 15.3 g/dl (12.0-15.5); MEAN CORPUSCULAR HEMOGLOBIN 27.4 pg (27.0-33.0); MEAN CORPUSCULAR HGB CONC 31.9 g/dl (32.0-36.5); MEAN CORPUSCULAR VOLUME 85.9 fl (80.0-96.0); PLATELET COUNT, AUTOMATED 199 10^3/uL (150-450); RED BLOOD COUNT 5.59 10^6/uL (4.00-5.40)
[2023-04-24 13:40] LABS: FERRITIN 74.4 NG/ML (7.3-270.7); TOTAL 25(OH) VITAMIN D 37.2 NG/ML (20.0-100.0)
[2023-04-24 13:50] LABS: HEMOGLOBIN A1c 5.8 % (4.0-6.0)
== END ==
LOC: M PLALAB 09:58
PROVIDERS: ATTEND Family Medicine
DX: I50.32 Chronic diastolic (congestive) heart failure (principal); K76.0 Fatty (change of) liver, not elsewhere classified; D50.9 Iron deficiency anemia, unspecified; G35 Multiple sclerosis; Z79.899 Other long term (current) drug therapy

== ENCOUNTER 2023-08-26 02:38 | Emergency (ER) | payer MEDICARE, MEDICAID ==
[~2023-08-26] VITALS: Ht 172.7 cm; Wt 79.1 kg
[~2023-08-26 02:38] MED LIST changes: -ASPI-161 PO; +ASPI-615 PO; -BISA10SU20 PR; +BISA10SU59 PR; -MIRA1POW3 PO; +MIRA33506 PO; -OXYB5TAB11 PO; +OXYB5TAB14 PO; +TIZA6CAP3 PO; -TIZA6CAP6 PO
[2023-08-26 03:08] LABS: BASO # 0.1 10^3/uL (0.0-0.2); BASO % 0.9 % (0.0-1.0); EOS # 0.1 10^3/uL (0.0-0.5); EOS % 2.5 % (0.0-3.0); HEMATOCRIT 40.7 % (36.0-47.0); HEMOGLOBIN 13.5 g/dl (12.0-15.5); LYMPH # 1.1 10^3/uL (1.5-5.0); LYMPH % 20.3 % (24.0-44.0); MEAN CORPUSCULAR HEMOGLOBIN 31.9 pg (27.0-33.0); MEAN CORPUSCULAR HGB CONC 33.2 g/dl (32.0-36.5); MEAN CORPUSCULAR VOLUME 96.2 fl (80.0-96.0); MONO # 0.6 10^3/uL (0.0-0.8); MONO % 9.9 % (2.0-8.0); NEUTROPHILS # 3.7 10^3/uL (1.5-8.5); PLATELET COUNT, AUTOMATED 164 10^3/uL (150-450); RED BLOOD COUNT 4.23 10^6/uL (4.00-5.40); WHITE BLOOD COUNT 5.6 10^3/uL (4.0-10.0)
[2023-08-26 03:23] LABS: APPEARANCE, URINE CLOUDY (CLEAR); BACTERIA, URINE AUTO 1+ (NEGATIVE); BILIRUBIN, URINE AUTO NEGATIVE (NEGATIVE); BLOOD, URINE BLOOD NEGATIVE (NEGATIVE); COLOR, URINE AMBER (YELLOW); GLUCOSE, URINE (UA) AUTO NEGATIVE (NEGATIVE); KETONE, URINE AUTO NEGATIVE (NEGATIVE); LEUKOCYTE ESTERASE, URINE AUTO NEGATIVE (NEGATIVE); MUCUS, URINE SMALL (NEGATIVE); NITRITE, URINE AUTO NEGATIVE (NEGATIVE); PROTEIN, URINE AUTO 2+ mg/dL (NEGATIVE); RBC, URINE AUTO 1 /HPF (0-3); SPECIFIC GRAVITY URINE AUTO 1.009 (1.002-1.035); SQUAMOUS EPITHELIAL CELL UR AU 0 /HPF (0-6); UROBILINOGEN, URINE AUTO 0.2 mg/dL (0.0-2.0); WBC, URINE AUTO 2 /HPF (0-3)
[2023-08-26 03:31] LABS: BLOOD UREA NITROGEN 19 MG/DL (9-23); CALCIUM LEVEL 8.7 MG/DL (8.3-10.6); CARBON DIOXIDE LEVEL 28 MMOL/L (20-31); CHLORIDE LEVEL 101 MMOL/L (98-107); CREATININE FOR GFR 0.97 MG/DL (0.55-1.30); GLOMERULAR FILTRATION RATE > 60.0 (>45); GLUCOSE, FASTING 130 MG/DL (74-106); POTASSIUM SERUM 4.6 MMOL/L (3.5-5.1); SODIUM LEVEL 135 MMOL/L (136-145)
[2023-08-26 06:15] VITALS: TEMP 97.9
[2023-08-26] MEDS: NS 1,000 ML IV ONE (08:48)
[2023-08-26] MEDS ORDERED: ANOR1AER PO (11:29)
[2023-08-26] MEDS ORDERED: SENN1TAB85 PO (11:29)
[2023-08-26] MEDS ORDERED: POTA-149 PO (11:29)
[2023-08-26] MEDS ORDERED: VENTAER INH (11:29)
[2023-08-26] MEDS ORDERED: MULTTAB61 PO (11:29)
[2023-08-26] MEDS ORDERED: FAMO20TA PO (11:29)
[2023-08-26] MEDS ORDERED: POLY17PO18 PO (11:29)
[2023-08-26] MEDS ORDERED: FURO40TA2 PO (11:29)
[2023-08-26] MEDS ORDERED: MILKSUS3 PO (11:29)
[2023-08-26] MEDS ORDERED: HOME MED LIST COMPLETE! XX SCH (11:30)
[2023-08-26] MEDS: carBAMazepine 100MG 5ML SUSP ORAL SYRINGE *DRAW UP EXACT DOSE PO STA (12:04)
[2023-08-26 22:15] VITALS: BP 158/97; O2SAT 85
== END 2023-08-26 22:52 | disposition home or self-care (01) ==
LOC: M ED 02:38
DX: G40.89 Other seizures (principal); S93.402A Sprain of unspecified ligament of left ankle, initial encounter; Y92.9 Unspecified place or not applicable; Y93.9 Activity, unspecified; Y99.9 Unspecified external cause status; I10 Essential (primary) hypertension; Z87.891 Personal history of nicotine dependence; Z79.1 Long term (current) use of non-steroidal anti-inflammatories (NSAID); Z79.51 Long term (current) use of inhaled steroids; Z79.810 Long term (current) use of selective estrogen receptor modulators (SERMs); Z79.899 Other long term (current) drug therapy

== ENCOUNTER 2023-08-29 11:58 | Inpatient (IN) | payer MEDICARE, MEDICAID ==
[~2023-08-29] VITALS: Ht 142.2 cm; Wt 73.8 kg
[~2023-08-29 11:58] MED LIST changes: +FAMO20TA PO; +FLUO-365 PO; -FLUO20CA22 PO; +MILKSUS3 PO; +MULTTAB61 PO; +POLY17PO18 PO; +POTA-149 PO; +SENN1TAB85 PO
[2023-08-29] MEDS ORDERED: MIRALAX *UNIT DOSE* 17GM PACKET PO PRN (13:05)
[2023-08-29] MEDS ORDERED: MOM 30ML SUSPENSION UDC PO PRN (13:05)
[2023-08-29] MEDS ORDERED: ALBUTEROL 90 MCG/ACT 8GM HFA INHALER INH PRN (13:05)
[2023-08-29] MEDS ORDERED: BISACODYL 10MG SUPP PR PRN (13:05)
[2023-08-29] MEDS ORDERED: MAALOX 30 ML SUSP *UDC PO PRN (13:05)
[2023-08-29 13:51] VITALS: BP 98/59; TEMP 97.2; O2SAT 88
[2023-08-29 13:57] VITALS: O2SAT 85
[2023-08-29 14:02] VITALS: O2SAT 88
[2023-08-29 15:19] VITALS: O2SAT 89
[2023-08-29] MEDS: GABAPENTIN 300 MG CAP PO SCH (16:09)
[2023-08-29] MEDS: tiZANidine 4 MG TAB PO SCH (16:09)
[2023-08-29] MEDS: SUCRALFATE 1 GM TAB PO SCH (16:54)
[2023-08-29] MEDS ORDERED: ADVAIR HFA 230/21MCG INHALER INH SCH (20:00)
[2023-08-29] MEDS: FORMOTEROL FUMARATE 20 MCG/2 ML INHALATION SOLUTION (PERFOROMIST) INH SCH (20:27)
[2023-08-29] MEDS: FAMOTIDINE 20 MG TAB PO SCH (20:55)
[2023-08-29] MEDS: RAMELTEON 8 MG TAB (ROZEREM) PO SCH (20:55)
[2023-08-29] MEDS: SENOKOT S TAB PO SCH (20:56)
[2023-08-29] MEDS: ATORVASTATIN 20 MG TAB PO SCH (20:56)
[2023-08-29] MEDS: ACETAMINOPHEN TAB 650MG DOSE (2X325MG) PO PRN (20:57)
[2023-08-29] MEDS: carBAMazepine 100MG 5ML SUSP ORAL SYRINGE *DRAW UP EXACT DOSE PO SCH (20:58)
[2023-08-29 22:00] VITALS: BP 101/62; TEMP 98.2; O2SAT 90
[2023-08-30 01:50] VITALS: O2SAT 88
[2023-08-30 06:00] VITALS: BP 141/94; TEMP 97.7; O2SAT 93
[2023-08-30 07:10] LABS: MEAN CORPUSCULAR HEMOGLOBIN 31.4 pg (27.0-33.0); MEAN CORPUSCULAR HGB CONC 32.6 g/dl (32.0-36.5); MEAN CORPUSCULAR VOLUME 96.4 fl (80.0-96.0); PLATELET COUNT, AUTOMATED 164 10^3/uL (150-450); RED BLOOD COUNT 4.46 10^6/uL (4.00-5.40); WHITE BLOOD COUNT 5.3 10^3/uL (4.0-10.0)
[2023-08-30 07:40] LABS: BLOOD UREA NITROGEN 21 MG/DL (9-23); CALCIUM LEVEL 8.6 MG/DL (8.3-10.6); CARBON DIOXIDE LEVEL 29 MMOL/L (20-31); CHLORIDE LEVEL 101 MMOL/L (98-107); CREATININE FOR GFR 0.81 MG/DL (0.55-1.30); GLOMERULAR FILTRATION RATE > 60.0 (>45); GLUCOSE, FASTING 104 MG/DL (74-106); MAGNESIUM LEVEL 1.9 MG/DL (1.8-2.4); POTASSIUM SERUM 4.5 MMOL/L (3.5-5.1); SODIUM LEVEL 136 MMOL/L (136-145)
[2023-08-30] MEDS: MULTIVITAMINS/MINERALS THERAP 1 TAB PO SCH (07:49)
[2023-08-30] MEDS: FLUoxetine 20MG CAP PO SCH (07:49)
[2023-08-30] MEDS: MAGNESIUM OXIDE 400MG TAB (MAG-OX) PO SCH (07:49)
[2023-08-30] MEDS: FUROSEMIDE 40 MG TAB PO SCH (07:50)
[2023-08-30] MEDS: ENOXAPARIN 40MG/0.4ML SYRINGE (J1650 PER 10MG) SC SCH (07:51)
[2023-08-30] MEDS: TIOTROPIUM INHALER/CAPSULE (SPIRIVA) INH SCH (07:57)
[2023-08-30] MEDS ORDERED: oxyBUTYnin *DITROPAN XL* 5 MG TABCR PO SCH (09:00)
[2023-08-30 14:00] VITALS: BP 104/57; TEMP 97.1; O2SAT 96
[2023-08-30 19:39] VITALS: BP 94/58; TEMP 97.3; O2SAT 94
[2023-08-31 06:00] VITALS: BP 135/68; TEMP 97.6; O2SAT 93
[2023-08-31 07:25] LABS: BLOOD UREA NITROGEN 17 MG/DL (9-23); CALCIUM LEVEL 8.1 MG/DL (8.3-10.6); CARBON DIOXIDE LEVEL 26 MMOL/L (20-31); CHLORIDE LEVEL 107 MMOL/L (98-107); CREATININE FOR GFR 0.68 MG/DL (0.55-1.30); GLOMERULAR FILTRATION RATE > 60.0 (>45); GLUCOSE, FASTING 94 MG/DL (74-106); MAGNESIUM LEVEL 1.8 MG/DL (1.8-2.4); POTASSIUM SERUM 4.4 MMOL/L (3.5-5.1); SODIUM LEVEL 139 MMOL/L (136-145)
[2023-08-31] MEDS: FUROSEMIDE 40 MG TAB PO SCH (08:42)
[2023-08-31 14:00] VITALS: BP 118/69; TEMP 98.1; O2SAT 96
[2023-08-31 20:00] VITALS: BP 114/68; TEMP 97.7; O2SAT 93
[2023-09-01] VITALS (7 sets, daily range): BP systolic 107–129; BP diastolic 64–69; TEMP 97–97.9; O2SAT 85–96
[2023-09-01 07:43] LABS: HEMATOCRIT 41.2 % (36.0-47.0); HEMOGLOBIN 13.8 g/dl (12.0-15.5); MEAN CORPUSCULAR HEMOGLOBIN 32.1 pg (27.0-33.0); MEAN CORPUSCULAR HGB CONC 33.5 g/dl (32.0-36.5); MEAN CORPUSCULAR VOLUME 95.8 fl (80.0-96.0); PLATELET COUNT, AUTOMATED 189 10^3/uL (150-450)
[2023-09-02 06:07] VITALS: BP 139/86; TEMP 98.1; O2SAT 88
[2023-09-02 14:00] VITALS: BP 131/80; TEMP 97.9; O2SAT 92
[2023-09-02 20:00] VITALS: BP 125/68; TEMP 98.1; O2SAT 93
[2023-09-03 06:00] VITALS: BP 138/75; TEMP 97.8; O2SAT 88
[2023-09-03 06:42] LABS: HEMATOCRIT 44.2 % (36.0-47.0); HEMOGLOBIN 14.7 g/dl (12.0-15.5); MEAN CORPUSCULAR HEMOGLOBIN 31.1 pg (27.0-33.0); MEAN CORPUSCULAR HGB CONC 33.3 g/dl (32.0-36.5); MEAN CORPUSCULAR VOLUME 93.4 fl (80.0-96.0); PLATELET COUNT, AUTOMATED 219 10^3/uL (150-450); RED BLOOD COUNT 4.73 10^6/uL (4.00-5.40); WHITE BLOOD COUNT 6.4 10^3/uL (4.0-10.0)
[2023-09-03 07:07] LABS: ALBUMIN 3.4 G/DL (3.2-5.2); ALKALINE PHOSPHATASE 127 U/L (46-116); ALT/SGPT 30 U/L (7.0-40); AST/SGOT 25 U/L (<34); BILIRUBIN,TOTAL 0.6 MG/DL (0.3-1.2); BLOOD UREA NITROGEN 17 MG/DL (9-23); CARBON DIOXIDE LEVEL 32 MMOL/L (20-31); CHLORIDE LEVEL 98 MMOL/L (98-107); CREATININE FOR GFR 0.74 MG/DL (0.55-1.30); GLOMERULAR FILTRATION RATE > 60.0 (>45); GLUCOSE, FASTING 98 MG/DL (74-106); POTASSIUM SERUM 4.5 MMOL/L (3.5-5.1); SODIUM LEVEL 137 MMOL/L (136-145); TOTAL PROTEIN 6.9 G/DL (5.7-8.2)
[2023-09-03 10:34] VITALS: BP 80/54; TEMP 98.1; O2SAT 92
[2023-09-03 11:20] VITALS: BP 84/60
[2023-09-03] MEDS: LR 500 ML IV ONE (11:20)
[2023-09-03] MEDS: LACTATED RINGER'S 1000 ML IV ONE (11:55)
[2023-09-03 12:35] LABS: PROCALCITONIN 0.05 ng/ml
[2023-09-03 13:03] VITALS: BP 98/58
[2023-09-03 14:00] VITALS: BP 140/81; TEMP 98; O2SAT 94
[2023-09-03 20:00] VITALS: BP 143/81; TEMP 98.2; O2SAT 92; O2SAT 97
[2023-09-03] MEDS: TECFIDERA 240MG CAPSULE (PATIENT'S OWN MED) PO SCH (21:02)
[2023-09-04 06:00] VITALS: BP 134/70; TEMP 97.2; O2SAT 96
[2023-09-04 07:41] LABS: HEMATOCRIT 46.4 % (36.0-47.0); HEMOGLOBIN 15.2 g/dl (12.0-15.5); MEAN CORPUSCULAR HEMOGLOBIN 31.1 pg (27.0-33.0); MEAN CORPUSCULAR HGB CONC 32.8 g/dl (32.0-36.5); MEAN CORPUSCULAR VOLUME 95.1 fl (80.0-96.0); PLATELET COUNT, AUTOMATED 220 10^3/uL (150-450); RED BLOOD COUNT 4.88 10^6/uL (4.00-5.40); WHITE BLOOD COUNT 5.1 10^3/uL (4.0-10.0)
[2023-09-04 07:50] LABS: BLOOD UREA NITROGEN 16 MG/DL (9-23); CALCIUM LEVEL 9.1 MG/DL (8.3-10.6); CARBON DIOXIDE LEVEL 32 MMOL/L (20-31); CHLORIDE LEVEL 100 MMOL/L (98-107); CREATININE FOR GFR 0.75 MG/DL (0.55-1.30); GLOMERULAR FILTRATION RATE > 60.0 (>45); GLUCOSE, FASTING 88 MG/DL (74-106); POTASSIUM SERUM 4.3 MMOL/L (3.5-5.1); SODIUM LEVEL 138 MMOL/L (136-145)
[2023-09-04] MEDS: FUROSEMIDE 40 MG TAB PO SCH (10:44)
[2023-09-04 14:00] VITALS: BP 118/72; TEMP 98.1; O2SAT 97
[2023-09-04 20:00] VITALS: BP 130/67; TEMP 98; O2SAT 93
[2023-09-05 06:00] VITALS: BP 138/75; TEMP 97.5; O2SAT 92
== END 2023-09-05 14:25 | disposition home health service (06) | DRG 551 ==
LOC: M PM&R 13:30
PROVIDERS: ADMIT Student in an Organized Health Care Education/Training Program; ATTEND Student in an Organized Health Care Education/Training Program
DX: M53.3 Sacrococcygeal disorders, not elsewhere classified (principal); I50.33 Acute on chronic diastolic (congestive) heart failure; J96.11 Chronic respiratory failure with hypoxia; G40.909 Epilepsy, unspecified, not intractable, without status epilepticus; I11.0 Hypertensive heart disease with heart failure; G35 Multiple sclerosis; E78.5 Hyperlipidemia, unspecified; M10.9 Gout, unspecified; K21.9 Gastro-esophageal reflux disease without esophagitis; K59.09 Other constipation; I27.29 Other secondary pulmonary hypertension; J44.9 Chronic obstructive pulmonary disease, unspecified; I95.9 Hypotension, unspecified; Z99.81 Dependence on supplemental oxygen; Z74.09 Other reduced mobility; J84.10 Pulmonary fibrosis, unspecified; Z74.1 Need for assistance with personal care; K76.1 Chronic passive congestion of liver; R29.6 Repeated falls; G89.29 Other chronic pain; Z87.891 Personal history of nicotine dependence; Z79.51 Long term (current) use of inhaled steroids; Z79.899 Other long term (current) drug therapy; Z90.49 Acquired absence of other specified parts of digestive tract

== ENCOUNTER → 2023-11-05 | Outpatient (REF) | payer MEDICARE, MEDICAID ==
[2023-11-05 18:04] LABS: APPEARANCE, URINE CLOUDY (CLEAR); BACTERIA, URINE AUTO 2+ (NEGATIVE); BILIRUBIN, URINE AUTO NEGATIVE (NEGATIVE); BLOOD, URINE BLOOD 1+ (NEGATIVE); COLOR, URINE AMBER (YELLOW); GLUCOSE, URINE (UA) AUTO NEGATIVE (NEGATIVE); KETONE, URINE AUTO NEGATIVE (NEGATIVE); LEUKOCYTE ESTERASE, URINE AUTO TRACE (NEGATIVE); MUCUS, URINE SMALL (NEGATIVE); NITRITE, URINE AUTO POSITIVE (NEGATIVE); PROTEIN, URINE AUTO 1+ mg/dL (NEGATIVE); RBC, URINE AUTO 2 /HPF (0-3); SPECIFIC GRAVITY URINE AUTO 1.012 (1.002-1.035); SQUAMOUS EPITHELIAL CELL UR AU 16 /HPF (0-6); TRANSITIONAL EPITHELIAL AUTO <1 /HPF; UROBILINOGEN, URINE AUTO 0.2 mg/dL (0.0-2.0); WBC, URINE AUTO 26 /HPF (0-3)
== END ==
LOC: M SFHCPLAZ 16:45
PROVIDERS: ATTEND Family Medicine
DX: R30.0 Dysuria (principal)

== ENCOUNTER → 2023-12-15 | Outpatient (REF) | payer MEDICARE, MEDICAID ==
[~2023-12-15] MED LIST changes: +GABA-1490 PO; -GABA600T4 PO
[2023-12-15 16:16] LABS: APPEARANCE, URINE HAZY (CLEAR); BACTERIA, URINE AUTO 1+ (NEGATIVE); BILIRUBIN, URINE AUTO NEGATIVE (NEGATIVE); BLOOD, URINE BLOOD NEGATIVE (NEGATIVE); COLOR, URINE YELLOW (YELLOW); GLUCOSE, URINE (UA) AUTO NEGATIVE (NEGATIVE); KETONE, URINE AUTO NEGATIVE (NEGATIVE); LEUKOCYTE ESTERASE, URINE AUTO TRACE (NEGATIVE); MUCUS, URINE SMALL (NEGATIVE); NITRITE, URINE AUTO POSITIVE (NEGATIVE); PROTEIN, URINE AUTO NEGATIVE (NEGATIVE); RBC, URINE AUTO 0 /HPF (0-3); SPECIFIC GRAVITY URINE AUTO 1.012 (1.002-1.035); SQUAMOUS EPITHELIAL CELL UR AU 1 /HPF (0-6); UROBILINOGEN, URINE AUTO 0.2 mg/dL (0.0-2.0); WBC, URINE AUTO 5 /HPF (0-3)
== END ==
LOC: M SFHCLERA 15:14
PROVIDERS: ATTEND Family Medicine
DX: R82.998 Other abnormal findings in urine (principal)

== ENCOUNTER → 2024-01-26 | Outpatient (CLI) | payer MEDICARE, MEDICAID ==
[~2024-01-26] MED LIST changes: +GABA-1172 PO; -GABA-282 PO
== END ==
LOC: M WHC 14:08
PROVIDERS: ATTEND Family Medicine
DX: Z12.31 Encounter for screening mammogram for malignant neoplasm of breast (principal); M81.0 Age-related osteoporosis without current pathological fracture

== ENCOUNTER 2024-03-02 18:23 | Emergency (ER) | payer MEDICARE, MEDICAID ==
[~2024-03-02] VITALS: Ht 167.6 cm; Wt 71.8 kg
[2024-03-02 19:45] LABS: VENOUS BASE EXCESS -0.3 (-2.0-2.0); VENOUS O2 SATURATION 50.4 % (60.0-80.0); VENOUS PARTIAL PRESSURE CO2 48.5 mmHg (38.0-50.0); VENOUS PH 7.347 UNITS (7.330-7.430); VENOUS STANDARD HCO3 23.1 MMOL/L; VENOUS TOTAL CO2 27.5 MMOL/L (24.0-28.0)
[2024-03-02 20:00] LABS: BASO % 0.5 % (0.0-1.0); EOS # 0.2 10^3/uL (0.0-0.5); EOS % 3.2 % (0.0-3.0); HEMATOCRIT 41.1 % (36.0-47.0); HEMOGLOBIN 13.4 g/dl (12.0-15.5); LYMPH # 0.9 10^3/uL (1.5-5.0); LYMPH % 14.5 % (24.0-44.0); MEAN CORPUSCULAR HEMOGLOBIN 31.2 pg (27.0-33.0); MEAN CORPUSCULAR HGB CONC 32.6 g/dl (32.0-36.5); MEAN CORPUSCULAR VOLUME 95.8 fl (80.0-96.0); MONO # 0.5 10^3/uL (0.0-0.8); MONO % 8.4 % (2.0-8.0); NEUTROPHILS # 4.6 10^3/uL (1.5-8.5); NEUTROPHILS % 72.8 % (36.0-66.0); PLATELET COUNT, AUTOMATED 172 10^3/uL (150-450); RED BLOOD COUNT 4.29 10^6/uL (4.00-5.40); WHITE BLOOD COUNT 6.3 10^3/uL (4.0-10.0)
[2024-03-02 20:15] LABS: CK-MB VALUE MASS 1.2 NG/ML (<3.6)
[2024-03-02 20:17] LABS: ALBUMIN 3.6 G/DL (3.2-5.2); ALKALINE PHOSPHATASE 114 U/L (35-104); ALT/SGPT 40 U/L (7.0-40); AST/SGOT 26 U/L (<34); BILIRUBIN,DIRECT 0.2 MG/DL (<0.4); BILIRUBIN,TOTAL 0.5 MG/DL (0.3-1.2); BLOOD UREA NITROGEN 22 MG/DL (9-23); CALCIUM LEVEL 9.1 MG/DL (8.3-10.6); CARBON DIOXIDE LEVEL 28 MMOL/L (20-31); CHLORIDE LEVEL 103 MMOL/L (98-107); CPK CREATINE PHOSPHOKINASE 49 U/L (34-145); CREATININE FOR GFR 0.95 MG/DL (0.55-1.30); GLOMERULAR FILTRATION RATE > 60.0 (>45); GLUCOSE, FASTING 118 MG/DL (74-106); MB/CK RELATIVE INDEX 2.44 (< OR =4); POTASSIUM SERUM 4.8 MMOL/L (3.5-5.1); SODIUM LEVEL 134 MMOL/L (136-145); TOTAL PROTEIN 7.1 G/DL (5.7-8.2)
[2024-03-02 20:19] LABS: THYROXINE (T4) 8.8 UG/DL (4.5-10.9)
[2024-03-02 20:20] LABS: THYROID STIMULATING HORMONE 6.498 uIU/ML (0.55-4.78)
[2024-03-02] MEDS: BISACODYL 10MG SUPP PR ONE (20:50)
[2024-03-02] MEDS: MAGNESIUM CITRATE 300ML BTL PO ONE (22:55)
[2024-03-02 23:15] VITALS: BP 115/69
[2024-03-02 23:20] VITALS: TEMP 97.8; O2SAT 95
[2024-03-03] MEDS ORDERED: ATOR1TAB21 PO (23:50)
[2024-03-03] MEDS ORDERED: ANOR1AER INH (23:50)
[2024-03-03] MEDS ORDERED: SENN-23 PO (23:50)
[2024-03-03] MEDS ORDERED: TIZA1TAB12 PO (23:50)
[2024-03-03] MEDS ORDERED: SUCR1TA PO (23:50)
[2024-03-03] MEDS ORDERED: VENTAER INH (23:50)
== END 2024-03-03 00:55 | disposition home or self-care (01) ==
LOC: M ED 18:23
DX: K59.00 Constipation, unspecified (principal); S76.012A Strain of muscle, fascia and tendon of left hip, initial encounter; X58.XXXA Exposure to other specified factors, initial encounter; Y92.238 Other place in hospital as the place of occurrence of the external cause; Y93.89 Activity, other specified; Y99.9 Unspecified external cause status; G35 Multiple sclerosis; K21.9 Gastro-esophageal reflux disease without esophagitis; F17.200 Nicotine dependence, unspecified, uncomplicated

== ENCOUNTER 2024-03-03 17:27 | Inpatient (IN) | payer MEDICARE, MEDICAID ==
[~2024-03-03] VITALS: Ht 167.6 cm; Wt 66.5 kg
[~2024-03-03 17:27] MED LIST changes: -POTA10808 PO; +POTA10809 PO
[2024-03-03] MEDS: NS 500 ML IV ONE (17:55)
[2024-03-03 18:22] LABS: BASO % 0.3 % (0.0-1.0); EOS % 0.3 % (0.0-3.0); HEMATOCRIT 40.9 % (36.0-47.0); HEMOGLOBIN 13.5 g/dl (12.0-15.5); LYMPH # 0.6 10^3/uL (1.5-5.0); LYMPH % 7.8 % (24.0-44.0); MEAN CORPUSCULAR HEMOGLOBIN 31.5 pg (27.0-33.0); MEAN CORPUSCULAR VOLUME 95.6 fl (80.0-96.0); MONO # 0.8 10^3/uL (0.0-0.8); MONO % 9.7 % (2.0-8.0); NEUTROPHILS # 6.3 10^3/uL (1.5-8.5); NEUTROPHILS % 81.5 % (36.0-66.0); PLATELET COUNT, AUTOMATED 165 10^3/uL (150-450); RED BLOOD COUNT 4.28 10^6/uL (4.00-5.40); WHITE BLOOD COUNT 7.7 10^3/uL (4.0-10.0)
[2024-03-03 19:44] LABS: ALBUMIN 3.4 G/DL (3.2-5.2); BILIRUBIN,DIRECT 0.5 MG/DL (<0.4); BILIRUBIN,TOTAL 0.9 MG/DL (0.3-1.2); CALCIUM LEVEL 8.8 MG/DL (8.3-10.6); CREATININE FOR GFR 1.04 MG/DL (0.55-1.30); GLOMERULAR FILTRATION RATE 55.9 (>45); POTASSIUM SERUM 5.2 MMOL/L (3.5-5.1); TOTAL PROTEIN 6.6 G/DL (5.7-8.2)
[2024-03-03] MEDS: FUROSEMIDE 20MG/2ML VIAL IV ONE (20:03)
[2024-03-03 20:46] LABS: ABG BASE EXCESS -3.2 (-2.0-2.0); ABG HCO3 20.7 MMOL/L (22.0-26.0); ABG O2 SATURATION 98.7 % (95.0-99.0); ABG PARTIAL PRESSURE CO2 33.8 mmHg (35.0-45.0); ABG PARTIAL PRESSURE O2 133.3 mmHg (75.0-100.0); ABG STANDARD HCO3 21.8 MMOL/L. (22.0-26.0); ABG TOTAL CO2 21.7 MMOL/L (23.0-31.0); ABG pH (ARTERIAL) 7.404 UNITS (7.350-7.450)
[2024-03-03] MEDS: AZITHROMYCIN 250MG TABLET PO ONE (21:24)
[2024-03-03] MEDS: cefTRIAXone SOD 1 GM in DEXTROSE 5% (D5W) ADV/MINI-BAG 50 ML IV ONE (21:24)
[2024-03-03] MEDS ORDERED: ALBUTEROL 90 MCG/ACT 8GM HFA INHALER INH PRN (22:35)
[2024-03-03] MEDS ORDERED: MAALOX 30 ML SUSP *UDC PO PRN (22:35)
[2024-03-03 23:25] LABS: PROCALCITONIN 0.09 ng/ml
[2024-03-03] MEDS ORDERED: SUCR1TA PO (23:50)
[2024-03-03] MEDS ORDERED: TIZA1TAB12 PO (23:50)
[2024-03-03] MEDS ORDERED: ATOR1TAB21 PO (23:50)
[2024-03-03] MEDS ORDERED: SENN-23 PO (23:50)
[2024-03-03] MEDS ORDERED: ANOR1AER INH (23:50)
[2024-03-03] MEDS ORDERED: VENTAER INH (23:50)
[2024-03-03] MEDS ORDERED: HOME MED LIST COMPLETE! XX SCH (23:55)
[2024-03-04] VITALS (16 sets, daily range): BP systolic 100–138; BP diastolic 56–82; TEMP 97.2–97.9; O2SAT 84–100
[2024-03-04] MEDS: ACETAMINOPHEN 325 MG TAB PO PRN (01:08)
[2024-03-04] MEDS ORDERED: SENOKOT S TAB PO PRN (01:25)
[2024-03-04] MEDS ORDERED: tiZANidine 4 MG TAB PO PRN (01:30)
[2024-03-04] MEDS ORDERED: PILL CUTTER 1 EACH XX PRN (01:40)
[2024-03-04] MEDS: IPRATROPIUM 0.5MG/ALBUTEROL 2.5MG INH SOL UD 3ML (DUONEB) NEB SCH (02:17)
[2024-03-04 05:04] LABS: HEMATOCRIT 38.9 % (36.0-47.0); HEMOGLOBIN 12.6 g/dl (12.0-15.5); MEAN CORPUSCULAR HEMOGLOBIN 31.5 pg (27.0-33.0); MEAN CORPUSCULAR HGB CONC 32.4 g/dl (32.0-36.5); MEAN CORPUSCULAR VOLUME 97.3 fl (80.0-96.0); PLATELET COUNT, AUTOMATED 147 10^3/uL (150-450); WHITE BLOOD COUNT 5.6 10^3/uL (4.0-10.0)
[2024-03-04 05:30] LABS: CALCIUM LEVEL 8.9 MG/DL (8.3-10.6); CREATININE FOR GFR 1.17 MG/DL (0.55-1.30); GLOMERULAR FILTRATION RATE 48.8 (>45); MAGNESIUM LEVEL 2.6 MG/DL (1.8-2.4); POTASSIUM SERUM 5.6 MMOL/L (3.5-5.1)
[2024-03-04 05:37] LABS: PROCALCITONIN 0.16 ng/ml
[2024-03-04] MEDS: FUROSEMIDE 40MG/4ML VIAL IV SCH (06:36)
[2024-03-04] MEDS: FUROSEMIDE 40MG/4ML VIAL IV ONE (06:43)
[2024-03-04] MEDS: HEPARIN SOD (PORCINE) 5000UNITS/ML 1ML VIAL/SYRINGE SC SCH (08:01)
[2024-03-04] MEDS: PANTOPRAZOLE 40MG VIAL IV SCH (08:01)
[2024-03-04] MEDS: FLUoxetine 20MG CAP PO SCH (08:01)
[2024-03-04] MEDS: GABAPENTIN 300 MG CAP PO SCH (08:03)
[2024-03-04] MEDS: oxyBUTYnin *DITROPAN XL* 5 MG TABCR PO SCH (08:03)
[2024-03-04] MEDS: DOXYCYCLINE HYCLATE 100MG TABLET PO SCH (08:03)
[2024-03-04] MEDS: DOCUSATE SODIUM 100MG CAPSULE PO SCH (08:04)
[2024-03-04] MEDS: SUCRALFATE 1 GM TAB PO SCH (08:04)
[2024-03-04] MEDS: CALCIUM GLUCONATE 1,000 MG in DEXTROSE 5% (D5W) MINI-BAG PLU 100 ML IV ONE (08:04)
[2024-03-04] MEDS: ATORVASTATIN 20 MG TAB PO SCH (08:04)
[2024-03-04] MEDS ORDERED: FUROSEMIDE 40MG/4ML VIAL IV SCH (09:00)
[2024-03-04] MEDS ORDERED: ENTER DRUG NAME HERE (PATIENT'S OWN MED) PO SCH (09:00)
[2024-03-04] MEDS ORDERED: DIMETHYL FUMARATE 240 MG PO SCH (09:00)
[2024-03-04] MEDS: ACETAMINOPHEN 500 MG TAB PO SCH (09:06)
[2024-03-04] MEDS: DICLOFENAC EPOLAMINE 1.3% PATCH TOP SCH (09:06)
[2024-03-04] MEDS: PATIROMER SORBITEX CALCIUM 8.4 GM POWDER PACKET (VELTASSA) PO ONE (09:06)
[2024-03-04] MEDS: metroNIDAZOLE (FLAGYL) 500MG TABLET PO SCH (09:19)
[2024-03-04] MEDS: cefTRIAXone SOD 1 GM in DEXTROSE 5% (D5W) ADV/MINI-BAG 50 ML IV SCH (20:07)
[2024-03-05] VITALS (8 sets, daily range): BP systolic 124–149; BP diastolic 72–88; TEMP 97.9–98.4; O2SAT 86–96
[2024-03-05 04:58] LABS: BASO % 0.3 % (0.0-1.0); EOS # 0.3 10^3/uL (0.0-0.5); EOS % 4.8 % (0.0-3.0); HEMATOCRIT 39.6 % (36.0-47.0); HEMOGLOBIN 12.9 g/dl (12.0-15.5); LYMPH # 1.1 10^3/uL (1.5-5.0); MEAN CORPUSCULAR HEMOGLOBIN 31.1 pg (27.0-33.0); MEAN CORPUSCULAR HGB CONC 32.6 g/dl (32.0-36.5); MEAN CORPUSCULAR VOLUME 95.4 fl (80.0-96.0); MONO # 0.6 10^3/uL (0.0-0.8); MONO % 10.7 % (2.0-8.0); NEUTROPHILS # 3.8 10^3/uL (1.5-8.5); PLATELET COUNT, AUTOMATED 167 10^3/uL (150-450); RED BLOOD COUNT 4.15 10^6/uL (4.00-5.40); WHITE BLOOD COUNT 5.8 10^3/uL (4.0-10.0)
[2024-03-05 05:29] LABS: CALCIUM LEVEL 9.2 MG/DL (8.3-10.6); CREATININE FOR GFR 1.05 MG/DL (0.55-1.30); GLOMERULAR FILTRATION RATE 55.3 (>45); POTASSIUM SERUM 4.5 MMOL/L (3.5-5.1)
[2024-03-05] MEDS ORDERED: ISOVUE-370 76% 100ML VIAL As Ordered ONE (08:31)
[2024-03-05] MEDS: MIDODRINE 5 MG TAB PO SCH (09:00)
[2024-03-05 09:11] LABS: ABG BASE EXCESS 0.4 (-2.0-2.0); ABG O2 SATURATION 93.3 % (95.0-99.0); ABG PARTIAL PRESSURE O2 67.3 mmHg (75.0-100.0); ABG STANDARD HCO3 24.8 MMOL/L. (22.0-26.0); ABG TOTAL CO2 26.2 MMOL/L (23.0-31.0); ABG pH (ARTERIAL) 7.413 UNITS (7.350-7.450)
[2024-03-05 09:14] LABS: CK-MB VALUE MASS 1.7 NG/ML (<3.6); MB/CK RELATIVE INDEX 4.47 (< OR =4)
[2024-03-05] MEDS: metOLazone 5 MG TAB PO ONE (10:59)
[2024-03-05] MEDS: FUROSEMIDE 40MG/4ML VIAL IV SCH (11:24)
[2024-03-05 13:03] LABS: BLOOD UREA NITROGEN 23 MG/DL (9-23); CALCIUM LEVEL 9.4 MG/DL (8.3-10.6); CARBON DIOXIDE LEVEL 27 MMOL/L (20-31); CHLORIDE LEVEL 106 MMOL/L (98-107); CREATININE FOR GFR 0.94 MG/DL (0.55-1.30); GLOMERULAR FILTRATION RATE > 60.0 (>45); GLUCOSE, FASTING 120 MG/DL (74-106); POTASSIUM SERUM 4.4 MMOL/L (3.5-5.1); SODIUM LEVEL 138 MMOL/L (136-145)
[2024-03-05] MEDS: predniSONE 20 MG TAB PO SCH (19:02)
[2024-03-05 20:34] LABS: BLOOD UREA NITROGEN 23 MG/DL (9-23); CALCIUM LEVEL 9.4 MG/DL (8.3-10.6); CARBON DIOXIDE LEVEL 32 MMOL/L (20-31); CHLORIDE LEVEL 104 MMOL/L (98-107); CREATININE FOR GFR 0.91 MG/DL (0.55-1.30); GLOMERULAR FILTRATION RATE > 60.0 (>45); GLUCOSE, FASTING 121 MG/DL (74-106); POTASSIUM SERUM 4.1 MMOL/L (3.5-5.1); SODIUM LEVEL 138 MMOL/L (136-145)
[2024-03-06] VITALS (8 sets, daily range): BP systolic 110–141; BP diastolic 66–87; TEMP 97.5–98.4; O2SAT 90–95
[2024-03-06 04:39] LABS: BASO % 0.2 % (0.0-1.0); EOS % 0.6 % (0.0-3.0); HEMATOCRIT 42.3 % (36.0-47.0); LYMPH # 0.3 10^3/uL (1.5-5.0); LYMPH % 6.4 % (24.0-44.0); MEAN CORPUSCULAR HEMOGLOBIN 31.2 pg (27.0-33.0); MEAN CORPUSCULAR HGB CONC 33.1 g/dl (32.0-36.5); MEAN CORPUSCULAR VOLUME 94.2 fl (80.0-96.0); MONO # 0.2 10^3/uL (0.0-0.8); MONO % 3.4 % (2.0-8.0); NEUTROPHILS # 4.8 10^3/uL (1.5-8.5); PLATELET COUNT, AUTOMATED 193 10^3/uL (150-450); RED BLOOD COUNT 4.49 10^6/uL (4.00-5.40); WHITE BLOOD COUNT 5.3 10^3/uL (4.0-10.0)
[2024-03-06 05:03] LABS: BLOOD UREA NITROGEN 19 MG/DL (9-23); CALCIUM LEVEL 9.4 MG/DL (8.3-10.6); CARBON DIOXIDE LEVEL 30 MMOL/L (20-31); CHLORIDE LEVEL 104 MMOL/L (98-107); GLOMERULAR FILTRATION RATE > 60.0 (>45); GLUCOSE, FASTING 155 MG/DL (74-106); POTASSIUM SERUM 4.5 MMOL/L (3.5-5.1); SODIUM LEVEL 137 MMOL/L (136-145)
[2024-03-06] MEDS ORDERED: predniSONE 20 MG TAB PO SCH (09:00)
[2024-03-06] MEDS: metOLazone 5 MG TAB PO ONE (10:34)
[2024-03-06] MEDS: FUROSEMIDE 40MG/4ML VIAL IV ONE (11:04)
[2024-03-06] MEDS: FUROSEMIDE 40 MG TAB PO SCH (16:52)
[2024-03-07] VITALS: BP 122/66; TEMP 97.9; O2SAT 92
[2024-03-07 04:00] VITALS: BP 124/81; TEMP 97.6; O2SAT 95
[2024-03-07 04:56] LABS: BASO % 0.2 % (0.0-1.0); EOS # 0.1 10^3/uL (0.0-0.5); HEMATOCRIT 43.3 % (36.0-47.0); HEMOGLOBIN 14.3 g/dl (12.0-15.5); LYMPH % 11.1 % (24.0-44.0); MEAN CORPUSCULAR HEMOGLOBIN 31.3 pg (27.0-33.0); MEAN CORPUSCULAR VOLUME 94.7 fl (80.0-96.0); MONO # 1.2 10^3/uL (0.0-0.8); MONO % 13.4 % (2.0-8.0); NEUTROPHILS # 6.7 10^3/uL (1.5-8.5); PLATELET COUNT, AUTOMATED 248 10^3/uL (150-450); RED BLOOD COUNT 4.57 10^6/uL (4.00-5.40); WHITE BLOOD COUNT 9.1 10^3/uL (4.0-10.0)
[2024-03-07 05:21] LABS: BLOOD UREA NITROGEN 24 MG/DL (9-23); CALCIUM LEVEL 9.4 MG/DL (8.3-10.6); CARBON DIOXIDE LEVEL 33 MMOL/L (20-31); CHLORIDE LEVEL 99 MMOL/L (98-107); CREATININE FOR GFR 0.81 MG/DL (0.55-1.30); GLOMERULAR FILTRATION RATE > 60.0 (>45); GLUCOSE, FASTING 128 MG/DL (74-106); POTASSIUM SERUM 4.5 MMOL/L (3.5-5.1); SODIUM LEVEL 139 MMOL/L (136-145)
[2024-03-07 08:00] VITALS: BP 128/80; TEMP 98; O2SAT 94
[2024-03-07] MEDS: MOM 30ML SUSPENSION UDC PO PRN (08:58)
[2024-03-07 16:00] VITALS: BP 119/73; TEMP 99.3; O2SAT 93
[2024-03-07 20:30] VITALS: BP 119/75; TEMP 98.2; O2SAT 94
[2024-03-08 02:05] VITALS: O2SAT 98
[2024-03-08 04:00] VITALS: BP 139/89; TEMP 97.6; O2SAT 96
[2024-03-08 04:56] LABS: BASO % 0.4 % (0.0-1.0); EOS # 0.4 10^3/uL (0.0-0.5); EOS % 4.6 % (0.0-3.0); HEMATOCRIT 45.7 % (36.0-47.0); LYMPH # 1.9 10^3/uL (1.5-5.0); LYMPH % 23.3 % (24.0-44.0); MEAN CORPUSCULAR HEMOGLOBIN 31.1 pg (27.0-33.0); MEAN CORPUSCULAR HGB CONC 32.8 g/dl (32.0-36.5); MEAN CORPUSCULAR VOLUME 94.8 fl (80.0-96.0); MONO % 11.7 % (2.0-8.0); NEUTROPHILS # 4.9 10^3/uL (1.5-8.5); NEUTROPHILS % 59.8 % (36.0-66.0); PLATELET COUNT, AUTOMATED 252 10^3/uL (150-450); RED BLOOD COUNT 4.82 10^6/uL (4.00-5.40); WHITE BLOOD COUNT 8.2 10^3/uL (4.0-10.0)
[2024-03-08 05:21] LABS: BLOOD UREA NITROGEN 25 MG/DL (9-23); CALCIUM LEVEL 9.5 MG/DL (8.3-10.6); CARBON DIOXIDE LEVEL 38 MMOL/L (20-31); CHLORIDE LEVEL 98 MMOL/L (98-107); CREATININE FOR GFR 0.83 MG/DL (0.55-1.30); GLOMERULAR FILTRATION RATE > 60.0 (>45); GLUCOSE, FASTING 96 MG/DL (74-106); POTASSIUM SERUM 4.8 MMOL/L (3.5-5.1); SODIUM LEVEL 140 MMOL/L (136-145)
[2024-03-08 08:00] VITALS: BP 121/72; TEMP 98.2; O2SAT 88
[2024-03-08] MEDS: FUROSEMIDE 40 MG TAB PO SCH (08:04)
[2024-03-08 10:00] VITALS: BP 102/56; TEMP 98.2; O2SAT 90
[2024-03-08] MEDS ORDERED: PROHANCE 279.3MG/ML 15ML VIAL As Ordered ONE (13:53)
[2024-03-08 16:46] LABS: ANGIOTENSIN 1 CONVERTING ENZYM 34 U/L (9-67)
[2024-03-08 19:34] VITALS: BP 120/78; TEMP 98.4; O2SAT 95
[2024-03-09] VITALS (17 sets, daily range): BP systolic 98–121; BP diastolic 50–79; TEMP 97.9–98.9; O2SAT 88–96
[2024-03-09] MEDS ORDERED: METOPROLOL 5 MG/5 ML VIAL IV STA ×2 (02:43→02:46)
[2024-03-09] MEDS ORDERED: METOPROLOL SUCC *XL* 25MG TAB (TopROL *XL*) PO ONE (02:50)
[2024-03-09 03:41] LABS: ABG HCO3 32.2 MMOL/L (22.0-26.0); ABG O2 SATURATION 96.5 % (95.0-99.0); ABG PARTIAL PRESSURE O2 81.3 mmHg (75.0-100.0); ABG STANDARD HCO3 30.9 MMOL/L. (22.0-26.0); ABG TOTAL CO2 33.7 MMOL/L (23.0-31.0); ABG pH (ARTERIAL) 7.454 UNITS (7.350-7.450)
[2024-03-09] MEDS: METOPROLOL TART 25 MG TABLET PO ONE (03:41)
[2024-03-09 03:45] LABS: BASO % 0.4 % (0.0-1.0); EOS # 0.2 10^3/uL (0.0-0.5); EOS % 2.1 % (0.0-3.0); HEMATOCRIT 47.1 % (36.0-47.0); HEMOGLOBIN 15.6 g/dl (12.0-15.5); LYMPH # 1.6 10^3/uL (1.5-5.0); LYMPH % 19.8 % (24.0-44.0); MEAN CORPUSCULAR HEMOGLOBIN 30.6 pg (27.0-33.0); MEAN CORPUSCULAR HGB CONC 33.1 g/dl (32.0-36.5); MEAN CORPUSCULAR VOLUME 92.5 fl (80.0-96.0); MONO # 0.9 10^3/uL (0.0-0.8); MONO % 10.9 % (2.0-8.0); NEUTROPHILS # 5.3 10^3/uL (1.5-8.5); NEUTROPHILS % 66.4 % (36.0-66.0); PLATELET COUNT, AUTOMATED 268 10^3/uL (150-450); RED BLOOD COUNT 5.09 10^6/uL (4.00-5.40)
[2024-03-09 04:05] LABS: ALBUMIN 3.3 G/DL (3.2-5.2); ALKALINE PHOSPHATASE 89 U/L (35-104); ALT/SGPT 25 U/L (7.0-40); AST/SGOT 25 U/L (<34); BILIRUBIN,TOTAL 0.6 MG/DL (0.3-1.2); BLOOD UREA NITROGEN 29 MG/DL (9-23); CALCIUM LEVEL 9.5 MG/DL (8.3-10.6); CARBON DIOXIDE LEVEL 35 MMOL/L (20-31); CHLORIDE LEVEL 96 MMOL/L (98-107); CREATININE FOR GFR 0.82 MG/DL (0.55-1.30); GLOMERULAR FILTRATION RATE > 60.0 (>45); GLUCOSE, FASTING 110 MG/DL (74-106); MAGNESIUM LEVEL 1.8 MG/DL (1.8-2.4); SODIUM LEVEL 136 MMOL/L (136-145)
[2024-03-09 06:10] LABS: ANA PATTERN Nuclear, Centromere (NEGATIVE); ANA SCREEN, IFA POSITIVE (NEGATIVE); ANA TITER > OR = 1:1280 titer (<1:40); ANA TITER 2 > OR = 1:1280 titer (NEGATIVE)
[2024-03-10] VITALS: BP 115/75; TEMP 98.6; O2SAT 96
[2024-03-10 04:00] VITALS: BP 124/78; TEMP 98.2; O2SAT 97
[2024-03-10 05:08] LABS: BASO % 0.4 % (0.0-1.0); EOS # 0.1 10^3/uL (0.0-0.5); EOS % 1.4 % (0.0-3.0); HEMATOCRIT 47.5 % (36.0-47.0); HEMOGLOBIN 15.5 g/dl (12.0-15.5); LYMPH # 1.4 10^3/uL (1.5-5.0); LYMPH % 20.5 % (24.0-44.0); MEAN CORPUSCULAR HEMOGLOBIN 30.3 pg (27.0-33.0); MEAN CORPUSCULAR HGB CONC 32.6 g/dl (32.0-36.5); MEAN CORPUSCULAR VOLUME 92.8 fl (80.0-96.0); MONO # 0.8 10^3/uL (0.0-0.8); MONO % 10.8 % (2.0-8.0); NEUTROPHILS # 4.7 10^3/uL (1.5-8.5); NEUTROPHILS % 66.5 % (36.0-66.0); PLATELET COUNT, AUTOMATED 285 10^3/uL (150-450); RED BLOOD COUNT 5.12 10^6/uL (4.00-5.40)
[2024-03-10 05:49] LABS: BLOOD UREA NITROGEN 31 MG/DL (9-23); CALCIUM LEVEL 9.2 MG/DL (8.3-10.6); CARBON DIOXIDE LEVEL 34 MMOL/L (20-31); CHLORIDE LEVEL 97 MMOL/L (98-107); CREATININE FOR GFR 0.83 MG/DL (0.55-1.30); GLOMERULAR FILTRATION RATE > 60.0 (>45); GLUCOSE, FASTING 105 MG/DL (74-106); POTASSIUM SERUM 4.2 MMOL/L (3.5-5.1); SODIUM LEVEL 135 MMOL/L (136-145)
[2024-03-10 07:48] VITALS: BP 121/71; TEMP 98; O2SAT 95
[2024-03-10] MEDS ORDERED: PRED20TA PO (11:56)
[2024-03-10] MEDS ORDERED: LEVO1TAB40 PO (12:11)
[2024-03-10] MEDS ORDERED: PRED10TA2 PO (12:15)
== END 2024-03-10 13:16 | disposition home health service (06) | DRG 177 ==
LOC: M ED 17:27 → EDBD 17:27 → M ED INP 22:34 → M ICU 03-04 00:43 → M MS5PR 03-08 09:40 → M PCU 03-09 02:57
PROVIDERS: ADMIT Student in an Organized Health Care Education/Training Program; ATTEND Student in an Organized Health Care Education/Training Program
PROC: B246ZZZ Ultrasonography of Right and Left Heart (ICD-10-PCS; principal; 2024-03-06)
DX: J69.0 Pneumonitis due to inhalation of food and vomit (principal); J96.21 Acute and chronic respiratory failure with hypoxia; I50.33 Acute on chronic diastolic (congestive) heart failure; E87.20 Acidosis, unspecified; I11.0 Hypertensive heart disease with heart failure; E78.5 Hyperlipidemia, unspecified; K21.9 Gastro-esophageal reflux disease without esophagitis; G35 Multiple sclerosis; K59.09 Other constipation; I27.20 Pulmonary hypertension, unspecified; R53.1 Weakness; J44.9 Chronic obstructive pulmonary disease, unspecified; I50.813 Acute on chronic right heart failure; I27.29 Other secondary pulmonary hypertension; R13.10 Dysphagia, unspecified; G40.909 Epilepsy, unspecified, not intractable, without status epilepticus; J84.9 Interstitial pulmonary disease, unspecified; R53.83 Other fatigue; E87.5 Hyperkalemia; E83.42 Hypomagnesemia; E86.0 Dehydration; Z99.81 Dependence on supplemental oxygen; Z90.49 Acquired absence of other specified parts of digestive tract; Z79.899 Other long term (current) drug therapy

== ENCOUNTER 2024-03-12 10:00 | Inpatient (IN) | payer MEDICARE, MEDICAID ==
[2024-03-12] VITALS (7 sets, daily range): BP systolic 118–119; BP diastolic 72–75; TEMP 97.3–97.5; O2SAT 91–98
[~2024-03-12 10:00] MED LIST changes: +ANOR1AER INH; +LEVO1TAB40 PO; +PRED10TA2 PO; +SENN-23 PO
[2024-03-12 10:38] LABS: VENOUS BASE EXCESS -0.7 (-2.0-2.0); VENOUS HCO3 25.9 MMOL/L (23.0-27.0); VENOUS O2 SATURATION 63.4 % (60.0-80.0); VENOUS PARTIAL PRESSURE CO2 49.8 mmHg (38.0-50.0); VENOUS PARTIAL PRESSURE O2 34.1 mmHg (30.0-50.0); VENOUS PH 7.334 UNITS (7.330-7.430); VENOUS STANDARD HCO3 22.9 MMOL/L; VENOUS TOTAL CO2 27.4 MMOL/L (24.0-28.0)
[2024-03-12 10:42] LABS: ABG BASE EXCESS 0.4 (-2.0-2.0); ABG HCO3 24.6 MMOL/L (22.0-26.0); ABG O2 SATURATION 94.4 % (95.0-99.0); ABG PARTIAL PRESSURE CO2 38.5 mmHg (35.0-45.0); ABG PARTIAL PRESSURE O2 70.2 mmHg (75.0-100.0); ABG STANDARD HCO3 24.8 MMOL/L. (22.0-26.0); ABG TOTAL CO2 25.8 MMOL/L (23.0-31.0); ABG pH (ARTERIAL) 7.424 UNITS (7.350-7.450)
[2024-03-12 10:44] LABS: BASO # 0.1 10^3/uL (0.0-0.2); BASO % 0.5 % (0.0-1.0); EOS # 0.2 10^3/uL (0.0-0.5); EOS % 1.8 % (0.0-3.0); HEMATOCRIT 47.8 % (36.0-47.0); HEMOGLOBIN 15.6 g/dl (12.0-15.5); LYMPH # 0.9 10^3/uL (1.5-5.0); LYMPH % 7.8 % (24.0-44.0); MEAN CORPUSCULAR HEMOGLOBIN 31.3 pg (27.0-33.0); MEAN CORPUSCULAR HGB CONC 32.6 g/dl (32.0-36.5); MONO # 0.7 10^3/uL (0.0-0.8); MONO % 6.3 % (2.0-8.0); NEUTROPHILS # 9.4 10^3/uL (1.5-8.5); NEUTROPHILS % 83.2 % (36.0-66.0); PLATELET COUNT, AUTOMATED 310 10^3/uL (150-450); RED BLOOD COUNT 4.98 10^6/uL (4.00-5.40); WHITE BLOOD COUNT 11.3 10^3/uL (4.0-10.0)
[2024-03-12] MEDS: IPRATROPIUM 0.5MG/ALBUTEROL 2.5MG INH SOL UD 3ML (DUONEB) NEB SCH (11:05)
[2024-03-12 11:09] LABS: INR 0.96; PARTIAL THROMBOPLASTIN TIME 26.7 SECONDS (24.8-34.2); PROTHROMBIN TIME 13.1 SECONDS (12.5-14.5)
[2024-03-12 11:18] LABS: ALBUMIN 3.5 G/DL (3.2-5.2); BILIRUBIN,DIRECT 0.4 MG/DL (<0.4); BILIRUBIN,TOTAL 0.9 MG/DL (0.3-1.2); C REACTIVE PROTEIN QUANTITATIV 1.11 MG/DL (<1.0); CALCIUM LEVEL 9.6 MG/DL (8.3-10.6); CREATININE FOR GFR 1.06 MG/DL (0.55-1.30); GLOMERULAR FILTRATION RATE 54.7 (>45); POTASSIUM SERUM 4.4 MMOL/L (3.5-5.1)
[2024-03-12 11:24] LABS: PROCALCITONIN 0.14 ng/ml
[2024-03-12] MEDS: methylPREDNISolone 125MG 2ML VIAL IV ONE (11:27)
[2024-03-12] MEDS: NS 0.9% IV ONE (11:27)
[2024-03-12] MEDS: [UNRECOGNIZED DRUG - OTHER] IV ONE (11:27)
[2024-03-12] MEDS: cefTRIAXone SOD 2 GM in DEXTROSE 5% (D5W) ADV/MINI-BAG 50 ML IV ONE (11:32)
[2024-03-12] MEDS ORDERED: ISOVUE-370 76% 100ML VIAL As Ordered ONE (11:40)
[2024-03-12 11:50] LABS: APPEARANCE, URINE CLEAR (CLEAR); BACTERIA, URINE AUTO NEGATIVE (NEGATIVE); BILIRUBIN, URINE AUTO NEGATIVE (NEGATIVE); BLOOD, URINE BLOOD NEGATIVE (NEGATIVE); COLOR, URINE YELLOW (YELLOW); GLUCOSE, URINE (UA) AUTO NEGATIVE (NEGATIVE); KETONE, URINE AUTO NEGATIVE (NEGATIVE); LEUKOCYTE ESTERASE, URINE AUTO NEGATIVE (NEGATIVE); NITRITE, URINE AUTO NEGATIVE (NEGATIVE); PROTEIN, URINE AUTO NEGATIVE (NEGATIVE); RBC, URINE AUTO 1 /HPF (0-3); SPECIFIC GRAVITY URINE AUTO 1.014 (1.002-1.035); SQUAMOUS EPITHELIAL CELL UR AU 4 /HPF (0-6); UROBILINOGEN, URINE AUTO 0.2 mg/dL (0.0-2.0); WBC, URINE AUTO 0 /HPF (0-3)
[2024-03-12] MEDS ORDERED: HOME MED LIST COMPLETE! XX SCH (12:20)
[2024-03-12] MEDS ORDERED: ALBUTEROL 90 MCG/ACT 8GM HFA INHALER INH PRN (18:50)
[2024-03-12] MEDS ORDERED: SUCRALFATE 1 GM TAB PO PRN (18:50)
[2024-03-12] MEDS: FAMOTIDINE 20 MG TAB PO SCH (20:04)
[2024-03-12] MEDS: LevoFLOXacin 750 MG TABLET PO SCH (20:04)
[2024-03-13] VITALS (16 sets, daily range): BP systolic 119–143; BP diastolic 73–95; TEMP 97.3–98.4; O2SAT 92–98
[2024-03-13 06:59] LABS: HEMATOCRIT 40.9 % (36.0-47.0); HEMOGLOBIN 13.7 g/dl (12.0-15.5); MEAN CORPUSCULAR HEMOGLOBIN 31.5 pg (27.0-33.0); MEAN CORPUSCULAR HGB CONC 33.5 g/dl (32.0-36.5); PLATELET COUNT, AUTOMATED 218 10^3/uL (150-450); RED BLOOD COUNT 4.35 10^6/uL (4.00-5.40)
[2024-03-13 07:27] LABS: PROCALCITONIN 0.07 ng/ml
[2024-03-13 07:44] LABS: ALKALINE PHOSPHATASE 81 U/L (35-104); ALT/SGPT 19 U/L (7.0-40); AST/SGOT 79 U/L (<34); BILIRUBIN,TOTAL 0.5 MG/DL (0.3-1.2); BLOOD UREA NITROGEN 25 MG/DL (9-23); CALCIUM LEVEL 8.9 MG/DL (8.3-10.6); CARBON DIOXIDE LEVEL 28 MMOL/L (20-31); CHLORIDE LEVEL 106 MMOL/L (98-107); CREATININE FOR GFR 0.63 MG/DL (0.55-1.30); GLOMERULAR FILTRATION RATE > 60.0 (>45); GLUCOSE, FASTING 96 MG/DL (74-106); POTASSIUM SERUM 4.1 MMOL/L (3.5-5.1); SODIUM LEVEL 140 MMOL/L (136-145); TOTAL PROTEIN 6.4 G/DL (5.7-8.2)
[2024-03-13] MEDS: ENOXAPARIN 40MG/0.4ML SYRINGE (J1650 PER 10MG) SC SCH (08:55)
[2024-03-13] MEDS: oxyBUTYnin *DITROPAN XL* 5 MG TABCR PO SCH (08:56)
[2024-03-13] MEDS: ATORVASTATIN 20 MG TAB PO SCH (08:56)
[2024-03-13] MEDS: FLUoxetine 20MG CAP PO SCH (08:56)
[2024-03-13] MEDS: predniSONE 20 MG TAB PO SCH (08:56)
[2024-03-14] VITALS (30 sets, daily range): BP systolic 88–137; BP diastolic 54–95; TEMP 97.9–98.9; O2SAT 85–97
[2024-03-14] MEDS: SENOKOT S TAB PO PRN (10:19)
[2024-03-15] VITALS (31 sets, daily range): BP systolic 129–142; BP diastolic 84–96; TEMP 97.3–98.4; O2SAT 81–98
[2024-03-15 06:01] LABS: HEMATOCRIT 45.8 % (36.0-47.0); HEMOGLOBIN 14.9 g/dl (12.0-15.5); MEAN CORPUSCULAR HEMOGLOBIN 30.8 pg (27.0-33.0); MEAN CORPUSCULAR HGB CONC 32.5 g/dl (32.0-36.5); MEAN CORPUSCULAR VOLUME 94.8 fl (80.0-96.0); PLATELET COUNT, AUTOMATED 241 10^3/uL (150-450); RED BLOOD COUNT 4.83 10^6/uL (4.00-5.40); WHITE BLOOD COUNT 7.3 10^3/uL (4.0-10.0)
[2024-03-15] MEDS: AMIODARONE 200 MG TAB (PACERONE) PO SCH (11:39)
[2024-03-16] VITALS (28 sets, daily range): BP systolic 140–146; BP diastolic 85–90; TEMP 97.4–98.5; O2SAT 89–96
[2024-03-16 08:10] LABS: HEMOGLOBIN 15.9 g/dl (12.0-15.5); MEAN CORPUSCULAR HEMOGLOBIN 31.4 pg (27.0-33.0); MEAN CORPUSCULAR HGB CONC 33.1 g/dl (32.0-36.5); MEAN CORPUSCULAR VOLUME 94.7 fl (80.0-96.0); PLATELET COUNT, AUTOMATED 268 10^3/uL (150-450); RED BLOOD COUNT 5.07 10^6/uL (4.00-5.40); WHITE BLOOD COUNT 8.7 10^3/uL (4.0-10.0)
[2024-03-16 08:46] LABS: BLOOD UREA NITROGEN 23 MG/DL (9-23); CALCIUM LEVEL 8.9 MG/DL (8.3-10.6); CARBON DIOXIDE LEVEL 27 MMOL/L (20-31); CHLORIDE LEVEL 106 MMOL/L (98-107); CREATININE FOR GFR 0.67 MG/DL (0.55-1.30); GLOMERULAR FILTRATION RATE > 60.0 (>45); GLUCOSE, FASTING 96 MG/DL (74-106); POTASSIUM SERUM 4.5 MMOL/L (3.5-5.1); SODIUM LEVEL 141 MMOL/L (136-145)
[2024-03-17] VITALS (28 sets, daily range): BP systolic 132–141; BP diastolic 83–87; TEMP 97.4–97.7; O2SAT 85–98
[2024-03-17 05:07] LABS: HEMATOCRIT 48.5 % (36.0-47.0); HEMOGLOBIN 16.3 g/dl (12.0-15.5); MEAN CORPUSCULAR HEMOGLOBIN 31.3 pg (27.0-33.0); MEAN CORPUSCULAR HGB CONC 33.6 g/dl (32.0-36.5); MEAN CORPUSCULAR VOLUME 93.1 fl (80.0-96.0); PLATELET COUNT, AUTOMATED 287 10^3/uL (150-450); RED BLOOD COUNT 5.21 10^6/uL (4.00-5.40); WHITE BLOOD COUNT 9.3 10^3/uL (4.0-10.0)
[2024-03-17 05:31] LABS: BLOOD UREA NITROGEN 26 MG/DL (9-23); CARBON DIOXIDE LEVEL 26 MMOL/L (20-31); CHLORIDE LEVEL 107 MMOL/L (98-107); CREATININE FOR GFR 0.65 MG/DL (0.55-1.30); GLOMERULAR FILTRATION RATE > 60.0 (>45); GLUCOSE, FASTING 102 MG/DL (74-106); POTASSIUM SERUM 4.8 MMOL/L (3.5-5.1); SODIUM LEVEL 139 MMOL/L (136-145)
[2024-03-17] MEDS ORDERED: MORPHINE 10MG/0.5ML ORAL CONCENTRATE SOLUTION U/D SL PRN (09:40)
[2024-03-18] VITALS (32 sets, daily range): BP systolic 131–143; BP diastolic 80–85; TEMP 97.9–98.7; O2SAT 85–97
[2024-03-18 06:09] LABS: HEMATOCRIT 48.9 % (36.0-47.0); MEAN CORPUSCULAR HEMOGLOBIN 31.3 pg (27.0-33.0); MEAN CORPUSCULAR HGB CONC 32.7 g/dl (32.0-36.5); MEAN CORPUSCULAR VOLUME 95.5 fl (80.0-96.0); PLATELET COUNT, AUTOMATED 257 10^3/uL (150-450); RED BLOOD COUNT 5.12 10^6/uL (4.00-5.40); WHITE BLOOD COUNT 10.2 10^3/uL (4.0-10.0)
[2024-03-18 06:43] LABS: BLOOD UREA NITROGEN 28 MG/DL (9-23); CALCIUM LEVEL 9.6 MG/DL (8.3-10.6); CARBON DIOXIDE LEVEL 32 MMOL/L (20-31); CHLORIDE LEVEL 104 MMOL/L (98-107); CREATININE FOR GFR 0.87 MG/DL (0.55-1.30); GLOMERULAR FILTRATION RATE > 60.0 (>45); GLUCOSE, FASTING 82 MG/DL (74-106); POTASSIUM SERUM 5.1 MMOL/L (3.5-5.1); SODIUM LEVEL 142 MMOL/L (136-145)
[2024-03-18] MEDS: SENNA 8.6 MG TAB (SENOKOT) PO SCH (13:52)
[2024-03-18] MEDS: MIRALAX *UNIT DOSE* 17GM PACKET PO SCH (13:52)
[2024-03-19] VITALS (25 sets, daily range): BP systolic 117–142; BP diastolic 79–86; TEMP 96.9–98.3; O2SAT 91–98
[2024-03-19 05:48] LABS: HEMATOCRIT 47.1 % (36.0-47.0); HEMOGLOBIN 15.3 g/dl (12.0-15.5); MEAN CORPUSCULAR HEMOGLOBIN 30.5 pg (27.0-33.0); MEAN CORPUSCULAR HGB CONC 32.5 g/dl (32.0-36.5); MEAN CORPUSCULAR VOLUME 93.8 fl (80.0-96.0); PLATELET COUNT, AUTOMATED 236 10^3/uL (150-450); RED BLOOD COUNT 5.02 10^6/uL (4.00-5.40); WHITE BLOOD COUNT 9.1 10^3/uL (4.0-10.0)
[2024-03-19 06:13] LABS: BLOOD UREA NITROGEN 22 MG/DL (9-23); CALCIUM LEVEL 9.2 MG/DL (8.3-10.6); CARBON DIOXIDE LEVEL 30 MMOL/L (20-31); CHLORIDE LEVEL 104 MMOL/L (98-107); CREATININE FOR GFR 0.64 MG/DL (0.55-1.30); GLOMERULAR FILTRATION RATE > 60.0 (>45); GLUCOSE, FASTING 84 MG/DL (74-106); POTASSIUM SERUM 4.6 MMOL/L (3.5-5.1); SODIUM LEVEL 139 MMOL/L (136-145)
[2024-03-19] MEDS: MIRALAX *UNIT DOSE* 17GM PACKET PO SCH (20:45)
[2024-03-19] MEDS: SENNA 8.6 MG TAB (SENOKOT) PO SCH (20:46)
[2024-03-20] VITALS (27 sets, daily range): BP systolic 125–138; BP diastolic 75–85; TEMP 97–97.9; O2SAT 91–100
[2024-03-20 06:34] LABS: HEMATOCRIT 45.8 % (36.0-47.0); HEMOGLOBIN 14.9 g/dl (12.0-15.5); MEAN CORPUSCULAR HGB CONC 32.5 g/dl (32.0-36.5); MEAN CORPUSCULAR VOLUME 95.2 fl (80.0-96.0); PLATELET COUNT, AUTOMATED 223 10^3/uL (150-450); RED BLOOD COUNT 4.81 10^6/uL (4.00-5.40); WHITE BLOOD COUNT 10.1 10^3/uL (4.0-10.0)
[2024-03-20 07:03] LABS: BLOOD UREA NITROGEN 28 MG/DL (9-23); CALCIUM LEVEL 9.5 MG/DL (8.3-10.6); CARBON DIOXIDE LEVEL 32 MMOL/L (20-31); CHLORIDE LEVEL 104 MMOL/L (98-107); CREATININE FOR GFR 0.76 MG/DL (0.55-1.30); GLOMERULAR FILTRATION RATE > 60.0 (>45); GLUCOSE, FASTING 86 MG/DL (74-106); POTASSIUM SERUM 4.6 MMOL/L (3.5-5.1); SODIUM LEVEL 141 MMOL/L (136-145)
[2024-03-20] MEDS: BISACODYL 10MG SUPP PR ONE (14:06)
[2024-03-21] VITALS (27 sets, daily range): BP systolic 122–151; BP diastolic 78–84; TEMP 97.2–98.2; O2SAT 92–100
[2024-03-21 06:07] LABS: HEMATOCRIT 46.4 % (36.0-47.0); MEAN CORPUSCULAR HGB CONC 32.3 g/dl (32.0-36.5); MEAN CORPUSCULAR VOLUME 95.9 fl (80.0-96.0); PLATELET COUNT, AUTOMATED 202 10^3/uL (150-450); RED BLOOD COUNT 4.84 10^6/uL (4.00-5.40); WHITE BLOOD COUNT 8.6 10^3/uL (4.0-10.0)
[2024-03-21 06:34] LABS: BLOOD UREA NITROGEN 26 MG/DL (9-23); CALCIUM LEVEL 9.2 MG/DL (8.3-10.6); CARBON DIOXIDE LEVEL 32 MMOL/L (20-31); CHLORIDE LEVEL 104 MMOL/L (98-107); CREATININE FOR GFR 0.71 MG/DL (0.55-1.30); GLOMERULAR FILTRATION RATE > 60.0 (>45); GLUCOSE, FASTING 87 MG/DL (74-106); POTASSIUM SERUM 4.8 MMOL/L (3.5-5.1); SODIUM LEVEL 141 MMOL/L (136-145)
[2024-03-22] VITALS (16 sets, daily range): BP systolic 141–142; BP diastolic 81–87; TEMP 97.9; O2SAT 89–98
[2024-03-22] MEDS: BISACODYL 10MG SUPP PR PRN (10:02)
[2024-03-22] MEDS ORDERED: AMIO200T49 PO (11:43)
[2024-03-22] MEDS ORDERED: HYOS125TA PO (11:43)
[2024-03-22] MEDS ORDERED: ATIV1TAB10 PO (11:43)
[2024-03-22] MEDS ORDERED: MORP1SOL5 PO (11:43)
[2024-03-22] MEDS ORDERED: MIRA33506 PO (11:43)
[2024-03-22] MEDS ORDERED: PRED20TA PO (11:43)
[2024-03-22] MEDS ORDERED: VENTAER INH (12:53)
[2024-03-22] MEDS ORDERED: ANOR1AER INH (12:53)
== END 2024-03-22 14:00 | disposition hospice, home (50) | DRG 197 ==
LOC: EDBD 10:00 → M ED 10:00 → EDSEX 10:00 → M ED INP 10:01 → UNDOADMOB 10:01 → M ED INP 17:47 → M PCU 17:47 → M ED 18:02 → OBSVTOIN 03-16 17:05 → INTOOBSV 03-16 17:05 → UNDODISIN 03-22 13:58
PROVIDERS: ADMIT Student in an Organized Health Care Education/Training Program; ATTEND Student in an Organized Health Care Education/Training Program
DX: J84.9 Interstitial pulmonary disease, unspecified (principal); J96.11 Chronic respiratory failure with hypoxia; I50.32 Chronic diastolic (congestive) heart failure; E87.20 Acidosis, unspecified; I47.19 Other supraventricular tachycardia; I27.20 Pulmonary hypertension, unspecified; G35 Multiple sclerosis; Z99.81 Dependence on supplemental oxygen; I11.0 Hypertensive heart disease with heart failure; E78.5 Hyperlipidemia, unspecified; K21.9 Gastro-esophageal reflux disease without esophagitis; G40.909 Epilepsy, unspecified, not intractable, without status epilepticus; K59.09 Other constipation; Z51.5 Encounter for palliative care; Z66 Do not resuscitate; J44.9 Chronic obstructive pulmonary disease, unspecified; I95.89 Other hypotension; E86.0 Dehydration; R53.81 Other malaise; R53.1 Weakness; R13.10 Dysphagia, unspecified; R53.83 Other fatigue; M10.9 Gout, unspecified; I50.810 Right heart failure, unspecified; Z87.891 Personal history of nicotine dependence; Z79.899 Other long term (current) drug therapy

== ENCOUNTER → 2024-04-02 | Outpatient (REF) | payer MEDICARE, MEDICAID, OTHER ==
[~2024-04-02] MED LIST changes: +AMIO200T49 PO; +ATIV1TAB10 PO; +HYOS125TA PO; +MORP1SOL5 PO
[2024-04-02 21:31] LABS: APPEARANCE, URINE CLOUDY (CLEAR); BACTERIA, URINE AUTO 1+ (NEGATIVE); BILIRUBIN, URINE AUTO NEGATIVE (NEGATIVE); BLOOD, URINE BLOOD 2+ (NEGATIVE); COLOR, URINE YELLOW (YELLOW); GLUCOSE, URINE (UA) AUTO NEGATIVE (NEGATIVE); KETONE, URINE AUTO NEGATIVE (NEGATIVE); LEUKOCYTE ESTERASE, URINE AUTO 2+ (NEGATIVE); NITRITE, URINE AUTO NEGATIVE (NEGATIVE); PROTEIN, URINE AUTO NEGATIVE (NEGATIVE); RBC, URINE AUTO 44 /HPF (0-3); SPECIFIC GRAVITY URINE AUTO 1.012 (1.002-1.035); SQUAMOUS EPITHELIAL CELL UR AU 1 /HPF (0-6); UROBILINOGEN, URINE AUTO 0.2 mg/dL (0.0-2.0); WBC, URINE AUTO 25 /HPF (0-3)
== END ==
LOC: M LAB REF 20:55
PROVIDERS: ATTEND Family Medicine
DX: N39.0 Urinary tract infection, site not specified (principal)